=== PATIENT | male | born 1950 | race Caucasian/White ===

== ENCOUNTER 2016-09-07 11:13 | Observation (INO) | payer OTHER ==
[2016-09-07 11:31] VITALS: BMI 35.7
--- NOTE | 2016-09-07 11:31 | DR.GENAD ---
HPI - PCP Primary Care Physician: DEEPAK - Complaint/Symptoms Chief Complaint:: PT C/O LT SIDED CHEST PAIN RADIATING DOWN LT ARM. PT STATES HIS PAIN STARTED LAST NIGHT AND IT IS A STABBING PAIN. - Nurses notes reviewed Nurses Notes Review: Yes - Source History Provided: Patient - Mode of Arrival Mode of Arrival: Ambulatory - Timing Onset of Chief Complaint: 09/06/16 Came on: Gradually - Duration Duration: Intermittent How lon Duration: Hours - Location Location: CHEST - Severity Severity: Mild - Modifying Factors Worsens:: UNKNOWN - Associated Signs and Symptoms Associated Signs and Symptoms: NONE PMH - PMH Past Medical History: Yes Past Medical History: Angina, Coronary Artery Disease, Diabetes, Dyslipidemia, Hypertension Past Surgical History: Yes Surgical History: Angioplasty/Stents, CABG/Valve Surgery, Cholecystectomy, Ortho Surgery - Family History History of Family Medical Conditions: No - Social History Does any household member use tobacco: No Alcohol Use: None Do you use any recreational Drugs:: No Lives With: Family Lives Where: Home - infectious screening In the last 2 months have you had wt loss of >10#?: NO Have you had fever, night sweats or hemotysis?: No Have you traveled outside the country in the last 6 months?: No Isolation: Standard ROS - Review of Systems Constitutional: No Symptoms Reported Eyes: No Symptoms Reported ENTM: No Symptoms Reported Respiratoy: No Symptoms Reported Cardiovascular: Chest Pain (STABBING) Gastrointestinal/Abdominal: No Symptoms Reported Genitourinary: No Symptoms Reported Neurological: No Symptoms Reported Musculoskeletal: No Symptoms Reported Integumentary: No Symptoms Reported Hematologic/Lymphatic: No Symptoms Reported Endocrine: No Symptoms Reported Psychiatric: Depression All Other Systems: Reviewed and Negative PE - Vital Signs Vitals: Temperature 97.6 F Pulse Rate [Left Brachial] 52 Pulse Rate 60 Respiratory Rate 20 Blood Pressure [Left Arm] 104/66 Blood Pressure 168/91 O2 Sat by Pulse Oximetry 96 - General Limitations: No Limitations General Appearance: Alert, In No Apparent Distress - Head Head Exam: Normal Inspection - Eyes Eye exam: Normal Appearance, EOMI. negative: Scleral Icterus, Conjunctival Injection - ENT ENT Exam: Normal Exam, Normal Oropharynx External Ear Exam: Normal External Inspection Nose Exam: Normal Nose Exam Mouth Exam: Normal Inspection Throat Exam: Normal Inspection - Neck Neck Exam: Normal Inspection, Full ROM, Trachea Midline - Chest Chest Inspection: Normal Inspection - Respiratory Respiratory Exam: Normal Lung Sounds Bilat. negative: Accessory Muscle Use, Prolonged Expiratory Phase Respiratory Exam: Bilateral Clear to Auscultation - Cardiovascular Cardiovascular Exam: Regular Rate, Normal Rhythm - Abdominal Exam Abdominal Exam: Normal Inspection, Normal Bowel Sounds, Soft. negative: Distention - Extremities Extremities Exam: Normal Inspection, Full ROM, Tenderness - Back Back Exam: Normal Inspection, Full ROM - Neurologic Neurological Exam: Alert, Oriented X3, CN II-XII Intact - Psychiatric Psychiatric Exam: Normal Affect - Skin Skin Exam: Intact, Normal Color Course - Consultation Called: 12:40 Call Returned: 12:43 Consultation Comments: case discussed with Dr.Sinclair merlos rule out NC ROR - Labs Reviewed Result Diagrams: 09/07/16 11:40 09/07/16 11:40 Laboratory: WBC 4.3 X10^3/uL (3.6-10.0) 09/07/16 11:40 RBC 4.69 X10^6/uL (4.7-6.0) L 09/07/16 11:40 Hgb 14.2 g/dL (13.5-18.0) 09/07/16 11:40 Hct 42.2 % (42.0-54.0) 09/07/16 11:40 MCV 90.0 fL (80.0-100.0) 09/07/16 11:40 MCH 30.4 pg (27.0-34.0) 09/07/16 11:40 MCHC 33.7 g/dL (33.0-35.0) 09/07/16 11:40 RDW 13.3 % (11.6-16.5) 09/07/16 11:40 Plt Count 149 X10^3/uL (150.0-450.0) L 09/07/16 11:40 MPV 9.9 fL (7.4-11.0) 09/07/16 11:40 Neut % 59.4 % (42.0-75.0) 09/07/16 11:40 Lymph % 29.0 % (21.0-51.0) 09/07/16 11:40 [place] % 7.4 % (0.0-13.0) 09/07/16 11:40 Eos % 3.1 % (0.9-2.9) H 09/07/16 11:40 Baso % 1.1 % (0.2-1.0) H 09/07/16 11:40 Neut # 2.5 x10^3/uL (2.2-4.8) 09/07/16 11:40 Lymph # 1.2 X10^3/uL (1.3-2.9) L 09/07/16 11:40 [place] # 0.3 x10^3/uL (0.3-0.8) 09/07/16 11:40 Eos # 0.1 x10^3/uL (0.0-0.2) 09/07/16 11:40 Baso # 0.0 X10^3/uL (0.0-0.1) 09/07/16 11:40 Absolute Nucleated RBC 0.1 /100WBC 09/07/16 11:40 INR Target Range - 09/07/16 11:40 INR 2.07 (0.8-1.3) H 09/07/16 11:40 PTT 36.6 SECONDS (22.9-36.5) H 09/07/16 11:40 PTT Comment - 09/07/16 11:40 Sodium 144 mmol/L (136-145) 09/07/16 11:40 Corrected Sodium 146 mmol/L (136-145) H 09/07/16 11:40 Potassium 4.1 mmol/L (3.5-5.1) 09/07/16 11:40 Chloride 105 mmol/L (98-107) 09/07/16 11:40 Carbon Dioxide 27.4 mmol/L (21-32) 09/07/16 11:40 BUN 13 mg/dL (7-18) 09/07/16 11:40 Creatinine 1.06 mg/dL (0.70-1.30) 09/07/16 11:40 Est GFR (MDRD) Af Amer > 60 (>60) 09/07/16 11:40 Est GFR (MDRD) Non-Af > 60 (>60) 09/07/16 11:40 Glucose 180 mg/dL (65-99) H 09/07/16 11:40 Calcium 8.8 mg/dL (8.5-10.1) 09/07/16 11:40 Corrected Calcium TNP 09/07/16 11:40 Magnesium 1.9 mg/dL (1.7-2.9) 09/07/16 11:40 Total Bilirubin 0.30 mg/dL (0.2-1.0) 09/07/16 11:40 AST 32 Units/L (15-37) 09/07/16 11:40 ALT 48 Units/L (12-78) 09/07/16 11:40 Alkaline Phosphatase 61 Units/L (46-116) 09/07/16 11:40 Creatine Kinase 150 Units/L (39-308) 09/07/16 11:40 Troponin I < 0.02 ng/mL (0-1.5) 09/07/16 11:40 Total Protein 7.7 g/dL (6.4-8.2) 09/07/16 11:40 Albumin 4.0 g/dL (3.4-5.0) 09/07/16 11:40 Globulin 3.7 g/dL (2.5-4.5) 09/07/16 11:40 Albumin/Globulin Ratio 1.1 Ratio (1.1-2.1) 09/07/16 11:40 - XRAY XRAY Interpreted by: Radiologist XRAY Findings: chest: no acute disease - EKG Rate: 70 [place]: LAD Rhythm: NSR Block: None Hypertrophy: None ST: Old, Inf, Infarct - Diagnosis Discharge Problem: Chest pain Qualifiers: Chest pain type: precordial pain Qualified Code(s): R07.2 - Precordial pain - Discharge Plan Disposition: ADMITTED INPATIENT Condition: Stable - Follow ups/Referrals - Instructions
[2016-09-07] MEDS ORDERED: NITROSTAT SL ONE (11:33)
[2016-09-07] MEDS ORDERED: NITROSTAT SL PRN (11:38)
[2016-09-07 11:47] LABS: BASOPHILS % (AUTO) 1.1 % (0.2-1.0); EOSINOPHILS # (AUTO) 0.1 x10^3/uL (0.0-0.2); EOSINOPHILS % (AUTO) 3.1 % (0.9-2.9); HEMATOCRIT 42.2 % (42.0-54.0); HEMOGLOBIN 14.2 g/dL (13.5-18.0); LYMPHOCYTES # (AUTO) 1.2 X10^3/uL (1.3-2.9); MEAN CORPUSCULAR HEMOGLOBIN 30.4 pg (27.0-34.0); MEAN CORPUSCULAR HGB CONC 33.7 g/dL (33.0-35.0); MEAN PLATELET VOLUME 9.9 fL (7.4-11.0); MONOCYTES # (AUTO) 0.3 x10^3/uL (0.3-0.8); MONOCYTES % (AUTO) 7.4 % (0.0-13.0); NEUTROPHILS # (AUTO) 2.5 x10^3/uL (2.2-4.8); NEUTROPHILS % (AUTO) 59.4 % (42.0-75.0); PLATELET COUNT 149 X10^3/uL (150.0-450.0); RED BLOOD COUNT 4.69 X10^6/uL (4.7-6.0); RED CELL DISTRIBUTION WIDTH 13.3 % (11.6-16.5); WHITE BLOOD COUNT 4.3 X10^3/uL (3.6-10.0)
[2016-09-07 12:20] LABS: BLOOD UREA NITROGEN 13 mg/dL (7-18); CALCIUM 8.8 mg/dL (8.5-10.1); CARBON DIOXIDE 27.4 mmol/L (21-32); CHLORIDE 105 mmol/L (98-107); COR NA(FOR HYPERGLY) 146 mmol/L (136-145); CREATININE 1.06 mg/dL (0.70-1.30); GLUCOSE 180 mg/dL (65-99); SODIUM 144 mmol/L (136-145); TROPONIN I < 0.02 ng/mL (0-1.5); eGFR BLACK RACES > 60 (>60); eGFR NON BLACK RACES > 60 (>60)
--- NOTE | 2016-09-07 12:22 | RAD ---
HISTORY: Chest pain Study: Single view of the chest. Comparison: 12/27/2015 Findings: The cardiomediastinal silhouette is normal. No focal consolidations, pleural effusions or pneumothor ax. Osseous structures demonstrate no acute abnormality. IMPRESSION: 1. No acute cardiopulmonary process. Reported By:
[2016-09-07 12:24] LABS: ALANINE AMINOTRANSFERASE 48 Units/L (12-78); ALKALINE PHOSPHATASE 61 Units/L (46-116); ASPARTATE AMINO TRANSFERASE 32 Units/L (15-37); CREATINE KINASE 150 Units/L (39-308); MAGNESIUM 1.9 mg/dL (1.7-2.9); TOTAL PROTEIN 7.7 g/dL (6.4-8.2)
[2016-09-07 13:12] LABS: CKMB % 1.4 % (<4); CREATINE KINASE MB 2.1 ng/mL (0-4.0)
[2016-09-07] MEDS ORDERED: ULTRAM PO PRN (14:21)
[2016-09-07] MEDS ORDERED: NORCO 10/325 TAB PO ONE (16:43)
[2016-09-07 17:17] LABS: CREATINE KINASE 133 Units/L (39-308); TROPONIN I < 0.02 ng/mL (0-1.5)
[2016-09-07] MEDS ORDERED: XANAX PO PRN (18:14)
[2016-09-07] MEDS ORDERED: FLEXERIL TAB 10 MG PO PRN (18:14)
[2016-09-07 18:30] LABS: CKMB % 1.6 % (<4); CREATINE KINASE MB 2.1 ng/mL (0-4.0)
[2016-09-07] MEDS ORDERED: COUMADIN TAB 5 MG PO SCH (21:00)
[2016-09-07] MEDS: PROTONIX TAB 40 MG PO SCH (21:25)
[2016-09-07] MEDS: NEURONTIN TAB 600 MG PO SCH (21:25)
[2016-09-07] MEDS: REGLAN TAB 10 MG PO SCH (21:26)
[2016-09-07] MEDS: LOPID PO SCH (21:26)
[2016-09-07] MEDS ORDERED: TOPROL XL PO SCH (23:00)
[2016-09-07 23:41] LABS: CKMB % 1.5 % (<4); CREATINE KINASE 123 Units/L (39-308); CREATINE KINASE MB 1.9 ng/mL (0-4.0); TROPONIN I < 0.02 ng/mL (0-1.5)
[2016-09-07] MEDS: NORCO 10/325 TAB PO PRN (23:44)
[2016-09-08] MEDS: REGLAN TAB 10 MG PO SCH (05:41)
[2016-09-08] MEDS: NEURONTIN TAB 600 MG PO SCH (05:42)
[2016-09-08 05:58] LABS: CHOL/HDL RATIO 5.5 (0.0-5.0)
[2016-09-08] MEDS ORDERED: ZESTRIL TAB 20 MG ONE (07:33)
[2016-09-08 08:45] VITALS: BP 125/69
[2016-09-08] MEDS: LOPID PO SCH (08:47)
[2016-09-08] MEDS: PROTONIX TAB 40 MG PO SCH (08:47)
[2016-09-08] MEDS: NORCO 10/325 TAB PO PRN (08:59)
[2016-09-08] MEDS ORDERED: VITAMIN D (1.25MG) PO SCH ×2 (09:00)
[2016-09-08] MEDS ORDERED: MYSOLINE PO SCH (09:00)
[2016-09-08] MEDS ORDERED: ZESTRIL TAB 20 MG PO SCH (09:00)
[2016-09-08] MEDS ORDERED: FLOMAX PO SCH (09:00)
[2016-09-08] MEDS ORDERED: TOPROL XL PO SCH (09:00)
[2016-09-08] MEDS ORDERED: PLAVIX PO SCH (09:00)
--- NOTE | 2016-09-08 16:22 | DR.CARTERS ---
Short Stay Summary - Short Stay Summary for: Short Stay Summary for Date of:: 09/08/16 - Admission Date Date of Admission: 09/07/16 - Discharge Date Discharge Date: 09/08/16 - Admission Diagnoses (1) Chest pain Status: Acute - Hospital Course Hospital Course: PATIENT IS A 66-YEAR-OLD WHITE MALE WHO WAS ADMITTED FROM THE EMERGENCY ROOM AFTER PRESENTING WITH COMPLAINTS OF LEFT-SIDED CHEST PAIN. pATIENT DOES HAVE A HISTORY OF CORONARY ARTERY DISEASE WITH A HISTORY OF BYPASS APPROXIMATELY 6 MONTHS AGO PER dR. Pema Adkins IN [place] WITH [facility]. pATIENT USUALLY SEES dR. Harris. 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 pATIENT HAS BEEN ON pLAVIX AND ASPIRIN BLOOD PRESSURE AND LIPID CONTROL. pATIENT WAS ADMITTED TO RULE OUT ACUTE mi PATIENT HAD A CHEST X-RAY WHICH WAS WITHIN NORMAL LIMITS, PATIENT HAD SERIAL CARDIAC ENZYMES AND ekg WITH NO ACUTE CHANGES. tHE PATIENT DENIES ANY CHEST PAIN THIS MORNING OR SHORTNESS OF BREATH WITH DIAPHORESIS OR WEAKNESS. pATIENT STATED HE FEELS MUCH BETTER AND READY TO GO HOME. pATIENT WAS DISCHARGED HOME TO RESUME HOME MEDICATIONS WELL KEEP A BLOOD PRESSURE LOG. pATIENT INSTRUCTED TO USE A cpap MACHINE PRESCRIBED. pATIENT INSTRUCTED TO FOLLOW-UP WITH GLENDA SOTELO IN 1 WEEK FOR FURTHER EVALUATION AND dR. Garcia SCHEDULED FOR HOSPITAL FOLLOW-UP. pATIENT INSTRUCTED TO RETURN TO EMERGENCY ROOM IF CONDITION CHANGES OR WORSEN UNEXPECTEDLY PATIENT VERBALIZED UNDERSTANDING. - Discharge Medications Discharge Medications: Alprazolam 0.5 mg PO BID 09/07/16 [History] Clopidogrel Bisulfate [Clopidogrel] 75 mg PO DAILY 09/07/16 [History] Cyclobenzaprine HCl [Flexeril] 5 mg PO TID PRN 09/07/16 [History] Ergocalciferol [Vitamin D] 50,000 unit PO WEEKLY 09/07/16 [History] Gabapentin [Gabapentin] 600 mg PO TID 09/07/16 [History] Gemfibrozil 600 mg PO BID 09/07/16 [History] Hydrocodone-Acetaminophen [Lorcet Hd 10-325 mg] 1 tab PO Q4-6H PRN 09/07/16 [ History] Lisinopril [Lisinopril] 20 mg PO DAILY 09/07/16 [History] Metoclopramide HCl [Metoclopramide Odt] 10 mg PO ACHS 09/07/16 [History] Metoprolol Succinate Ext Rel [TOPROL XL 50 MG *] 50 mg PO DAILYHS 09/07/16 [ History] Primidone [Primidone] 50 mg PO DAILY 09/07/16 [History] Rabeprazole Sodium [Aciphex] 20 mg PO BID 09/07/16 [History] Simvastatin [Simvastatin] 80 mg PO HS 09/07/16 [History] Tamsulosin HCl 0.4 mg PO DAILY 09/07/16 [History] Warfarin Sodium [COUMADIN 5 MG *] 5 mg PO DAILY 09/07/16 [History] - Discharge Plan Disposition: HOME, SELF-CARE Condition: Stable - Follow up/Referrals Follow up/Referrals: OSVALDO SOTELO [Primary Care Provider] - 09/11/16 2:30 pm - Instructions Instructions: Warfarin: What You Need to Know, Nonspecific Chest Pain, Hypertension, [id number] Additional Instructions: RESUME HOME MEDS REST, SEE DR GARCIA ON OP BASIS DISCUSSED NEED FOR USE OF HIS CPAP SEE GLENDA SOTELO ON SUNDAY FOR FOLLOWUP BP RECHECK Forms: Patient Portal
== END 2016-09-08 13:00 | disposition home or self-care (01) ==
LOC: ER 11:22 → MED/SURG 12:47
PROVIDERS: ADMIT Internal Medicine; ATTEND Internal Medicine
DX: R07.2 Precordial pain (principal); R94.31 Abnormal electrocardiogram [ECG] [EKG]; I25.10 Atherosclerotic heart disease of native coronary artery without angina pectoris; E11.65 Type 2 diabetes mellitus with hyperglycemia; E78.2 Mixed hyperlipidemia; I10 Essential (primary) hypertension; Z79.01 Long term (current) use of anticoagulants; R79.1 Abnormal coagulation profile; R06.02 Shortness of breath; E87.0 Hyperosmolality and hypernatremia
CPT/HCPCS: 36415; 71010; 80053; 80061; 82550; 82553; 83735; 84484; 85025; 85610; 85730; 93005; 93010; 94760; 96365; 99284; A4216; A4222; G0378

== ENCOUNTER → 2016-09-14 | Outpatient (CLI) | payer OTHER ==
[2016-09-08 08:45] VITALS: BP 125/69
[~2016-09-14] MED LIST: NS 100 ML IV 100 ML IV ONE
--- NOTE | 2016-09-18 08:43 | CT ---
CTA ABDOMEN AND PELVIS WITH AND WITHOUT CONTRAST CLINICAL INDICATION: Abdominal aortic aneurysm PROCEDURE: Noncontrast CTA images were initially obtained through the abdomen and pelvis. Followin g administration of non-ionic IV contrast, postcontrast CTA images were obtained through the abdomen and pelvis. 3D reconstructions were performed. Dose reduction techniques including Automated Expos ure Control (AEC) and adjustment of mA and kV were utlized. COMPARISON: Lumbar spine MRI 10/26/2014 FINDINGS: Vascular: Patient is status post aorto bi-iliac stent placement. Infrarenal abdominal aorta measures 2.9 cm maximally, previously 3.2 cm. Atherosclerotic calcification of the aorta and major branches. No dissection. CTA Abdomen without contrast: Gallbladder absent. Severe hepatic steatosis. No renal stones. Lung b ases demonstrate no significant abnormality. Severe Coronary and valvular calcification. CTA Pelvis without contrast: No distal ureteral stones or bladder stones. CTA Abdomen with intravenous contrast: Liver and spleen are normal in size, enhancement characterist ics and contour. No focal lesions. Duodenal diverticulum.. The portal vein is patent. No ductal dili tation. Gallbladder is present. No gallbladder wall thickening. The pancreas is unremarkable. Adrena l glands are normal. Kidneys enhance symmetrically without hydronephrosis. No bowel obstruction or inflammation. No abnormal appearing mesenteric or retroperitoneal lymph nod es. No free fluid or fluid collections. CTA Pelvis with contrast: The bladder is normal in appearance. Prostate not well evaluated secondary to streak artifact from hip prostheses. No free fluid or abnormal pelvic lymph nodes. No aggressiv e osseous lesions. IMPRESSION: 1. Stable to decreased size of infrarenal abdominal aortic aneurysm status post stent placement. David nt appears to be patent. 2. Severe diffuse vascular disease. 3. Hepatic steatosis. Reported By:
== END | disposition home or self-care (01) ==
LOC: RAD 09:15
PROVIDERS: ATTEND Nurse Practitioner Family
DX: I71.4 Abdominal aortic aneurysm, without rupture (principal); K76.0 Fatty (change of) liver, not elsewhere classified; I99.8 Other disorder of circulatory system; Z95.828 Presence of other vascular implants and grafts
CPT/HCPCS: A4222

== ENCOUNTER 2016-10-10 23:26 | Emergency (ER) | payer OTHER ==
[2016-10-10 23:30] VITALS: BMI 35.7
--- NOTE | 2016-10-10 23:37 | DR.HTN ---
HPI - Time Seen Time seen: 23:50 - Primary Care Physician Primary Care Physician: MARCO SOTELO - Complaints Chief Complaint:: "ELEVATED BLOOD PRESSURE ALL DAY. CALLED , NURSE WAS TO CALL US BACK WITH INSTRUCTIONS ON WHAT TO DO AND DID NOT. HE HAS TAKEN EXTRA BP MEDS AND NITROGLYCERINS TO GET IT DOWN. IT DROPS AND GOES RIGHT BACK UP." - Reviewed Nurses Notes Reviewed: Yes - Source History Provided: Patient - Mode of Arrival Mode of Arrival: Ambulatory - Timing Onset of Chief Complaint: 10/10/16 - Severity Severity: Mild - Context Circumstances: Spontaneous Onset History of: Hypertension Treatment of HTN Prior to Arrival: Taking meds as prescribed - Associated Signs and Symptoms HTN Associated Signs and Symptoms: None - Other History Other History: getting BP controlled by PCP. On meds for 2 weeks now. PMH - PMH Past Medical History: Yes Past Medical History: Angina, Coronary Artery Disease, Diabetes, Dyslipidemia, Hypertension Past Surgical History: Yes Surgical History: Angioplasty/Stents, CABG/Valve Surgery, Cholecystectomy, Ortho Surgery - Family History History of Family Medical Conditions: Yes Family Medical History: [place], Coronary Artery Disease, Hypertension - Social History Does patient currently use any type of tobacco product: No Have you used tobacco products in the last 12 months: No Type of Tobacco Use: None Alcohol Use: None Do you use any recreational Drugs:: No Lives With: Spouse Lives Where: Home - infectious screening Have you traveled outside the country in the last 6 months?: No Isolation: Standard ROS - Review of Systems Constitutional: No Symptoms Reported Eyes: No Symptoms Reported ENTM: No Symptoms Reported Respiratoy: No Symptoms Reported Cardiovascular: No Symptoms Reported Gastrointestinal/Abdominal: No Symptoms Reported Genitourinary: No Symptoms Reported Neurological: No Symptoms Reported Musculoskeletal: No Symptoms Reported Integumentary: No Symptoms Reported Hematologic/Lymphatic: No Symptoms Reported Endocrine: No Symptoms Reported Psychiatric: Anxiety All Other Systems: Reviewed and Negative PE - Vital Signs Vitals: Temperature 97.4 F Pulse Rate [Right Brachial] 54 Pulse Rate 58 Respiratory Rate 16 Blood Pressure [Right Arm] 158/80 Blood Pressure [Left Arm] 175/93 Blood Pressure 176/112 O2 Sat by Pulse Oximetry 96 - General Limitations: No Limitations General Appearance: Alert, In No Apparent Distress - Head Head Exam: Normal Inspection - Eyes Eye exam: Normal Appearance, EOMI. negative: Scleral Icterus, Conjunctival Injection Pupils: Regular, Round: Bilateral Sclera/Conjunctival: Normal Inspection: Bilateral - ENT ENT Exam: Normal Exam, Normal Oropharynx - Neck Neck Exam: Normal Inspection, Full ROM, Trachea Midline - Respiratory Respiratory Exam: Normal Lung Sounds Bilat. negative: Accessory Muscle Use, Respiratory Distress - Cardiovascular Cardiovascular Exam: Regular Rate - Extremities Extremities Exam: Normal Inspection, Full ROM - Back Back Exam: Normal Inspection - Neurologic Neurological Exam: Alert, Oriented X3, CN II-XII Intact Patient Oriented To: Person, Place, Time Speech: Fluid Speech Cranial Nerve Exam: EOM Function (II, III, IV, ): Normal, Facial Sensation (V) : Normal, Facial Palsy (VII): Normal, Gag reflex (XI): Normal, Spinal Accessory Function (XI): Normal, Tongue Deviation: Normal - Psychiatric Psychiatric Exam: Normal Mood - Skin Skin Exam: Intact, Normal Color Course - Treatment Treatment: BP came down with catapress, will discharge with a RX for catapress as abreak through medicne - Diagnosis Discharge Problem: Hypertension Qualifiers: Hypertension type: essential hypertension Qualified Code(s): I10 - Essential ( primary) hypertension - Discharge Plan Condition: Stable Prescriptions: Clonidine HCl [Catapres Tab 0.2 mg] 0.2 mg PO PRN PRN #30 tab PRN Reason: Hypertension - Follow ups/Referrals Follow ups/Referrals: OSVALDO SOTELO [Primary Care Provider] - 3 days - Instructions
[2016-10-10] MEDS ORDERED: CATAPRES TAB 0.2 MG PO ONE (23:54)
[2016-10-10] MEDS ORDERED: CATAPRES TAB 0.2 MG ONE (23:58)
[2016-10-11 00:33] VITALS: BP 156/81
== END 2016-10-11 00:38 | disposition home or self-care (01) ==
LOC: ER 23:39
DX: I10 Essential (primary) hypertension (principal)
CPT/HCPCS: 99282

== ENCOUNTER → 2016-10-31 | Outpatient (CLI) | payer OTHER ==
[2016-10-11 00:33] VITALS: BP 156/81
[2016-10-31 08:55] LABS: BASOPHILS # (AUTO) 0.1 X10^3/uL (0.0-0.1); EOSINOPHILS # (AUTO) 0.1 x10^3/uL (0.0-0.2); EOSINOPHILS % (AUTO) 1.6 % (0.9-2.9); HEMATOCRIT 44.2 % (42.0-54.0); HEMOGLOBIN 15.1 g/dL (13.5-18.0); LYMPHOCYTES # (AUTO) 1.9 X10^3/uL (1.3-2.9); LYMPHOCYTES % (AUTO) 27.5 % (21.0-51.0); MEAN CORPUSCULAR HGB CONC 34.1 g/dL (33.0-35.0); MEAN CORPUSCULAR VOLUME 90.8 fL (80.0-100.0); MEAN PLATELET VOLUME 9.3 fL (7.4-11.0); MONOCYTES # (AUTO) 0.5 x10^3/uL (0.3-0.8); MONOCYTES % (AUTO) 6.9 % (0.0-13.0); NEUTROPHILS # (AUTO) 4.3 x10^3/uL (2.2-4.8); PLATELET COUNT 194 X10^3/uL (150.0-450.0); RED BLOOD COUNT 4.87 X10^6/uL (4.7-6.0); RED CELL DISTRIBUTION WIDTH 13.9 % (11.6-16.5); WHITE BLOOD COUNT 6.9 X10^3/uL (3.6-10.0)
[2016-10-31 09:07] LABS: ALANINE AMINOTRANSFERASE 48 Units/L (12-78); ALBUMIN 3.8 g/dL (3.4-5.0); ALKALINE PHOSPHATASE 70 Units/L (46-116); ASPARTATE AMINO TRANSFERASE 23 Units/L (15-37); BILIRUBIN,DIRECT 0.07 mg/dL (0-0.2); BLOOD UREA NITROGEN 16 mg/dL (7-18); CHLORIDE 101 mmol/L (98-107); CHOL/HDL RATIO 4.7 (0.0-5.0); CHOLESTEROL 197 mg/dL (0-200); COR NA(FOR HYPERGLY) 144 mmol/L (136-145); CREATININE 1.09 mg/dL (0.70-1.30); GLUCOSE 370 mg/dL (65-99); HDL CHOLESTEROL 42 mg/dL (40-60); SODIUM 138 mmol/L (136-145); TOTAL PROTEIN 7.8 g/dL (6.4-8.2); TRIGLYCERIDES 234 mg/dL (0-150); eGFR BLACK RACES > 60 (>60); eGFR NON BLACK RACES > 60 (>60)
== END ==
LOC: LAB 08:41
PROVIDERS: ATTEND Physician Assistant
DX: I73.89 Other specified peripheral vascular diseases (principal); E78.2 Mixed hyperlipidemia
CPT/HCPCS: 36415; 80048; 80061; 80076; 85025

== ENCOUNTER → 2016-12-18 | Outpatient (CLI) | payer OTHER ==
--- NOTE | 2016-12-18 12:04 | VAS ---
HISTORY: Carotid artery disease Study: Carotid ultrasound Comparison: None Technique: Multiple gamino scale and color flow Doppler images of the right and left carotid arterial system were obtained. The vertebral arterial system was evaluated as well. Findings: The peak systolic velocity of the right ICA is 64 cm/sec. The peak systolic velocity of the left IC A is 59 cm/sec. The ICA/CCA ratio on the right is 1.4. The ICA/CCA ratio on the left is 1.5. Bilater al antegrade vertebral flow was noted. IMPRESSION: 1. No hemodynamically significant stenosis. Reported By:
== END ==
LOC: RAD 08:53
PROVIDERS: ATTEND Internal Medicine Cardiovascular Disease
DX: I65.23 Occlusion and stenosis of bilateral carotid arteries (principal); I25.10 Atherosclerotic heart disease of native coronary artery without angina pectoris
CPT/HCPCS: 78452; 93017; 93880; A9502

== ENCOUNTER 2020-06-02 10:37 | Inpatient (IN) ==
[2020-06-01] MEDS: LEVAQUIN PREMIX IV 500 MG 500 MG/100 ML BAG IV SCH (14:15)
[2020-06-01] MEDS: ASCORBIC ACID INJ MULTI-DOSE VIAL 1,500 MG in NS 50 ML IV 50 ML IV SCH ×3 (14:15→20:16)
[2020-06-01] MEDS: FORTAZ or TAZICEF VIAL INJ IV SCH ×3 (14:16→21:34)
[2020-06-01] MEDS: NS 1/2 1000 ML IV 1,000 ML IV SCH (14:17)
[2020-06-01] MEDS: PEPCID TAB 20 MG PO SCH ×2 (14:19→20:18)
[2020-06-01] MEDS: ROBITUSSIN (PLAIN) PO SCH ×3 (14:20→20:18)
[2020-06-01] MEDS: SOLU-Medrol 125 MG VIAL IVP SCH ×3 (14:20→20:17)
[2020-06-01] MEDS: PROTONIX TAB 40 MG PO SCH (14:20)
[2020-06-01] MEDS: THEO-DUR TAB 300 MG 12-HR PO SCH ×3 (14:21→20:17)
[2020-06-01] MEDS: THIAMINE HCL INJ IVP SCH ×2 (14:21→20:17)
[2020-06-01] MEDS: DIFLUCAN PO SCH ×2 (14:21→15:27)
[2020-06-01] MEDS: ZyrTEC TAB 10 MG PO SCH (14:22)
[2020-06-01] MEDS: ZINC SULFATE PO SCH (14:22)
[2020-06-01] MEDS: MUCOMYST 20% 200 MG/ML NEB SCH ×2 (14:23→17:25)
[2020-06-01] MEDS: TESSALON PERLES PO SCH ×2 (14:23→21:35)
[2020-06-01] MEDS: XOPENEX 1.25 MG/3 ML NEBULE NEB SCH ×2 (14:24→17:25)
[2020-06-01] MEDS: ACCUNEB 1.25 MG NEBULE NEB SCH ×2 (14:24→17:47)
[2020-06-01 14:25] LABS: ABG ALLEN TEST POS; ABG BASE EXCESS 2.1 mmol/L (-2.0-2.0); ABG HCO3 25.3 mmol/L (22-26)
[2020-06-01] MEDS: VITAMIN D3 125 mcg (5,000 UNITS) PO SCH (14:26)
[2020-06-01 14:30] LABS: CKMB % 0.9 % (<4); CREATINE KINASE MB 3.2 ng/mL (0-4.0); TROPONIN I 0.05 ng/mL (0-1.5)
[2020-06-01 15:06] LABS: ALANINE AMINOTRANSFERASE 50 Units/L (12-78); ALBUMIN 3.9 g/dL (3.4-5.0); ALKALINE PHOSPHATASE 82 Units/L (46-116); ASPARTATE AMINO TRANSFERASE 56 Units/L (15-37); BLOOD UREA NITROGEN 25 mg/dL (7-18); CALCIUM 9.5 mg/dL (8.5-10.1); CARBON DIOXIDE 25.8 mmol/L (21-32); CHLORIDE 98 mmol/L (98-107); COR NA(FOR HYPERGLY) 141 mmol/L (136-145); SODIUM 137 mmol/L (136-145); TOTAL PROTEIN 8.5 g/dL (6.4-8.2); eGFR NON BLACK RACES 58 (>60)
[2020-06-01 15:40] LABS: BASOPHILS % (AUTO) 0.2 % (0.2-1.0); HEMATOCRIT 43.4 % (42.0-54.0); HEMOGLOBIN 14.9 g/dL (13.5-18.0); LYMPHOCYTES # (AUTO) 0.5 X10^3/uL (1.3-2.9); LYMPHOCYTES % (AUTO) 6.4 % (21.0-51.0); MEAN CORPUSCULAR HGB CONC 34.4 g/dL (33.0-35.0); MEAN CORPUSCULAR VOLUME 90.2 fL (80.0-100.0); MEAN PLATELET VOLUME 9.8 fL (7.4-11.0); MONOCYTES # (AUTO) 0.4 x10^3/uL (0.3-0.8); MONOCYTES % (AUTO) 4.8 % (0.0-13.0); NEUTROPHILS # (AUTO) 7.2 x10^3/uL (2.2-4.8); NEUTROPHILS % (AUTO) 88.6 % (42.0-75.0); PLATELET COUNT 132 X10^3/uL (150.0-450.0); RED BLOOD COUNT 4.81 X10^6/uL (4.7-6.0); RED CELL DISTRIBUTION WIDTH 13.8 % (11.6-16.5); WHITE BLOOD COUNT 8.2 X10^3/uL (3.6-10.0)
--- NOTE | 2020-06-01 16:05 | CT ---
HISTORYCOVID +STUDYCTA CHESTCOMPARISONTECHNIQUEAxial CT images of the chest were obtained after the administration of IV contrast utilizing a CTA protocol. 3D MIPS were performed and reviewed for further evaluation.Radiation dose: 574.10 mGy-cm total DLPFINDINGSNo significant pericardial effusion.Coronary artery calcifications.Status post CABG.No mediastinal or hilar lymphadenopathy.Aorta is normal in caliber without dissection.Pulmonary arteries are normal in caliber without filling defects to suggest a pulmonary embolus.Airways are widely patent.Thyroid appears normal.No pleural effusion.Patchy bilateral diffuse ground-glass airspace opacities.No pneumothorax.No concerning lung parenchymal lesion identified.Status post cholecystectomy.Otherwise, the imaged portion of the upper abdomen is unremarkable.No acute osseous abnormality.Multilevel mild degenerative disc disease.Status post median sternotomy.Sclerotic foci in the anterior left 6th rib.IMPRESSION1. Patchy diffuse bilateral ground-glass airspace opacities is consistent with the given history of a COVID-19 respiratory infection.2. No pulmonary embolus identified.3. Sclerotic foci in the left anterior 6th rib. Nuclear medicine bone scan was negative for metastatic disease on February 06, 2020; patient with a history of prostate cancer. Recommend correlation with patient's PSA.Electronically signed by: Chandan Arias (Jun 01, 2020 16:03:38)
[2020-06-01] MEDS: LOVENOX INJ 40 MG SYR SC SCH ×2 (16:10→16:35)
[2020-06-01 16:20] VITALS: BMI 34.9
[2020-06-01] MEDS: LIPITOR TAB 80 MG PO SCH (20:16)
[2020-06-01] MEDS: SINGULAIR TAB 10 MG PO SCH (20:16)
[2020-06-01] MEDS: MELATONIN PO SCH (20:18)
[2020-06-01] MEDS: SNACK - Diabetic Appropriate PO SCH (20:19)
[2020-06-01] MEDS: MILK OF MAGNESIA PO SCH (20:19)
[2020-06-01] MEDS: PULMICORT NEB TX 0.5 MG NEB SCH (21:20)
[2020-06-01] MEDS: BROVANA IN SCH (21:20)
[2020-06-01] MEDS: HumuLIN R SUBCUT PRN (23:13)
[2020-06-02] MEDS: ACCUNEB 1.25 MG NEBULE NEB SCH ×4 (01:00→18:00)
[2020-06-02] MEDS: MUCOMYST (RESPIRATORY USE ONLY) NEB SCH ×4 (01:00→18:00)
[2020-06-02] MEDS: NS 1/2 1000 ML IV 1,000 ML IV SCH ×3 (02:57→15:02)
[2020-06-02] MEDS: ASCORBIC ACID INJ MULTI-DOSE VIAL 1,500 MG in NS 50 ML IV 50 ML IV SCH ×4 (02:57→20:27)
[2020-06-02] MEDS: SOLU-Medrol 125 MG VIAL IVP SCH ×4 (03:46→20:31)
[2020-06-02] MEDS: TESSALON PERLES PO SCH ×3 (05:19→22:03)
[2020-06-02] MEDS: FORTAZ or TAZICEF VIAL INJ IV SCH ×3 (05:20→22:08)
[2020-06-02] MEDS: HumuLIN R SUBCUT PRN ×5 (05:28→22:21)
--- NOTE | 2020-06-02 06:08 | RAD ---
HISTORYSOBSTUDYCHEST, 1 VIEWCOMPARISONCTA chest from 05/1920TECHNIQUEAP view of the chestFINDINGSStatus post median sternotomy and CABG. Cardiac silhouette is enlarged. Moderate bilateral hazy and interstitial lung opacities. No definite pleural effusion or pneumothorax.IMPRESSIONBilateral hazy and interstitial lung opacities consistent with COVID 19.Electronically signed by: Mitchel Carrera (Jun 02, 2020 06:07:28)
[2020-06-02 06:46] LABS: BASOPHILS % (AUTO) 0.1 % (0.2-1.0); HEMATOCRIT 43.4 % (42.0-54.0); HEMOGLOBIN 14.7 g/dL (13.5-18.0); LYMPHOCYTES # (AUTO) 0.6 X10^3/uL (1.3-2.9); LYMPHOCYTES % (AUTO) 9.1 % (21.0-51.0); MEAN CORPUSCULAR HEMOGLOBIN 30.6 pg (27.0-34.0); MEAN CORPUSCULAR VOLUME 90.1 fL (80.0-100.0); MEAN PLATELET VOLUME 9.6 fL (7.4-11.0); MONOCYTES # (AUTO) 0.3 x10^3/uL (0.3-0.8); MONOCYTES % (AUTO) 4.4 % (0.0-13.0); NEUTROPHILS # (AUTO) 5.4 x10^3/uL (2.2-4.8); NEUTROPHILS % (AUTO) 86.4 % (42.0-75.0); PLATELET COUNT 135 X10^3/uL (150.0-450.0); RED BLOOD COUNT 4.82 X10^6/uL (4.7-6.0); RED CELL DISTRIBUTION WIDTH 13.6 % (11.6-16.5); WHITE BLOOD COUNT 6.3 X10^3/uL (3.6-10.0)
[2020-06-02 06:59] LABS: ALANINE AMINOTRANSFERASE 44 Units/L (12-78); ALBUMIN 3.3 g/dL (3.4-5.0); ALKALINE PHOSPHATASE 69 Units/L (46-116); ASPARTATE AMINO TRANSFERASE 52 Units/L (15-37); BLOOD UREA NITROGEN 19 mg/dL (7-18); CALCIUM 8.6 mg/dL (8.5-10.1); CARBON DIOXIDE 27.2 mmol/L (21-32); CHLORIDE 100 mmol/L (98-107); COR CA(FOR HYPOALB) 9.2 mg/dL (8.5-10.1); COR NA(FOR HYPERGLY) 146 mmol/L (136-145); CREATININE 1.23 mg/dL (0.70-1.30); SODIUM 141 mmol/L (136-145); TOTAL PROTEIN 7.7 g/dL (6.4-8.2); eGFR NON BLACK RACES > 60 (>60)
[2020-06-02] MEDS: BROVANA IN SCH (08:50)
[2020-06-02] MEDS: PULMICORT NEB TX 0.5 MG NEB SCH ×2 (08:55→21:20)
[2020-06-02] MEDS: LOVENOX INJ 40 MG SYR SC SCH ×2 (09:33→20:28)
[2020-06-02] MEDS: DIFLUCAN PO SCH (09:33)
[2020-06-02] MEDS: PEPCID TAB 20 MG PO SCH ×2 (09:34→20:29)
[2020-06-02] MEDS: ZyrTEC TAB 10 MG PO SCH (09:35)
[2020-06-02] MEDS: ZINC SULFATE PO SCH (09:35)
[2020-06-02] MEDS: VITAMIN D3 125 mcg (5,000 UNITS) PO SCH (09:36)
[2020-06-02] MEDS: PROTONIX TAB 40 MG PO SCH (09:36)
[2020-06-02] MEDS: THIAMINE HCL INJ IVP SCH ×2 (09:37→20:31)
[2020-06-02] MEDS: ROBITUSSIN (PLAIN) PO SCH ×4 (09:38→20:30)
[2020-06-02] MEDS: REMDESIVIR 100 MG in NS 250 ML IV 250 ML IV SCH (09:38)
[2020-06-02] MEDS: THEO-DUR TAB 300 MG 12-HR PO SCH ×2 (09:38→20:31)
[2020-06-02] MEDS: MILK OF MAGNESIA PO SCH ×3 (09:39→22:03)
[2020-06-02] MEDS: LEVAQUIN PREMIX IV 500 MG 500 MG/100 ML BAG IV SCH (09:39)
[2020-06-02] MEDS: XANAX PO PRN (10:00)
[~2020-06-02 10:37] MED LIST changes: +ASCORBIC ACID INJ MULTI-DOSE VIAL IV ONE; +FORTAZ or TAZICEF VIAL INJ ONE; +HumuLIN R ONE; +IVERMECTIN PO ONE; +LEVAQUIN PREMIX IV 500 MG 500 MG/100 ML BAG IV ONE; +LIPITOR TAB 80 MG ONE; +LOVENOX INJ 40 MG SYR SC ONE; +MILK OF MAGNESIA ONE; +NS 1/2 1000 ML IV 1,000 ML IV ONE; +NS 100 ML IV + SPIKE MINIBAG* 100 ML IV ONE; +NS 250 ML IV 250 ML IV ONE; +NS 50 ML IV 50 ML IV ONE; +PEPCID TAB 20 MG ONE; +PROTONIX TAB 40 MG PO ONE; +REMDESIVIR 200 MG in NS 250 ML IV 250 ML IV ONE; +REMDESIVIR IV ONE; +ROBITUSSIN (PLAIN) ONE; +SOLU-Medrol 125 MG VIAL ONE; +TESSALON PERLES PO ONE; +THIAMINE HCL INJ ONE; +TUSSIONEX PENNKINETIC SUSP PO PRN; +VITAMIN D3 125 mcg (5,000 UNITS) ONE; +XANAX ONE; +XOPENEX 1.25 MG/3 ML NEBULE NEB ONE; +ZINC SULFATE ONE; +ZyrTEC TAB 10 MG ONE
[2020-06-02] MEDS ORDERED: HumuLIN R ONE ×3 (11:35→22:10)
[2020-06-02 13:22] LABS: ABG BASE EXCESS 1.8 mmol/L (-2.0-2.0); ABG HCO3 25.7 mmol/L (22-26)
[2020-06-02 13:23] LABS: ABG ALLEN TEST POS
[2020-06-02] MEDS ORDERED: ROBITUSSIN (PLAIN) ONE ×3 (13:23→20:00)
[2020-06-02] MEDS ORDERED: FORTAZ or TAZICEF VIAL INJ ONE ×2 (13:34→20:00)
[2020-06-02] MEDS ORDERED: TESSALON PERLES PO ONE ×2 (13:34→20:00)
[2020-06-02] MEDS ORDERED: NS 100 ML IV + SPIKE MINIBAG* 100 ML IV ONE ×2 (13:35)
[2020-06-02] MEDS ORDERED: POTASSIUM CHL 60 MEQ/NS 0.45% 500 ML IV PRN (14:02)
[2020-06-02] MEDS ORDERED: POTASSIUM CHL 40 MEQ/NS 0.45% 500 ML IV PRN (14:02)
[2020-06-02] MEDS ORDERED: KLOR-CON PO PRN (14:02)
[2020-06-02] MEDS ORDERED: K-DUR TAB 20 MEQ PO PRN (14:02)
[2020-06-02] MEDS ORDERED: POTASSIUM CHLORIDE LIQ 20 MEQ UDC PO PRN (14:02)
[2020-06-02] MEDS ORDERED: MICRO K EXTEN CAP 10 MEQ PO PRN (14:02)
[2020-06-02] MEDS ORDERED: SOLU-Medrol 125 MG VIAL ONE ×2 (14:43→20:00)
[2020-06-02] MEDS ORDERED: NS 100 ML IV 100 ML IV ONE ×2 (14:44→16:58)
[2020-06-02] MEDS ORDERED: FLEXERIL TAB 10 MG ONE ×2 (15:03→19:59)
[2020-06-02] MEDS: FLEXERIL TAB 10 MG PO SCH ×2 (15:07→20:28)
[2020-06-02] MEDS ORDERED: PROVENTIL NEB TX 0.083% 2.5MG/ 3ML ONE (16:21)
[2020-06-02] MEDS ORDERED: K-DUR TAB 20 MEQ PO ONE (16:48)
[2020-06-02] MEDS ORDERED: CARDIZEM INJ 125 MG VIAL 125 MG in NS 100 ML IV 100 ML IV PRN (16:57)
[2020-06-02] MEDS ORDERED: LANOXIN INJ IVP ONE (16:59)
[2020-06-02] MEDS ORDERED: CARDIZEM INJ 125 MG VIAL ONE (16:59)
[2020-06-02] MEDS ORDERED: LANOXIN INJ ONE ×3 (17:02→21:17)
[2020-06-02] MEDS ORDERED: CARDIZEM INJ 50 MG VIAL IVP ONE (17:30)
[2020-06-02] MEDS ORDERED: CARDIZEM INJ 50 MG VIAL ONE (17:32)
[2020-06-02 18:04] LABS: CKMB % 1.7 % (<4); TROPONIN I 0.08 ng/mL (0-1.5)
[2020-06-02 18:08] LABS: CREATINE KINASE MB 8.4 ng/mL (0-4.0)
[2020-06-02 18:11] LABS: BILIRUBIN,URINE NEGATIVE (NEGATIVE); BLOOD/HEMOGLOBIN,URINE 3+ (NEGATIVE); GLUCOSE, URINE 4+ (NEGATIVE); KETONES,URINE 3+ (NEGATIVE); LEUKOCYTE ESTERASE ,URINE NEGATIVE (NEGATIVE); NITRITES,URINE NEGATIVE (NEGATIVE); PROTEIN,URINE 3+ (NEGATIVE); UROBILINOGEN,URINE NORMAL (NORMAL)
[2020-06-02 18:16] LABS: APPEARANCE,URINE CLEAR (CLEAR); COLOR,URINE YELLOW (YELLOW)
[2020-06-02 18:17] LABS: BACTERIA,URINE NEGATIVE /HPF (NEGATIVE); SQUAMOUS EPITHELIAL CELL,UR NEGATIVE /HPF (NEGATIVE)
[2020-06-02] MEDS ORDERED: ADENOCARD INJ 6 MG ONE ×3 (18:20→18:34)
[2020-06-02] MEDS ORDERED: ADENOCARD INJ 6 MG IVP ONE ×3 (18:20→18:34)
[2020-06-02] MEDS ORDERED: ATIVAN INJ 2 MG VIAL IVP ONE (18:38)
[2020-06-02] MEDS ORDERED: ATIVAN INJ 2 MG VIAL ONE (18:38)
[2020-06-02] MEDS ORDERED: NEXTERONE IV 150 MG PREMIX* 150 MG/100 ML BAG IV ONE ×2 (18:55→18:57)
[2020-06-02] MEDS ORDERED: NEXTERONE IV 360 MG PREMIX* 360 MG/200 ML BAG IV PRN (18:59)
[2020-06-02] MEDS ORDERED: NEXTERONE IV 360 MG PREMIX* 360 MG/200 ML BAG IV ONE (19:08)
[2020-06-02] MEDS ORDERED: PEPCID TAB 20 MG ONE (19:59)
[2020-06-02] MEDS ORDERED: THIAMINE HCL INJ ONE (19:59)
[2020-06-02] MEDS ORDERED: LOVENOX INJ 40 MG SYR SC ONE (20:00)
[2020-06-02] MEDS ORDERED: LIPITOR TAB 80 MG ONE (20:00)
[2020-06-02] MEDS ORDERED: NS 50 ML IV + SPIKE MINIBAG* 50 ML IV ONE (20:00)
[2020-06-02] MEDS: LIPITOR TAB 80 MG PO SCH (20:28)
[2020-06-02] MEDS: MELATONIN PO SCH (20:29)
[2020-06-02] MEDS: SINGULAIR TAB 10 MG PO SCH (20:31)
--- NOTE | 2020-06-02 20:32 | DR.H&P ---
H&P - History & Physical for Day of: H&P Date: 06/01/20 - Chief Complaint Chief Complaint: FEVER, COUGH, SOB, WEAKNESS, COVID POSITIVE - History of Present Illness History of Present Illness: IS A 70 YEAR OLD PATIENT OF [facility]. SHE CONSULTED US FOR DIRECT ADMISSION DUE TO COMPLAINTS OF PERSISTENT FEVER, COUGH, SHORTNESS OF BREATH, AND WEAKNESS. HE TESTED POSITIVE FOR COVID-19 ON 05/27/20. SYMPTOMS STARTED ABOUT 5 DAYS PRIOR. HE HAS TAKEN DOXYCYCLINE 100MG PO BID, ALBUTEROL NEB TX, A MEDROL DOSE PACK, A Z-PACK, LEVAQUIN 500MG IV DAILY, IVERMECTIN X 2 DOSES, AND PULMICORT NEB TX. HE DENIES IMPROVEMENT IN SYMPTOMS DESPITE COMPLIANCE WITH ALL MEDS. HIS PMH INCLUDES HTN, TIA, CAD, ANGINA, GERD, BPH, AAA, DIABETES MELLITIS II, PERNICIOUS ANEMIA, CARDIAC STENTS, CABG, AND BILATERAL HIP REPLACEMENT. HIS OXYGEN SATURATIONS AT HOME HAVE BEEN IN THE 80s. HE DOES HAVE HOME 02. HE REPORTS THAT HE HAS BEEN ON 3-4 LITERS/MIN. EXAMINATION REVEALED RALES THROUGHOUT. ON ARRIVAL TO THE HOSPITAL, VITALS WERE 100.4-91-22-100%NC-190/89. LABS WERE OBTAINED. ABNORMAL LAB VALUES INCLUDE THE FOLLOWING: PLT COUNT 132, BUN 25, GLUCOSE 282, FERRITIN 711, AST 56, CREATINE KINASE 370, CRP 89.50, BNP 146, TOTAL PROTEIN 8.5, GLOBULIN 4.6. AN ABG WAS OBTAINED AND REVEALED: PH 7.480, PC02 34, P02 70, HC03 25.3, 02 SAT 95, A-A GRADIENT 116, FI02 32. BLOOD CULTURES WERE SET UP. A CHEST CTA WAS OBTAINED AND REVEALED: Patchy diffuse bilateral ground-glass airspace opacities is consistent with the given history of a COVID-19 respiratory infection. 2. No pulmonary embolus identified. 3. Sclerotic foci in the left anterior 6th rib. Nuclear m edicine bone scan was negative for metastatic disease on February 06, 2020; patient with a history of prostate cancer. Recommend correlation with patient's PSA. AN EKG WAS OBTAINED AND REVEALED: SINUS RHYTHM WITH HR 88. AN ECHO WAS OBTAINED AND REVEALED AN EJECTION FRACTION OF 70%. HE WILL BE TREATED FOR PNEUMONIA DUE TO COVID-19 AND HYPOXIA. HE WAS STARTED ON NORMAL SALINE AT 75 ML/HR, REMDESIVIR 100MG IV DAILY, FORTAZ 1G IV Q12H, LEVAQUIN 750MG IV Q48H, ALBUTEROL NEBS Q6H, BROVANA NEB TX BID, MUCOMYST IN NEBS QID, PULMICORT NEBS BID, ASCORBIC ACID 1500MG IV Q6H, LIPITOR 80MG PO HS, TESSALON PERLES 200MG PO TID, ZYRTEC 10MG PO DAILY, TUSSIONEX 5ML PO Q12H PRN, COLACE 100MG PO HS, LOVENOX 40MG BID, PEPCID 20MG PO BID, DIFLUCAN 100MG PO DAILY, ROBITUSSIN DM 10ML PO QID, IVERMECTIN- PHARMACY TO DOSE, MAGIC MOUTHWASH QID, MILK OF MAG BID PRN, MELATONIN 10MG PO HS, SOLU-MEDROL 125MG IV Q6H, SINGULAIR 10MG PO HS, PROTONIX 40MG PO DAILY, THIAMINE 200MG IV BID, DONYA-DUR 300MG PO BID, ZINC SULFATE 220MG PO DAILY, AND THE POTASSIUM AND MAGNESIUM PROTOCOLS. WE WILL REVIEW HIS HOME MEDICATIONS. OTHERWISE, WE WILL FOLLOW UP WITH AM LABS, CHEST XRAY, ABG, AND CONTINUE TO MONITOR. TIME SPENT ON CLINICAL ASSESSMENT, REVIEWING LABS AND IMAGING, DECISION MAKING, AND DOCUMENTATION GREATER THAN 75 MINUTES. - Past Medical History Past Medical History: Anemia, Angina, Coronary Artery Disease, Diabetes, Dyslipidemia, Hypertension Additional Medical History: AAA, TIA, BPH, PERNICIOUS ANEMIA - Past Surgical History Surgical History: Angioplasty/Stents, CABG/Valve Surgery Additional Surgical History: BILATERAL HIP REPLACEMENT - Family History Family Medical History: [place], Coronary Artery Disease, Hypertension - Social History Does patient currently use any type of tobacco product: No Have you used tobacco products in the last 12 months: No Type of Tobacco Use: None Does any household member use tobacco: No Alcohol Use: None Drug Use: None - Medications Home Medications: No Known Drug Allergies Allergy (Verified 06/01/20 13:35) CONTINUE taking the following medications acetaminophen-codeine 1 tab PO TID PRN 06/01/20 [History] albuterol sulfate 2.5 mg CONTINUOUS NEBULIZATION QID 06/01/20 [History] atorvastatin 40 mg PO QHS 06/01/20 [History] azithromycin 250 mg PO DAILY 06/01/20 [History] budesonide 0.25 mg INHALATION DAILY 06/01/20 [History] doxycycline hyclate 100 mg PO BID 06/01/20 [History] ergocalciferol (vitamin D2) [Vitamin D2] 50,000 unit PO BID 06/01/20 [History] glyburide 5 mg PO BID 06/01/20 [History] hydrocodone-acetaminophen 1 tab PO BID 06/01/20 [History] hyoscyamine sulfate 0.125 mg PO QID PRN 06/01/20 [History] ivermectin 3 mg PO WEEKLY 06/01/20 [History] levofloxacin 500 mg PO DAILY 06/01/20 [History] lisinopril 20 mg PO BID 06/01/20 [History] loratadine 10 mg PO ONCE 06/01/20 [History] magnesium oxide 400 mg PO DAILY 06/01/20 [History] meloxicam 15 mg PO DAILY 06/01/20 [History] metformin 500 mg PO DAILY PRN 06/01/20 [History] methylprednisolone 4 mg PO TID 06/01/20 [History] olmesartan 20 mg PO DAILY 06/01/20 [History] potassium chloride 10 meq PO DAILY 06/01/20 [History] pramipexole 0.125 mg PO BID 06/01/20 [History] sucralfate 1 g PO BID 06/01/20 [History] - Review of Systems Constitutional: Fever, Chills, Weakness Eyes: No Symptoms Reported ENT: No Symptoms Reported Respiratory: See HPI, Cough, Shortness of Breath, SOB with Excertion Cardiovascular: No Symptoms Reported Gastrointestinal: No Symptoms Reported Genitourinary: No Symptoms Reported Musculoskeletal: No Symptoms Reported Skin: No Symptoms Reported Neurological: Weakness - Physical Exam Vital Signs: Temperature 99.1 F Pulse Rate [Left Brachial] 110 Pulse Rate 155 Respiratory Rate 34 Blood Pressure [Right Arm] 162/84 Blood Pressure [Left Arm] 143/79 Blood Pressure 135/101 O2 Sat by Pulse Oximetry 92 Oriented: Normal Eyes: Normal Ear: Normal Nose: Normal Throat: Normal Respiratory: Rales Throughout Cardiovascular: Normal : Normal Auscultation: Bowel Sounds: Normal Palpation: Normal Tenderness: Normal Skin: Normal Musculoskeletal: Normal Psychiatric: Normal Mood Description: Calm Affect: Normal Speech Pattern: Clear - Assessment/Plan (1) Pneumonia due to COVID-19 virus Status: Acute Plan: ADMIT, SUPPLEMENTAL OXYGEN, NORMAL SALINE AT 75 ML/HR, REMDESIVIR 100MG IV DAILY, FORTAZ 1G IV Q12H, LEVAQUIN 750MG IV Q48H, ALBUTEROL NEBS Q6H, BROVANA NEB TX BID, MUCOMYST IN NEBS QID, PULMICORT NEBS BID, ASCORBIC ACID 1500MG IV Q6H, LIPITOR 80MG PO HS, TESSALON PERLES 200MG PO TID, ZYRTEC 10MG PO DAILY, TUSSIONEX 5ML PO Q12H PRN, COLACE 100MG PO HS, LOVENOX 40MG BID, PEPCID 20MG PO BID, DIFLUCAN 100MG PO DAILY, ROBITUSSIN DM 10ML PO QID, IVERMECTIN- PHARMACY TO DOSE, MAGIC MOUTHWASH QID, MILK OF MAG BID PRN, MELATONIN 10MG PO HS, SOLU- MEDROL 125MG IV Q6H, SINGULAIR 10MG PO HS, PROTONIX 40MG PO DAILY, THIAMINE 200MG IV BID, DONYA-DUR 300MG PO BID, ZINC SULFATE 220MG PO DAILY, AND THE POTASSIUM AND MAGNESIUM PROTOCOLS. (2) Hypoxia Status: Acute - Allergies Allergies/Adverse Reactions: Allergies Allergy/AdvReac Type Severity Reaction Status Date / Time No Known Drug Allergies Allergy Verified 06/01/20 13:35
[2020-06-02] MEDS ORDERED: LOPRESSOR INJ 5 MG AMP IVP ONE ×2 (21:13→23:50)
[2020-06-02] MEDS ORDERED: XOPENEX 1.25 MG/3 ML NEBULE NEB ONE (21:14)
[2020-06-02] MEDS ORDERED: LOPRESSOR INJ 5 MG AMP ONE ×2 (21:17→23:52)
[2020-06-02] MEDS: LANOXIN INJ IVP SCH (21:29)
[2020-06-02] MEDS ORDERED: LOPRESSOR TAB 50 MG ONE (22:10)
[2020-06-02] MEDS: SNACK - Diabetic Appropriate PO SCH (22:34)
[2020-06-02] MEDS: LOPRESSOR TAB 50 MG PO SCH (22:35)
[2020-06-02 23:10] LABS: ABG ALLEN TEST POS; ABG BASE EXCESS 2.5 mmol/L (-2.0-2.0); ABG HCO3 26.3 mmol/L (22-26)
[2020-06-02 23:47] LABS: TROPONIN I 0.16 ng/mL (0-1.5)
[2020-06-02 23:48] LABS: CKMB % 2.3 % (<4); CREATINE KINASE MB 10.5 ng/mL (0-4.0)
[2020-06-02] MEDS ORDERED: HEPARIN SODIUM IN D5W 25,000 UNITS/500 ML BAG IV ONE (23:52)
[2020-06-02] MEDS ORDERED: HEPARIN SODIUM INJ 5000 UNITS ONE (23:58)
[2020-06-03] MEDS: HEPARIN SODIUM IN D5W 25,000 UNITS/500 ML BAG IV PRN (00:13)
[2020-06-03] MEDS ORDERED: HEPARIN SODIUM INJ 5000 UNITS IVP ONE ×2 (00:14→16:04)
[2020-06-03] MEDS: BROVANA IN SCH ×3 (00:36→20:25)
[2020-06-03] MEDS: MUCOMYST (RESPIRATORY USE ONLY) NEB SCH (00:42)
[2020-06-03] MEDS: ACCUNEB 1.25 MG NEBULE NEB SCH (00:51)
[2020-06-03] MEDS: NEXTERONE IV 360 MG PREMIX* 360 MG/200 ML BAG IV PRN ×2 (01:10→13:48)
[2020-06-03] MEDS ORDERED: XANAX ONE (01:19)
[2020-06-03] MEDS: XANAX PO PRN (01:20)
[2020-06-03] MEDS ORDERED: SOLU-Medrol 125 MG VIAL ONE ×2 (03:33→09:30)
[2020-06-03] MEDS ORDERED: ASCORBIC ACID INJ MULTI-DOSE VIAL IV ONE ×2 (03:33→09:31)
[2020-06-03] MEDS ORDERED: NS 50 ML IV 50 ML IV ONE ×2 (03:33→09:30)
--- NOTE | 2020-06-03 03:44 | CT ---
History: SUDDEN AMS, VISUAL HALLUCINATIONS, COVID+ HTN, DM SURG HX GB, OPEN HEART, ; PT COULD NOT REMOVE NONREBREATHER MASK DUE TO 02 SATS BEING IN 60S-70SExam :BRAIN W/O CONTechnique: Thin section axial ct images of the brain were obtained from the foramen magnum to the vertex without contrast. Sagittal and coronal reconstructions were also performed.Comparison: NoneFindings:The ventricles are within normal limits in size. No midline shift, mass effect or extra-axial fluid collections. No evidence of acute hemorrhage or acute macroinfarction. Mild cortical atrophy compatible with patient's age. Decreased attenuation in the periventricular and subcortical white matter consistent with microvascular ischemic white matter changes. Small area of encephalomalacia posterior left parietal lobe the may represent old infarct or vascular malformation.Mild mucosal thickening within the maxillary sinuses. The mastoid air cells are unremarkable.. The calvarium is intact.Impression:Mild cortical atrophy with microvascular ischemic white matter changes.Small area of decreased attenuation posterior left parietal lobe may represent encephalomalacia due to old infarct or vascular malformation.No acute intracranial pathology.Mild chronic bilateral maxillary sinusitisElectronically signed by: Nwe Kirkland (Jun 03, 2020 03:42:47)
[2020-06-03] MEDS: ASCORBIC ACID INJ MULTI-DOSE VIAL 1,500 MG in NS 50 ML IV 50 ML IV SCH ×4 (03:57→22:00)
[2020-06-03] MEDS: SOLU-Medrol 125 MG VIAL IVP SCH ×4 (03:57→22:15)
[2020-06-03 05:03] LABS: BASOPHILS % (AUTO) 0.3 % (0.2-1.0); HEMATOCRIT 48.1 % (42.0-54.0); HEMOGLOBIN 16.1 g/dL (13.5-18.0); LYMPHOCYTES # (AUTO) 0.4 X10^3/uL (1.3-2.9); MEAN CORPUSCULAR HEMOGLOBIN 30.3 pg (27.0-34.0); MEAN CORPUSCULAR HGB CONC 33.4 g/dL (33.0-35.0); MEAN CORPUSCULAR VOLUME 90.7 fL (80.0-100.0); MEAN PLATELET VOLUME 10.1 fL (7.4-11.0); MONOCYTES # (AUTO) 0.5 x10^3/uL (0.3-0.8); MONOCYTES % (AUTO) 3.9 % (0.0-13.0); NEUTROPHILS # (AUTO) 11.1 x10^3/uL (2.2-4.8); NEUTROPHILS % (AUTO) 92.8 % (42.0-75.0); PLATELET COUNT 175 X10^3/uL (150.0-450.0); RED CELL DISTRIBUTION WIDTH 13.7 % (11.6-16.5); WHITE BLOOD COUNT 11.9 X10^3/uL (3.6-10.0)
[2020-06-03 05:10] LABS: ALANINE AMINOTRANSFERASE 41 Units/L (12-78); ALBUMIN 2.9 g/dL (3.4-5.0); ALKALINE PHOSPHATASE 75 Units/L (46-116); ASPARTATE AMINO TRANSFERASE 66 Units/L (15-37); BLOOD UREA NITROGEN 18 mg/dL (7-18); CALCIUM 8.5 mg/dL (8.5-10.1); CARBON DIOXIDE 28.4 mmol/L (21-32); CHLORIDE 106 mmol/L (98-107); COR CA(FOR HYPOALB) 9.4 mg/dL (8.5-10.1); COR NA(FOR HYPERGLY) 150 mmol/L (136-145); CREATININE 1.11 mg/dL (0.70-1.30); SODIUM 146 mmol/L (136-145); TOTAL PROTEIN 7.2 g/dL (6.4-8.2); eGFR NON BLACK RACES > 60 (>60)
[2020-06-03] MEDS ORDERED: FORTAZ or TAZICEF VIAL INJ ONE (05:12)
[2020-06-03] MEDS ORDERED: NS 50 ML IV + SPIKE MINIBAG* 50 ML IV ONE (05:12)
[2020-06-03 05:41] LABS: CKMB % 2.3 % (<4); TROPONIN I 0.22 ng/mL (0-1.5)
[2020-06-03] MEDS: NS 1/2 1000 ML IV 1,000 ML IV SCH ×3 (05:41→17:42)
[2020-06-03] MEDS: FORTAZ or TAZICEF VIAL INJ IV SCH ×3 (05:42→23:56)
[2020-06-03 05:45] LABS: CREATINE KINASE MB 10.3 ng/mL (0-4.0)
[2020-06-03 05:59] LABS: BAND NEUTROPHILS % 2 % (0-10); PLATELET MORPHOLOGY COMMENT NORMAL (NORMAL)
[2020-06-03] MEDS: TESSALON PERLES PO SCH ×3 (06:05→23:42)
[2020-06-03] MEDS ORDERED: HumuLIN R ONE (06:08)
[2020-06-03] MEDS: HumuLIN R SUBCUT PRN ×3 (06:10→23:56)
[2020-06-03] MEDS ORDERED: CARDIZEM TAB 30 MG PLAIN ONE (06:13)
--- NOTE | 2020-06-03 06:19 | RAD ---
HISTORYSOBSTUDYCHEST, 1 VIEWCOMPARISONOne day prior.TECHNIQUEAP view of the chestFINDINGSPost median sternotomy and CABG.The cardiac and mediastinal contours appear stable. No significant change in bilateral hazy lung opacities. No definite pleural effusion or pneumothorax.IMPRESSIONNo significant change.Electronically signed by: Mitchel Carrera (Jun 03, 2020 06:17:56)
[2020-06-03] MEDS ORDERED: CARDIZEM TAB 30 MG PLAIN PO SCH (07:00)
[2020-06-03 07:20] LABS: ABG HCO3 27.9 mmol/L (22-26)
[2020-06-03 07:21] LABS: ABG ALLEN TEST POSS
[2020-06-03] MEDS ORDERED: HALDOL INJ IVP SCH (09:00)
[2020-06-03] MEDS ORDERED: NS 500 ML IV 500 ML IV ONE (09:18)
[2020-06-03] MEDS ORDERED: NS 1/2 1000 ML IV 1,000 ML IV ONE (09:19)
[2020-06-03] MEDS ORDERED: LEVAQUIN PREMIX IV 500 MG 500 MG/100 ML BAG IV ONE (09:30)
[2020-06-03] MEDS: LEVAQUIN PREMIX IV 500 MG 500 MG/100 ML BAG IV SCH (09:33)
[2020-06-03] MEDS: THIAMINE HCL INJ IVP SCH ×3 (09:49→22:15)
[2020-06-03] MEDS: THEO-DUR TAB 300 MG 12-HR PO SCH ×2 (09:50→23:41)
[2020-06-03] MEDS: PULMICORT NEB TX 0.5 MG NEB SCH ×2 (11:21→20:35)
[2020-06-03] MEDS ORDERED: GEODON INJ IM ONE (11:30)
[2020-06-03] MEDS: GEODON INJ IM PRN ×2 (11:45→21:45)
[2020-06-03] MEDS: DIFLUCAN PO SCH (13:03)
[2020-06-03] MEDS: FLEXERIL TAB 10 MG PO SCH ×2 (13:04→23:40)
[2020-06-03] MEDS: MILK OF MAGNESIA PO SCH ×2 (13:05→23:43)
[2020-06-03] MEDS: LOPRESSOR TAB 50 MG PO SCH (13:05)
[2020-06-03] MEDS: PROTONIX TAB 40 MG PO SCH (13:05)
[2020-06-03] MEDS: PEPCID TAB 20 MG PO SCH (13:05)
[2020-06-03] MEDS: VITAMIN D3 125 mcg (5,000 UNITS) PO SCH (13:06)
[2020-06-03] MEDS: CARDIZEM CD 120 MG 24-HR PO SCH (13:06)
[2020-06-03] MEDS: ROBITUSSIN (PLAIN) PO SCH ×3 (13:06→16:01)
[2020-06-03] MEDS: ZyrTEC TAB 10 MG PO SCH (13:07)
[2020-06-03] MEDS: ZINC SULFATE PO SCH (13:07)
[2020-06-03] MEDS: LANOXIN INJ IVP SCH (13:12)
[2020-06-03] MEDS: REMDESIVIR 100 MG in NS 250 ML IV 250 ML IV SCH (13:13)
[2020-06-03] MEDS: PHENOBARBITAL SODIUM INJ 65 MG VIAL IVP SCH ×2 (14:21→22:28)
[2020-06-03] MEDS: XOPENEX 1.25 MG/3 ML NEBULE NEB SCH ×3 (14:28→20:35)
[2020-06-03] MEDS: MUCOMYST 20% 200 MG/ML NEB SCH ×3 (14:28→20:35)
[2020-06-03] MEDS ORDERED: HEPARIN SODIUM INJ 5000 UNITS ONE (16:27)
[2020-06-03] MEDS ORDERED: BENADRYL INJ 50 MG VIAL IVP NR (17:00)
[2020-06-03] MEDS: MORPHINE SULFATE INJ 4 MG IVP PRN ×2 (19:46→23:30)
[2020-06-03] MEDS ORDERED: MORPHINE SULFATE INJ 4 MG ONE (19:46)
[2020-06-03] MEDS: SNACK - Diabetic Appropriate PO SCH (23:39)
[2020-06-03] MEDS: SINGULAIR TAB 10 MG PO SCH (23:42)
[2020-06-03] MEDS: LIPITOR TAB 80 MG PO SCH (23:43)
[2020-06-03] MEDS: MELATONIN PO SCH (23:44)
[2020-06-04] MEDS: PEPCID TAB 20 MG PO SCH ×3 (00:25→22:04)
[2020-06-04] MEDS: ROBITUSSIN (PLAIN) PO SCH ×5 (00:44→22:05)
[2020-06-04] MEDS: MORPHINE SULFATE INJ 4 MG IVP PRN ×6 (01:03→20:35)
[2020-06-04] MEDS ORDERED: NEXTERONE IV 360 MG PREMIX* 360 MG/200 ML BAG IV ONE (02:58)
[2020-06-04] MEDS: ASCORBIC ACID INJ MULTI-DOSE VIAL 1,500 MG in NS 50 ML IV 50 ML IV SCH ×4 (03:13→20:15)
[2020-06-04] MEDS: NEXTERONE IV 360 MG PREMIX* 360 MG/200 ML BAG IV PRN (03:14)
[2020-06-04] MEDS: SOLU-Medrol 125 MG VIAL IVP SCH ×3 (03:14→21:15)
[2020-06-04 04:55] LABS: ABG BASE EXCESS 3.5 mmol/L (-2.0-2.0); ABG HCO3 27.8 mmol/L (22-26)
[2020-06-04] MEDS: PHENOBARBITAL SODIUM INJ 65 MG VIAL IVP SCH ×3 (05:00→21:00)
[2020-06-04] MEDS: FORTAZ or TAZICEF VIAL INJ IV SCH ×3 (05:00→21:08)
[2020-06-04] MEDS: XOPENEX 1.25 MG/3 ML NEBULE NEB SCH ×3 (05:30→20:35)
[2020-06-04] MEDS: MUCOMYST 20% 200 MG/ML NEB SCH ×3 (05:30→20:35)
[2020-06-04] MEDS: TESSALON PERLES PO SCH ×3 (05:42→22:08)
--- NOTE | 2020-06-04 06:09 | RAD ---
HISTORYSOBSTUDYCHEST, 1 VIEWCOMPARISONOne day prior.TECHNIQUEAP view of the chestFINDINGSPost median sternotomy. The cardiac silhouette is stably enlarged. Mediastinal contours appear stable. No significant change in diffuse bilateral hazy lung opacities. No definite pleural effusion or pneumothorax.IMPRESSIONNo significant change.Electronically signed by: Mitchel Carrera (Jun 04, 2020 06:07:46)
[2020-06-04] MEDS ORDERED: NS 1/2 1000 ML IV 1,000 ML IV ONE ×2 (06:30→19:34)
[2020-06-04] MEDS: NS 1/2 1000 ML IV 1,000 ML IV SCH ×2 (06:45→21:39)
[2020-06-04] MEDS: HEPARIN SODIUM IN D5W 25,000 UNITS/500 ML BAG IV PRN (06:47)
[2020-06-04 08:43] LABS: BASOPHILS % (AUTO) 0.1 % (0.2-1.0); HEMATOCRIT 42.7 % (42.0-54.0); HEMOGLOBIN 14.3 g/dL (13.5-18.0); LYMPHOCYTES # (AUTO) 0.4 X10^3/uL (1.3-2.9); MEAN CORPUSCULAR HEMOGLOBIN 30.5 pg (27.0-34.0); MEAN CORPUSCULAR HGB CONC 33.5 g/dL (33.0-35.0); MEAN CORPUSCULAR VOLUME 90.9 fL (80.0-100.0); MEAN PLATELET VOLUME 9.9 fL (7.4-11.0); MONOCYTES # (AUTO) 0.7 x10^3/uL (0.3-0.8); NEUTROPHILS # (AUTO) 10.7 x10^3/uL (2.2-4.8); NEUTROPHILS % (AUTO) 90.9 % (42.0-75.0); PLATELET COUNT 155 X10^3/uL (150.0-450.0); RED BLOOD COUNT 4.69 X10^6/uL (4.7-6.0); RED CELL DISTRIBUTION WIDTH 13.9 % (11.6-16.5); WHITE BLOOD COUNT 11.8 X10^3/uL (3.6-10.0)
[2020-06-04 08:55] LABS: ALANINE AMINOTRANSFERASE 56 Units/L (12-78); ALBUMIN 3.2 g/dL (3.4-5.0); ALKALINE PHOSPHATASE 93 Units/L (46-116); ASPARTATE AMINO TRANSFERASE 135 Units/L (15-37); BLOOD UREA NITROGEN 26 mg/dL (7-18); CALCIUM 8.4 mg/dL (8.5-10.1); CARBON DIOXIDE 29.7 mmol/L (21-32); CHLORIDE 111 mmol/L (98-107); COR NA(FOR HYPERGLY) 156 mmol/L (136-145); CREATININE 1.33 mg/dL (0.70-1.30); TOTAL PROTEIN 7.3 g/dL (6.4-8.2); eGFR NON BLACK RACES 56 (>60)
[2020-06-04 08:59] LABS: SODIUM 152 mmol/L (136-145)
[2020-06-04 09:00] LABS: BAND NEUTROPHILS % 4 % (0-10); PLATELET MORPHOLOGY COMMENT NORMAL (NORMAL)
[2020-06-04] MEDS ORDERED: IVERMECTIN PO ONE (09:00)
[2020-06-04] MEDS ORDERED: GEODON INJ IM SCH (09:00)
[2020-06-04] MEDS: PULMICORT NEB TX 0.5 MG NEB SCH ×2 (09:10→20:35)
[2020-06-04] MEDS: BROVANA IN SCH ×2 (09:10→20:35)
[2020-06-04] MEDS: CARDIZEM CD 120 MG 24-HR PO SCH (09:49)
[2020-06-04] MEDS: FLEXERIL TAB 10 MG PO SCH ×2 (09:50→21:58)
[2020-06-04] MEDS: DIFLUCAN PO SCH (09:50)
[2020-06-04] MEDS: LANOXIN INJ IVP SCH (09:52)
[2020-06-04] MEDS: LOPRESSOR TAB 50 MG PO SCH (09:54)
[2020-06-04] MEDS: LEVAQUIN PREMIX IV 500 MG 500 MG/100 ML BAG IV SCH (09:54)
[2020-06-04] MEDS: PROTONIX TAB 40 MG PO SCH (09:55)
[2020-06-04] MEDS: MILK OF MAGNESIA PO SCH ×2 (09:55→22:04)
[2020-06-04] MEDS: THEO-DUR TAB 300 MG 12-HR PO SCH ×2 (09:56→22:05)
[2020-06-04] MEDS: REMDESIVIR 100 MG in NS 250 ML IV 250 ML IV SCH (09:56)
[2020-06-04] MEDS: VITAMIN D3 125 mcg (5,000 UNITS) PO SCH (09:57)
[2020-06-04] MEDS: THIAMINE HCL INJ IVP SCH ×2 (09:57→20:15)
[2020-06-04] MEDS: ZyrTEC TAB 10 MG PO SCH (09:57)
[2020-06-04] MEDS: ZINC SULFATE PO SCH (09:58)
[2020-06-04] MEDS: ATIVAN INJ 2 MG VIAL IVP SCH ×3 (10:40→22:24)
[2020-06-04] MEDS ORDERED: PHENOBARBITAL SODIUM INJ 65 MG VIAL IVP NR (11:00)
[2020-06-04] MEDS: CATAPRES-TTS-3 TD SCH (11:59)
[2020-06-04] MEDS: HumuLIN R SUBCUT PRN ×3 (12:00→20:15)
[2020-06-04] MEDS: GEODON INJ IM SCH ×3 (13:45→20:15)
[2020-06-04] MEDS ORDERED: SOLU-Medrol 40 MG VIAL IVP SCH (14:00)
--- NOTE | 2020-06-04 14:26 | PCM.PROG ---
Progress Note - Progress Note for Day of Date of Exam: 06/03/20 - Subjective Subjective: WAS ADMITTED FOR TREATMENT OF PNEUMONIA DUE TO COVID-19 AND HYPOXIA. DURING THE NIGHT, PATIENT WENT INTO A-FIB WITH RVR. HE WAS GIVEN A DOSE OF DIGOXIN AND PLACED ON A CARDIZEM DRIP. HE CONTINUED WITH A-FIB, THEREFORE, HE WAS GIVEN ADENOSINE AND STARTED ON AN AMIODARONE DRIP. HE WAS EVENTUALLY GIVEN AN ADDITIONAL THREE DOSES OF LOPRESSOR, A DOSE OF DIGOXIN, AND STARTED ON A HEPARIN DRIP. HIS HR DECREASED TO 70 BPM. PATIENT ALSO BEGAN HAVING HALLUCINATIONS AND BEGAN TO BE COMBATIVE. HE WOULD NOT LEAVE THE BIPAP MASK IN PLACE. WHEN MASK WAS REMOVED, HIS SATURATIONS DROPPED TO THE 60s. HE RECOVERED TO THE 90s WHEN BIPAP MASK WAS REPLACED. PATIENT WAS PLACED IN RESTRAINTS DUE TO COMBATIVE BEHAVIOR. ON MORNING ROUNDS, PATIENT IS SITTING IN BED WITH EYES OPEN. HE CONFUSED AND DOES NOT ANSWER QUESTIONS APPROPRIATELY. HE ATTEMPTS TO PULL MASK OFF AGAIN. ON EXAMINATION, HE IS NOTED TO BE IN A-FIB, HOWEVER, RATE IS CONTROLLED IN THE 70s AT THIS TIME. BILATERAL LUNGS ARE NOTED WITH RALES THROUGHOUT. ABDOMEN IS ROUND, SOFT, AND NON-TENDER WITH NORMAL BOWEL SOUNDS NOTED IN ALL QUADRANTS. HIS VITALS THIS MORNING ARE: 98.5-76-38-91%-140/71. LABS WERE OBTAINED. ABNORMAL LAB VALUES INCLUDE THE FOLLOWING: WBC 11.9, SODIUM 146, GLUCOSE 278, FERRITIN 1832, AST 66, ALK PHOS 462, CK-MB 10.5, CRP 58.20, BNP 212, ALBUMIN 2.9. BLOOD CULTURES ARE PENDING. A CHEST XRAY WAS OBTAINED AND REVEALED: Post median sternotomy and CABG.The cardiac and mediastinal contours appear stable. No significant change in bilateral hazy lung opacities. No definite pleural effusion or pneumothorax. A BRAIN CT WAS OBTAINED AND REVEALED: Mild cortical atrophy with microvascular ischemic white matter changes. Small area of decreased attenuation posterior left parietal lobe may represent encephalomalacia due to old infarct or vascular malformation. No acute intracranial pathology. Mild chronic bilateral maxillary sinusitis. HE IS CURRENTLY RECEIVING NORMAL SALINE AT 75 ML/HR, REMDESIVIR 100MG IV DAILY, AMIODARONE DRIP, FORTAZ 1G IV Q12H, LEVAQUIN 750MG IV Q48H, ALBUTEROL NEBS Q6H, BROVANA NEB TX BID, MUCOMYST IN NEBS QID, PULMICORT NEBS BID, ASCORBIC ACID 1500MG IV Q6H, LIPITOR 80MG PO HS, TESSALON PERLES 200MG PO TID, ZYRTEC 10MG PO DAILY, TUSSIONEX 5ML PO Q12H PRN, COLACE 100MG PO HS, LOVENOX 40MG BID, PEPCID 20MG PO BID, DIFLUCAN 100MG PO DAILY, ROBITUSSIN DM 10ML PO QID, IVERMECTIN- PHARMACY TO DOSE, MAGIC MOUTHWASH QID, MILK OF MAG BID PRN, MELATONIN 10MG PO HS, SOLU-MEDROL 125MG IV Q6H, SINGULAIR 10MG PO HS, PROTONIX 40MG PO DAILY, THIAMINE 200MG IV BID, DONYA-DUR 300MG PO BID, ZINC SULFATE 220MG PO DAILY, AND THE POTASSIUM AND MAGNESIUM PROTOCOLS. TODAY, WE WILL ADD CARDIZEM CD 120MG PO DAILY AND HALDOL 2-4MG IV Q4H PRN AGITATION. WE WILL OBTAIN AN EKG. OTHERWISE, WE PLAN TO FOLLOW UP WITH AM LABS, CHEST XRAY, ABG, AND CONTINUE TO MONITOR. TIME SPENT ON CLINICAL ASSESSMENT, REVIEWING LABS AND IMAGING, DECISION MAKING, AND DOCUMENTATION GREATER THAN 75 MINUTES. - Past Medical Family Social History Past Med/Fam/Surg Hx: No changes since H&P Allergies: Allergies No Known Drug Allergies Allergy (Verified 06/01/20 13:35) - Review of Systems ROS: No change since H&P - Vital Signs and I&O's Vital Signs: Temperature 98.4 F Pulse Rate [Left Brachial] 95 Pulse Rate 140 Respiratory Rate 22 Blood Pressure [Right Arm] 192/86 Blood Pressure [Left Arm] 143/79 Blood Pressure 131/75 O2 Sat by Pulse Oximetry 99 Intake and Output: Intake & Output 06/02/20 06/03/20 06/04/20 06/05/20 11:59 11:59 11:59 11:59 Intake Total 1368 / 1368 3478.00 / 3478.00 1932 / 1932 Output Total 1160 / 1160 3500 / 3500 2525 / 2525 Balance 208 / 208 -22.00 / -22.00 -592 / -592 - Physical Exam Oriented: Not Oriented Eyes: Normal Ear: Normal Nose: Normal Throat: Normal Respiratory: Generalized, Rales Cardiovascular: Tachycardia, Irregular : Normal Auscultation: Bowel Sounds: Normal Palpation: Normal Tenderness: Normal Skin: Normal Musculoskeletal: Normal Psychiatric: Agitation Mood Description: Anxious Affect: Anxious, Violent Speech Pattern: Unclear, Inappropriate - Laboratory and Diagnostics Result Diagrams: 06/04/20 08:27 06/04/20 08:27 Labs: 06/01/20 13:35 Blood Blood Culture - Preliminary 06/01/20 13:21 Blood Blood Culture - Preliminary Laboratory WBC 11.8 X10^3/uL (3.6-10.0) H 06/04/20 08:27 RBC 4.69 X10^6/uL (4.7-6.0) L 06/04/20 08:27 Hgb 14.3 g/dL (13.5-18.0) 06/04/20 08:27 Hct 42.7 % (42.0-54.0) 06/04/20 08:27 MCV 90.9 fL (80.0-100.0) 06/04/20 08:27 MCH 30.5 pg (27.0-34.0) 06/04/20 08:27 MCHC 33.5 g/dL (33.0-35.0) 06/04/20 08:27 RDW 13.9 % (11.6-16.5) 06/04/20 08:27 Plt Count 155 X10^3/uL (150.0-450.0) 06/04/20 08:27 Plt Count Comment Adequate (ADEQUATE) 06/04/20 08:27 MPV 9.9 fL (7.4-11.0) 06/04/20 08:27 Neut % (Auto) 90.9 % (42.0-75.0) H 06/04/20 08:27 Lymph % (Auto) 3.0 % (21.0-51.0) L 06/04/20 08:27 [place] % (Auto) 6.0 % (0.0-13.0) 06/04/20 08:27 Eos % (Auto) 0.0 % (0.9-2.9) L 06/04/20 08:27 Baso % (Auto) 0.1 % (0.2-1.0) L 06/04/20 08:27 Neut # (Auto) 10.7 x10^3/uL (2.2-4.8) H 06/04/20 08:27 Lymph # (Auto) 0.4 X10^3/uL (1.3-2.9) L 06/04/20 08:27 [place] # (Auto) 0.7 x10^3/uL (0.3-0.8) 06/04/20 08:27 Eos # (Auto) 0.0 x10^3/uL (0.0-0.2) 06/04/20 08:27 Baso # (Auto) 0.0 X10^3/uL (0.0-0.1) 06/04/20 08: Absolute Nucleated RBC 0.0 /100WBC 06/04/20 08: Total Counted 100 06/04/20 08: Neutrophils % (Manual) 89 % (39-76) H 06/04/20 08: Band Neutrophils % 4 % (0-10) 06/04/20 08: Lymphocytes % (Manual) 4 % (13-43) L 06/04/20 08:27 Monocytes % (Manual) 3 % (4-9) L 06/04/20 08:27 Plt Morphology Comment Normal (NORMAL) 06/04/20 08: RBC Morphology Normal (NORMAL) 06/04/20 08: PT 17.2 SECONDS (11.8-14.3) 06/02/20 22:35 INR Target Range - 06/02/20 22:35 INR 1.45 (0.8-1.3) H 06/02/20 22:35 APTT 100.4 SECONDS (22.9-36.5) H 06/04/20 08:27 PTT Comment - 06/04/20 08:27 D-Dimer 0.51 ug/ml (0.0-0.57) 06/04/20 08:27 Sample Site Lb 06/04/20 04:50 ABG pH 7.450 (7.35-7.45) 06/04/20 04:50 ABG pCO2 40.0 mmHg (35.0-45.0) 06/04/20 04:50 ABG pO2 71.0 mmHg (80.0-100.0) L 06/04/20 04:50 ABG HCO3 27.8 mmol/L (22-26) H 06/04/20 04:50 ABG O2 Saturation 95.0 % (90-100) 06/04/20 04:50 ABG Base Excess 3.5 mmol/L (-2.0-2.0) H 06/04/20 04:50 Partha Test N/a 06/04/20 04:50 A-a Gradient 449.0 mmHg 06/04/20 04:50 FiO2 80.0 06/04/20 04:50 Blood Gas Comments Ivana well ae 06/04/20 04:50 Sodium 152 mmol/L (136-145) H* 06/04/20 08:27 Corrected Sodium 156 mmol/L (136-145) H 06/04/20 08:27 Potassium 4.1 mmol/L (3.5-5.1) 06/04/20 08:27 Chloride 111 mmol/L (98-107) H 06/04/20 08:27 Carbon Dioxide 29.7 mmol/L (21-32) 06/04/20 08:27 BUN 26 mg/dL (7-18) H 06/04/20 08:27 Creatinine 1.33 mg/dL (0.70-1.30) H 06/04/20 08:27 Est GFR (MDRD) Af Amer > 60 (>60) 06/04/20 08:27 Est GFR (MDRD) Non-Af 56 (>60) L 06/04/20 08:27 Glucose 248 mg/dL (65-99) H 06/04/20 08:27 POC Glucose (mg/dL) 263 mg/dL (65-99) H 06/04/20 11:41 Calcium 8.4 mg/dL (8.5-10.1) L 06/04/20 08:27 Corrected Calcium 9.0 mg/dL (8.5-10.1) 06/04/20 08:27 Magnesium 2.0 mg/dL (1.7-2.9) 06/02/20 06:04 Ferritin 2652 ng/mL (26-388) H 06/04/20 08:27 Total Bilirubin 0.70 mg/dL (0.2-1.0) 06/04/20 08:27 AST 135 Units/L (15-37) H 06/04/20 08:27 ALT 56 Units/L (12-78) 06/04/20 08:27 Alkaline Phosphatase 93 Units/L (46-116) 06/04/20 08:27 Creatine Kinase 448 Units/L (39-308) H 06/03/20 04:30 CK-MB (CK-2) 10.3 ng/mL (0-4.0) H* 06/03/20 04:30 CK/CKMB % Calc 2.3 % (<4) 06/03/20 04:30 Troponin I 0.22 ng/mL (0-1.5) 06/03/20 04:30 C-Reactive Protein 52.10 mg/L (0-3.0) H 06/04/20 08:27 B-Natriuretic Peptide 247 pg/mL (0-79) H 06/04/20 08:27 Total Protein 7.3 g/dL (6.4-8.2) 06/04/20 08:27 Albumin 3.2 g/dL (3.4-5.0) L 06/04/20 08:27 Globulin 4.1 g/dL (2.5-4.5) 06/04/20 08:27 Albumin/Globulin Ratio 0.8 Ratio (1.1-2.1) L 06/04/20 08:27 Specimen Type Clean catch urine 06/02/20 18:03 Urine Color Yellow (YELLOW) 06/02/20 18:03 Urine Appearance Clear (CLEAR) 06/02/20 18:03 Urine pH 5.0 (5.0 - 8.0) 06/02/20 18:03 Ur Specific [place] 1.010 (1.000-1.030) 06/02/20 18:03 Urine Protein 3+ (NEGATIVE) 06/02/20 18:03 Urine Glucose (UA) 4+ (NEGATIVE) 06/02/20 18:03 Urine Ketones 3+ (NEGATIVE) 06/02/20 18:03 Urine Occult Blood 3+ (NEGATIVE) 06/02/20 18:03 Urine Nitrite Negative (NEGATIVE) 06/02/20 18:03 Urine Bilirubin Negative (NEGATIVE) 06/02/20 18:03 Urine Urobilinogen Normal (NORMAL) 06/02/20 18:03 Ur Leukocyte Esterase Negative (NEGATIVE) 06/02/20 18:03 Urine RBC 3-5 /HPF (0-3) A 06/02/20 18:03 Urine WBC None seen /HPF (0-5) 06/02/20 18:03 Ur Squamous Epith Cells Negative /HPF (NEGATIVE) 06/02/20 18:03 Urine Bacteria Negative /HPF (NEGATIVE) 06/02/20 18:03 Ur Culture Indicated? No/not indicated 06/02/20 18:03 SARS CoV-2 RNA Rapid LADAN Positive (NEGATIVE) A 06/01/20 13:23 Blood Type A POSITIVE 06/01/20 13:35 - Plan (1) Pneumonia due to COVID-19 virus Status: Acute Plan: SUPPLEMENTAL OXYGEN, NORMAL SALINE AT 75 ML/HR, REMDESIVIR 100MG IV DAILY, FORTAZ 1G IV Q12H, LEVAQUIN 750MG IV Q48H, ALBUTEROL NEBS Q6H, BROVANA NEB TX BID, MUCOMYST IN NEBS QID, PULMICORT NEBS BID, ASCORBIC ACID 1500MG IV Q6H, LIPITOR 80MG PO HS, TESSALON PERLES 200MG PO TID, ZYRTEC 10MG PO DAILY, TUSSIONEX 5ML PO Q12H PRN, COLACE 100MG PO HS, LOVENOX 40MG BID, PEPCID 20MG PO BID, DIFLUCAN 100MG PO DAILY, ROBITUSSIN DM 10ML PO QID, IVERMECTIN- PHARMACY TO DOSE, MAGIC MOUTHWASH QID, MILK OF MAG BID PRN, MELATONIN 10MG PO HS, SOLU- MEDROL 125MG IV Q6H, SINGULAIR 10MG PO HS, PROTONIX 40MG PO DAILY, THIAMINE 200MG IV BID, DONYA-DUR 300MG PO BID, ZINC SULFATE 220MG PO DAILY, AND THE POTASSIUM AND MAGNESIUM PROTOCOLS. (2) Hypoxia Status: Chronic (3) Atrial fibrillation with RVR Status: Acute Plan: AMIODARONE DRIP, CARDIZEM CD 120MG PO DAILY, 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
[2020-06-04] MEDS: SNACK - Diabetic Appropriate PO SCH (21:49)
[2020-06-04] MEDS: LIPITOR TAB 80 MG PO SCH (22:01)
[2020-06-04] MEDS: SINGULAIR TAB 10 MG PO SCH (22:03)
[2020-06-04] MEDS: MELATONIN PO SCH (22:03)
[2020-06-05] MEDS: NS 1/2 1000 ML IV 1,000 ML IV SCH ×2 (00:52→10:25)
[2020-06-05] MEDS: MORPHINE SULFATE INJ 4 MG IVP PRN ×3 (02:15→14:26)
[2020-06-05] MEDS: ASCORBIC ACID INJ MULTI-DOSE VIAL 1,500 MG in NS 50 ML IV 50 ML IV SCH ×4 (02:18→21:00)
[2020-06-05] MEDS ORDERED: NS 100 ML IV 0 ML IV ONE (03:24)
[2020-06-05] MEDS: GEODON INJ IM SCH ×3 (03:30→20:30)
[2020-06-05] MEDS: ATIVAN INJ 2 MG VIAL IVP SCH ×4 (04:01→22:20)
[2020-06-05] MEDS: SOLU-Medrol 125 MG VIAL IVP SCH ×3 (05:15→21:34)
[2020-06-05] MEDS: FORTAZ or TAZICEF VIAL INJ IV SCH ×3 (05:20→21:34)
[2020-06-05] MEDS: PHENOBARBITAL SODIUM INJ 65 MG VIAL IVP SCH ×3 (05:33→21:35)
[2020-06-05] MEDS: TESSALON PERLES PO SCH (05:33)
[2020-06-05] MEDS: HumuLIN R SUBCUT PRN (05:37)
[2020-06-05 05:43] LABS: ABG BASE EXCESS 9.2 mmol/L (-2.0-2.0)
[2020-06-05 05:44] LABS: ABG HCO3 35.9 mmol/L (22-26)
[2020-06-05 05:46] LABS: BASOPHILS % (AUTO) 0.1 % (0.2-1.0); HEMATOCRIT 38.4 % (42.0-54.0); HEMOGLOBIN 12.8 g/dL (13.5-18.0); LYMPHOCYTES # (AUTO) 0.3 X10^3/uL (1.3-2.9); LYMPHOCYTES % (AUTO) 4.1 % (21.0-51.0); MEAN CORPUSCULAR HEMOGLOBIN 30.4 pg (27.0-34.0); MEAN CORPUSCULAR HGB CONC 33.4 g/dL (33.0-35.0); MEAN CORPUSCULAR VOLUME 91.2 fL (80.0-100.0); MEAN PLATELET VOLUME 10.1 fL (7.4-11.0); MONOCYTES # (AUTO) 0.4 x10^3/uL (0.3-0.8); MONOCYTES % (AUTO) 5.2 % (0.0-13.0); NEUTROPHILS # (AUTO) 6.1 x10^3/uL (2.2-4.8); NEUTROPHILS % (AUTO) 90.6 % (42.0-75.0); PLATELET COUNT 124 X10^3/uL (150.0-450.0); RED BLOOD COUNT 4.21 X10^6/uL (4.7-6.0); RED CELL DISTRIBUTION WIDTH 14.1 % (11.6-16.5); WHITE BLOOD COUNT 6.7 X10^3/uL (3.6-10.0)
[2020-06-05 06:05] LABS: ALANINE AMINOTRANSFERASE 56 Units/L (12-78); ALBUMIN 2.6 g/dL (3.4-5.0); ALKALINE PHOSPHATASE 75 Units/L (46-116); ASPARTATE AMINO TRANSFERASE 81 Units/L (15-37); BLOOD UREA NITROGEN 24 mg/dL (7-18); CALCIUM 7.8 mg/dL (8.5-10.1); CARBON DIOXIDE 32.8 mmol/L (21-32); CHLORIDE 114 mmol/L (98-107); COR CA(FOR HYPOALB) 8.9 mg/dL (8.5-10.1); COR NA(FOR HYPERGLY) 158 mmol/L (136-145); CREATININE 0.88 mg/dL (0.70-1.30); TOTAL PROTEIN 6.1 g/dL (6.4-8.2); eGFR NON BLACK RACES > 60 (>60)
--- NOTE | 2020-06-05 06:11 | RAD ---
HISTORYcovidSTUDYPortable AP [id number] size remains slightly enlarged. There is no change in appearance of the right-sided infiltrates. Slight apparent improvement in aeration of the left lung, however. No new areas of involvement are seen. No pleural fluid or pneumothorax.IMPRESSIONPersistent bilateral pneumonia with slight interval improvement on the left, no new abnormality.Electronically signed by: ELIZABETH GOMEZ (Jun 05, 2020 06:08:56)
[2020-06-05] MEDS: XOPENEX 1.25 MG/3 ML NEBULE NEB SCH ×3 (06:42→21:05)
[2020-06-05] MEDS: MUCOMYST 20% 200 MG/ML NEB SCH ×3 (06:42→21:05)
[2020-06-05 06:59] LABS: SODIUM 154 mmol/L (136-145)
[2020-06-05 07:52] LABS: BAND NEUTROPHILS % 2 % (0-10); PLATELET MORPHOLOGY COMMENT NORMAL (NORMAL)
[2020-06-05] MEDS ORDERED: NS 100 ML IV 100 ML IV ONE (08:12)
[2020-06-05] MEDS: THIAMINE HCL INJ IVP SCH ×2 (08:24→20:30)
[2020-06-05] MEDS: REMDESIVIR 100 MG in NS 250 ML IV 250 ML IV SCH (08:25)
[2020-06-05] MEDS ORDERED: NS 1/2 1000 ML IV 1,000 ML IV ONE (08:51)
[2020-06-05] MEDS: BROVANA IN SCH ×2 (08:58→21:00)
[2020-06-05] MEDS: LEVAQUIN PREMIX IV 500 MG 500 MG/100 ML BAG IV SCH (09:00)
[2020-06-05] MEDS: PULMICORT NEB TX 0.5 MG NEB SCH ×2 (09:04→21:05)
[2020-06-05] MEDS: LANOXIN INJ IVP SCH (09:20)
[2020-06-05] MEDS: THEO-DUR TAB 300 MG 12-HR PO SCH (10:20)
[2020-06-05] MEDS: LOPRESSOR TAB 50 MG PO SCH (10:22)
[2020-06-05] MEDS: MILK OF MAGNESIA PO SCH ×2 (10:23→21:34)
[2020-06-05] MEDS: CARDIZEM CD 120 MG 24-HR PO SCH (10:26)
[2020-06-05] MEDS ORDERED: NS 100 ML IV + SPIKE MINIBAG* 100 ML IV ONE (11:28)
--- NOTE | 2020-06-05 11:41 | PCM.PROG ---
Progress Note - Progress Note for Day of Date of Exam: 06/04/20 - Subjective Subjective: WAS ADMITTED FOR TREATMENT OF PNEUMONIA DUE TO COVID-19 AND HYPOXIA. HE REMAINS IN THE INTENSIVE CARE UNIT ON THE BIPAP, AMIODARONE DRIP AND HEPARIN DRIP. STAFF REPORTS THAT HE CONTINUES WITH DISORIENTATION AND AGITATION. GEODON AND PHENOBARBITAL WERE ADDED YESTERDAY. HIS SATURATIONS ON THE BIPAP HAVE BEEN 93-98% THIS MORNING AND THROUGHOUT THE NIGHT. ON EXAMINATION, HE CONFUSED AND DOES NOT ANSWER QUESTIONS APPROPRIATELY. HE ATTEMPTS TO PULL MASK OFF. HE IS NOTED TO BE IN A-FIB WITH RATE IN THE 130s. HE IS TACHYPNEIC WITH HR IN THE 30s. BILATERAL LUNGS ARE NOTED WITH RALES THROUGHOUT. ABDOMEN IS ROUND, SOFT, AND NON-TENDER WITH NORMAL BOWEL SOUNDS NOTED IN ALL QUADRANTS. HIS VITALS THIS MORNING ARE: 100.4-120-34-98% BIPAP-184/97. LABS WERE OBTAINED. ABNORMAL LAB VALUES INCLUDE THE FOLLOWING: WBC 11.8, RBC 4.69, SODIUM 152, CHLORIDE 111, BUN 26, CREATININE 1.33, GLUCOSE 248, CALCIUM 8.4, FERRITIN 2652, CRP 52.10, BNP 247, ALBUMIN 3.2. BLOOD CULTURES ARE PENDING. ABG WAS OBTAINED AND REVEALED: PH 7.450, PC02 40, P012 71, HC03 27.8, 02 SAT 95, A-A GRADINT 449, FI02 80. A CHEST XRAY WAS OBTAINED AND REVEALED: Post median sternotomy. The cardiac silhouette is stably enlarged. Mediastinal contours appear stable. No significant change in diffuse bilateral hazy lung opacities. No definite pleural effusion or pneumothorax. HE IS CURRENTLY RECEIVING NORMAL SALINE AT 75 ML/HR, REMDESIVIR 100MG IV DAILY, AMIODARONE DRIP, FORTAZ 1G IV Q12H, LEVAQUIN 750MG IV Q48H, C ARDIZEM CD 120MG PO DAILY, ALBUTEROL NEBS Q6H, BROVANA NEB TX BID, MUCOMYST IN NEBS QID, PULMICORT NEBS BID, ASCORBIC ACID 1500MG IV Q6H, LIPITOR 80MG PO HS, TESSALON PERLES 200MG PO TID, ZYRTEC 10MG PO DAILY, TUSSIONEX 5ML PO Q12H PRN, COLACE 100MG PO HS, LOVENOX 40MG BID, PEPCID 20MG PO BID, DIFLUCAN 100MG PO DAILY, ROBITUSSIN DM 10ML PO QID, IVERMECTIN- PHARMACY TO DOSE, MAGIC MOUTHWASH QID, MILK OF MAG BID PRN, MELATONIN 10MG PO HS, SOLU-MEDROL 125MG IV Q6H, SINGULAIR 10MG PO HS, PROTONIX 40MG PO DAILY, THIAMINE 200MG IV BID, DONYA-DUR 300MG PO BID, ZINC SULFATE 220MG PO DAILY, AND THE POTASSIUM AND MAGNESIUM PROTOCOLS. TODAY, WE WILL ADD A CLONIDINE 0.3 TD/HR PATCH AND INCREASE GEODON TO 20MG Q6H. OTHERWISE, WE PLAN TO FOLLOW UP WITH AM LABS, CHEST XRAY, ABG, AND CONTINUE TO MONITOR. TIME SPENT ON CLINICAL ASSESSMENT, REVIEWING LABS AND IMAGING, DECISION MAKING, AND DOCUMENTATION GREATER THAN 75 MINUTES. - Past Medical Family Social History Past Med/Fam/Surg Hx: No changes since H&P Allergies: Allergies No Known Drug Allergies Allergy (Verified 06/01/20 13:35) - Review of Systems ROS: No change since H&P - Vital Signs and I&O's Vital Signs: Temperature 97.4 F Pulse Rate [Left Brachial] 101 Pulse Rate 91 Respiratory Rate 21 Blood Pressure [Left Calf] 244/111 Blood Pressure [Right Arm] 176/93 Blood Pressure [Left Arm] 172/95 Blood Pressure 131/75 O2 Sat by Pulse Oximetry 90 Intake and Output: Intake & Output 06/02/20 06/03/20 06/04/20 06/05/20 11:59 11:59 11:59 11:59 Intake Total 1368 / 1368 3478.00 / 3478.00 3145 / 3145 2543 / 2543 Output Total 1160 / 1160 3500 / 3500 2525 / 2525 2525 / 2525 Balance 208 / 208 -22.00 / -22.00 620 / 620 - Physical Exam Oriented: Not Oriented Eyes: Normal Ear: Normal Nose: Normal Throat: Normal Respiratory: Generalized, Rales Cardiovascular: Tachycardia, Irregular : Normal Auscultation: Bowel Sounds: Normal Palpation: Normal Tenderness: Normal Skin: Normal Musculoskeletal: Normal Psychiatric: Agitation Mood Description: Anxious Affect: Anxious, Violent Speech Pattern: Inappropriate - Laboratory and Diagnostics Result Diagrams: 06/05/20 05:10 06/05/20 05:10 Labs: 06/01/20 13:35 Blood Blood Culture - Preliminary 06/01/20 13:21 Blood Blood Culture - Preliminary Laboratory WBC 6.7 X10^3/uL (3.6-10.0) 06/05/20 05:10 RBC 4.21 X10^6/uL (4.7-6.0) L 06/05/20 05:10 Hgb 12.8 g/dL (13.5-18.0) L 06/05/20 05:10 Hct 38.4 % (42.0-54.0) L 06/05/20 05:10 MCV 91.2 fL (80.0-100.0) 06/05/20 05:10 MCH 30.4 pg (27.0-34.0) 06/05/20 05:10 MCHC 33.4 g/dL (33.0-35.0) 06/05/20 05:10 RDW 14.1 % (11.6-16.5) 06/05/20 05:10 Plt Count 124 X10^3/uL (150.0-450.0) L 06/05/20 05:10 Plt Count Comment Decreased (ADEQUATE) 06/05/20 05:10 MPV 10.1 fL (7.4-11.0) 06/05/20 05:10 Neut % (Auto) 90.6 % (42.0-75.0) H 06/05/20 05:10 Lymph % (Auto) 4.1 % (21.0-51.0) L 06/05/20 05:10 [place] % (Auto) 5.2 % (0.0-13.0) 06/05/20 05:10 Eos % (Auto) 0.0 % (0.9-2.9) L 06/05/20 05:10 Baso % (Auto) 0.1 % (0.2-1.0) L 06/05/20 05:10 Neut # (Auto) 6.1 x10^3/uL (2.2-4.8) H 06/05/20 05:10 Lymph # (Auto) 0.3 X10^3/uL (1.3-2.9) L 06/05/20 05:10 [place] # (Auto) 0.4 x10^3/uL (0.3-0.8) 06/05/20 05:10 Eos # (Auto) 0.0 x10^3/uL (0.0-0.2) 06/05/20 05:10 Baso # (Auto) 0.0 X10^3/uL (0.0-0.1) 06/05/20 05:10 Absolute Nucleated RBC 0.2 /100WBC 06/05/20 05:10 Total Counted 100 06/05/20 05:10 Neutrophils % (Manual) 89 % (39-76) H 06/05/20 05:10 Band Neutrophils % 2 % (0-10) 06/05/20 05:10 Lymphocytes % (Manual) 7 % (13-43) L 06/05/20 05:10 Monocytes % (Manual) 2 % (4-9) L 06/05/20 05:10 Plt Morphology Comment Normal (NORMAL) 06/05/20 05:10 RBC Morphology Normal (NORMAL) 06/05/20 05:10 PT 17.2 SECONDS (11.8-14.3) 06/02/20 22:35 INR Target Range - 06/02/20 22:35 INR 1.45 (0.8-1.3) H 06/02/20 22:35 APTT 76.1 SECONDS (22.9-36.5) H 06/05/20 05:10 PTT Comment - 06/05/20 05:10 D-Dimer 0.39 ug/ml (0.0-0.57) 06/05/20 05:10 Sample Site Lb 06/05/20 05:00 ABG pH 7.400 (7.35-7.45) 06/05/20 05:00 ABG pCO2 58.0 mmHg (35.0-45.0) H* 06/05/20 05:00 ABG pO2 96.0 mmHg (80.0-100.0) 06/05/20 05:00 ABG HCO3 35.9 mmol/L (22-26) H* 06/05/20 05:00 ABG O2 Saturation 97.0 % (90-100) 06/05/20 05:00 ABG Base Excess 9.2 mmol/L (-2.0-2.0) H 06/05/20 05:00 Partha Test Na 06/05/20 05:00 A-a Gradient 402.0 mmHg 06/05/20 05:00 FiO2 80.0 06/05/20 05:00 Blood Gas Comments Ivana well sw 06/05/20 05:00 Sodium 154 mmol/L (136-145) H* 06/05/20 05:10 Corrected Sodium 158 mmol/L (136-145) H 06/05/20 05:10 Potassium 3.9 mmol/L (3.5-5.1) 06/05/20 05:10 Chloride 114 mmol/L (98-107) H 06/05/20 05:10 Carbon Dioxide 32.8 mmol/L (21-32) H 06/05/20 05:10 BUN 24 mg/dL (7-18) H 06/05/20 05:10 Creatinine 0.88 mg/dL (0.70-1.30) 06/05/20 05:10 Est GFR (MDRD) Af Amer > 60 (>60) 06/05/20 05:10 Est GFR (MDRD) Non-Af > 60 (>60) 06/05/20 05:10 Glucose 271 mg/dL (65-99) H 06/05/20 05:10 POC Glucose (mg/dL) 261 mg/dL (65-99) H 06/05/20 11:20 Calcium 7.8 mg/dL (8.5-10.1) L 06/05/20 05:10 Corrected Calcium 8.9 mg/dL (8.5-10.1) 06/05/20 05:10 Magnesium 2.0 mg/dL (1.7-2.9) 06/02/20 06:04 Ferritin 1596 ng/mL (26-388) H 06/05/20 05:10 Total Bilirubin 0.50 mg/dL (0.2-1.0) 06/05/20 05:10 AST 81 Units/L (15-37) H 06/05/20 05:10 ALT 56 Units/L (12-78) 06/05/20 05:10 Alkaline Phosphatase 75 Units/L (46-116) 06/05/20 05:10 Ammonia 44 umol/L (11-32) H 06/05/20 08:23 Creatine Kinase 448 Units/L (39-308) H 06/03/20 04:30 CK-MB (CK-2) 10.3 ng/mL (0-4.0) H* 06/03/20 04:30 CK/CKMB % Calc 2.3 % (<4) 06/03/20 04:30 Troponin I 0.22 ng/mL (0-1.5) 06/03/20 04:30 C-Reactive Protein 31.70 mg/L (0-3.0) H 06/05/20 05:10 B-Natriuretic Peptide 139 pg/mL (0-79) H 06/05/20 05:10 Total Protein 6.1 g/dL (6.4-8.2) L 06/05/20 05:10 Albumin 2.6 g/dL (3.4-5.0) L 06/05/20 05:10 Globulin 3.5 g/dL (2.5-4.5) 06/05/20 05:10 Albumin/Globulin Ratio 0.7 Ratio (1.1-2.1) L 06/05/20 05:10 Specimen Type Clean catch urine 06/02/20 18:03 Urine Color Yellow (YELLOW) 06/02/20 18:03 Urine Appearance Clear (CLEAR) 06/02/20 18:03 Urine pH 5.0 (5.0 - 8.0) 06/02/20 18:03 Ur Specific [place] 1.010 (1.000-1.030) 06/02/20 18:03 Urine Protein 3+ (NEGATIVE) 06/02/20 18:03 Urine Glucose (UA) 4+ (NEGATIVE) 06/02/20 18:03 Urine Ketones 3+ (NEGATIVE) 06/02/20 18:03 Urine Occult Blood 3+ (NEGATIVE) 06/02/20 18:03 Urine Nitrite Negative (NEGATIVE) 06/02/20 18:03 Urine Bilirubin Negative (NEGATIVE) 06/02/20 18:03 Urine Urobilinogen Normal (NORMAL) 06/02/20 18:03 Ur Leukocyte Esterase Negative (NEGATIVE) 06/02/20 18:03 Urine RBC 3-5 /HPF (0-3) A 06/02/20 18:03 Urine WBC None seen /HPF (0-5) 06/02/20 18:03 Ur Squamous Epith Cells Negative /HPF (NEGATIVE) 06/02/20 18:03 Urine Bacteria Negative /HPF (NEGATIVE) 06/02/20 18:03 Ur Culture Indicated? No/not indicated 06/02/20 18:03 Phenobarbital 10.1 ug/mL (15-40) L 06/05/20 08:23 SARS CoV-2 RNA Rapid LADAN Positive (NEGATIVE) A 06/01/20 13:23 Blood Type A POSITIVE 06/01/20 13:35 - Plan (1) Pneumonia due to COVID-19 virus Status: Acute Plan: SUPPLEMENTAL OXYGEN, NORMAL SALINE AT 75 ML/HR, REMDESIVIR 100MG IV DAILY, FORTAZ 1G IV Q12H, LEVAQUIN 750MG IV Q48H, ALBUTEROL NEBS Q6H, BROVANA NEB TX BID, MUCOMYST IN NEBS QID, PULMICORT NEBS BID, ASCORBIC ACID 1500MG IV Q6H, LIPITOR 80MG PO HS, TESSALON PERLES 200MG PO TID, ZYRTEC 10MG PO DAILY, TUSSIONEX 5ML PO Q12H PRN, COLACE 100MG PO HS, LOVENOX 40MG BID, PEPCID 20MG PO BID, DIFLUCAN 100MG PO DAILY, ROBITUSSIN DM 10ML PO QID, IVERMECTIN- PHARMACY TO DOSE, MAGIC MOUTHWASH QID, MILK OF MAG BID PRN, MELATONIN 10MG PO HS, SOLU- MEDROL 125MG IV Q6H, SINGULAIR 10MG PO HS, PROTONIX 40MG PO DAILY, THIAMINE 200MG IV BID, DONYA-DUR 300MG PO BID, ZINC SULFATE 220MG PO DAILY, AND THE POTASSIUM AND MAGNESIUM PROTOCOLS. (2) Hypoxia Status: Chronic (3) Atrial fibrillation with RVR Status: Acute Plan: AMIODARONE DRIP, CARDIZEM CD 120MG PO DAILY, 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
--- NOTE | 2020-06-05 12:12 | PCM.PROG ---
Progress Note - Progress Note for Day of Date of Exam: 06/05/20 - Subjective Subjective: WAS ADMITTED FOR TREATMENT OF PNEUMONIA DUE TO COVID-19 AND HYPOXIA. HE REMAINS IN THE INTENSIVE CARE UNIT ON THE BIPAP TODAY. STAFF REPORTS THAT HE CONTINUES WITH AGITATION AT TIMES, BUT OVERALL, HAS RESTED BETTER. HIS SATURATIONS ON THE BIPAP HAVE BEEN 90-97% THIS MORNING AND T HROUGHOUT THE NIGHT. STAFF REPORTS THAT HE WILL NOT TAKE PILLS BY MOUTH. SEVERAL MEDICATIONS WERE CHANGED TO IV OR IM ROUTE YESTERDAY. ON EXAMINATION, HE IS LYING IN BED WITH EYES CLOSED ON MORNING ROUNDS. HE DOES NOT OPEN EYES TO VERBAL STIMULI. BILATERAL LUNGS ARE NOTED WITH RALES THROUGHOUT. ABDOMEN IS ROUND, SOFT, AND NON-TENDER WITH NORMAL BOWEL SOUNDS NOTED IN ALL QUADRANTS. HIS VITALS THIS MORNING ARE: 97.4-89-20-97%-161/93. LABS WERE OBTAINED. ABNORMAL LAB VALUES INCLUDE THE FOLLOWING: WBC 4.21, HGB 12.8, HCT 38.4, PLT COUNT 124, SODIUM 154, CHLORIDE 114, CARBON DIOXIDE 32.8, BUN 24, GLUCOSE 271, CALCIUM 7.8, FERRITIN 1596, AST 81, CRP 31.70, BNP 139, TOTAL PROTEIN 6.1, ALBUMIN 2.6. BLOOD CULTURES ARE PENDING. ABG WAS OBTAINED AND REVEALED: PH 7.400, PC02 58, P02 96, HC03 35.9, 02 SAT 97, BASE EXCESS 9.2, FI02 80. A CHEST XRAY WAS OBTAINED AND REVEALED: Persistent bilateral pneumonia with slight interval improvement on the left, no new abnormality. TODAY, WE WILL CHANGE HIS IV FLUIDS TO D5W AT 75 ML/HR, ADD LEVEMIR 10MG SC BID, AND DECREASE GEODON. OTHERWISE, WE WILL CONTINUE WITH CURRENT PLAN OF CARE TODAY. WE PLAN TO FOLLOW UP WITH AM LABS, CHEST XRAY, ABG, AND CONTINUE TO MONITOR. TIME SPENT ON CLINICAL ASSESSMENT, REVIEWING LABS AND IMAGING, DECISION MAKING, AND DOCUMENTATION GREATER THAN 75 MINUTES. - Past Medical Family Social History Past Med/Fam/Surg Hx: No changes since H&P Allergies: Allergies No Known Drug Allergies Allergy (Verified 06/01/20 13:35) - Review of Systems ROS: No change since H&P - Vital Signs and I&O's Vital Signs: Temperature 97.4 F Pulse Rate [Left Brachial] 101 Pulse Rate 91 Respiratory Rate 21 Blood Pressure [Left Calf] 244/111 Blood Pressure [Right Arm] 176/93 Blood Pressure [Left Arm] 172/95 Blood Pressure 131/75 O2 Sat by Pulse Oximetry 90 Intake and Output: Intake & Output 06/03/20 06/04/20 06/05/20 06/06/20 11:59 11:59 11:59 11:59 Intake Total 3478.00 / 3478.00 3145 / 3145 2543 / 2543 Output Total 3500 / 3500 2525 / 2525 2525 / 2525 Balance -22.00 / -22.00 620 / 620 - Physical Exam Oriented: Not Oriented Eyes: Normal Ear: Normal Nose: Normal Throat: Normal Respiratory: Generalized, Rales Cardiovascular: Tachycardia, Irregular : Normal Auscultation: Bowel Sounds: Normal Palpation: Normal Tenderness: Normal Skin: Normal Musculoskeletal: Normal Psychiatric: Agitation Mood Description: Anxious Affect: Anxious, Violent Speech Pattern: Inappropriate - Laboratory and Diagnostics Result Diagrams: 06/17/20 05:10 06/17/20 05:10 Labs: 06/01/20 13:35 Blood Blood Culture - Preliminary 06/01/20 13:21 Blood Blood Culture - Preliminary Laboratory WBC 6.7 X10^3/uL (3.6-10.0) 06/05/20 05:10 RBC 4.21 X10^6/uL (4.7-6.0) L 06/05/20 05:10 Hgb 12.8 g/dL (13.5-18.0) L 06/05/20 05:10 Hct 38.4 % (42.0-54.0) L 06/05/20 05:10 MCV 91.2 fL (80.0-100.0) 06/05/20 05:10 MCH 30.4 pg (27.0-34.0) 06/05/20 05:10 MCHC 33.4 g/dL (33.0-35.0) 06/05/20 05:10 RDW 14.1 % (11.6-16.5) 06/05/20 05:10 Plt Count 124 X10^3/uL (150.0-450.0) L 06/05/20 05:10 Plt Count Comment Decreased (ADEQUATE) 06/05/20 05:10 MPV 10.1 fL (7.4-11.0) 06/05/20 05:10 Neut % (Auto) 90.6 % (42.0-75.0) H 06/05/20 05:10 Lymph % (Auto) 4.1 % (21.0-51.0) L 06/05/20 05:10 [place] % (Auto) 5.2 % (0.0-13.0) 06/05/20 05:10 Eos % (Auto) 0.0 % (0.9-2.9) L 06/05/20 05:10 Baso % (Auto) 0.1 % (0.2-1.0) L 06/05/20 05:10 Neut # (Auto) 6.1 x10^3/uL (2.2-4.8) H 06/05/20 05:10 Lymph # (Auto) 0.3 X10^3/uL (1.3-2.9) L 06/05/20 05:10 [place] # (Auto) 0.4 x10^3/uL (0.3-0.8) 06/05/20 05:10 Eos # (Auto) 0.0 x10^3/uL (0.0-0.2) 06/05/20 05:10 Baso # (Auto) 0.0 X10^3/uL (0.0-0.1) 06/05/20 05:10 Absolute Nucleated RBC 0.2 /100WBC 06/05/20 05:10 Total Counted 100 06/05/20 05:10 Neutrophils % (Manual) 89 % (39-76) H 06/05/20 05:10 Band Neutrophils % 2 % (0-10) 06/05/20 05:10 Lymphocytes % (Manual) 7 % (13-43) L 06/05/20 05:10 Monocytes % (Manual) 2 % (4-9) L 06/05/20 05:10 Plt Morphology Comment Normal (NORMAL) 06/05/20 05:10 RBC Morphology Normal (NORMAL) 06/05/20 05:10 PT 17.2 SECONDS (11.8-14.3) 06/02/20 22:35 INR Target Range - 06/02/20 22:35 INR 1.45 (0.8-1.3) H 06/02/20 22:35 APTT 57.1 SECONDS (22.9-36.5) H 06/05/20 11:10 PTT Comment - 06/05/20 11:10 D-Dimer 0.39 ug/ml (0.0-0.57) 06/05/20 05:10 Sample Site Lb 06/05/20 05:00 ABG pH 7.400 (7.35-7.45) 06/05/20 05:00 ABG pCO2 58.0 mmHg (35.0-45.0) H* 06/05/20 05:00 ABG pO2 96.0 mmHg (80.0-100.0) 06/05/20 05:00 ABG HCO3 35.9 mmol/L (22-26) H* 06/05/20 05:00 ABG O2 Saturation 97.0 % (90-100) 06/05/20 05:00 ABG Base Excess 9.2 mmol/L (-2.0-2.0) H 06/05/20 05:00 Partha Test Na 06/05/20 05:00 A-a Gradient 402.0 mmHg 06/05/20 05:00 FiO2 80.0 06/05/20 05:00 Blood Gas Comments Ivana well sw 06/05/20 05:00 Sodium 154 mmol/L (136-145) H* 06/05/20 05:10 Corrected Sodium 158 mmol/L (136-145) H 06/05/20 05:10 Potassium 3.9 mmol/L (3.5-5.1) 06/05/20 05:10 Chloride 114 mmol/L (98-107) H 06/05/20 05:10 Carbon Dioxide 32.8 mmol/L (21-32) H 06/05/20 05:10 BUN 24 mg/dL (7-18) H 06/05/20 05:10 Creatinine 0.88 mg/dL (0.70-1.30) 06/05/20 05:10 Est GFR (MDRD) Af Amer > 60 (>60) 06/05/20 05:10 Est GFR (MDRD) Non-Af > 60 (>60) 06/05/20 05:10 Glucose 271 mg/dL (65-99) H 06/05/20 05:10 POC Glucose (mg/dL) 261 mg/dL (65-99) H 06/05/20 11:20 Calcium 7.8 mg/dL (8.5-10.1) L 06/05/20 05:10 Corrected Calcium 8.9 mg/dL (8.5-10.1) 06/05/20 05:10 Magnesium 2.0 mg/dL (1.7-2.9) 06/02/20 06:04 Ferritin 1596 ng/mL (26-388) H 06/05/20 05:10 Total Bilirubin 0.50 mg/dL (0.2-1.0) 06/05/20 05:10 AST 81 Units/L (15-37) H 06/05/20 05:10 ALT 56 Units/L (12-78) 06/05/20 05:10 Alkaline Phosphatase 75 Units/L (46-116) 06/05/20 05:10 Ammonia 44 umol/L (11-32) H 06/05/20 08:23 Creatine Kinase 448 Units/L (39-308) H 06/03/20 04:30 CK-MB (CK-2) 10.3 ng/mL (0-4.0) H* 06/03/20 04:30 CK/CKMB % Calc 2.3 % (<4) 06/03/20 04:30 Troponin I 0.22 ng/mL (0-1.5) 06/03/20 04:30 C-Reactive Protein 31.70 mg/L (0-3.0) H 06/05/20 05:10 B-Natriuretic Peptide 139 pg/mL (0-79) H 06/05/20 05:10 Total Protein 6.1 g/dL (6.4-8.2) L 06/05/20 05:10 Albumin 2.6 g/dL (3.4-5.0) L 06/05/20 05:10 Globulin 3.5 g/dL (2.5-4.5) 06/05/20 05:10 Albumin/Globulin Ratio 0.7 Ratio (1.1-2.1) L 06/05/20 05:10 Specimen Type Clean catch urine 06/02/20 18:03 Urine Color Yellow (YELLOW) 06/02/20 18:03 Urine Appearance Clear (CLEAR) 06/02/20 18:03 Urine pH 5.0 (5.0 - 8.0) 06/02/20 18:03 Ur Specific [place] 1.010 (1.000-1.030) 06/02/20 18:03 Urine Protein 3+ (NEGATIVE) 06/02/20 18:03 Urine Glucose (UA) 4+ (NEGATIVE) 06/02/20 18:03 Urine Ketones 3+ (NEGATIVE) 06/02/20 18:03 Urine Occult Blood 3+ (NEGATIVE) 06/02/20 18:03 Urine Nitrite Negative (NEGATIVE) 06/02/20 18:03 Urine Bilirubin Negative (NEGATIVE) 06/02/20 18:03 Urine Urobilinogen Normal (NORMAL) 06/02/20 18:03 Ur Leukocyte Esterase Negative (NEGATIVE) 06/02/20 18:03 Urine RBC 3-5 /HPF (0-3) A 06/02/20 18:03 Urine WBC None seen /HPF (0-5) 06/02/20 18:03 Ur Squamous Epith Cells Negative /HPF (NEGATIVE) 06/02/20 18:03 Urine Bacteria Negative /HPF (NEGATIVE) 06/02/20 18:03 Ur Culture Indicated? No/not indicated 06/02/20 18:03 Digoxin 0.83 ng/mL (0.9-2) L 06/05/20 11:10 Phenobarbital 10.1 ug/mL (15-40) L 06/05/20 08:23 SARS CoV-2 RNA Rapid LADAN Positive (NEGATIVE) A 06/01/20 13:23 Blood Type A POSITIVE 06/01/20 13:35 - Plan (1) Pneumonia due to COVID-19 virus Status: Acute Plan: SUPPLEMENTAL OXYGEN, REMDESIVIR, CONTINUE IV FLUIDS, IV ANTIBIOTICS, NEB TX, VITAMIN SUPPLEMENTATION, DVT PROPHYLAXIS, DIFLUCAN, COUGH MEDICATIONS, AND POTASSIUM AND MAGNESIUM PROTOCOLS (2) Hypoxia Status: Chronic (3) Atrial fibrillation with RVR Status: Acute Plan: CONTINUE ANTIARRHYTHMIC AND RATE CONTROL DRUGS, CONTROL TOWER OPERATOR, 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
[2020-06-05] MEDS: PROTONIX INJ 40 MG VIAL IVP SCH (12:41)
[2020-06-05] MEDS: DIFLUCAN 200 MG IV PREMIX* 200 MG/100 ML BAG IV SCH (12:42)
[2020-06-05] MEDS: APRESOLINE INJ 20 MG VIAL IVP PRN (13:15)
[2020-06-05] MEDS: CARDIZEM INJ 125 MG VIAL 125 MG in NS 100 ML IV 100 ML IV PRN ×2 (13:45→23:27)
[2020-06-05] MEDS: PEPCID 20 MG IV PREMIX* 20 MG/50 ML BAG IV SCH ×2 (14:02→21:00)
[2020-06-05] MEDS: D5W 1000 ML IV 1,000 ML IV SCH (15:10)
[2020-06-05] MEDS ORDERED: LOPRESSOR INJ 5 MG AMP IVP ONE (16:19)
[2020-06-05] MEDS: LEVEMIR SC SCH ×2 (16:22→21:00)
[2020-06-05] MEDS ORDERED: LOPRESSOR INJ 5 MG AMP ONE (16:23)
[2020-06-05] MEDS: HEPARIN SODIUM IN D5W 25,000 UNITS/500 ML BAG IV PRN (18:16)
[2020-06-05] MEDS ORDERED: NS 250 ML IV 250 ML IV ONE (20:38)
[2020-06-05] MEDS: SNACK - Diabetic Appropriate PO SCH (21:35)
[2020-06-06] MEDS: D5W 1000 ML IV 1,000 ML IV SCH (00:09)
[2020-06-06] MEDS: MORPHINE SULFATE INJ 4 MG IVP PRN (00:59)
[2020-06-06] MEDS: ASCORBIC ACID INJ MULTI-DOSE VIAL 1,500 MG in NS 50 ML IV 50 ML IV SCH ×4 (02:30→21:25)
[2020-06-06 04:28] LABS: ABG BASE EXCESS 6.5 mmol/L (-2.0-2.0)
[2020-06-06 04:29] LABS: ABG ALLEN TEST POS; ABG HCO3 31.9 mmol/L (22-26)
[2020-06-06] MEDS: ATIVAN INJ 2 MG VIAL IVP SCH ×4 (04:45→23:00)
[2020-06-06] MEDS: XOPENEX 1.25 MG/3 ML NEBULE NEB SCH ×3 (05:04→20:50)
[2020-06-06] MEDS: MUCOMYST 20% 200 MG/ML NEB SCH ×3 (05:04→20:50)
--- NOTE | 2020-06-06 06:17 | RAD ---
HISTORYcovidSTUDYPortable AP [id number] mild cardiac enlargement. Persistent bilateral pulmonary infiltrates, similar in the left lung and slightly improved in the right lung. No new consolidation, complicating extrapulmonary air or developing pleural fluid.IMPRESSIONPersistent bilateral pneumonia with slight improvement suggested in the right lung. No new abnormality demonstrated.Electronically signed by: ELIZABETH GOMEZ (Jun 06, 2020 06:15:13)
[2020-06-06] MEDS: FORTAZ or TAZICEF VIAL INJ IV SCH ×3 (06:27→22:15)
[2020-06-06] MEDS: PHENOBARBITAL SODIUM INJ 65 MG VIAL IVP SCH ×3 (06:27→22:15)
[2020-06-06] MEDS: SOLU-Medrol 125 MG VIAL IVP SCH ×3 (06:27→22:15)
[2020-06-06] MEDS: HumuLIN R SUBCUT PRN ×4 (06:28→21:46)
[2020-06-06 06:31] LABS: BASOPHILS % (AUTO) 0.1 % (0.2-1.0); HEMATOCRIT 41.6 % (42.0-54.0); HEMOGLOBIN 13.5 g/dL (13.5-18.0); LYMPHOCYTES # (AUTO) 0.2 X10^3/uL (1.3-2.9); MEAN CORPUSCULAR HEMOGLOBIN 29.9 pg (27.0-34.0); MEAN CORPUSCULAR HGB CONC 32.4 g/dL (33.0-35.0); MEAN CORPUSCULAR VOLUME 92.4 fL (80.0-100.0); MEAN PLATELET VOLUME 10.1 fL (7.4-11.0); MONOCYTES # (AUTO) 0.4 x10^3/uL (0.3-0.8); MONOCYTES % (AUTO) 5.6 % (0.0-13.0); NEUTROPHILS % (AUTO) 91.3 % (42.0-75.0); PLATELET COUNT 154 X10^3/uL (150.0-450.0); RED BLOOD COUNT 4.51 X10^6/uL (4.7-6.0); RED CELL DISTRIBUTION WIDTH 14.4 % (11.6-16.5); WHITE BLOOD COUNT 7.7 X10^3/uL (3.6-10.0)
[2020-06-06 06:43] LABS: ALANINE AMINOTRANSFERASE 59 Units/L (12-78); ALBUMIN 2.8 g/dL (3.4-5.0); ALKALINE PHOSPHATASE 82 Units/L (46-116); ASPARTATE AMINO TRANSFERASE 51 Units/L (15-37); BLOOD UREA NITROGEN 25 mg/dL (7-18); CALCIUM 8.1 mg/dL (8.5-10.1); CARBON DIOXIDE 29.9 mmol/L (21-32); CHLORIDE 114 mmol/L (98-107); COR CA(FOR HYPOALB) 9.1 mg/dL (8.5-10.1); CREATININE 1.11 mg/dL (0.70-1.30); MAGNESIUM 2.6 mg/dL (1.7-2.9); TOTAL PROTEIN 6.4 g/dL (6.4-8.2); eGFR NON BLACK RACES > 60 (>60)
[2020-06-06 06:55] LABS: COR NA(FOR HYPERGLY) 161 mmol/L (136-145); SODIUM 155 mmol/L (136-145)
[2020-06-06 07:33] LABS: PLATELET MORPHOLOGY COMMENT NORMAL (NORMAL)
[2020-06-06] MEDS: PEPCID 20 MG IV PREMIX* 20 MG/50 ML BAG IV SCH ×2 (08:20→21:25)
[2020-06-06] MEDS: BROVANA IN SCH ×2 (08:35→20:37)
[2020-06-06] MEDS: PULMICORT NEB TX 0.5 MG NEB SCH ×2 (08:41→20:50)
[2020-06-06] MEDS: LANOXIN INJ IVP SCH (08:44)
[2020-06-06] MEDS: GEODON INJ IM SCH ×2 (08:44→21:25)
[2020-06-06] MEDS: THIAMINE HCL INJ IVP SCH ×2 (08:46→21:25)
[2020-06-06] MEDS: LEVEMIR SC SCH ×2 (08:46→21:25)
[2020-06-06] MEDS: PROTONIX INJ 40 MG VIAL IVP SCH (08:47)
[2020-06-06] MEDS: MILK OF MAGNESIA PO SCH (08:47)
[2020-06-06] MEDS: LEVAQUIN PREMIX IV 500 MG 500 MG/100 ML BAG IV SCH (09:30)
[2020-06-06] MEDS: DIFLUCAN 200 MG IV PREMIX* 200 MG/100 ML BAG IV SCH (09:30)
[2020-06-06] MEDS ORDERED: DULCOLAX SUPPOSITORY 10 MG RECTAL ONE ×2 (10:11)
[2020-06-06] MEDS ORDERED: LOPRESSOR INJ 5 MG AMP ONE (10:36)
[2020-06-06] MEDS: LOPRESSOR INJ 5 MG AMP IVP SCH ×3 (10:39→22:15)
[2020-06-06] MEDS ORDERED: PHARMACY CONSULT - TPN XX SCH (11:00)
[2020-06-06] MEDS: CARDIZEM INJ 125 MG VIAL 125 MG in NS 100 ML IV 100 ML IV PRN ×2 (11:18→18:21)
[2020-06-06] MEDS: CLINIMIX 4.25 %/10 % 1,000 ML with TPN ELECTROLYTES 20 ML, MVI INJ (ADULT) 10 ML IV SCH ×3 (13:26)
[2020-06-06] MEDS ORDERED: FORTAZ or TAZICEF VIAL INJ ONE ×2 (20:12→22:47)
[2020-06-06] MEDS ORDERED: D5W IV ONE (20:14)
[2020-06-06] MEDS: HEPARIN SODIUM IN D5W 25,000 UNITS/500 ML BAG IV PRN (20:20)
[2020-06-06] MEDS: SNACK - Diabetic Appropriate PO SCH (21:27)
[2020-06-07] MEDS: ASCORBIC ACID INJ MULTI-DOSE VIAL 1,500 MG in NS 50 ML IV 50 ML IV SCH ×4 (03:47→20:38)
[2020-06-07] MEDS: ATIVAN INJ 2 MG VIAL IVP SCH ×5 (05:00→22:19)
[2020-06-07 05:24] LABS: BASOPHILS % (AUTO) 0.1 % (0.2-1.0); HEMATOCRIT 41.9 % (42.0-54.0); HEMOGLOBIN 13.6 g/dL (13.5-18.0); LYMPHOCYTES # (AUTO) 0.1 X10^3/uL (1.3-2.9); LYMPHOCYTES % (AUTO) 1.9 % (21.0-51.0); MEAN CORPUSCULAR HEMOGLOBIN 30.2 pg (27.0-34.0); MEAN CORPUSCULAR HGB CONC 32.5 g/dL (33.0-35.0); MEAN CORPUSCULAR VOLUME 92.9 fL (80.0-100.0); MEAN PLATELET VOLUME 10.7 fL (7.4-11.0); MONOCYTES # (AUTO) 0.3 x10^3/uL (0.3-0.8); MONOCYTES % (AUTO) 4.3 % (0.0-13.0); NEUTROPHILS # (AUTO) 7.3 x10^3/uL (2.2-4.8); NEUTROPHILS % (AUTO) 93.7 % (42.0-75.0); PLATELET COUNT 150 X10^3/uL (150.0-450.0); RED BLOOD COUNT 4.51 X10^6/uL (4.7-6.0); WHITE BLOOD COUNT 7.8 X10^3/uL (3.6-10.0)
[2020-06-07 05:31] LABS: ALANINE AMINOTRANSFERASE 50 Units/L (12-78); ALBUMIN 2.6 g/dL (3.4-5.0); ALKALINE PHOSPHATASE 75 Units/L (46-116); ASPARTATE AMINO TRANSFERASE 34 Units/L (15-37); BLOOD UREA NITROGEN 24 mg/dL (7-18); CALCIUM 7.8 mg/dL (8.5-10.1); CARBON DIOXIDE 35.7 mmol/L (21-32); CHLORIDE 114 mmol/L (98-107); COR CA(FOR HYPOALB) 8.9 mg/dL (8.5-10.1); COR NA(FOR HYPERGLY) 162 mmol/L (136-145); CREATININE 0.95 mg/dL (0.70-1.30); TOTAL PROTEIN 6.1 g/dL (6.4-8.2); eGFR NON BLACK RACES > 60 (>60)
[2020-06-07 05:43] LABS: SODIUM 156 mmol/L (136-145)
[2020-06-07] MEDS: LOPRESSOR INJ 5 MG AMP IVP SCH ×4 (06:00→22:35)
[2020-06-07 06:05] LABS: PLATELET MORPHOLOGY COMMENT NORMAL (NORMAL)
[2020-06-07] MEDS: PHENOBARBITAL SODIUM INJ 65 MG VIAL IVP SCH ×3 (06:11→21:17)
[2020-06-07] MEDS: SOLU-Medrol 125 MG VIAL IVP SCH ×3 (06:11→21:14)
[2020-06-07] MEDS: FORTAZ or TAZICEF VIAL INJ IV SCH ×3 (06:11→21:00)
[2020-06-07] MEDS: HumuLIN R SUBCUT PRN ×4 (06:12→21:05)
[2020-06-07] MEDS: XOPENEX 1.25 MG/3 ML NEBULE NEB SCH ×3 (06:15→20:45)
[2020-06-07] MEDS: MUCOMYST 20% 200 MG/ML NEB SCH ×3 (06:15→20:45)
[2020-06-07 06:25] LABS: ABG BASE EXCESS 15.9 mmol/L (-2.0-2.0)
[2020-06-07 06:28] LABS: ABG HCO3 42.2 mmol/L (22-26)
--- NOTE | 2020-06-07 07:14 | RAD ---
HISTORYSOBSTUDYCHEST, 1 VIEWCOMPARISONOne day prior.TECHNIQUEAP view of the chestFINDINGSPatient is rotated. Status post median sternotomy.The cardiac and mediastinal contours appear stable. Mildly improved appearance of bilateral diffuse hazy lung opacities. No definite pleural effusion or pneumothorax.IMPRESSIONMild improvement in bilateral hazy lung opacities.Electronically signed by: Mitchel Carrera (Jun 07, 2020 07:12:48)
[2020-06-07] MEDS: BROVANA IN SCH ×2 (09:11→20:37)
[2020-06-07] MEDS: PULMICORT NEB TX 0.5 MG NEB SCH ×2 (09:18→20:45)
[2020-06-07] MEDS: LEVEMIR SC SCH ×2 (10:35→21:05)
[2020-06-07] MEDS: CLINIMIX 4.25 %/10 % 1,000 ML with TPN ELECTROLYTES 20 ML, MVI INJ (ADULT) 10 ML IV SCH ×3 (10:35)
[2020-06-07] MEDS: GEODON INJ IM SCH ×2 (10:35→20:37)
[2020-06-07] MEDS: LANOXIN INJ IVP SCH (10:35)
[2020-06-07] MEDS: THIAMINE HCL INJ IVP SCH ×2 (10:35→20:40)
[2020-06-07] MEDS: DIFLUCAN 200 MG IV PREMIX* 200 MG/100 ML BAG IV SCH (10:35)
[2020-06-07] MEDS: LEVAQUIN PREMIX IV 500 MG 500 MG/100 ML BAG IV SCH (10:35)
[2020-06-07] MEDS: PEPCID 20 MG IV PREMIX* 20 MG/50 ML BAG IV SCH ×2 (10:40→20:36)
[2020-06-07] MEDS: PROTONIX INJ 40 MG VIAL IVP SCH (11:23)
[2020-06-07] MEDS: D5W 1000 ML IV 1,000 ML IV SCH (11:24)
[2020-06-07] MEDS: APRESOLINE INJ 20 MG VIAL IVP PRN (18:23)
[2020-06-07] MEDS: SNACK - Diabetic Appropriate PO SCH ×2 (20:30→21:07)
--- NOTE | 2020-06-07 21:07 | PCM.PROG ---
Progress Note - Progress Note for Day of Date of Exam: 06/06/20 - Subjective Subjective: WAS ADMITTED FOR TREATMENT OF PNEUMONIA DUE TO COVID-19 AND HYPOXIA. HE REMAINS IN THE INTENSIVE CARE UNIT ON THE BIPAP TODAY. STAFF REPORTS THAT HE HAS RESTED BETTER AND HAS NOT BEEN QUITE AGITATED TODAY. THEY REPORT THAT HIS SATURATIONS DO DROP TO THE 80s WHEN THE BIPAP IS REMOVED. HIS SATURATIONS ON THE BIPAP HAVE BEEN 90-95% THIS MORNING AND THROUGHOUT THE NIGHT. HE DOES CONTINUE WITH PERIODS OF TACHYCARDIA. YESTERDAY AFTERNOON, HEART RATE DID REACH 146 BEATS/MINUTE. ON EXAMINATION, HE IS LYING IN BED WITH EYES CLOSED ON MORNING ROUNDS. PATIENT OPENS EYES TO LIGHT STIMULATION. ON EXAMINATION, BILATERAL LUNGS ARE NOTED WITH RALES THROUGHOUT. ABDOMEN IS ROUND, SOFT, AND NON-TENDER WITH NORMAL BOWEL SOUNDS NOTED IN ALL QUADRANTS. HIS VITALS THIS MORNING ARE: 99.8-93-16-92%BIPAP-193/76. LABS WERE OBTAINED. ABNORMAL LAB VALUES INCLUDE THE FOLLOWING: RBC 4.51, HCT 41.6, SODIUM 155, CHLORIDE 114, BUN 25, GLUCOSE 357, CALCIUM 8.1, FERRITIN 834, AST 51, CRP 25.50, BNP 105, ALBUMIN 2.8, PREALBUMIN 16.1. BLOOD CULTURES ARE PENDING. ABG WAS OBTAINED AND REVEALED: PH 7.400, PC02 58, P02 96, HC03 35.9, 02 SAT 97, BASE EXCESS 9.2, FI02 80. A CHEST XRAY WAS OBTAINED AND REVEALED: Persistent bilateral pneumonia with slight improvement suggested in the right lung. No new abnormality demonstrated. TODAY, WE WILL ADD TPN, ADMINISTER A DULCOLOX SUPPOSITORY, AND ADD LOPRESSOR 5MG IV Q6H. OTHERWISE, WE WILL CONTINUE WITH CURRENT PLAN OF CARE TODAY. WE PLAN TO FOLLOW UP WITH AM LABS, CHEST XRAY, ABG, AND CONTINUE TO MONITOR. TIME SPENT ON CLINICAL ASSESSMENT, REVIEWING LABS AND IMAGING, DECISION MAKING, AND DOCUMENTATION GREATER THAN 75 MINUTES. - Past Medical Family Social History Past Med/Fam/Surg Hx: No changes since H&P Allergies: Allergies No Known Drug Allergies Allergy (Verified 06/01/20 13:35) - Review of Systems ROS: No change since H&P - Vital Signs and I&O's Vital Signs: Temperature 99.0 F Pulse Rate [Left Brachial] 72 Pulse Rate 90 Respiratory Rate 28 Blood Pressure [Left Calf] 244/111 Blood Pressure [Right Arm] 176/93 Blood Pressure [Left Arm] 187/90 Blood Pressure 190/93 O2 Sat by Pulse Oximetry 93 Intake and Output: Intake & Output 06/05/20 06/06/20 06/07/20 06/08/20 11:59 11:59 11:59 11:59 Intake Total 2543 / 2543 3508 / 3508 2186 / 2186 1045 / 1045 Output Total 2525 / 2525 2850 / 2850 2850 / 2850 1250 / 1250 Balance 658 / 658 -664 / -664 -205 / -205 - Physical Exam Oriented: Not Oriented Eyes: Normal Ear: Normal Nose: Normal Throat: Normal Respiratory: Generalized, Rales Cardiovascular: Tachycardia, Irregular : Normal Auscultation: Bowel Sounds: Normal Palpation: Normal Tenderness: Normal Skin: Normal Musculoskeletal: Normal Psychiatric: Agitation Mood Description: Anxious Affect: Anxious, Violent Speech Pattern: Inappropriate - Laboratory and Diagnostics Result Diagrams: 06/17/20 05:10 06/17/20 05:10 Labs: 06/01/20 13:35 Blood Blood Culture - Final 06/01/20 13:21 Blood Blood Culture - Final Laboratory WBC 7.8 X10^3/uL (3.6-10.0) 06/07/20 04:10 RBC 4.51 X10^6/uL (4.7-6.0) L 06/07/20 04:10 Hgb 13.6 g/dL (13.5-18.0) 06/07/20 04:10 Hct 41.9 % (42.0-54.0) L 06/07/20 04:10 MCV 92.9 fL (80.0-100.0) 06/07/20 04:10 MCH 30.2 pg (27.0-34.0) 06/07/20 04:10 MCHC 32.5 g/dL (33.0-35.0) L 06/07/20 04:10 RDW 14.0 % (11.6-16.5) 06/07/20 04:10 Plt Count 150 X10^3/uL (150.0-450.0) 06/07/20 04:10 Plt Count Comment Adequate (ADEQUATE) 06/07/20 04:10 MPV 10.7 fL (7.4-11.0) 06/07/20 04:10 Neut % (Auto) 93.7 % (42.0-75.0) H 06/07/20 04:10 Lymph % (Auto) 1.9 % (21.0-51.0) L 06/07/20 04:10 [place] % (Auto) 4.3 % (0.0-13.0) 06/07/20 04:10 Eos % (Auto) 0.0 % (0.9-2.9) L 06/07/20 04:10 Baso % (Auto) 0.1 % (0.2-1.0) L 06/07/20 04:10 Neut # (Auto) 7.3 x10^3/uL (2.2-4.8) H 06/07/20 04:10 Lymph # (Auto) 0.1 X10^3/uL (1.3-2.9) L 06/07/20 04:10 [place] # (Auto) 0.3 x10^3/uL (0.3-0.8) 06/07/20 04:10 Eos # (Auto) 0.0 x10^3/uL (0.0-0.2) 06/07/20 04:10 Baso # (Auto) 0.0 X10^3/uL (0.0-0.1) 06/07/20 04:10 Absolute Nucleated RBC 0.1 /100WBC 06/07/20 04:10 Total Counted 100 06/07/20 04:10 Neutrophils % (Manual) 95 % (39-76) H 06/07/20 04:10 Band Neutrophils % 2 % (0-10) 06/05/20 05:10 Lymphocytes % (Manual) 5 % (13-43) L 06/07/20 04:10 Monocytes % (Manual) 4 % (4-9) 06/06/20 06:07 Plt Morphology Comment Normal (NORMAL) 06/07/20 04:10 RBC Morphology Normal (NORMAL) 06/07/20 04:10 PT 17.2 SECONDS (11.8-14.3) 06/02/20 22:35 INR Target Range - 06/02/20 22:35 INR 1.45 (0.8-1.3) H 06/02/20 22:35 APTT 85.0 SECONDS (22.9-36.5) H 06/07/20 12:09 PTT Comment - 06/07/20 12:09 D-Dimer 0.71 ug/ml (0.0-0.57) H* 06/07/20 04:10 Sample Site Rrad 06/07/20 06:23 ABG pH 7.470 (7.35-7.45) H 06/07/20 06:23 ABG pCO2 58.0 mmHg (35.0-45.0) H* 06/07/20 06:23 ABG pO2 112.0 mmHg (80.0-100.0) H 06/07/20 06:23 ABG HCO3 42.2 mmol/L (22-26) H* 06/07/20 06:23 ABG O2 Saturation 99.0 % (90-100) 06/07/20 06:23 ABG Base Excess 15.9 mmol/L (-2.0-2.0) H 06/07/20 06:23 Partha Test Pos'danis abg well-mtf 06/07/20 06:23 A-a Gradient 315.0 mmHg 06/07/20 06:23 FiO2 70.0 06/07/20 06:23 Blood Gas Comments Danis well ae 06/06/20 04:23 Sodium 156 mmol/L (136-145) H* 06/07/20 04:10 Corrected Sodium 162 mmol/L (136-145) H 06/07/20 04:10 Potassium 3.7 mmol/L (3.5-5.1) 06/07/20 04:10 Chloride 114 mmol/L (98-107) H 06/07/20 04:10 Carbon Dioxide 35.7 mmol/L (21-32) H 06/07/20 04:10 BUN 24 mg/dL (7-18) H 06/07/20 04:10 Creatinine 0.95 mg/dL (0.70-1.30) 06/07/20 04:10 Est GFR (MDRD) Af Amer > 60 (>60) 06/07/20 04:10 Est GFR (MDRD) Non-Af > 60 (>60) 06/07/20 04:10 Glucose 366 mg/dL (65-99) H 06/07/20 04:10 POC Glucose (mg/dL) 289 mg/dL (65-99) H 06/07/20 20:32 Calcium 7.8 mg/dL (8.5-10.1) L 06/07/20 04:10 Corrected Calcium 8.9 mg/dL (8.5-10.1) 06/07/20 04:10 Magnesium 2.6 mg/dL (1.7-2.9) 06/07/20 04:10 Ferritin 634 ng/mL (26-388) H 06/07/20 04:10 Total Bilirubin 0.40 mg/dL (0.2-1.0) 06/07/20 04:10 AST 34 Units/L (15-37) 06/07/20 04:10 ALT 50 Units/L (12-78) 06/07/20 04:10 Alkaline Phosphatase 75 Units/L (46-116) 06/07/20 04:10 Ammonia 44 umol/L (11-32) H 06/05/20 08:23 Creatine Kinase 448 Units/L (39-308) H 06/03/20 04:30 CK-MB (CK-2) 10.3 ng/mL (0-4.0) H* 06/03/20 04:30 CK/CKMB % Calc 2.3 % (<4) 06/03/20 04:30 Troponin I 0.22 ng/mL (0-1.5) 06/03/20 04:30 C-Reactive Protein 17.50 mg/L (0-3.0) H 06/07/20 04:10 B-Natriuretic Peptide 95.8 pg/mL (0-79) H 06/07/20 04:10 Total Protein 6.1 g/dL (6.4-8.2) L 06/07/20 04:10 Albumin 2.6 g/dL (3.4-5.0) L 06/07/20 04:10 Globulin 3.5 g/dL (2.5-4.5) 06/07/20 04:10 Albumin/Globulin Ratio 0.7 Ratio (1.1-2.1) L 06/07/20 04:10 Prealbumin 16.1 mg/dL (18-35.7) L 06/06/20 06:07 Specimen Type Clean catch urine 06/02/20 18:03 Urine Color Yellow (YELLOW) 06/02/20 18:03 Urine Appearance Clear (CLEAR) 06/02/20 18:03 Urine pH 5.0 (5.0 - 8.0) 06/02/20 18:03 Ur Specific [place] 1.010 (1.000-1.030) 06/02/20 18:03 Urine Protein 3+ (NEGATIVE) 06/02/20 18:03 Urine Glucose (UA) 4+ (NEGATIVE) 06/02/20 18:03 Urine Ketones 3+ (NEGATIVE) 06/02/20 18:03 Urine Occult Blood 3+ (NEGATIVE) 06/02/20 18:03 Urine Nitrite Negative (NEGATIVE) 06/02/20 18:03 Urine Bilirubin Negative (NEGATIVE) 06/02/20 18:03 Urine Urobilinogen Normal (NORMAL) 06/02/20 18:03 Ur Leukocyte Esterase Negative (NEGATIVE) 06/02/20 18:03 Urine RBC 3-5 /HPF (0-3) A 06/02/20 18:03 Urine WBC None seen /HPF (0-5) 06/02/20 18:03 Ur Squamous Epith Cells Negative /HPF (NEGATIVE) 06/02/20 18:03 Urine Bacteria Negative /HPF (NEGATIVE) 06/02/20 18:03 Ur Culture Indicated? No/not indicated 06/02/20 18:03 Digoxin 0.83 ng/mL (0.9-2) L 06/05/20 11:10 Phenobarbital 10.1 ug/mL (15-40) L 06/05/20 08:23 SARS CoV-2 RNA Rapid LADAN Positive (NEGATIVE) A 06/01/20 13:23 Blood Type A POSITIVE 06/01/20 13:35 - Plan (1) Pneumonia due to COVID-19 virus Status: Acute Plan: SUPPLEMENTAL OXYGEN, CONTINUE IV FLUIDS, REMDESIVIR, IV ANTIBIOTICS, NEB TX, VITAMIN SUPPLEMENTATION, ANXIETY MEDICATIONS, DVT PROPHYLAXIS, DIFLUCAN, COUGH MEDICATIONS, AND POTASSIUM AND MAGNESIUM PROTOCOLS (2) Hypoxia Status: Chronic (3) Atrial fibrillation with RVR Status: Acute Plan: CONTINUE ANTIARRHYTHMIC AND RATE CONTROL DRUGS, DIVE SUPERVISOR, 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
--- NOTE | 2020-06-07 21:18 | PCM.PROG ---
Progress Note - Progress Note for Day of Date of Exam: 06/07/20 - Subjective Subjective: WAS ADMITTED FOR TREATMENT OF PNEUMONIA DUE TO COVID-19 AND HYPOXIA. HE REMAINS IN THE INTENSIVE CARE UNIT ON THE BIPAP AT 70% FI02 TODAY. STAFF REPORTS THAT HE HAS RESTED WELL THROUGHOUT THE NIGHT. HE HAS HAD NO OVERNIGHT EVENTS. HIS SATURATIONS ON THE BIPAP HAVE BEEN 94-98% THIS MORNING AND THROUGHOUT THE NIGHT. HE DOES CONTINUE WITH PERIODS OF TACHYCARDIA. YESTERDAY AFTERNOON, HEART RATE DID REACH 146 BEATS/MINUTE. ON EXAMINATION, HE IS LYING IN BED WITH EYES CLOSED ON MORNING ROUNDS. PATIENT OPENS EYES TO LIGHT STIMULATION. ON EXAMINATION, BILATERAL LUNGS ARE NOTED WITH RALES THROUGHOUT. ABDOMEN IS ROUND, SOFT, AND NON-TENDER WITH NORMAL BOWEL SOUNDS NOTED IN ALL QUADRANTS. HIS VITALS THIS MORNING ARE: 99.8-93-16-92%BIPAP-193/76. LABS WERE OBTAINED. ABNORMAL LAB VALUES INCLUDE THE FOLLOWING: RBC 4.51, HCT 41.6, SODIUM 155, CHLORIDE 114, BUN 25, GLUCOSE 357, CALCIUM 8.1, FERRITIN 834, AST 51, CRP 25.50, BNP 105, ALBUMIN 2.8, PREALBUMIN 16.1. BLOOD CULTURES ARE PENDING. ABG WAS OBTAINED AND REVEALED: PH 7.470, PC02 58, P02 112, HC03 42.2, 02 SAT 99, BASE EXCESS 15.9, A-A GRADIENT 315, FI02 70. A CHEST XRAY WAS OBTAINED AND REVEALED: Mild improvement in bilateral hazy lung opacities. TODAY, WE WILL DISCONTINUE THE CARDIZEM DRIP AND CONTINUE WITH CURRENT PLAN OF CARE. OTHERWISE, WE PLAN TO FOLLOW UP WITH AM LABS, CHEST XRAY, ABG, AND CONTINUE TO MONITOR. TIME SPENT ON CLINICAL ASSESSMENT, REVIEWING LABS AND IMAGING, DECISION MAKING, AND DOCUMENTATION GREATER THAN 75 MINUTES. - Past Medical Family Social History Past Med/Fam/Surg Hx: No changes since H&P Allergies: Allergies No Known Drug Allergies Allergy (Verified 06/01/20 13:35) - Review of Systems ROS: No change since H&P - Vital Signs and I&O's Vital Signs: Temperature 99.0 F Pulse Rate [Left Brachial] 72 Pulse Rate 90 Respiratory Rate 28 Blood Pressure [Left Calf] 244/111 Blood Pressure [Right Arm] 176/93 Blood Pressure [Left Arm] 187/90 Blood Pressure 190/93 O2 Sat by Pulse Oximetry 93 Intake and Output: Intake & Output 06/05/20 06/06/20 06/07/20 06/08/20 11:59 11:59 11:59 11:59 Intake Total 2543 / 2543 3508 / 3508 2186 / 2186 1045 / 1045 Output Total 2525 / 2525 2850 / 2850 2850 / 2850 1250 / 1250 Balance 658 / 658 -664 / -664 -205 / -205 - Physical Exam Oriented: Not Oriented Eyes: Normal Ear: Normal Nose: Normal Throat: Normal Respiratory: Generalized, Rales Cardiovascular: Normal, Irregular : Normal Auscultation: Bowel Sounds: Normal Palpation: Normal Tenderness: Normal Skin: Normal Musculoskeletal: Normal Psychiatric: Agitation Mood Description: Anxious Affect: Anxious, Violent Speech Pattern: Inappropriate - Laboratory and Diagnostics Result Diagrams: 06/28/20 05:19 06/28/20 05:19 Labs: 06/01/20 13:35 Blood Blood Culture - Final 06/01/20 13:21 Blood Blood Culture - Final Laboratory WBC 7.8 X10^3/uL (3.6-10.0) 06/07/20 04:10 RBC 4.51 X10^6/uL (4.7-6.0) L 06/07/20 04:10 Hgb 13.6 g/dL (13.5-18.0) 06/07/20 04:10 Hct 41.9 % (42.0-54.0) L 06/07/20 04:10 MCV 92.9 fL (80.0-100.0) 06/07/20 04:10 MCH 30.2 pg (27.0-34.0) 06/07/20 04:10 MCHC 32.5 g/dL (33.0-35.0) L 06/07/20 04:10 RDW 14.0 % (11.6-16.5) 06/07/20 04:10 Plt Count 150 X10^3/uL (150.0-450.0) 06/07/20 04:10 Plt Count Comment Adequate (ADEQUATE) 06/07/20 04:10 MPV 10.7 fL (7.4-11.0) 06/07/20 04:10 Neut % (Auto) 93.7 % (42.0-75.0) H 06/07/20 04:10 Lymph % (Auto) 1.9 % (21.0-51.0) L 06/07/20 04:10 [place] % (Auto) 4.3 % (0.0-13.0) 06/07/20 04:10 Eos % (Auto) 0.0 % (0.9-2.9) L 06/07/20 04:10 Baso % (Auto) 0.1 % (0.2-1.0) L 06/07/20 04:10 Neut # (Auto) 7.3 x10^3/uL (2.2-4.8) H 06/07/20 04:10 Lymph # (Auto) 0.1 X10^3/uL (1.3-2.9) L 06/07/20 04:10 [place] # (Auto) 0.3 x10^3/uL (0.3-0.8) 06/07/20 04:10 Eos # (Auto) 0.0 x10^3/uL (0.0-0.2) 06/07/20 04:10 Baso # (Auto) 0.0 X10^3/uL (0.0-0.1) 06/07/20 04:10 Absolute Nucleated RBC 0.1 /100WBC 06/07/20 04:10 Total Counted 100 06/07/20 04:10 Neutrophils % (Manual) 95 % (39-76) H 06/07/20 04:10 Band Neutrophils % 2 % (0-10) 06/05/20 05:10 Lymphocytes % (Manual) 5 % (13-43) L 06/07/20 04:10 Monocytes % (Manual) 4 % (4-9) 06/06/20 06:07 Plt Morphology Comment Normal (NORMAL) 06/07/20 04:10 RBC Morphology Normal (NORMAL) 06/07/20 04:10 PT 17.2 SECONDS (11.8-14.3) 06/02/20 22:35 INR Target Range - 06/02/20 22:35 INR 1.45 (0.8-1.3) H 06/02/20 22:35 APTT 85.0 SECONDS (22.9-36.5) H 06/07/20 12:09 PTT Comment - 06/07/20 12:09 D-Dimer 0.71 ug/ml (0.0-0.57) H* 06/07/20 04:10 Sample Site Rrad 06/07/20 06:23 ABG pH 7.470 (7.35-7.45) H 06/07/20 06:23 ABG pCO2 58.0 mmHg (35.0-45.0) H* 06/07/20 06:23 ABG pO2 112.0 mmHg (80.0-100.0) H 06/07/20 06:23 ABG HCO3 42.2 mmol/L (22-26) H* 06/07/20 06:23 ABG O2 Saturation 99.0 % (90-100) 06/07/20 06:23 ABG Base Excess 15.9 mmol/L (-2.0-2.0) H 06/07/20 06:23 Partha Test Pos'danis abg well-mtf 06/07/20 06:23 A-a Gradient 315.0 mmHg 06/07/20 06:23 FiO2 70.0 06/07/20 06:23 Blood Gas Comments Danis well ae 06/06/20 04:23 Sodium 156 mmol/L (136-145) H* 06/07/20 04:10 Corrected Sodium 162 mmol/L (136-145) H 06/07/20 04:10 Potassium 3.7 mmol/L (3.5-5.1) 06/07/20 04:10 Chloride 114 mmol/L (98-107) H 06/07/20 04:10 Carbon Dioxide 35.7 mmol/L (21-32) H 06/07/20 04:10 BUN 24 mg/dL (7-18) H 06/07/20 04:10 Creatinine 0.95 mg/dL (0.70-1.30) 06/07/20 04:10 Est GFR (MDRD) Af Amer > 60 (>60) 06/07/20 04:10 Est GFR (MDRD) Non-Af > 60 (>60) 06/07/20 04:10 Glucose 366 mg/dL (65-99) H 06/07/20 04:10 POC Glucose (mg/dL) 289 mg/dL (65-99) H 06/07/20 20:32 Calcium 7.8 mg/dL (8.5-10.1) L 06/07/20 04:10 Corrected Calcium 8.9 mg/dL (8.5-10.1) 06/07/20 04:10 Magnesium 2.6 mg/dL (1.7-2.9) 06/07/20 04:10 Ferritin 634 ng/mL (26-388) H 06/07/20 04:10 Total Bilirubin 0.40 mg/dL (0.2-1.0) 06/07/20 04:10 AST 34 Units/L (15-37) 06/07/20 04:10 ALT 50 Units/L (12-78) 06/07/20 04:10 Alkaline Phosphatase 75 Units/L (46-116) 06/07/20 04:10 Ammonia 44 umol/L (11-32) H 06/05/20 08:23 Creatine Kinase 448 Units/L (39-308) H 06/03/20 04:30 CK-MB (CK-2) 10.3 ng/mL (0-4.0) H* 06/03/20 04:30 CK/CKMB % Calc 2.3 % (<4) 06/03/20 04:30 Troponin I 0.22 ng/mL (0-1.5) 06/03/20 04:30 C-Reactive Protein 17.50 mg/L (0-3.0) H 06/07/20 04:10 B-Natriuretic Peptide 95.8 pg/mL (0-79) H 06/07/20 04:10 Total Protein 6.1 g/dL (6.4-8.2) L 06/07/20 04:10 Albumin 2.6 g/dL (3.4-5.0) L 06/07/20 04:10 Globulin 3.5 g/dL (2.5-4.5) 06/07/20 04:10 Albumin/Globulin Ratio 0.7 Ratio (1.1-2.1) L 06/07/20 04:10 Prealbumin 16.1 mg/dL (18-35.7) L 06/06/20 06:07 Specimen Type Clean catch urine 06/02/20 18:03 Urine Color Yellow (YELLOW) 06/02/20 18:03 Urine Appearance Clear (CLEAR) 06/02/20 18:03 Urine pH 5.0 (5.0 - 8.0) 06/02/20 18:03 Ur Specific [place] 1.010 (1.000-1.030) 06/02/20 18:03 Urine Protein 3+ (NEGATIVE) 06/02/20 18:03 Urine Glucose (UA) 4+ (NEGATIVE) 06/02/20 18:03 Urine Ketones 3+ (NEGATIVE) 06/02/20 18:03 Urine Occult Blood 3+ (NEGATIVE) 06/02/20 18:03 Urine Nitrite Negative (NEGATIVE) 06/02/20 18:03 Urine Bilirubin Negative (NEGATIVE) 06/02/20 18:03 Urine Urobilinogen Normal (NORMAL) 06/02/20 18:03 Ur Leukocyte Esterase Negative (NEGATIVE) 06/02/20 18:03 Urine RBC 3-5 /HPF (0-3) A 06/02/20 18:03 Urine WBC None seen /HPF (0-5) 06/02/20 18:03 Ur Squamous Epith Cells Negative /HPF (NEGATIVE) 06/02/20 18:03 Urine Bacteria Negative /HPF (NEGATIVE) 06/02/20 18:03 Ur Culture Indicated? No/not indicated 06/02/20 18:03 Digoxin 0.83 ng/mL (0.9-2) L 06/05/20 11:10 Phenobarbital 10.1 ug/mL (15-40) L 06/05/20 08:23 SARS CoV-2 RNA Rapid LADAN Positive (NEGATIVE) A 06/01/20 13:23 Blood Type A POSITIVE 06/01/20 13:35 - Plan (1) Pneumonia due to COVID-19 virus Status: Suspected Plan: SUPPLEMENTAL OXYGEN, CONTINUE IV FLUIDS, IV ANTIBIOTICS, NEB TX, VITAMIN SUPPLEMENTATION, ANXIETY MEDICATIONS, DVT PROPHYLAXIS, DIFLUCAN, COUGH MEDICATIONS, AND POTASSIUM AND MAGNESIUM PROTOCOLS (2) Hypoxia Status: Chronic (3) Atrial fibrillation with RVR Status: Acute Plan: CONTINUE ANTIARRHYTHMIC AND RATE CONTROL DRUGS, TAKER OFF DRYING KILN, 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
[2020-06-07] MEDS: HEPARIN SODIUM IN D5W 25,000 UNITS/500 ML BAG IV PRN (23:44)
[2020-06-08] MEDS: ASCORBIC ACID INJ MULTI-DOSE VIAL 1,500 MG in NS 50 ML IV 50 ML IV SCH ×4 (02:10→20:00)
[2020-06-08] MEDS: LOPRESSOR INJ 5 MG AMP IVP SCH ×4 (04:07→23:39)
[2020-06-08] MEDS: ATIVAN INJ 2 MG VIAL IVP SCH ×4 (04:32→23:15)
[2020-06-08 05:02] LABS: ABG BASE EXCESS 17.9 mmol/L (-2.0-2.0)
[2020-06-08 05:03] LABS: ABG ALLEN TEST POS; ABG HCO3 44.2 mmol/L (22-26)
[2020-06-08] MEDS: MORPHINE SULFATE INJ 4 MG IVP PRN (05:10)
[2020-06-08] MEDS: FORTAZ or TAZICEF VIAL INJ IV SCH ×3 (05:30→22:30)
[2020-06-08] MEDS: PHENOBARBITAL SODIUM INJ 65 MG VIAL IVP SCH ×3 (05:41→21:50)
[2020-06-08] MEDS: SOLU-Medrol 125 MG VIAL IVP SCH ×3 (05:42→22:14)
[2020-06-08] MEDS: HumuLIN R SUBCUT PRN ×4 (06:02→20:02)
[2020-06-08 06:16] LABS: BASOPHILS % (AUTO) 0.1 % (0.2-1.0); HEMATOCRIT 41.2 % (42.0-54.0); HEMOGLOBIN 13.4 g/dL (13.5-18.0); LYMPHOCYTES # (AUTO) 0.2 X10^3/uL (1.3-2.9); LYMPHOCYTES % (AUTO) 3.6 % (21.0-51.0); MEAN CORPUSCULAR HEMOGLOBIN 30.2 pg (27.0-34.0); MEAN CORPUSCULAR HGB CONC 32.5 g/dL (33.0-35.0); MONOCYTES # (AUTO) 0.3 x10^3/uL (0.3-0.8); MONOCYTES % (AUTO) 4.7 % (0.0-13.0); NEUTROPHILS # (AUTO) 6.2 x10^3/uL (2.2-4.8); NEUTROPHILS % (AUTO) 91.6 % (42.0-75.0); PLATELET COUNT 138 X10^3/uL (150.0-450.0); RED BLOOD COUNT 4.43 X10^6/uL (4.7-6.0); RED CELL DISTRIBUTION WIDTH 14.3 % (11.6-16.5); WHITE BLOOD COUNT 6.8 X10^3/uL (3.6-10.0)
[2020-06-08] MEDS: XOPENEX 1.25 MG/3 ML NEBULE NEB SCH ×3 (06:16→20:40)
[2020-06-08] MEDS: MUCOMYST 20% 200 MG/ML NEB SCH ×3 (06:16→20:40)
[2020-06-08 06:19] LABS: ALANINE AMINOTRANSFERASE 47 Units/L (12-78); ALBUMIN 2.4 g/dL (3.4-5.0); ALKALINE PHOSPHATASE 76 Units/L (46-116); ASPARTATE AMINO TRANSFERASE 29 Units/L (15-37); BLOOD UREA NITROGEN 25 mg/dL (7-18); CALCIUM 8.1 mg/dL (8.5-10.1); CARBON DIOXIDE 38.4 mmol/L (21-32); COR CA(FOR HYPOALB) 9.4 mg/dL (8.5-10.1); COR NA(FOR HYPERGLY) 163 mmol/L (136-145); CREATININE 0.89 mg/dL (0.70-1.30); TOTAL PROTEIN 5.9 g/dL (6.4-8.2); eGFR NON BLACK RACES > 60 (>60)
[2020-06-08 06:51] LABS: CHLORIDE 116 mmol/L (98-107); SODIUM 158 mmol/L (136-145)
[2020-06-08 07:12] LABS: PLATELET MORPHOLOGY COMMENT NORMAL (NORMAL)
--- NOTE | 2020-06-08 07:13 | RAD ---
HISTORYSOBSTUDYCHEST, 1 VIEWCOMPARISONOne day prior.TECHNIQUEAP view of the chestFINDINGSPost median sternotomy and CABG.The cardiac and mediastinal contours appear stable. No significant change in diffuse bilateral hazy lung opacities. No definite pleural effusion or pneumothorax.IMPRESSIONNo significant change.Electronically signed by: Mitchel Carrera (Jun 08, 2020 07:11:14)
[2020-06-08] MEDS: BROVANA IN SCH ×2 (08:05→20:40)
[2020-06-08] MEDS: PULMICORT NEB TX 0.5 MG NEB SCH ×2 (08:05→20:40)
[2020-06-08] MEDS ORDERED: DULCOLAX SUPPOSITORY 10 MG RECTAL ONE ×2 (08:19→10:42)
[2020-06-08] MEDS: DIFLUCAN 200 MG IV PREMIX* 200 MG/100 ML BAG IV SCH (08:34)
[2020-06-08] MEDS: LANOXIN INJ IVP SCH (09:18)
[2020-06-08] MEDS: LEVEMIR SC SCH ×2 (09:23→20:01)
[2020-06-08] MEDS: PROTONIX INJ 40 MG VIAL IVP SCH (09:24)
[2020-06-08] MEDS: THIAMINE HCL INJ IVP SCH (09:25)
[2020-06-08] MEDS: APRESOLINE INJ 20 MG VIAL IVP PRN ×2 (09:33→21:37)
[2020-06-08] MEDS: GEODON INJ IM SCH (09:44)
[2020-06-08] MEDS: LEVAQUIN PREMIX IV 500 MG 500 MG/100 ML BAG IV SCH (10:00)
[2020-06-08] MEDS ORDERED: GEODON INJ IM PRN ×2 (10:00→10:42)
[2020-06-08] MEDS: PEPCID 20 MG IV PREMIX* 20 MG/50 ML BAG IV SCH ×2 (11:00→21:46)
--- NOTE | 2020-06-08 12:20 | RAD ---
HISTORYAbdominal distension, constipationSTUDYKUBCOMPARISONNoneFINDINGSThe abdominal gas pattern is nonspecific and nonobstructive . No abnormal masses or abnormal calcifications are identified. Very little stool is identified throu ghout the colon. There is an aortoiliac stent graft present. The patient is status post bilateral ALDO . Regional skeleton is intact.IMPRESSIONUnremarkable KUBElectronically signed by: FELICIA LEW (Jun 08, 2020 12:18:38)
--- NOTE | 2020-06-08 12:44 | PCM.PROG ---
Progress Note - Progress Note for Day of Date of Exam: 06/08/20 - Subjective Subjective: WAS ADMITTED FOR TREATMENT OF PNEUMONIA DUE TO COVID-19 AND HYPOXIA. HE REMAINS IN THE INTENSIVE CARE UNIT ON THE BIPAP AT 00% FI02 TODAY. STAFF REPORTS THAT HE HAS RESTED WELL THROUGHOUT THE NIGHT. HE HAS HAD NO OVERNIGHT EVENTS. HIS SATURATIONS ON THE BIPAP HAVE BEEN 93-96% THIS MORNING AND THROUGHOUT THE NIGHT. STAFF REPORTS THAT HE CONTINUES TO BE TOO DROWSY TO TAKE ORAL MEDICATIONS. ON EXAMINATION, HE IS LYING IN BED WITH EYES CLOSED ON MORNING ROUNDS. PATIENT OPENS EYES TO LIGHT STIMULATION. HEART RATE IS NORMAL. RATE IS IRREGULAR. BILATERAL LUNGS ARE NOTED WITH RALES THROUGHOUT. ABDOMEN IS ROUND, SOFT, AND NON-TENDER WITH NORMAL BOWEL SOUNDS NOTED IN ALL QUADRANTS. THERE IS TRACE EDEMA NOTED TO UPPER AND LOWER EXTREMITIES. HIS VITALS THIS MORNING ARE: 98.5-77-16-95%-186/91. LABS WERE OBTAINED. ABNORMAL LAB VALUES INCLUDE THE FOLLOWING: RBC 4.43, HGB 13.4, HCT 41.2, PLT COUNT 138, SODIUM 158, CHLORIDE 116, BUN 38.4, BUN 25, GLUCOSE 323, CALCIUM 8.1, FERRITIN 626, CRP 11.50, BNP 96.3, TOTAL PROTEIN 5.9, ALBUMIN 2.4. BLOOD CULTURES ARE PENDING. ABG WAS OBTAINED AND REVEALED: PH 7.490, PC02 58, P02 76, HC03 44.2, 02 SAT 96, BASE EXCESS 17.9, A-A GRADIENT 279, FI02 60. A CHEST XRAY WAS OBTAINED AND REVEALED: Post median sternotomy and CABG.The cardiac and mediastinal contours appear stable. No significant change in diffuse bilateral hazy lung opacities. No definite pleural effusion or pneumothorax. KUB OBTAINED AND REVEALED: The abdominal gas pattern is nonspecific and nonobstructive. No abnormal masses or abnormal calcifications are identified. Very little stool is identified throughout the colon. There is an aortoiliac stent graft present. The patient is status post bilateral ALDO. Regional skeleton is intact. TODAY, WE WILL ADMINISTER A DULCOLOX SUPPOSITORY. WE WILL DECREASE THE DOSE OF [place] THAT HE IS RECEIVING IN ATTEMPTS TO ALLOW HIM TO BECOME MORE ALERT. OTHERWISE, WE PLAN TO FOLLOW UP WITH AM LABS, CHEST XRAY, ABG, AND CONTINUE TO MONITOR. TIME SPENT ON CLINICAL ASSESSMENT, REVIEWING LABS AND IMAGING, DECISION MAKING, AND DOCUMENTATION GREATER THAN 75 MINUTES. - Past Medical Family Social History Past Med/Fam/Surg Hx: No changes since H&P Allergies: Allergies No Known Drug Allergies Allergy (Verified 06/01/20 13:35) - Review of Systems ROS: No change since H&P - Vital Signs and I&O's Vital Signs: Temperature 98.5 F Pulse Rate [Left Brachial] 94 Pulse Rate 82 Respiratory Rate 24 Blood Pressure [Left Calf] 244/111 Blood Pressure [Right Arm] 176/93 Blood Pressure [Left Arm] 189/98 Blood Pressure 204/97 O2 Sat by Pulse Oximetry 94 Intake and Output: Intake & Output 06/06/20 06/07/20 06/08/20 06/09/20 11:59 11:59 11:59 11:59 Intake Total 3508 / 3508 2186 / 2186 3302 / 3302 Output Total 2850 / 2850 2850 / 2850 3500 / 3500 Balance 658 / 658 -664 / -664 -198 / -198 - Physical Exam Oriented: Not Oriented Eyes: Normal Ear: Normal Nose: Normal Throat: Normal Respiratory: Generalized, Rales Cardiovascular: Normal, Irregular : Normal Auscultation: Bowel Sounds: Normal Tenderness: Normal Skin: Normal Musculoskeletal: Normal Psychiatric: Agitation Mood Description: Anxious Affect: Anxious, Violent Speech Pattern: Inappropriate - Laboratory and Diagnostics Result Diagrams: 06/17/20 05:10 06/17/20 05:10 Labs: 06/01/20 13:35 Blood Blood Culture - Final 06/01/20 13:21 Blood Blood Culture - Final Laboratory WBC 6.8 X10^3/uL (3.6-10.0) 06/08/20 05:10 RBC 4.43 X10^6/uL (4.7-6.0) L 06/08/20 05:10 Hgb 13.4 g/dL (13.5-18.0) L 06/08/20 05:10 Hct 41.2 % (42.0-54.0) L 06/08/20 05:10 MCV 93.0 fL (80.0-100.0) 06/08/20 05:10 MCH 30.2 pg (27.0-34.0) 06/08/20 05:10 MCHC 32.5 g/dL (33.0-35.0) L 06/08/20 05:10 RDW 14.3 % (11.6-16.5) 06/08/20 05:10 Plt Count 138 X10^3/uL (150.0-450.0) L 06/08/20 05:10 Plt Count Comment Decreased (ADEQUATE) 06/08/20 05:10 MPV 10.0 fL (7.4-11.0) 06/08/20 05:10 Neut % (Auto) 91.6 % (42.0-75.0) H 06/08/20 05:10 Lymph % (Auto) 3.6 % (21.0-51.0) L 06/08/20 05:10 [place] % (Auto) 4.7 % (0.0-13.0) 06/08/20 05:10 Eos % (Auto) 0.0 % (0.9-2.9) L 06/08/20 05:10 Baso % (Auto) 0.1 % (0.2-1.0) L 06/08/20 05:10 Neut # (Auto) 6.2 x10^3/uL (2.2-4.8) H 06/08/20 05:10 Lymph # (Auto) 0.2 X10^3/uL (1.3-2.9) L 06/08/20 05:10 [place] # (Auto) 0.3 x10^3/uL (0.3-0.8) 06/08/20 05:10 Eos # (Auto) 0.0 x10^3/uL (0.0-0.2) 06/08/20 05:10 Baso # (Auto) 0.0 X10^3/uL (0.0-0.1) 06/08/20 05:10 Absolute Nucleated RBC 0.0 /100WBC 06/08/20 05:10 Total Counted 100 06/08/20 05:10 Neutrophils % (Manual) 94 % (39-76) H 06/08/20 05:10 Band Neutrophils % 2 % (0-10) 06/05/20 05:10 Lymphocytes % (Manual) 2 % (13-43) L 06/08/20 05:10 Monocytes % (Manual) 4 % (4-9) 06/08/20 05:10 Plt Morphology Comment Normal (NORMAL) 06/08/20 05:10 RBC Morphology Normal (NORMAL) 06/08/20 05:10 PT 17.2 SECONDS (11.8-14.3) 06/02/20 22:35 INR Target Range - 06/02/20 22:35 INR 1.45 (0.8-1.3) H 06/02/20 22:35 APTT 122.1 SECONDS (22.9-36.5) H 06/08/20 05:10 PTT Comment - 06/08/20 05:10 D-Dimer 0.48 ug/ml (0.0-0.57) 06/08/20 05:10 Sample Site Rrad 06/08/20 05:00 ABG pH 7.490 (7.35-7.45) H 06/08/20 05:00 ABG pCO2 58.0 mmHg (35.0-45.0) H* 06/08/20 05:00 ABG pO2 76.0 mmHg (80.0-100.0) L 06/08/20 05:00 ABG HCO3 44.2 mmol/L (22-26) H* 06/08/20 05:00 ABG O2 Saturation 96.0 % (90-100) 06/08/20 05:00 ABG Base Excess 17.9 mmol/L (-2.0-2.0) H 06/08/20 05:00 Partha Test Pos 06/08/20 05:00 A-a Gradient 279.0 mmHg 06/08/20 05:00 FiO2 60.0 06/08/20 05:00 Blood Gas Comments Ivana abg well-mtf 06/08/20 05:00 Sodium 158 mmol/L (136-145) H* 06/08/20 05:10 Corrected Sodium 163 mmol/L (136-145) H 06/08/20 05:10 Potassium 3.8 mmol/L (3.5-5.1) 06/08/20 05:10 Chloride 116 mmol/L (98-107) H* 06/08/20 05:10 Carbon Dioxide 38.4 mmol/L (21-32) H 06/08/20 05:10 BUN 25 mg/dL (7-18) H 06/08/20 05:10 Creatinine 0.89 mg/dL (0.70-1.30) 06/08/20 05:10 Est GFR (MDRD) Af Amer > 60 (>60) 06/08/20 05:10 Est GFR (MDRD) Non-Af > 60 (>60) 06/08/20 05:10 Glucose 323 mg/dL (65-99) H 06/08/20 05:10 POC Glucose (mg/dL) 315 mg/dL (65-99) H 06/08/20 05:08 Calcium 8.1 mg/dL (8.5-10.1) L 06/08/20 05:10 Corrected Calcium 9.4 mg/dL (8.5-10.1) 06/08/20 05:10 Magnesium 2.6 mg/dL (1.7-2.9) 06/07/20 04:10 Ferritin 626 ng/mL (26-388) H 06/08/20 05:10 Total Bilirubin 0.40 mg/dL (0.2-1.0) 06/08/20 05:10 AST 29 Units/L (15-37) 06/08/20 05:10 ALT 47 Units/L (12-78) 06/08/20 05:10 Alkaline Phosphatase 76 Units/L (46-116) 06/08/20 05:10 Ammonia 44 umol/L (11-32) H 06/05/20 08:23 Creatine Kinase 448 Units/L (39-308) H 06/03/20 04:30 CK-MB (CK-2) 10.3 ng/mL (0-4.0) H* 06/03/20 04:30 CK/CKMB % Calc 2.3 % (<4) 06/03/20 04:30 Troponin I 0.22 ng/mL (0-1.5) 06/03/20 04:30 C-Reactive Protein 11.50 mg/L (0-3.0) H 06/08/20 05:10 B-Natriuretic Peptide 96.3 pg/mL (0-79) H 06/08/20 05:10 Total Protein 5.9 g/dL (6.4-8.2) L 06/08/20 05:10 Albumin 2.4 g/dL (3.4-5.0) L 06/08/20 05:10 Globulin 3.5 g/dL (2.5-4.5) 06/08/20 05:10 Albumin/Globulin Ratio 0.7 Ratio (1.1-2.1) L 06/08/20 05:10 Prealbumin 16.1 mg/dL (18-35.7) L 06/06/20 06:07 Specimen Type Clean catch urine 06/02/20 18:03 Urine Color Yellow (YELLOW) 06/02/20 18:03 Urine Appearance Clear (CLEAR) 06/02/20 18:03 Urine pH 5.0 (5.0 - 8.0) 06/02/20 18:03 Ur Specific [place] 1.010 (1.000-1.030) 06/02/20 18:03 Urine Protein 3+ (NEGATIVE) 06/02/20 18:03 Urine Glucose (UA) 4+ (NEGATIVE) 06/02/20 18:03 Urine Ketones 3+ (NEGATIVE) 06/02/20 18:03 Urine Occult Blood 3+ (NEGATIVE) 06/02/20 18:03 Urine Nitrite Negative (NEGATIVE) 06/02/20 18:03 Urine Bilirubin Negative (NEGATIVE) 06/02/20 18:03 Urine Urobilinogen Normal (NORMAL) 06/02/20 18:03 Ur Leukocyte Esterase Negative (NEGATIVE) 06/02/20 18:03 Urine RBC 3-5 /HPF (0-3) A 06/02/20 18:03 Urine WBC None seen /HPF (0-5) 06/02/20 18:03 Ur Squamous Epith Cells Negative /HPF (NEGATIVE) 06/02/20 18:03 Urine Bacteria Negative /HPF (NEGATIVE) 06/02/20 18:03 Ur Culture Indicated? No/not indicated 06/02/20 18:03 Digoxin 0.83 ng/mL (0.9-2) L 06/05/20 11:10 Phenobarbital 10.1 ug/mL (15-40) L 06/05/20 08:23 SARS CoV-2 RNA Rapid LADAN Positive (NEGATIVE) A 06/01/20 13:23 Blood Type A POSITIVE 06/01/20 13:35 - Plan (1) Pneumonia due to COVID-19 virus Status: Acute Plan: SUPPLEMENTAL OXYGEN, CONTINUE IV FLUIDS, IV ANTIBIOTICS, NEB TX, VITAMIN SUPPLEMENTATION, ANXIETY MEDICATIONS, DVT PROPHYLAXIS, DIFLUCAN, COUGH MED ICATIONS, AND POTASSIUM AND MAGNESIUM PROTOCOLS (2) Hypoxia Status: Chronic (3) Atrial fibrillation with RVR Status: Acute Plan: CONTINUE ANTIARRHYTHMIC AND RATE CONTROL DRUGS, GOLD RECLAIMER, 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
[2020-06-08] MEDS: CLINIMIX 4.25 %/10 % 1,000 ML with TPN ELECTROLYTES 20 ML, MVI INJ (ADULT) 10 ML IV SCH ×6 (13:53→13:55)
[2020-06-08] MEDS ORDERED: HEPARIN SODIUM INJ 5000 UNITS IVP ONE (15:56)
[2020-06-08] MEDS: D5W 1000 ML IV 1,000 ML IV SCH (16:50)
[2020-06-08] MEDS ORDERED: DULCOLAX SUPPOSITORY 10 MG PR NR (17:00)
[2020-06-08] MEDS: CLINIMIX 4.25 %/10 % 1,000 ML with MVI INJ (ADULT) 10 ML, TRACE ELEMENTS INJ 10 ML, POT... IV SCH ×6 (17:54)
[2020-06-08] MEDS: SNACK - Diabetic Appropriate PO SCH (19:07)
[2020-06-08] MEDS: OFIRMEV IV 1000 MG VIAL 500 MG/50 ML VIAL IV PRN (21:05)
[2020-06-09] MEDS: MORPHINE SULFATE INJ 4 MG IVP PRN (00:05)
[2020-06-09] MEDS: ASCORBIC ACID INJ MULTI-DOSE VIAL 1,500 MG in NS 50 ML IV 50 ML IV SCH ×4 (02:18→21:15)
[2020-06-09] MEDS: OFIRMEV IV 1000 MG VIAL 500 MG/50 ML VIAL IV PRN (03:52)
[2020-06-09] MEDS: LOPRESSOR INJ 5 MG AMP IVP SCH ×4 (04:30→23:00)
[2020-06-09] MEDS: ATIVAN INJ 2 MG VIAL IVP SCH ×4 (04:42→23:02)
[2020-06-09] MEDS: HEPARIN SODIUM IN D5W 25,000 UNITS/500 ML BAG IV PRN ×2 (04:50→14:51)
[2020-06-09] MEDS: FORTAZ or TAZICEF VIAL INJ IV SCH ×3 (05:00→22:00)
[2020-06-09] MEDS: PHENOBARBITAL SODIUM INJ 65 MG VIAL IVP SCH ×3 (05:15→22:00)
[2020-06-09 05:24] LABS: ABG ALLEN TEST POS
[2020-06-09] MEDS: SOLU-Medrol 125 MG VIAL IVP SCH ×3 (05:31→22:00)
[2020-06-09] MEDS: HumuLIN R SUBCUT PRN ×4 (05:32→21:15)
[2020-06-09 05:33] LABS: BASOPHILS % (AUTO) 0.5 % (0.2-1.0); HEMATOCRIT 41.9 % (42.0-54.0); HEMOGLOBIN 13.5 g/dL (13.5-18.0); LYMPHOCYTES # (AUTO) 0.3 X10^3/uL (1.3-2.9); LYMPHOCYTES % (AUTO) 5.1 % (21.0-51.0); MEAN CORPUSCULAR HEMOGLOBIN 29.9 pg (27.0-34.0); MEAN CORPUSCULAR HGB CONC 32.1 g/dL (33.0-35.0); MEAN CORPUSCULAR VOLUME 93.2 fL (80.0-100.0); MEAN PLATELET VOLUME 10.9 fL (7.4-11.0); MONOCYTES # (AUTO) 0.2 x10^3/uL (0.3-0.8); MONOCYTES % (AUTO) 3.6 % (0.0-13.0); NEUTROPHILS # (AUTO) 5.3 x10^3/uL (2.2-4.8); NEUTROPHILS % (AUTO) 90.8 % (42.0-75.0); PLATELET COUNT 137 X10^3/uL (150.0-450.0); RED CELL DISTRIBUTION WIDTH 14.5 % (11.6-16.5); WHITE BLOOD COUNT 5.8 X10^3/uL (3.6-10.0)
[2020-06-09 05:53] LABS: ALANINE AMINOTRANSFERASE 39 Units/L (12-78); ALBUMIN 2.2 g/dL (3.4-5.0); ALKALINE PHOSPHATASE 78 Units/L (46-116); ASPARTATE AMINO TRANSFERASE 33 Units/L (15-37); BLOOD UREA NITROGEN 23 mg/dL (7-18); CALCIUM 7.7 mg/dL (8.5-10.1); CARBON DIOXIDE 36.8 mmol/L (21-32); CHLORIDE 113 mmol/L (98-107); COR CA(FOR HYPOALB) 9.1 mg/dL (8.5-10.1); COR NA(FOR HYPERGLY) 157 mmol/L (136-145); CREATININE 0.93 mg/dL (0.70-1.30); TOTAL PROTEIN 5.7 g/dL (6.4-8.2); eGFR NON BLACK RACES > 60 (>60)
[2020-06-09 06:00] LABS: SODIUM 152 mmol/L (136-145)
--- NOTE | 2020-06-09 06:19 | RAD ---
HISTORYSOBSTUDYCHEST, 1 VIEWCOMPARISONOne day prior.TECHNIQUEAP view of the chestFINDINGSPost median sternotomy and CABG. Cardiac and mediastinal contours are within normal limits. No significant change in bilateral airspace and interstitial opacities. No definite pleural effusion or pneumothorax.IMPRESSIONNo significant change.Electronically signed by: Mitchel Carrera (Jun 09, 2020 06:18:20)
[2020-06-09 06:35] LABS: PLATELET MORPHOLOGY COMMENT NORMAL (NORMAL)
[2020-06-09] MEDS: PULMICORT NEB TX 0.5 MG NEB SCH ×2 (08:25→20:45)
[2020-06-09] MEDS: BROVANA IN SCH ×2 (08:25→20:40)
[2020-06-09] MEDS: CLINIMIX 4.25 %/10 % 1,000 ML with MVI INJ (ADULT) 10 ML, TRACE ELEMENTS INJ 10 ML, POT... IV SCH ×13 (09:38→16:06)
[2020-06-09] MEDS: LANOXIN INJ IVP SCH (09:40)
[2020-06-09] MEDS: LEVEMIR SC SCH ×2 (09:44→21:15)
[2020-06-09] MEDS: PEPCID 20 MG IV PREMIX* 20 MG/50 ML BAG IV SCH ×2 (09:45→21:15)
[2020-06-09] MEDS: PROTONIX INJ 40 MG VIAL IVP SCH (10:00)
[2020-06-09] MEDS: DIFLUCAN 200 MG IV PREMIX* 200 MG/100 ML BAG IV SCH (10:00)
[2020-06-09] MEDS: LEVAQUIN PREMIX IV 500 MG 500 MG/100 ML BAG IV SCH (10:30)
[2020-06-09] MEDS: XOPENEX 1.25 MG/3 ML NEBULE NEB SCH ×3 (12:15→21:46)
[2020-06-09] MEDS: MUCOMYST 20% 200 MG/ML NEB SCH ×3 (12:15→21:46)
--- NOTE | 2020-06-09 12:38 | PCM.PROG ---
Progress Note - Progress Note for Day of Date of Exam: 06/09/20 - Subjective Subjective: WAS ADMITTED FOR TREATMENT OF PNEUMONIA DUE TO COVID-19 AND HYPOXIA. HE REMAINS IN THE INTENSIVE CARE UNIT ON THE BIPAP AT 60% FI02 TODAY. STAFF REPORTS THAT HE HAS RESTED WELL THROUGHOUT THE NIGHT. HE HAS HAD NO OVERNIGHT EVENTS. HIS SATURATIONS ON THE BIPAP HAVE BEEN 95-97% THIS MORNING AND THROUGHOUT THE NIGHT. STAFF REPORTS THAT THEY DID ATTEMPT TO DECREASE FI02 YESTERDAY, HOWEVER, PATIENT BECAME AGITATED AND SATURATIONS DID DECREASE SOME. ON EXAMINATION, HE IS LYING IN BED WITH EYES CLOSED ON MORNING ROUNDS. PATIENT OPENS EYES TO LIGHT STIMULATION. HEART RATE IS NORMAL. RATE IS IRREGULAR. BILATERAL LUNGS ARE NOTED WITH RALES THROUGHOUT. ABDOMEN IS ROUND, SOFT, AND NO N-TENDER WITH NORMAL BOWEL SOUNDS NOTED IN ALL QUADRANTS. THERE IS TRACE EDEMA NOTED TO UPPER AND LOWER EXTREMITIES. HIS VITALS THIS MORNING ARE: 98.5-77-18-97%-155/84. LABS WERE OBTAINED. ABNORMAL LAB VALUES INCLUDE THE FOLLOWING: RBC 4.50, HCT 41.9, PLT COUNT 137, D-DIMER 0.76, SODIUM 152, CHLORIDE 113, CARBON DIOXIDE 36.8, BUN 23, GLUCOSE 329, CALCIUM 7.7, FERRITIN 818, CRP 11.10, BNP 115, TOTAL PROTEIN 5.7, ALBUMIN 2.2. BLOOD CULTURES ARE PENDING. ABG WAS OBTAINED AND REVEALED: PH 7.470, PC02 55, P02 117, HC03 40, 02 SAT 99, BASE EXCESS 14.0, A-A GRADIENT 242, FI02 60. A CHEST XRAY WAS OBTAINED AND REVEALED: Post median sternotomy and CABG. Cardiac and mediastinal contours are within no rmal limits. No significant change in bilateral airspace and interstitial opacities. No definite pleural effusion or pneumothorax. A KUB WAS OBTAINED YESTERDAY AND REVEALED: The abdominal gas pattern is nonspecific and nonobstructive. No abnormal masses or abnormal calcifications are identified. Very little stool is identified throughout the colon. There is an aortoiliac stent graft present. The patient is status post bilateral ALDO. Regional skeleton is intact. WE WILL CONTINUE WITH CURRENT PLAN OF CARE TODAY AND ATTEMPT TO DECREASE FI02 AND SEDATION TOLERATED. OTHERWISE, WE PLAN TO FOLLOW UP WITH AM LABS, CHEST XRAY, ABG, AND CONTINUE TO MONITOR. TIME SPENT ON CLINICAL ASSESSMENT, REVIEWING LABS AND IMAGING, DECISION MAKING, AND DOCUMENTATION GREATER THAN 75 MINUTES. - Past Medical Family Social History Past Med/Fam/Surg Hx: No changes since H&P Allergies: Allergies No Known Drug Allergies Allergy (Verified 06/01/20 13:35) - Review of Systems ROS: No change since H&P - Vital Signs and I&O's Vital Signs: Temperature 98.6 F Pulse Rate [Left Brachial] 82 Pulse Rate 81 Respiratory Rate 21 Blood Pressure [Left Calf] 166/88 Blood Pressure [Right Arm] 176/93 Blood Pressure [Left Arm] 153/80 Blood Pressure 153/80 O2 Sat by Pulse Oximetry 97 Intake and Output: Intake & Output 06/07/20 06/08/20 06/09/20 06/10/20 11:59 11:59 11:59 11:59 Intake Total 2186 / 2186 3302 / 3302 3748 / 3748 Output Total 2850 / 2850 3500 / 3500 2825 / 2825 Balance -664 / -664 -198 / -198 923 / 923 - Physical Exam Oriented: Not Oriented Eyes: Normal Ear: Normal Nose: Normal Throat: Normal Respiratory: Generalized, Rales Cardiovascular: Normal, Irregular : Normal Auscultation: Bowel Sounds: Normal Palpation: Normal Tenderness: Normal Skin: Normal Musculoskeletal: Normal Psychiatric: Agitation Mood Description: Anxious Affect: Anxious, Violent Speech Pattern: Inappropriate - Laboratory and Diagnostics Result Diagrams: 06/17/20 05:10 06/17/20 05:10 Labs: 06/01/20 13:35 Blood Blood Culture - Final 06/01/20 13:21 Blood Blood Culture - Final Laboratory WBC 5.8 X10^3/uL (3.6-10.0) 06/09/20 04:35 RBC 4.50 X10^6/uL (4.7-6.0) L 06/09/20 04:35 Hgb 13.5 g/dL (13.5-18.0) 06/09/20 04:35 Hct 41.9 % (42.0-54.0) L 06/09/20 04:35 MCV 93.2 fL (80.0-100.0) 06/09/20 04:35 MCH 29.9 pg (27.0-34.0) 06/09/20 04:35 MCHC 32.1 g/dL (33.0-35.0) L 06/09/20 04:35 RDW 14.5 % (11.6-16.5) 06/09/20 04:35 Plt Count 137 X10^3/uL (150.0-450.0) L 06/09/20 04:35 Plt Count Comment Decreased (ADEQUATE) 06/09/20 04:35 MPV 10.9 fL (7.4-11.0) 06/09/20 04:35 Neut % (Auto) 90.8 % (42.0-75.0) H 06/09/20 04:35 Lymph % (Auto) 5.1 % (21.0-51.0) L 06/09/20 04:35 [place] % (Auto) 3.6 % (0.0-13.0) 06/09/20 04:35 Eos % (Auto) 0.0 % (0.9-2.9) L 06/09/20 04:35 Baso % (Auto) 0.5 % (0.2-1.0) 06/09/20 04:35 Neut # (Auto) 5.3 x10^3/uL (2.2-4.8) H 06/09/20 04:35 Lymph # (Auto) 0.3 X10^3/uL (1.3-2.9) L 06/09/20 04:35 [place] # (Auto) 0.2 x10^3/uL (0.3-0.8) L 06/09/20 04:35 Eos # (Auto) 0.0 x10^3/uL (0.0-0.2) 06/09/20 04:35 Baso # (Auto) 0.0 X10^3/uL (0.0-0.1) 06/09/20 04:35 Absolute Nucleated RBC 0.1 /100WBC 06/09/20 04:35 Total Counted 100 06/09/20 04:35 Neutrophils % (Manual) 92 % (39-76) H 06/09/20 04:35 Band Neutrophils % 2 % (0-10) 06/05/20 05:10 Lymphocytes % (Manual) 8 % (13-43) L 06/09/20 04:35 Monocytes % (Manual) 4 % (4-9) 06/08/20 05:10 Plt Morphology Comment Normal (NORMAL) 06/09/20 04:35 RBC Morphology Normal (NORMAL) 06/09/20 04:35 PT 17.2 SECONDS (11.8-14.3) 06/02/20 22:35 INR Target Range - 06/02/20 22:35 INR 1.45 (0.8-1.3) H 06/02/20 22:35 APTT 77.6 SECONDS (22.9-36.5) H 06/09/20 04:35 PTT Comment - 06/09/20 04:35 D-Dimer 0.76 ug/ml (0.0-0.57) H* 06/09/20 04:35 Sample Site Rr 06/09/20 05:00 ABG pH 7.470 (7.35-7.45) H 06/09/20 05:00 ABG pCO2 55.0 mmHg (35.0-45.0) H* 06/09/20 05:00 ABG pO2 117.0 mmHg (80.0-100.0) H 06/09/20 05:00 ABG HCO3 40.0 mmol/L (22-26) H* 06/09/20 05:00 ABG O2 Saturation 99.0 % (90-100) 06/09/20 05:00 ABG Base Excess 14.0 mmol/L (-2.0-2.0) H 06/09/20 05:00 Partha Test Pos 06/09/20 05:00 A-a Gradient 242.0 mmHg 06/09/20 05:00 FiO2 60 06/09/20 05:00 Blood Gas Comments Ivana well sw 06/09/20 05:00 Sodium 152 mmol/L (136-145) H* 06/09/20 04:35 Corrected Sodium 157 mmol/L (136-145) H 06/09/20 04:35 Potassium 3.9 mmol/L (3.5-5.1) 06/09/20 04:35 Chloride 113 mmol/L (98-107) H 06/09/20 04:35 Carbon Dioxide 36.8 mmol/L (21-32) H 06/09/20 04:35 BUN 23 mg/dL (7-18) H 06/09/20 04:35 Creatinine 0.93 mg/dL (0.70-1.30) 06/09/20 04:35 Est GFR (MDRD) Af Amer > 60 (>60) 06/09/20 04:35 Est GFR (MDRD) Non-Af > 60 (>60) 06/09/20 04:35 Glucose 329 mg/dL (65-99) H 06/09/20 04:35 POC Glucose (mg/dL) 297 mg/dL (65-99) H 06/09/20 11:39 Calcium 7.7 mg/dL (8.5-10.1) L 06/09/20 04:35 Corrected Calcium 9.1 mg/dL (8.5-10.1) 06/09/20 04:35 Magnesium 2.6 mg/dL (1.7-2.9) 06/07/20 04:10 Ferritin 818 ng/mL (26-388) H 06/09/20 04:35 Total Bilirubin 0.40 mg/dL (0.2-1.0) 06/09/20 04:35 AST 33 Units/L (15-37) 06/09/20 04:35 ALT 39 Units/L (12-78) 06/09/20 04:35 Alkaline Phosphatase 78 Units/L (46-116) 06/09/20 04:35 Ammonia 44 umol/L (11-32) H 06/05/20 08:23 Creatine Kinase 448 Units/L (39-308) H 06/03/20 04:30 CK-MB (CK-2) 10.3 ng/mL (0-4.0) H* 06/03/20 04:30 CK/CKMB % Calc 2.3 % (<4) 06/03/20 04:30 Troponin I 0.22 ng/mL (0-1.5) 06/03/20 04:30 C-Reactive Protein 11.10 mg/L (0-3.0) H 06/09/20 04:35 B-Natriuretic Peptide 115 pg/mL (0-79) H 06/09/20 04:35 Total Protein 5.7 g/dL (6.4-8.2) L 06/09/20 04:35 Albumin 2.2 g/dL (3.4-5.0) L 06/09/20 04:35 Globulin 3.5 g/dL (2.5-4.5) 06/09/20 04:35 Albumin/Globulin Ratio 0.6 Ratio (1.1-2.1) L 06/09/20 04:35 Prealbumin 16.1 mg/dL (18-35.7) L 06/06/20 06:07 Specimen Type Clean catch urine 06/02/20 18:03 Urine Color Yellow (YELLOW) 06/02/20 18:03 Urine Appearance Clear (CLEAR) 06/02/20 18:03 Urine pH 5.0 (5.0 - 8.0) 06/02/20 18:03 Ur Specific [place] 1.010 (1.000-1.030) 06/02/20 18:03 Urine Protein 3+ (NEGATIVE) 06/02/20 18:03 Urine Glucose (UA) 4+ (NEGATIVE) 06/02/20 18:03 Urine Ketones 3+ (NEGATIVE) 06/02/20 18:03 Urine Occult Blood 3+ (NEGATIVE) 06/02/20 18:03 Urine Nitrite Negative (NEGATIVE) 06/02/20 18:03 Urine Bilirubin Negative (NEGATIVE) 06/02/20 18:03 Urine Urobilinogen Normal (NORMAL) 06/02/20 18:03 Ur Leukocyte Esterase Negative (NEGATIVE) 06/02/20 18:03 Urine RBC 3-5 /HPF (0-3) A 06/02/20 18:03 Urine WBC None seen /HPF (0-5) 06/02/20 18:03 Ur Squamous Epith Cells Negative /HPF (NEGATIVE) 06/02/20 18:03 Urine Bacteria Negative /HPF (NEGATIVE) 06/02/20 18:03 Ur Culture Indicated? No/not indicated 06/02/20 18:03 Digoxin 0.83 ng/mL (0.9-2) L 06/05/20 11:10 Phenobarbital 10.1 ug/mL (15-40) L 06/05/20 08:23 SARS CoV-2 RNA Rapid LADAN Positive (NEGATIVE) A 06/01/20 13:23 Blood Type A POSITIVE 06/01/20 13:35 - Plan (1) Pneumonia due to COVID-19 virus Status: Acute Plan: SUPPLEMENTAL OXYGEN, CONTINUE IV FLUIDS, IV ANTIBIOTICS, NEB TX, VITAMIN SUPPLEMENTATION, ANXIETY MEDICATIONS, DVT PROPHYLAXIS, DIFLUCAN, COUGH MEDICATIONS, AND POTASSIUM AND MAGNESIUM PROTOCOLS (2) Hypoxia Status: Chronic (3) Atrial fibrillation with RVR Status: Acute Plan: CONTINUE ANTIARRHYTHMIC AND RATE CONTROL DRUGS, WATER CONTROL STATION ENGINEER, 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
[2020-06-09] MEDS: APRESOLINE INJ 20 MG VIAL IVP PRN (13:01)
[2020-06-09] MEDS: D5W 1000 ML IV 1,000 ML IV SCH (15:58)
[2020-06-09] MEDS: SNACK - Diabetic Appropriate PO SCH (20:00)
[2020-06-09] MEDS: LIPOSYN III 20% 100ML 100 ML IV SCH (22:00)
[2020-06-10] MEDS: ASCORBIC ACID INJ MULTI-DOSE VIAL 1,500 MG in NS 50 ML IV 50 ML IV SCH ×2 (04:00→10:14)
[2020-06-10 04:56] LABS: ABG BASE EXCESS 11.7 mmol/L (-2.0-2.0); ABG HCO3 35.9 mmol/L (22-26)
[2020-06-10 04:57] LABS: ABG ALLEN TEST POS
[2020-06-10] MEDS: MUCOMYST 20% 200 MG/ML NEB SCH ×3 (05:25→21:29)
[2020-06-10] MEDS: XOPENEX 1.25 MG/3 ML NEBULE NEB SCH ×3 (05:25→21:29)
[2020-06-10 05:37] LABS: BASOPHILS % (AUTO) 0.1 % (0.2-1.0); EOSINOPHILS % (AUTO) 0.1 % (0.9-2.9); HEMATOCRIT 44.9 % (42.0-54.0); HEMOGLOBIN 14.6 g/dL (13.5-18.0); LYMPHOCYTES # (AUTO) 0.7 X10^3/uL (1.3-2.9); LYMPHOCYTES % (AUTO) 7.5 % (21.0-51.0); MEAN CORPUSCULAR HEMOGLOBIN 30.2 pg (27.0-34.0); MEAN CORPUSCULAR HGB CONC 32.5 g/dL (33.0-35.0); MEAN CORPUSCULAR VOLUME 93.1 fL (80.0-100.0); MEAN PLATELET VOLUME 11.4 fL (7.4-11.0); MONOCYTES # (AUTO) 0.3 x10^3/uL (0.3-0.8); MONOCYTES % (AUTO) 2.8 % (0.0-13.0); NEUTROPHILS # (AUTO) 8.1 x10^3/uL (2.2-4.8); NEUTROPHILS % (AUTO) 89.5 % (42.0-75.0); PLATELET COUNT 125 X10^3/uL (150.0-450.0); RED BLOOD COUNT 4.82 X10^6/uL (4.7-6.0); RED CELL DISTRIBUTION WIDTH 14.2 % (11.6-16.5); WHITE BLOOD COUNT 9.1 X10^3/uL (3.6-10.0)
[2020-06-10] MEDS: ATIVAN INJ 2 MG VIAL IVP SCH ×2 (06:00→11:17)
[2020-06-10] MEDS: PHENOBARBITAL SODIUM INJ 65 MG VIAL IVP SCH ×3 (06:00→21:55)
[2020-06-10] MEDS: LOPRESSOR INJ 5 MG AMP IVP SCH ×4 (06:00→23:05)
[2020-06-10] MEDS: FORTAZ or TAZICEF VIAL INJ IV SCH ×3 (06:00→21:55)
[2020-06-10] MEDS: SOLU-Medrol 125 MG VIAL IVP SCH ×3 (06:00→21:55)
[2020-06-10 06:01] LABS: ALANINE AMINOTRANSFERASE 35 Units/L (12-78); ALBUMIN 2.2 g/dL (3.4-5.0); ALKALINE PHOSPHATASE 81 Units/L (46-116); ASPARTATE AMINO TRANSFERASE 30 Units/L (15-37); BLOOD UREA NITROGEN 22 mg/dL (7-18); CALCIUM 7.9 mg/dL (8.5-10.1); CARBON DIOXIDE 34.3 mmol/L (21-32); CHLORIDE 109 mmol/L (98-107); COR CA(FOR HYPOALB) 9.3 mg/dL (8.5-10.1); COR NA(FOR HYPERGLY) 152 mmol/L (136-145); CREATININE 0.91 mg/dL (0.70-1.30); SODIUM 147 mmol/L (136-145); TOTAL PROTEIN 6.2 g/dL (6.4-8.2); eGFR NON BLACK RACES > 60 (>60)
[2020-06-10] MEDS: HumuLIN R SUBCUT PRN ×4 (06:18→21:55)
[2020-06-10] MEDS: HEPARIN SODIUM IN D5W 25,000 UNITS/500 ML BAG IV PRN ×2 (06:21→23:15)
[2020-06-10] MEDS: D5W 1000 ML IV 1,000 ML IV SCH ×2 (06:25→11:44)
[2020-06-10 06:28] LABS: GIANT PLATELET FEW; PLATELET MORPHOLOGY COMMENT ABNORMAL (NORMAL)
--- NOTE | 2020-06-10 07:29 | RAD ---
HISTORYSOBSTUDYCHEST, 1 VIEWCOMPARISONPortable chest June 09, 2020.FINDINGSThe trachea is midline. The cardiac silhouette is unremarkable. There are sternotomy wires and surgical clips from CABG surgery. There is mild improvement in the interstitial infiltrates in the right midlung field but stable interstitial process in the left mid and lower lung field compared to June 09, 2020. The lungs are clear without focal infiltrate or effusion. The bony thorax is unremarkable.IMPRESSIONMild improvement in the interstitial infiltrates in the right midlung field but stable interstitial process left mid and lower lung field compared to film of June 09, 2020.Electronically signed by: NABIL DUARTE (Jun 10, 2020 07:28:02)
[2020-06-10] MEDS: BROVANA IN SCH ×2 (08:51→21:21)
[2020-06-10] MEDS: PULMICORT NEB TX 0.5 MG NEB SCH ×2 (09:00→21:29)
[2020-06-10] MEDS: PROTONIX INJ 40 MG VIAL IVP SCH (09:23)
[2020-06-10] MEDS: DIFLUCAN 200 MG IV PREMIX* 200 MG/100 ML BAG IV SCH (09:24)
[2020-06-10] MEDS: LANOXIN INJ IVP SCH (09:24)
[2020-06-10] MEDS: LEVEMIR SC SCH ×2 (09:28→21:55)
[2020-06-10] MEDS: LEVAQUIN PREMIX IV 500 MG 500 MG/100 ML BAG IV SCH (09:55)
[2020-06-10] MEDS: CLINIMIX 4.25 %/10 % 1,000 ML with MVI INJ (ADULT) 10 ML, TRACE ELEMENTS INJ 10 ML, POT... IV SCH ×16 (10:45→16:15)
--- NOTE | 2020-06-10 10:54 | RAD ---
HISTORYCentral line placementSTUDYChest AP [id number]/28/2021 4:54 a.m.FINDINGSThere is a new right IJ line with its tip at the cavoatrial junction. The patient is status post median sternotomy and CABG. The heart is within normal limits in size. The lungs are hypoinflated. Mild interstitial lung changes are present bilaterally not significantly changed from the earlier examination. No pleural effusions are identified. Bony thorax is unremarkable.IMPRESSIONRight IJ line tip cavoatrial junctionNo other changes when compared with the earlier examinationElectronically signed by: FELICIA LEW (Jun 10, 2020 10:52:07)
--- NOTE | 2020-06-10 11:38 | PCM.PROG ---
Progress Note - Progress Note for Day of Date of Exam: 06/10/20 - Subjective Subjective: WAS ADMITTED FOR TREATMENT OF PNEUMONIA DUE TO COVID-19 AND HYPOXIA. HE REMAINS IN THE INTENSIVE CARE UNIT ON THE BIPAP AT 45% FI02 TODAY. STAFF REPORTS THAT HE HAS RESTED WELL THROUGHOUT THE NIGHT. HE HAS HAD NO OVERNIGHT EVENTS. HIS SATURATIONS ON THE BIPAP HAVE BEEN 94-98% THIS MORNING AND THROUGHOUT THE NIGHT. ON EXAMINATION, HE IS LYING IN BED WITH EYES CLOSED ON MORNING ROUNDS. HE DOES OPEN EYES TO PAINFUL STIMULI. HEART RATE IS NORMAL. RATE IS IRREGULAR. BILATERAL LUNGS ARE NOTED WITH RALES THROUGHOUT. ABDOMEN IS ROUND, SOFT, AND NON-TENDER WITH NORMAL BOWEL SOUNDS NOTED IN ALL QUADRANTS. THERE IS TRACE EDEMA NOTED TO UPPER AND LOWER EXTREMITIES. HIS VITALS THIS MORNING ARE: 99.5-76-34-94%-168/88. LABS WERE OBTAINED. ABNORMAL LAB VALUES INCLUDE THE FOLLOWING: PLT COUNT 125, SODIUM 147, CHLORIDE 109, CARBON DIOXIDE 34.3, CREATININE 2.22, GLUCOSE 320, CALCIUM 7.9, FERRITIN 741, CRP 10.90, BNP 105, TOTAL PROTEIN 6.2, ALBUMIN 2.2. BLOOD CULTURES ARE PENDING. ABG WAS OBTAINED AND REVEALED: PH 7.470, PC02 55, P02 117, HC03 40, 02 SAT 99, BASE EXCESS 14.0, A-A GRADIENT 242, FI02 60. A CHEST XRAY WAS OBTAINED AND REVEALED: Right IJ line tip cavoatrial junction. No other changes when compared with the earlier examination. WE WILL CONTINUE WITH CURRENT PLAN OF CARE TODAY AND ATTEMPT TO DECREASE FI02 AND SEDATION TOLERATED. OTHERWISE, WE PLAN TO FOLLOW UP WITH AM LABS, CHEST XRAY, ABG, AND CONTINUE TO MONITOR. TIME SPENT ON CLINICAL ASSESSMENT, REVIEWING LABS AND IMAGING, DECISION MAKING, AND DOCUMENTATION GREATER THAN 75 MINUTES. - Past Medical Family Social History Past Med/Fam/Surg Hx: No changes since H&P Allergies: Allergies No Known Drug Allergies Allergy (Verified 06/01/20 13:35) - Review of Systems ROS: No change since H&P - Vital Signs and I&O's Vital Signs: Temperature 99.5 F Pulse Rate [Left Brachial] 79 Pulse Rate 76 Respiratory Rate 34 Blood Pressure [Left Calf] 166/88 Blood Pressure [Right Arm] 176/93 Blood Pressure [Left Arm] 147/83 Blood Pressure 168/88 O2 Sat by Pulse Oximetry 94 Intake and Output: Intake & Output 06/07/20 06/08/20 06/09/20 06/10/20 11:59 11:59 11:59 11:59 Intake Total 2186 / 2186 3302 / 3302 3748 / 3748 4638 / 4638 Output Total 2850 / 2850 3500 / 3500 2825 / 2825 3525 / 3525 Balance -664 / -664 -198 / -198 923 / 923 1113 / 1113 - Physical Exam Oriented: Not Oriented Eyes: Normal Ear: Normal Nose: Normal Throat: Normal Respiratory: Generalized, Rales Cardiovascular: Normal, Irregular : Normal Auscultation: Bowel Sounds: Normal Palpation: Normal Tenderness: Normal Skin: Normal Musculoskeletal: Normal Psychiatric: Agitation Mood Description: Anxious Affect: Anxious, Violent Speech Pattern: Inappropriate - Laboratory and Diagnostics Result Diagrams: 06/17/20 05:10 06/17/20 05:10 Labs: 06/01/20 13:35 Blood Blood Culture - Final 06/01/20 13:21 Blood Blood Culture - Final Laboratory WBC 9.1 X10^3/uL (3.6-10.0) 06/10/20 04:40 RBC 4.82 X10^6/uL (4.7-6.0) 06/10/20 04:40 Hgb 14.6 g/dL (13.5-18.0) 06/10/20 04:40 Hct 44.9 % (42.0-54.0) 06/10/20 04:40 MCV 93.1 fL (80.0-100.0) 06/10/20 04:40 MCH 30.2 pg (27.0-34.0) 06/10/20 04:40 MCHC 32.5 g/dL (33.0-35.0) L 06/10/20 04:40 RDW 14.2 % (11.6-16.5) 06/10/20 04:40 Plt Count 125 X10^3/uL (150.0-450.0) L 06/10/20 04:40 Plt Count Comment Decreased (ADEQUATE) 06/10/20 04:40 MPV 11.4 fL (7.4-11.0) H 06/10/20 04:40 Neut % (Auto) 89.5 % (42.0-75.0) H 06/10/20 04:40 Lymph % (Auto) 7.5 % (21.0-51.0) L 06/10/20 04:40 [place] % (Auto) 2.8 % (0.0-13.0) 06/10/20 04:40 Eos % (Auto) 0.1 % (0.9-2.9) L 06/10/20 04:40 Baso % (Auto) 0.1 % (0.2-1.0) L 06/10/20 04:40 Neut # (Auto) 8.1 x10^3/uL (2.2-4.8) H 06/10/20 04:40 Lymph # (Auto) 0.7 X10^3/uL (1.3-2.9) L 06/10/20 04:40 [place] # (Auto) 0.3 x10^3/uL (0.3-0.8) 06/10/20 04:40 Eos # (Auto) 0.0 x10^3/uL (0.0-0.2) 06/10/20 04:40 Baso # (Auto) 0.0 X10^3/uL (0.0-0.1) 06/10/20 04:40 Absolute Nucleated RBC 0.3 /100WBC 06/10/20 04:40 Total Counted 100 06/09/20 04:35 Neutrophils % (Manual) 92 % (39-76) H 06/09/20 04:35 Band Neutrophils % 2 % (0-10) 06/05/20 05:10 Lymphocytes % (Manual) 8 % (13-43) L 06/09/20 04:35 Monocytes % (Manual) 4 % (4-9) 06/08/20 05:10 Giant Platelets Few 06/10/20 04:40 Plt Morphology Comment Abnormal (NORMAL) 06/10/20 04:40 RBC Morphology Normal (NORMAL) 06/10/20 04:40 PT 17.2 SECONDS (11.8-14.3) 06/02/20 22:35 INR Target Range - 06/02/20 22:35 INR 1.45 (0.8-1.3) H 06/02/20 22:35 APTT 68.7 SECONDS (22.9-36.5) H 06/10/20 04:40 PTT Comment - 06/10/20 04:40 D-Dimer 0.39 ug/ml (0.0-0.57) 06/10/20 04:40 Sample Site Rr 06/10/20 04:41 ABG pH 7.520 (7.35-7.45) H 06/10/20 04:41 ABG pCO2 44.0 mmHg (35.0-45.0) 06/10/20 04:41 ABG pO2 74.0 mmHg (80.0-100.0) L 06/10/20 04:41 ABG HCO3 35.9 mmol/L (22-26) H* 06/10/20 04:41 ABG O2 Saturation 96.0 % (90-100) 06/10/20 04:41 ABG Base Excess 11.7 mmol/L (-2.0-2.0) H 06/10/20 04:41 Partha Test Pos 06/10/20 04:41 A-a Gradient 192.0 mmHg 06/10/20 04:41 FiO2 45 06/10/20 04:41 Blood Gas Comments Ivana well ae 06/10/20 04:41 Sodium 147 mmol/L (136-145) H 06/10/20 04:40 Corrected Sodium 152 mmol/L (136-145) H 06/10/20 04:40 Potassium 4.4 mmol/L (3.5-5.1) 06/10/20 04:40 Chloride 109 mmol/L (98-107) H 06/10/20 04:40 Carbon Dioxide 34.3 mmol/L (21-32) H 06/10/20 04:40 BUN 22 mg/dL (7-18) H 06/10/20 04:40 Creatinine 0.91 mg/dL (0.70-1.30) 06/10/20 04:40 Est GFR (MDRD) Af Amer > 60 (>60) 06/10/20 04:40 Est GFR (MDRD) Non-Af > 60 (>60) 06/10/20 04:40 Glucose 320 mg/dL (65-99) H 06/10/20 04:40 POC Glucose (mg/dL) 301 mg/dL (65-99) H 06/10/20 11:15 Calcium 7.9 mg/dL (8.5-10.1) L 06/10/20 04:40 Corrected Calcium 9.3 mg/dL (8.5-10.1) 06/10/20 04:40 Magnesium 2.6 mg/dL (1.7-2.9) 06/07/20 04:10 Ferritin 741 ng/mL (26-388) H 06/10/20 04:40 Total Bilirubin 0.40 mg/dL (0.2-1.0) 06/10/20 04:40 AST 30 Units/L (15-37) 06/10/20 04:40 ALT 35 Units/L (12-78) 06/10/20 04:40 Alkaline Phosphatase 81 Units/L (46-116) 06/10/20 04:40 Ammonia 44 umol/L (11-32) H 06/05/20 08:23 Creatine Kinase 448 Units/L (39-308) H 06/03/20 04:30 CK-MB (CK-2) 10.3 ng/mL (0-4.0) H* 06/03/20 04:30 CK/CKMB % Calc 2.3 % (<4) 06/03/20 04:30 Troponin I 0.22 ng/mL (0-1.5) 06/03/20 04:30 C-Reactive Protein 10.90 mg/L (0-3.0) H 06/10/20 04:40 B-Natriuretic Peptide 105 pg/mL (0-79) H 06/10/20 04:40 Total Protein 6.2 g/dL (6.4-8.2) L 06/10/20 04:40 Albumin 2.2 g/dL (3.4-5.0) L 06/10/20 04:40 Globulin 4.0 g/dL (2.5-4.5) 06/10/20 04:40 Albumin/Globulin Ratio 0.6 Ratio (1.1-2.1) L 06/10/20 04:40 Prealbumin 16.1 mg/dL (18-35.7) L 06/06/20 06:07 Specimen Type Clean catch urine 06/02/20 18:03 Urine Color Yellow (YELLOW) 06/02/20 18:03 Urine Appearance Clear (CLEAR) 06/02/20 18:03 Urine pH 5.0 (5.0 - 8.0) 06/02/20 18:03 Ur Specific [place] 1.010 (1.000-1.030) 06/02/20 18:03 Urine Protein 3+ (NEGATIVE) 06/02/20 18:03 Urine Glucose (UA) 4+ (NEGATIVE) 06/02/20 18:03 Urine Ketones 3+ (NEGATIVE) 06/02/20 18:03 Urine Occult Blood 3+ (NEGATIVE) 06/02/20 18:03 Urine Nitrite Negative (NEGATIVE) 06/02/20 18:03 Urine Bilirubin Negative (NEGATIVE) 06/02/20 18:03 Urine Urobilinogen Normal (NORMAL) 06/02/20 18:03 Ur Leukocyte Esterase Negative (NEGATIVE) 06/02/20 18:03 Urine RBC 3-5 /HPF (0-3) A 06/02/20 18:03 Urine WBC None seen /HPF (0-5) 06/02/20 18:03 Ur Squamous Epith Cells Negative /HPF (NEGATIVE) 06/02/20 18:03 Urine Bacteria Negative /HPF (NEGATIVE) 06/02/20 18:03 Ur Culture Indicated? No/not indicated 06/02/20 18:03 Digoxin 0.80 ng/mL (0.9-2) L 06/10/20 04:40 Phenobarbital 10.1 ug/mL (15-40) L 06/05/20 08:23 SARS CoV-2 RNA Rapid LADAN Positive (NEGATIVE) A 06/01/20 13:23 Blood Type A POSITIVE 06/01/20 13:35 - Plan (1) Pneumonia due to COVID-19 virus Status: Acute Plan: SUPPLEMENTAL OXYGEN, CONTINUE IV FLUIDS, IV ANTIBIOTICS, NEB TX, VITAMIN SUPPLEMENTATION, ANXIETY MEDICATIONS, DVT PROPHYLAXIS, DIFLUCAN, COUGH MEDICATIONS, AND POTASSIUM AND MAGNESIUM PROTOCOLS (2) Hypoxia Status: Chronic (3) Atrial fibrillation with RVR Status: Acute Plan: CONTINUE ANTIARRHYTHMIC AND RATE CONTROL DRUGS, 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
[2020-06-10] MEDS: PEPCID 20 MG IV PREMIX* 20 MG/50 ML BAG IV SCH ×2 (11:41→21:55)
--- NOTE | 2020-06-10 12:48 | DR.UPDATE ---
H&P Update History and Physical Update: History and Physical reviewed and patient examined. Changes noted: NO Yes with the following:will pl;zion central line H&P Reviewed: Yes Patient was examined?: Yes Procedures (ALL) - Central Line Placement PCM.CLCO: written consent Time out performed: Yes Patient placed pm monitor/pulse ox: Yes prep: mask, gown, gloves, other Centrial line prep: chlorhexidine scrub, sterile drapes applied Local anesthsia used: lidocane 1% Ultrasound used for placement: Yes (right ij id'd via u/s, cannulation visualized) Central line lumen ininserted: triple Post procedure: sutured in place, good blood return, all ports aspirated, flushed,capped, sterile dressing applied Post procedure xray: tip oc catheter in good position, no pneumothorax seen Patient tolerated procedure: Yes Complications: none
[2020-06-10] MEDS ORDERED: CLINIMIX 4.25 %/10 % 1,000 ML with MVI INJ (ADULT) 10 ML, TRACE ELEMENTS INJ 10 ML, POT... IV SCH ×7 (14:00)
[2020-06-10] MEDS: LIPOSYN III 20% 100ML 100 ML IV SCH (23:03)
[2020-06-10] MEDS: SNACK - Diabetic Appropriate PO SCH (23:03)
[2020-06-11] MEDS: LOPRESSOR INJ 5 MG AMP IVP SCH ×4 (04:35→22:44)
[2020-06-11 05:22] LABS: ABG BASE EXCESS 8.3 mmol/L (-2.0-2.0)
[2020-06-11 05:23] LABS: ABG ALLEN TEST POS; ABG HCO3 32.8 mmol/L (22-26)
[2020-06-11] MEDS: XOPENEX 1.25 MG/3 ML NEBULE NEB SCH ×3 (05:30→21:15)
[2020-06-11] MEDS: MUCOMYST 20% 200 MG/ML NEB SCH ×3 (05:30→21:15)
[2020-06-11 05:48] LABS: BASOPHILS % (AUTO) 0.2 % (0.2-1.0); HEMATOCRIT 40.6 % (42.0-54.0); HEMOGLOBIN 13.5 g/dL (13.5-18.0); LYMPHOCYTES # (AUTO) 0.4 X10^3/uL (1.3-2.9); LYMPHOCYTES % (AUTO) 5.8 % (21.0-51.0); MEAN CORPUSCULAR HEMOGLOBIN 30.6 pg (27.0-34.0); MEAN CORPUSCULAR HGB CONC 33.3 g/dL (33.0-35.0); MEAN CORPUSCULAR VOLUME 91.9 fL (80.0-100.0); MEAN PLATELET VOLUME 11.5 fL (7.4-11.0); MONOCYTES # (AUTO) 0.2 x10^3/uL (0.3-0.8); NEUTROPHILS # (AUTO) 6.6 x10^3/uL (2.2-4.8); PLATELET COUNT 111 X10^3/uL (150.0-450.0); RED BLOOD COUNT 4.42 X10^6/uL (4.7-6.0); WHITE BLOOD COUNT 7.2 X10^3/uL (3.6-10.0)
[2020-06-11 05:55] LABS: ALANINE AMINOTRANSFERASE 39 Units/L (12-78); ALBUMIN 2.1 g/dL (3.4-5.0); ALKALINE PHOSPHATASE 88 Units/L (46-116); ASPARTATE AMINO TRANSFERASE 32 Units/L (15-37); BLOOD UREA NITROGEN 20 mg/dL (7-18); CALCIUM 7.6 mg/dL (8.5-10.1); CARBON DIOXIDE 29.2 mmol/L (21-32); CHLORIDE 104 mmol/L (98-107); COR CA(FOR HYPOALB) 9.1 mg/dL (8.5-10.1); COR NA(FOR HYPERGLY) 146 mmol/L (136-145); CREATININE 0.83 mg/dL (0.70-1.30); SODIUM 140 mmol/L (136-145); eGFR NON BLACK RACES > 60 (>60)
[2020-06-11] MEDS: PHENOBARBITAL SODIUM INJ 65 MG VIAL IVP SCH (06:10)
[2020-06-11] MEDS: SOLU-Medrol 125 MG VIAL IVP SCH ×3 (06:10→21:05)
[2020-06-11] MEDS: FORTAZ or TAZICEF VIAL INJ IV SCH ×3 (06:10→21:05)
[2020-06-11] MEDS: CLINIMIX 4.25 %/10 % 1,000 ML with MVI INJ (ADULT) 10 ML, TRACE ELEMENTS INJ 10 ML, POT... IV SCH ×18 (06:11→09:47)
[2020-06-11] MEDS: HumuLIN R SUBCUT PRN ×4 (06:15→20:30)
--- NOTE | 2020-06-11 06:24 | RAD ---
HISTORYShortness of breathSTUDYChest AP [id number] May 2020FINDINGSThere is a right IJ line in good position. Patient is status post median sternotomy and CABG. The heart is within normal limits in size. The lungs remain hypoinflated. No definite acute infiltrates on today's examination. No pleural effusions are identified. Bony thorax is unremarkable.IMPRESSIONLungs hypoinflated but now clearElectronically signed by: FELICIA LEW (Jun 11, 2020 06:23:57)
[2020-06-11 07:34] LABS: BAND NEUTROPHILS % 8 % (0-10); PLATELET MORPHOLOGY COMMENT NORMAL (NORMAL)
[2020-06-11] MEDS: LANOXIN INJ IVP SCH (09:30)
[2020-06-11] MEDS: BROVANA IN SCH ×2 (09:35→21:08)
[2020-06-11] MEDS: LEVEMIR SC SCH ×2 (09:40→20:29)
[2020-06-11] MEDS: PULMICORT NEB TX 0.5 MG NEB SCH ×2 (09:41→21:15)
[2020-06-11] MEDS: PEPCID 20 MG IV PREMIX* 20 MG/50 ML BAG IV SCH ×2 (09:45→20:31)
[2020-06-11] MEDS: PROTONIX INJ 40 MG VIAL IVP SCH (09:47)
[2020-06-11] MEDS: LEVAQUIN PREMIX IV 500 MG 500 MG/100 ML BAG IV SCH (09:55)
[2020-06-11] MEDS: D5W 1000 ML IV 1,000 ML IV SCH ×2 (10:16→20:57)
[2020-06-11] MEDS: DIFLUCAN 200 MG IV PREMIX* 200 MG/100 ML BAG IV SCH (11:00)
[2020-06-11] MEDS: CATAPRES-TTS-3 TD SCH (11:08)
[2020-06-11] MEDS: LOVENOX INJ 80 MG SYR SC SCH ×2 (12:41→20:29)
[2020-06-11] MEDS: APRESOLINE INJ 20 MG VIAL IVP PRN (15:24)
[2020-06-11] MEDS: OFIRMEV IV 1000 MG VIAL 500 MG/50 ML VIAL IV PRN (16:13)
[2020-06-11] MEDS: SNACK - Diabetic Appropriate PO SCH (19:55)
--- NOTE | 2020-06-12 05:48 | RAD ---
HISTORYcovidSTUDYPortable AP [id number]/29/2021FINDINGSThere is no significant change in appearance of heart, lungs or mediastinum. No segmental or lobar consolidation identified. Mild nonspecific interstitial prominence again noted in the lung bases. There is no evidence for pleural fluid or pneumothorax. Right IJ line terminates at or near the cavoatrial junction.IMPRESSIONNo change since 06/11/2020.Electronically signed by: ELIZABETH GOMEZ (Jun 12, 2020 05:47:09)
[2020-06-12] MEDS: LOPRESSOR INJ 5 MG AMP IVP SCH ×4 (05:55→22:00)
[2020-06-12] MEDS: FORTAZ or TAZICEF VIAL INJ IV SCH ×3 (05:56→21:00)
[2020-06-12] MEDS: XOPENEX 1.25 MG/3 ML NEBULE NEB SCH ×3 (05:56→22:08)
[2020-06-12] MEDS: MUCOMYST 20% 200 MG/ML NEB SCH ×3 (05:56→22:08)
[2020-06-12] MEDS: SOLU-Medrol 125 MG VIAL IVP SCH ×3 (05:57→21:00)
[2020-06-12] MEDS: HumuLIN R SUBCUT PRN ×4 (05:59→20:01)
[2020-06-12 06:02] LABS: ABG BASE EXCESS 9.1 mmol/L (-2.0-2.0)
[2020-06-12 06:03] LABS: ABG ALLEN TEST POS; ABG HCO3 32.7 mmol/L (22-26)
[2020-06-12 06:16] LABS: BASOPHILS # (AUTO) 0.1 X10^3/uL (0.0-0.1); BASOPHILS % (AUTO) 0.8 % (0.2-1.0); EOSINOPHILS % (AUTO) 0.2 % (0.9-2.9); HEMATOCRIT 40.5 % (42.0-54.0); HEMOGLOBIN 13.3 g/dL (13.5-18.0); LYMPHOCYTES # (AUTO) 0.7 X10^3/uL (1.3-2.9); LYMPHOCYTES % (AUTO) 9.6 % (21.0-51.0); MEAN CORPUSCULAR HEMOGLOBIN 29.9 pg (27.0-34.0); MEAN CORPUSCULAR HGB CONC 32.9 g/dL (33.0-35.0); MEAN PLATELET VOLUME 11.8 fL (7.4-11.0); MONOCYTES # (AUTO) 0.2 x10^3/uL (0.3-0.8); MONOCYTES % (AUTO) 2.7 % (0.0-13.0); NEUTROPHILS # (AUTO) 6.3 x10^3/uL (2.2-4.8); NEUTROPHILS % (AUTO) 86.7 % (42.0-75.0); PLATELET COUNT 106 X10^3/uL (150.0-450.0); RED BLOOD COUNT 4.46 X10^6/uL (4.7-6.0); RED CELL DISTRIBUTION WIDTH 13.8 % (11.6-16.5); WHITE BLOOD COUNT 7.3 X10^3/uL (3.6-10.0)
[2020-06-12 06:22] LABS: ALANINE AMINOTRANSFERASE 38 Units/L (12-78); ALBUMIN 1.9 g/dL (3.4-5.0); ALKALINE PHOSPHATASE 75 Units/L (46-116); ASPARTATE AMINO TRANSFERASE 33 Units/L (15-37); BLOOD UREA NITROGEN 18 mg/dL (7-18); CALCIUM 7.5 mg/dL (8.5-10.1); CARBON DIOXIDE 30.2 mmol/L (21-32); CHLORIDE 100 mmol/L (98-107); COR CA(FOR HYPOALB) 9.2 mg/dL (8.5-10.1); COR NA(FOR HYPERGLY) 140 mmol/L (136-145); CREATININE 0.81 mg/dL (0.70-1.30); SODIUM 136 mmol/L (136-145); TOTAL PROTEIN 5.9 g/dL (6.4-8.2); eGFR NON BLACK RACES > 60 (>60)
[2020-06-12] MEDS: LANOXIN INJ IVP SCH (08:30)
[2020-06-12] MEDS: D5W 1000 ML IV 1,000 ML IV SCH ×2 (08:30→15:56)
[2020-06-12] MEDS: DIFLUCAN 200 MG IV PREMIX* 200 MG/100 ML BAG IV SCH (08:31)
[2020-06-12] MEDS: LEVEMIR SC SCH ×2 (08:32→20:01)
[2020-06-12] MEDS: PROTONIX INJ 40 MG VIAL IVP SCH (08:33)
[2020-06-12] MEDS: LOVENOX INJ 80 MG SYR SC SCH ×2 (08:33→20:00)
[2020-06-12] MEDS: LEVAQUIN PREMIX IV 500 MG 500 MG/100 ML BAG IV SCH (08:45)
[2020-06-12] MEDS: PEPCID 20 MG IV PREMIX* 20 MG/50 ML BAG IV SCH ×2 (08:46→20:00)
[2020-06-12] MEDS: PULMICORT NEB TX 0.5 MG NEB SCH ×2 (08:55→22:08)
[2020-06-12] MEDS: BROVANA IN SCH ×2 (08:55→21:59)
[2020-06-12] MEDS: CLINIMIX 4.25 %/10 % 1,000 ML with MVI INJ (ADULT) 10 ML, TRACE ELEMENTS INJ 10 ML, POT... IV SCH ×9 (09:10)
--- NOTE | 2020-06-12 12:46 | PCM.PROG ---
Progress Note Progress Note for Day of Date of Exam: 06/12/20 Subjective Subjective: PT IS A 70 YEAR OLD MALE ADMITTED FOR TREATMENT OF PNEUMONIA DUE TO COVID-19 AND HYPOXIA. THIS MORNING HE REMAINS IN THE INTENSIVE CARE UNIT ON THE BIPAP AT 35% FI02. NO ACUTE EVENTS OVERNIGHT. HIS OXYGEN SATURATION ON THE BIPAP HAVE BEEN AROUND 94-95%. ON EXAMINATION, HE IS LYING IN BED COMFORTABLY. HE DOES OPEN EYES TO PAINFUL STIMULI. HEART RATE IS NORMAL. RATE REGULAR, BILATERAL LUNGS ARE NOTED WITH RALES THROUGHOUT. ABDOMEN IS ROUND, SOFT, AND NON-TENDER WITH NORMAL BOWEL SOUNDS NOTED IN ALL QUADRANTS. THERE IS TRACE EDEMA NOTED TO UPPER AND LOWER EXTREMITIES. HIS VITALS THIS MORNING ARE: 98.1-78-18-94%-157/83. LABS/IMAGING WERE OBTAINED AND INCLUDE THE FOLLOWING: WBC 7.3, HGB 13.3, PLT 106, NA 136, K 3.8, CR 0.81, GLUCOSE 246, CRP 75, BNP 323, BLOOD CULTURES NO GROWTH TO DATE. ABG WAS OBTAINED AND REVEALED: PH 7.52, PC02 40, P02 64, HC03 32, 02 SAT 94, FI02 35%. A CHEST XRAY WAS OBTAINED AND REVEALED: There is no significant change in appearance of heart, lungs or mediastinum. No segmental or lobar consolidation identified. Mild nonspecific interstitial prominence again noted in the lung bases. WILL CONTINUE TO WEAN FI02 AND SEDATION TOLERATED. OTHERWISE, CONTINUE WITH CURRENT TREATMENT PLAN. FOLLOW UP WITH AM LABS, CHEST XRAY, ABG, AND CONTINUE TO MONITOR. CRITICAL CARE TIME SPENT ON CLINICAL ASSESSMENT, REVIEWING LABS AND IMAGING, DECISION MAKING, AND DOCUMENTATION 30-74 MINUTES. Past Medical Family Social History Past Med/Fam/Surg Hx: No changes since H&P Allergies: Allergies No Known Drug Allergies Allergy (Verified 06/01/20 13:35) Review of Systems ROS: No change since H&P Vital Signs and I&O's Vital Signs: Temperature 98.1 F Pulse Rate [Left Brachial] 79 Pulse Rate 78 Respiratory Rate 18 Blood Pressure [Left Calf] 166/88 Blood Pressure [Right Arm] 176/93 Blood Pressure [Left Arm] 147/83 Blood Pressure 157/83 O2 Sat by Pulse Oximetry 94 Intake and Output: Intake & Output 01/27/21 01/28/21 01/29/21 01/30/21 23:59 23:59 23:59 23:59 Intake Total 5427 / 5427 4360 / 4360 4081 / 4081 556 / 556 Output Total 2850 / 2850 3200 / 3200 3312 / 3312 725 / 725 Balance 2577 / 2577 1160 / 1160 769 / 769 -169 / -169 Physical Exam Oriented: Not Oriented Eyes: Normal Ear: Normal Nose: Normal Throat: Normal Respiratory: Generalized and Rales Cardiovascular: Normal and Irregular : Normal Auscultation: Bowel Sounds: Normal Tenderness: Normal Skin: Normal Musculoskeletal: Normal Psychiatric: Agitation Mood Description: Anxious Affect: Anxious and Violent Speech Pattern: Unclear Laboratory and Diagnostics Result Diagrams: 06/12/20 05:23 06/12/20 05:23 Labs: 06/01/20 13:35 Blood Blood Culture - Final 06/01/20 13:21 Blood Blood Culture - Final Laboratory WBC 7.3 X10^3/uL (3.6-10.0) 06/12/20 05:23 RBC 4.46 X10^6/uL (4.7-6.0) L 06/12/20 05:23 Hgb 13.3 g/dL (13.5-18.0) L 06/12/20 05:23 Hct 40.5 % (42.0-54.0) L 06/12/20 05:23 MCV 91.0 fL (80.0-100.0) 06/12/20 05:23 MCH 29.9 pg (27.0-34.0) 06/12/20 05:23 MCHC 32.9 g/dL (33.0-35.0) L 06/12/20 05:23 RDW 13.8 % (11.6-16.5) 06/12/20 05:23 Plt Count 106 X10^3/uL (150.0-450.0) L 06/12/20 05:23 Plt Count Comment Decreased (ADEQUATE) 06/11/20 04:10 MPV 11.8 fL (7.4-11.0) H 06/12/20 05:23 Neut % (Auto) 86.7 % (42.0-75.0) H 06/12/20 05:23 Lymph % (Auto) 9.6 % (21.0-51.0) L 06/12/20 05:23 [place] % (Auto) 2.7 % (0.0-13.0) 06/12/20 05:23 Eos % (Auto) 0.2 % (0.9-2.9) L 06/12/20 05:23 Baso % (Auto) 0.8 % (0.2-1.0) 06/12/20 05:23 Neut # (Auto) 6.3 x10^3/uL (2.2-4.8) H 06/12/20 05:23 Lymph # (Auto) 0.7 X10^3/uL (1.3-2.9) L 06/12/20 05:23 [place] # (Auto) 0.2 x10^3/uL (0.3-0.8) L 06/12/20 05:23 Eos # (Auto) 0.0 x10^3/uL (0.0-0.2) 06/12/20 05:23 Baso # (Auto) 0.1 X10^3/uL (0.0-0.1) 06/12/20 05:23 Absolute Nucleated RBC 0.2 /100WBC 06/12/20 05:23 Total Counted 100 06/11/20 04:10 Neutrophils % (Manual) 87 % (39-76) H 06/11/20 04:10 Band Neutrophils % 8 % (0-10) 06/11/20 04:10 Lymphocytes % (Manual) 5 % (13-43) L 06/11/20 04:10 Monocytes % (Manual) 4 % (4-9) 06/08/20 05:10 Giant Platelets Few 06/10/20 04:40 Plt Morphology Comment Normal (NORMAL) 06/11/20 04:10 RBC Morphology Normal (NORMAL) 06/11/20 04:10 PT 17.2 SECONDS (11.8-14.3) 06/02/20 22:35 INR Target Range - 06/02/20 22:35 INR 1.45 (0.8-1.3) H 06/02/20 22:35 APTT 93.2 SECONDS (22.9-36.5) H 06/11/20 08:22 PTT Comment - 06/11/20 08:22 D-Dimer 0.41 ug/ml (0.0-0.57) 06/12/20 05:23 Sample Site Rr 06/12/20 05:55 ABG pH 7.520 (7.35-7.45) H 06/12/20 05:55 ABG pCO2 40.0 mmHg (35.0-45.0) 06/12/20 05:55 ABG pO2 64.0 mmHg (80.0-100.0) L 06/12/20 05:55 ABG HCO3 32.7 mmol/L (22-26) H* 06/12/20 05:55 ABG O2 Saturation 94.0 % (90-100) 06/12/20 05:55 ABG Base Excess 9.1 mmol/L (-2.0-2.0) H 06/12/20 05:55 Partha Test Pos 06/12/20 05:55 A-a Gradient 136.0 mmHg 06/12/20 05:55 FiO2 35.0 06/12/20 05:55 Blood Gas Comments Ivana well, mf 06/12/20 05:55 Sodium 136 mmol/L (136-145) 06/12/20 05:23 Corrected Sodium 140 mmol/L (136-145) 06/12/20 05:23 Potassium 3.8 mmol/L (3.5-5.1) 06/12/20 05:23 Chloride 100 mmol/L (98-107) 06/12/20 05:23 Carbon Dioxide 30.2 mmol/L (21-32) 06/12/20 05:23 BUN 18 mg/dL (7-18) 06/12/20 05:23 Creatinine 0.81 mg/dL (0.70-1.30) 06/12/20 05:23 Est GFR (MDRD) Af Amer > 60 (>60) 06/12/20 05:23 Est GFR (MDRD) Non-Af > 60 (>60) 06/12/20 05:23 Glucose 246 mg/dL (65-99) H 06/12/20 05:23 POC Glucose (mg/dL) 252 mg/dL (65-99) H 06/12/20 11:59 Calcium 7.5 mg/dL (8.5-10.1) L 06/12/20 05:23 Corrected Calcium 9.2 mg/dL (8.5-10.1) 06/12/20 05:23 Magnesium 2.0 mg/dL (1.7-2.9) 06/11/20 04:10 Ferritin 1500 ng/mL (26-388) H 06/11/20 04:10 Total Bilirubin 0.50 mg/dL (0.2-1.0) 06/12/20 05:23 AST 33 Units/L (15-37) 06/12/20 05:23 ALT 38 Units/L (12-78) 06/12/20 05:23 Alkaline Phosphatase 75 Units/L (46-116) 06/12/20 05:23 Ammonia 44 umol/L (11-32) H 06/05/20 08:23 Creatine Kinase 448 Units/L (39-308) H 06/03/20 04:30 CK-MB (CK-2) 10.3 ng/mL (0-4.0) H* 06/03/20 04:30 CK/CKMB % Calc 2.3 % (<4) 06/03/20 04:30 Troponin I 0.22 ng/mL (0-1.5) 06/03/20 04:30 C-Reactive Protein 75.10 mg/L (0-3.0) H 06/12/20 05:23 B-Natriuretic Peptide 323 pg/mL (0-79) H 06/12/20 05:23 Total Protein 5.9 g/dL (6.4-8.2) L 06/12/20 05:23 Albumin 1.9 g/dL (3.4-5.0) L 06/12/20 05:23 Globulin 4.0 g/dL (2.5-4.5) 06/12/20 05:23 Albumin/Globulin Ratio 0.5 Ratio (1.1-2.1) L 06/12/20 05:23 Prealbumin 16.1 mg/dL (18-35.7) L 06/06/20 06:07 Specimen Type Clean catch urine 06/02/20 18:03 Urine Color Yellow (YELLOW) 06/02/20 18:03 Urine Appearance Clear (CLEAR) 06/02/20 18:03 Urine pH 5.0 (5.0 - 8.0) 06/02/20 18:03 Ur Specific [place] 1.010 (1.000-1.030) 06/02/20 18:03 Urine Protein 3+ (NEGATIVE) 06/02/20 18:03 Urine Glucose (UA) 4+ (NEGATIVE) 06/02/20 18:03 Urine Ketones 3+ (NEGATIVE) 06/02/20 18:03 Urine Occult Blood 3+ (NEGATIVE) 06/02/20 18:03 Urine Nitrite Negative (NEGATIVE) 06/02/20 18:03 Urine Bilirubin Negative (NEGATIVE) 06/02/20 18:03 Urine Urobilinogen Normal (NORMAL) 06/02/20 18:03 Ur Leukocyte Esterase Negative (NEGATIVE) 06/02/20 18:03 Urine RBC 3-5 /HPF (0-3) A 06/02/20 18:03 Urine WBC None seen /HPF (0-5) 06/02/20 18:03 Ur Squamous Epith Cells Negative /HPF (NEGATIVE) 06/02/20 18:03 Urine Bacteria Negative /HPF (NEGATIVE) 06/02/20 18:03 Ur Culture Indicated? No/not indicated 06/02/20 18:03 Digoxin 0.80 ng/mL (0.9-2) L 06/10/20 04:40 Phenobarbital 10.1 ug/mL (15-40) L 06/05/20 08:23 SARS CoV-2 RNA Rapid LADAN Positive (NEGATIVE) A 06/01/20 13:23 Blood Type A POSITIVE 06/01/20 13:35 Plan (1) Pneumonia due to COVID-19 virus: Status: Acute Plan: SUPPLEMENTAL OXYGEN, NORMAL SALINE AT 75 ML/HR, REMDESIVIR 100MG IV DAILY, FORTAZ 1G IV Q12H, LEVAQUIN 750MG IV Q48H, ALBUTEROL NEBS Q6H, BROVANA NEB TX BID, MUCOMYST IN NEBS QID, PULMICORT NEBS BID, ASCORBIC ACID 1500MG IV Q6H, LIPITOR 80MG PO HS, TESSALON PERLES 200MG PO TID, ZYRTEC 10MG PO DAILY, TUSSIONEX 5ML PO Q12H PRN, COLACE 100MG PO HS, LOVENOX 40MG BID, PEPCID 20MG PO BID, DIFLUCAN 100MG PO DAILY, ROBITUSSIN DM 10ML PO QID, IVERMECTIN- PHARMACY TO DOSE, MAGIC MOUTHWASH QID, MILK OF MAG BID PRN, MELATONIN 10MG PO HS, SOLU- MEDROL 125MG IV Q6H, SINGULAIR 10MG PO HS, PROTONIX 40MG PO DAILY, THIAMINE 200MG IV BID, DONYA-DUR 300MG PO BID, ZINC SULFATE 220MG PO DAILY, AND THE POTASSIUM AND MAGNESIUM PROTOCOLS. (2) Hypoxia: Status: Chronic (3) Atrial fibrillation with RVR: Status: Acute Plan: AMIODARONE DRIP, CARDIZEM CD 120MG PO DAILY, CONTINUE TO MONITOR (4) AMS (altered mental status): Status: Acute Qualifiers: Altered mental status type: transient alteration of awareness Qualified Code(s): R40.4 - Transient alteration of awareness
[2020-06-12] MEDS: SNACK - Diabetic Appropriate PO SCH (19:14)
[2020-06-13] MEDS: CLINIMIX 4.25 %/10 % 1,000 ML with MVI INJ (ADULT) 10 ML, TRACE ELEMENTS INJ 10 ML, POT... IV SCH ×27 (04:38→10:00)
[2020-06-13] MEDS: LOPRESSOR INJ 5 MG AMP IVP SCH ×4 (05:21→23:07)
[2020-06-13] MEDS: FORTAZ or TAZICEF VIAL INJ IV SCH (05:22)
[2020-06-13] MEDS: SOLU-Medrol 125 MG VIAL IVP SCH ×3 (05:23→21:11)
[2020-06-13] MEDS: D5W 1000 ML IV 1,000 ML IV SCH ×2 (05:25→08:19)
[2020-06-13] MEDS: HumuLIN R SUBCUT PRN ×4 (05:34→20:39)
[2020-06-13] MEDS: XOPENEX 1.25 MG/3 ML NEBULE NEB SCH ×3 (05:40→21:22)
[2020-06-13] MEDS: MUCOMYST 20% 200 MG/ML NEB SCH ×3 (05:40→21:22)
--- NOTE | 2020-06-13 05:59 | RAD ---
HISTORYSOB pneumoniaSTUDYPortable AP [id number]/2020FINDINGSHeart size and contour are stable. Diffuse interstitial infiltrate right lung unchanged. Increasing airspace involvement of the left lower lobe with air bronchogram and obscuration of left diaphragm. No pneumothorax or pleural fluid.IMPRESSIONPersistent pneumonia, increasing in the left lower lobe.Electronically signed by: ELIZABETH GOMEZ (Jun 13, 2020 05:57:59)
[2020-06-13 06:08] LABS: ALANINE AMINOTRANSFERASE 60 Units/L (12-78); ALBUMIN 1.9 g/dL (3.4-5.0); ALKALINE PHOSPHATASE 79 Units/L (46-116); ASPARTATE AMINO TRANSFERASE 37 Units/L (15-37); BLOOD UREA NITROGEN 18 mg/dL (7-18); CALCIUM 7.6 mg/dL (8.5-10.1); CARBON DIOXIDE 27.8 mmol/L (21-32); CHLORIDE 96 mmol/L (98-107); COR CA(FOR HYPOALB) 9.3 mg/dL (8.5-10.1); COR NA(FOR HYPERGLY) 137 mmol/L (136-145); CREATININE 0.76 mg/dL (0.70-1.30); SODIUM 132 mmol/L (136-145); TOTAL PROTEIN 6.1 g/dL (6.4-8.2); eGFR NON BLACK RACES > 60 (>60)
[2020-06-13 06:12] LABS: BASOPHILS % (AUTO) 0.4 % (0.2-1.0); EOSINOPHILS % (AUTO) 0.2 % (0.9-2.9); HEMATOCRIT 39.2 % (42.0-54.0); HEMOGLOBIN 13.3 g/dL (13.5-18.0); LYMPHOCYTES # (AUTO) 0.6 X10^3/uL (1.3-2.9); LYMPHOCYTES % (AUTO) 6.9 % (21.0-51.0); MEAN CORPUSCULAR HEMOGLOBIN 30.7 pg (27.0-34.0); MEAN CORPUSCULAR VOLUME 90.2 fL (80.0-100.0); MEAN PLATELET VOLUME 11.2 fL (7.4-11.0); MONOCYTES # (AUTO) 0.3 x10^3/uL (0.3-0.8); MONOCYTES % (AUTO) 3.1 % (0.0-13.0); NEUTROPHILS # (AUTO) 7.7 x10^3/uL (2.2-4.8); NEUTROPHILS % (AUTO) 89.4 % (42.0-75.0); PLATELET COUNT 107 X10^3/uL (150.0-450.0); RED BLOOD COUNT 4.35 X10^6/uL (4.7-6.0); RED CELL DISTRIBUTION WIDTH 13.5 % (11.6-16.5); WHITE BLOOD COUNT 8.6 X10^3/uL (3.6-10.0)
[2020-06-13 06:57] LABS: ABG BASE EXCESS 7.4 mmol/L (-2.0-2.0)
[2020-06-13 06:58] LABS: ABG ALLEN TEST POS; ABG HCO3 31.2 mmol/L (22-26)
[2020-06-13 07:00] LABS: PLATELET MORPHOLOGY COMMENT NORMAL (NORMAL)
[2020-06-13] MEDS: LEVAQUIN PREMIX IV 500 MG 500 MG/100 ML BAG IV SCH (08:19)
[2020-06-13] MEDS: PROTONIX INJ 40 MG VIAL IVP SCH (08:23)
[2020-06-13] MEDS: LANOXIN INJ IVP SCH (08:25)
[2020-06-13] MEDS: LEVEMIR SC SCH ×2 (08:27→20:38)
[2020-06-13] MEDS: LOVENOX INJ 80 MG SYR SC SCH ×2 (08:27→20:38)
[2020-06-13] MEDS: PEPCID 20 MG IV PREMIX* 20 MG/50 ML BAG IV SCH ×2 (08:27→20:37)
[2020-06-13] MEDS: DIFLUCAN 200 MG IV PREMIX* 200 MG/100 ML BAG IV SCH (09:30)
[2020-06-13] MEDS: BROVANA IN SCH ×2 (09:45→21:22)
[2020-06-13] MEDS: PULMICORT NEB TX 0.5 MG NEB SCH ×2 (09:45→21:22)
--- NOTE | 2020-06-13 11:01 | PCM.PROG ---
Progress Note Progress Note for Day of Date of Exam: 06/13/20 Subjective Subjective: PT IS A 70 YEAR OLD MALE ADMITTED FOR TREATMENT OF PNEUMONIA DUE TO COVID-19 AND HYPOXIA. THIS MORNING HE REMAINS ON BIPAP WITH FI02 35%. HE RESPONDS TO VERBAL STIMULI AND COMMANDS. NO ACUTE EVENTS OVERNIGHT. HIS OXYGEN SATURATION ON THE BIPAP HAVE BEEN IN THE 90'S%. ON EXAMINATION, HE IS LYING IN BED COMFORTABLY. HEART RATE IS NORMAL. RATE REGULAR, BILATERAL LUNGS ARE NOTED WITH RALES THROUGHOUT. ABDOMEN IS ROUND, SOFT, AND NON-TENDER WITH NORMAL BOWEL SOUNDS NOTED IN ALL QUADRANTS. THERE IS TRACE EDEMA NOTED TO UPPER AND LOWER EXTREMITIES. HIS VITALS THIS MORNING ARE: 98.1-108-22-93%-174/95. LABS/IMAGING WERE OBTAINED AND INCLUDE THE FOLLOWING: WBC 8.6, HGB 13.3, PLT 107, NA 137, K 3.9, CR 0.76, GLUCOSE 289, CRP 55, BLOOD CULTURES NO GROWTH TO DATE. ABG WAS OBTAINED AND REVEALED: PH 7.5, PC02 40, P02 63, HC03 31, 02 SAT 94%, FI02 35%. A CHEST XRAY WAS OBTAINED AND REVEALED: Persistent pneumonia, increasing in the left lower lobe. WILL CONTINUE TO WEAN FI02 AND SEDATION TOLERATED. WILL CONTINUE WITH CURRENT TREATMENT PLAN. FOLLOW UP WITH AM LABS, CHEST XRAY, ABG, AND CONTINUE TO MONITOR. CRITICAL CARE TIME SPENT ON CLINICAL ASSESSMENT, REVIEWING LABS AND IMAGING, DECISION MAKING, AND DOCUMENTATION 30-74 MINUTES. Past Medical Family Social History Past Med/Fam/Surg Hx: No changes since H&P Allergies: Allergies No Known Drug Allergies Allergy (Verified 06/01/20 13:35) Review of Systems ROS: No change since H&P Vital Signs and I&O's Vital Signs: Temperature 98.1 F Pulse Rate [Left Brachial] 79 Pulse Rate 108 Respiratory Rate 22 Blood Pressure [Left Calf] 166/88 Blood Pressure [Right Arm] 176/93 Blood Pressure [Left Arm] 147/83 Blood Pressure 174/95 O2 Sat by Pulse Oximetry 93 Intake and Output: Intake & Output 06/10/20 06/11/20 06/12/20 06/13/20 23:59 23:59 23:59 23:59 Intake Total 4360 / 4360 4081 / 4081 3016 / 3016 975 / 975 Output Total 3200 / 3200 3312 / 3312 2745 / 2745 875 / 875 Balance 1160 / 1160 769 / 769 271 / 271 100 / 100 Physical Exam Oriented: Not Oriented Eyes: Normal Ear: Normal Nose: Normal Throat: Normal Respiratory: Generalized and Rales Cardiovascular: Normal and Irregular : Normal Auscultation: Bowel Sounds: Normal Tenderness: Normal Skin: Normal Musculoskeletal: Normal Psychiatric: Agitation Mood Description: Anxious Affect: Anxious and Violent Speech Pattern: Unclear Laboratory and Diagnostics Result Diagrams: 06/13/20 05:07 06/13/20 05:07 Labs: 06/01/20 13:35 Blood Blood Culture - Final 06/01/20 13:21 Blood Blood Culture - Final Laboratory WBC 8.6 X10^3/uL (3.6-10.0) 06/13/20 05:07 RBC 4.35 X10^6/uL (4.7-6.0) L 06/13/20 05:07 Hgb 13.3 g/dL (13.5-18.0) L 06/13/20 05:07 Hct 39.2 % (42.0-54.0) L 06/13/20 05:07 MCV 90.2 fL (80.0-100.0) 06/13/20 05:07 MCH 30.7 pg (27.0-34.0) 06/13/20 05:07 MCHC 34.0 g/dL (33.0-35.0) 06/13/20 05:07 RDW 13.5 % (11.6-16.5) 06/13/20 05:07 Plt Count 107 X10^3/uL (150.0-450.0) L 06/13/20 05:07 Plt Count Comment Decreased (ADEQUATE) 06/13/20 05:07 MPV 11.2 fL (7.4-11.0) H 06/13/20 05:07 Neut % (Auto) 89.4 % (42.0-75.0) H 06/13/20 05:07 Lymph % (Auto) 6.9 % (21.0-51.0) L 06/13/20 05:07 [place] % (Auto) 3.1 % (0.0-13.0) 06/13/20 05:07 Eos % (Auto) 0.2 % (0.9-2.9) L 06/13/20 05:07 Baso % (Auto) 0.4 % (0.2-1.0) 06/13/20 05:07 Neut # (Auto) 7.7 x10^3/uL (2.2-4.8) H 06/13/20 05:07 Lymph # (Auto) 0.6 X10^3/uL (1.3-2.9) L 06/13/20 05:07 [place] # (Auto) 0.3 x10^3/uL (0.3-0.8) 06/13/20 05:07 Eos # (Auto) 0.0 x10^3/uL (0.0-0.2) 06/13/20 05:07 Baso # (Auto) 0.0 X10^3/uL (0.0-0.1) 06/13/20 05:07 Absolute Nucleated RBC 0.3 /100WBC 06/13/20 05:07 Total Counted 100 06/11/20 04:10 Neutrophils % (Manual) 87 % (39-76) H 06/11/20 04:10 Band Neutrophils % 8 % (0-10) 06/11/20 04:10 Lymphocytes % (Manual) 5 % (13-43) L 06/11/20 04:10 Monocytes % (Manual) 4 % (4-9) 06/08/20 05:10 Giant Platelets Few 06/10/20 04:40 Plt Morphology Comment Normal (NORMAL) 06/13/20 05:07 RBC Morphology Normal (NORMAL) 06/13/20 05:07 PT 17.2 SECONDS (11.8-14.3) 06/02/20 22:35 INR Target Range - 06/02/20 22:35 INR 1.45 (0.8-1.3) H 06/02/20 22:35 APTT 93.2 SECONDS (22.9-36.5) H 06/11/20 08:22 PTT Comment - 06/11/20 08:22 D-Dimer 0.56 ug/ml (0.0-0.57) 06/13/20 05:07 Sample Site Rrad 06/13/20 06:54 ABG pH 7.500 (7.35-7.45) H 06/13/20 06:54 ABG pCO2 40.0 mmHg (35.0-45.0) 06/13/20 06:54 ABG pO2 63.0 mmHg (80.0-100.0) L 06/13/20 06:54 ABG HCO3 31.2 mmol/L (22-26) H* 06/13/20 06:54 ABG O2 Saturation 94.0 % (90-100) 06/13/20 06:54 ABG Base Excess 7.4 mmol/L (-2.0-2.0) H 06/13/20 06:54 Partha Test Pos 06/13/20 06:54 A-a Gradient 137.0 mmHg 06/13/20 06:54 FiO2 35.0 06/13/20 06:54 Blood Gas Comments Ivana well 06/13/20 06:54 Sodium 132 mmol/L (136-145) L 06/13/20 05:07 Corrected Sodium 137 mmol/L (136-145) 06/13/20 05:07 Potassium 3.9 mmol/L (3.5-5.1) 06/13/20 05:07 Chloride 96 mmol/L (98-107) L 06/13/20 05:07 Carbon Dioxide 27.8 mmol/L (21-32) 06/13/20 05:07 BUN 18 mg/dL (7-18) 06/13/20 05:07 Creatinine 0.76 mg/dL (0.70-1.30) 06/13/20 05:07 Est GFR (MDRD) Af Amer > 60 (>60) 06/13/20 05:07 Est GFR (MDRD) Non-Af > 60 (>60) 06/13/20 05:07 Glucose 289 mg/dL (65-99) H 06/13/20 05:07 POC Glucose (mg/dL) 286 mg/dL (65-99) H 06/13/20 04:47 Calcium 7.6 mg/dL (8.5-10.1) L 06/13/20 05:07 Corrected Calcium 9.3 mg/dL (8.5-10.1) 06/13/20 05:07 Magnesium 2.0 mg/dL (1.7-2.9) 06/11/20 04:10 Ferritin 1500 ng/mL (26-388) H 06/11/20 04:10 Total Bilirubin 0.40 mg/dL (0.2-1.0) 06/13/20 05:07 AST 37 Units/L (15-37) 06/13/20 05:07 ALT 60 Units/L (12-78) 06/13/20 05:07 Alkaline Phosphatase 79 Units/L (46-116) 06/13/20 05:07 Ammonia 44 umol/L (11-32) H 06/05/20 08:23 Creatine Kinase 448 Units/L (39-308) H 06/03/20 04:30 CK-MB (CK-2) 10.3 ng/mL (0-4.0) H* 06/03/20 04:30 CK/CKMB % Calc 2.3 % (<4) 06/03/20 04:30 Troponin I 0.22 ng/mL (0-1.5) 06/03/20 04:30 C-Reactive Protein 55.00 mg/L (0-3.0) H 06/13/20 05:07 B-Natriuretic Peptide 252 pg/mL (0-79) H 06/13/20 05:07 Total Protein 6.1 g/dL (6.4-8.2) L 06/13/20 05:07 Albumin 1.9 g/dL (3.4-5.0) L 06/13/20 05:07 Globulin 4.2 g/dL (2.5-4.5) 06/13/20 05:07 Albumin/Globulin Ratio 0.5 Ratio (1.1-2.1) L 06/13/20 05:07 Prealbumin 16.1 mg/dL (18-35.7) L 06/06/20 06:07 Specimen Type Clean catch urine 06/02/20 18:03 Urine Color Yellow (YELLOW) 06/02/20 18:03 Urine Appearance Clear (CLEAR) 06/02/20 18:03 Urine pH 5.0 (5.0 - 8.0) 06/02/20 18:03 Ur Specific [place] 1.010 (1.000-1.030) 06/02/20 18:03 Urine Protein 3+ (NEGATIVE) 06/02/20 18:03 Urine Glucose (UA) 4+ (NEGATIVE) 06/02/20 18:03 Urine Ketones 3+ (NEGATIVE) 06/02/20 18:03 Urine Occult Blood 3+ (NEGATIVE) 06/02/20 18:03 Urine Nitrite Negative (NEGATIVE) 06/02/20 18:03 Urine Bilirubin Negative (NEGATIVE) 06/02/20 18:03 Urine Urobilinogen Normal (NORMAL) 06/02/20 18:03 Ur Leukocyte Esterase Negative (NEGATIVE) 06/02/20 18:03 Urine RBC 3-5 /HPF (0-3) A 06/02/20 18:03 Urine WBC None seen /HPF (0-5) 06/02/20 18:03 Ur Squamous Epith Cells Negative /HPF (NEGATIVE) 06/02/20 18:03 Urine Bacteria Negative /HPF (NEGATIVE) 06/02/20 18:03 Ur Culture Indicated? No/not indicated 06/02/20 18:03 Digoxin 0.80 ng/mL (0.9-2) L 06/10/20 04:40 Phenobarbital 10.1 ug/mL (15-40) L 06/05/20 08:23 SARS CoV-2 RNA Rapid LADAN Positive (NEGATIVE) A 06/01/20 13:23 Blood Type A POSITIVE 06/01/20 13:35 Plan (1) Pneumonia due to COVID-19 virus: Status: Acute Plan: SUPPLEMENTAL OXYGEN, NORMAL SALINE AT 75 ML/HR, REMDESIVIR 100MG IV DAILY, FORTAZ 1G IV Q12H, LEVAQUIN 750MG IV Q48H, ALBUTEROL NEBS Q6H, BROVANA NEB TX BID, MUCOMYST IN NEBS QID, PULMICORT NEBS BID, ASCORBIC ACID 1500MG IV Q6H, LIPITOR 80MG PO HS, TESSALON PERLES 200MG PO TID, ZYRTEC 10MG PO DAILY, TUSSIONEX 5ML PO Q12H PRN, COLACE 100MG PO HS, LOVENOX 40MG BID, PEPCID 20MG PO BID, DIFLUCAN 100MG PO DAILY, ROBITUSSIN DM 10ML PO QID, IVERMECTIN- PHARMACY TO DOSE, MAGIC MOUTHWASH QID, MILK OF MAG BID PRN, MELATONIN 10MG PO HS, SOLU- MEDROL 125MG IV Q6H, SINGULAIR 10MG PO HS, PROTONIX 40MG PO DAILY, THIAMINE 200MG IV BID, DONYA-DUR 300MG PO BID, ZINC SULFATE 220MG PO DAILY, AND THE POTASSIUM AND MAGNESIUM PROTOCOLS. (2) Hypoxia: Status: Chronic (3) Atrial fibrillation with RVR: Status: Acute Plan: AMIODARONE DRIP, CARDIZEM CD 120MG PO DAILY, CONTINUE TO MONITOR (4) AMS (altered mental status): Status: Acute Qualifiers: Altered mental status type: transient alteration of awareness Qualified Code(s): R40.4 - Transient alteration of awareness
[2020-06-13] MEDS ORDERED: NS 100 ML IV + SPIKE MINIBAG* 100 ML IV ONE (13:17)
[2020-06-13] MEDS: FORTAZ or TAZICEF VIAL INJ 1 G in NS 100 ML IV + SPIKE MINIBAG* 100 ML IV SCH ×2 (13:33→21:11)
[2020-06-13] MEDS ORDERED: FORTAZ or TAZICEF VIAL INJ IVP SCH (14:00)
[2020-06-13] MEDS: APRESOLINE INJ 20 MG VIAL IVP PRN (14:38)
[2020-06-13] MEDS: SNACK - Diabetic Appropriate PO SCH (20:09)
[2020-06-13] MEDS ORDERED: SOLU-Medrol 125 MG VIAL ONE (20:20)
[2020-06-14] MEDS: APRESOLINE INJ 20 MG VIAL IVP PRN (01:40)
[2020-06-14] MEDS: OFIRMEV IV 1000 MG VIAL 500 MG/50 ML VIAL IV PRN ×2 (05:20→17:33)
[2020-06-14] MEDS: FORTAZ or TAZICEF VIAL INJ 1 G in NS 100 ML IV + SPIKE MINIBAG* 100 ML IV SCH ×3 (05:21→21:00)
[2020-06-14] MEDS: SOLU-Medrol 125 MG VIAL IVP SCH ×3 (05:21→21:00)
[2020-06-14] MEDS: LOPRESSOR INJ 5 MG AMP IVP SCH ×4 (05:21→22:18)
[2020-06-14 05:57] LABS: ABG BASE EXCESS 7.1 mmol/L (-2.0-2.0)
[2020-06-14 05:58] LABS: ABG ALLEN TEST POS; ABG HCO3 30.1 mmol/L (22-26)
[2020-06-14] MEDS: HumuLIN R SUBCUT PRN ×2 (05:59→17:40)
[2020-06-14] MEDS: XOPENEX 1.25 MG/3 ML NEBULE NEB SCH ×3 (06:36→20:25)
[2020-06-14] MEDS: MUCOMYST 20% 200 MG/ML NEB SCH ×3 (06:36→20:25)
[2020-06-14 06:47] LABS: BASOPHILS % (AUTO) 0.2 % (0.2-1.0); EOSINOPHILS % (AUTO) 0.2 % (0.9-2.9); HEMATOCRIT 37.3 % (42.0-54.0); HEMOGLOBIN 12.7 g/dL (13.5-18.0); LYMPHOCYTES # (AUTO) 0.5 X10^3/uL (1.3-2.9); MEAN CORPUSCULAR HEMOGLOBIN 30.2 pg (27.0-34.0); MEAN PLATELET VOLUME 12.1 fL (7.4-11.0); MONOCYTES # (AUTO) 0.3 x10^3/uL (0.3-0.8); MONOCYTES % (AUTO) 2.6 % (0.0-13.0); NEUTROPHILS # (AUTO) 9.3 x10^3/uL (2.2-4.8); PLATELET COUNT 131 X10^3/uL (150.0-450.0); RED BLOOD COUNT 4.19 X10^6/uL (4.7-6.0); RED CELL DISTRIBUTION WIDTH 13.6 % (11.6-16.5); WHITE BLOOD COUNT 10.1 X10^3/uL (3.6-10.0)
[2020-06-14 07:19] LABS: ALANINE AMINOTRANSFERASE 71 Units/L (12-78); ALBUMIN 1.7 g/dL (3.4-5.0); ALKALINE PHOSPHATASE 79 Units/L (46-116); ASPARTATE AMINO TRANSFERASE 38 Units/L (15-37); BLOOD UREA NITROGEN 18 mg/dL (7-18); CALCIUM 7.8 mg/dL (8.5-10.1); CARBON DIOXIDE 25.9 mmol/L (21-32); CHLORIDE 95 mmol/L (98-107); COR CA(FOR HYPOALB) 9.6 mg/dL (8.5-10.1); COR NA(FOR HYPERGLY) 135 mmol/L (136-145); CREATININE 0.82 mg/dL (0.70-1.30); SODIUM 131 mmol/L (136-145); TOTAL PROTEIN 5.9 g/dL (6.4-8.2); eGFR NON BLACK RACES > 60 (>60)
[2020-06-14 07:38] LABS: PLATELET MORPHOLOGY COMMENT NORMAL (NORMAL)
--- NOTE | 2020-06-14 08:05 | RAD ---
HISTORYSOBSTUDYCHEST, 1 [id number] cardiomediastinal silhouette is stable. Similar post sternotomy changes. Similar right-sided IJ central venous catheter. Similar airspace opacities, worst in the left lower lobe. The bony thorax appears intact.IMPRESSIONNo significant change.Electronically signed by: FELICIA LEW (Jun 14, 2020 08:02:57)
[2020-06-14] MEDS: DIFLUCAN 200 MG IV PREMIX* 200 MG/100 ML BAG IV SCH (09:07)
[2020-06-14] MEDS: PROTONIX INJ 40 MG VIAL IVP SCH (09:07)
[2020-06-14] MEDS: PEPCID 20 MG IV PREMIX* 20 MG/50 ML BAG IV SCH ×2 (09:08→21:00)
[2020-06-14] MEDS: LEVEMIR SC SCH ×2 (09:09→21:00)
[2020-06-14] MEDS: LOVENOX INJ 80 MG SYR SC SCH ×2 (09:14→21:00)
[2020-06-14] MEDS: LANOXIN INJ IVP SCH (09:14)
[2020-06-14] MEDS: LEVAQUIN PREMIX IV 500 MG 500 MG/100 ML BAG IV SCH (09:15)
[2020-06-14] MEDS: PULMICORT NEB TX 0.5 MG NEB SCH ×2 (09:35→20:25)
[2020-06-14] MEDS: BROVANA IN SCH ×2 (09:35→20:35)
--- NOTE | 2020-06-14 11:50 | CT ---
HISTORYWEAKNESS, SLURRED SPEECHSTUDYCT HEAD WITHOUT CONTRASTCOMPARISONThere are no prior comparisonsTECHNIQUEAxial CT of the head is performed from the base of the skull through the vertex WITHOUT contrast . Multiplaner reformats are generated from the original axial data.FINDINGSAge related cortical volume loss is observed. There is commensurate dilation of the lateral ventricles. Mild chronic microangiopathic ischemic white matter changes of the supratentorial brain are observed. Additionally, there is a chronic appearing subcortical infarct of the left parietal lobe, and small bilateral posterior inferior lacunar infarctions of the cerebellar hemispheres are demonstrated. There is no evidence of an acute intracranial hemorrhage or extra-axial fluid collection. There is no mass effect, shift or cerebral edema. Atherosclerotic calcifications are associated with the cavernous ICA segments. There is no acute stage, large artery territorial infarct.The included paranasal sinuses and mastoid air cells are predominantly clear. Minor ethmoid air cell and dependent maxillary sinus mucosal thickening are observed. Small mucous retention cyst or polyps are seen within the maxillary sinuses. The mastoid air cells are predominantly clear. The calvarium is intact.IMPRESSIONNo acute intracranial abnormalities. Initial CT demonstrates no intracranial hemorrhage or well-defined, acute stage, large artery territorial infarction.Age related cortical volume loss with commensurate ventricular dilatationDegenerative white matter changes related to chronic small vessel ischemic disease. 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 MRI with DWI provides the highest level of initial sensitivity for the detection of acute ischemic infarcts.Radiation dose reduction was achieved through individualized adjustment of kVP and/or mA, through adaptive statistical iterative reconstruction, and/or through automated tube current modulation.Electronically signed by: CLIF SMITH (Jun 14, 2020 11:51:01)
[2020-06-14] MEDS: D5W 1000 ML IV 1,000 ML IV SCH (12:13)
--- NOTE | 2020-06-14 14:21 | PCM.PROG ---
Progress Note - Progress Note for Day of Date of Exam: 06/11/20 - Subjective Subjective: WAS ADMITTED FOR TREATMENT OF PNEUMONIA DUE TO COVID-19 AND HYPOXIA. HE REMAINS IN THE INTENSIVE CARE UNIT ON THE BIPAP AT 35% FI02 TODAY. STAFF REPORTS THAT HE HAS RESTED WELL THROUGHOUT THE NIGHT. THEY DO REPORT THAT WHEN SEDATION IS WEANED, PATIENT BECOMES AGITATED AND HIS SAT URATIONS BEGIN TO DROP INTO THE 80s. HIS SATURATIONS ON THE BIPAP HAVE BEEN 94- 98% THIS MORNING AND THROUGHOUT THE NIGHT. ON EXAMINATION, HE IS LYING IN BED WITH EYES CLOSED ON MORNING ROUNDS. HE DOES OPEN EYES TO PAINFUL STIMULI. HEART RATE IS NORMAL. RATE IS IRREGULAR. BILATERAL LUNGS ARE NOTED WITH RALES THROUGHOUT. ABDOMEN IS ROUND, SOFT, AND NON-TENDER WITH NORMAL BOWEL SOUNDS NOTED IN ALL QUADRANTS. THERE IS TRACE EDEMA NOTED TO UPPER AND LOWER EXTREMITIES. HIS VITALS THIS MORNING ARE: 97.7-100-42-94%-196/99. LABS WERE OBTAINED. ABNORMAL LAB VALUES INCLUDE THE FOLLOWING: RBC 4.42, HCT 40.6, PLT COUNT 111, BUN 20, GLUCOSE 334, CALCIUM 7.6, FERRITIN 1500, CRP 19.00, BNP 142, TOTAL PROTEIN 6.0, ALBUMIN 2.1. BLOOD CULTURES ARE PENDING. ABG WAS OBTAINED AND REVEALED: PH 7.480, pc02 44, p02 72, hc03 32.8, 02 sat 95, base excess 8.3, a-a gradient 123, fi02 35.0. A CHEST XRAY WAS OBTAINED AND REVEALED: There is a right IJ line in good position. Patient is status post median sternotomy and CABG. The heart is within normal limits in size. The lungs remain hypoinflated. No definite acute infiltrates on today's examination. No pleural effusions are identified. Bony thorax is unremarkable. WE WILL CONTINUE WITH IV FLUIDS, IV ANTIBIOTICS, STEROIDS, NEB TX, AND CURRENT PLAN OF CARE TODAY. WE WILL ATTEMPT TO DECREASE FI02 AND SEDATION TOLERATED. OTHERWISE, WE PLAN TO FOLLOW UP WITH AM LABS, CHEST XRAY, ABG, AND CONTINUE TO MONITOR. TIME SPENT ON CLINICAL ASSESSMENT, REVIEWING LABS AND IMAGING, DECISION MAKING, AND DOCUMENTATION GREATER THAN 75 MINUTES. - Past Medical Family Social History Past Med/Fam/Surg Hx: No changes since H&P Allergies: Allergies No Known Drug Allergies Allergy (Verified 06/01/20 13:35) - Review of Systems ROS: No change since H&P - Vital Signs and I&O's Vital Signs: Temperature 99.0 F Pulse Rate [Left Brachial] 79 Pulse Rate 112 Respiratory Rate 31 Blood Pressure [Left Calf] 166/88 Blood Pressure [Right Arm] 176/93 Blood Pressure [Left Arm] 147/83 Blood Pressure 154/84 O2 Sat by Pulse Oximetry 92 Intake and Output: Intake & Output 06/12/20 06/13/20 06/14/20 06/15/20 11:59 11:59 11:59 11:59 Intake Total 3187 / 3187 3435 / 3435 3477 / 3477 Output Total 2937 / 2937 2895 / 2895 1999 Balance 250 / 250 540 / 540 1477 / 1477 - Physical Exam Oriented: Not Oriented Eyes: Normal Ear: Normal Nose: Normal Throat: Normal Respiratory: Generalized, Rales Cardiovascular: Irregular, Normal : Normal Auscultation: Bowel Sounds: Normal Tenderness: Normal Skin: Normal Musculoskeletal: Normal Psychiatric: Agitation Mood Description: Anxious Affect: Anxious, Violent Speech Pattern: Clear, Appropriate - Laboratory and Diagnostics Result Diagrams: 06/17/20 05:10 06/17/20 05:10 Labs: 06/01/20 13:35 Blood Blood Culture - Final 06/01/20 13:21 Blood Blood Culture - Final Laboratory WBC 10.1 X10^3/uL (3.6-10.0) H 06/14/20 05:10 RBC 4.19 X10^6/uL (4.7-6.0) L 06/14/20 05:10 Hgb 12.7 g/dL (13.5-18.0) L 06/14/20 05:10 Hct 37.3 % (42.0-54.0) L 06/14/20 05:10 MCV 89.0 fL (80.0-100.0) 06/14/20 05:10 MCH 30.2 pg (27.0-34.0) 06/14/20 05:10 MCHC 34.0 g/dL (33.0-35.0) 06/14/20 05:10 RDW 13.6 % (11.6-16.5) 06/14/20 05:10 Plt Count 131 X10^3/uL (150.0-450.0) L 06/14/20 05:10 Plt Count Comment Decreased (ADEQUATE) 06/14/20 05:10 MPV 12.1 fL (7.4-11.0) H 06/14/20 05:10 Neut % (Auto) 92.0 % (42.0-75.0) H 06/14/20 05:10 Lymph % (Auto) 5.0 % (21.0-51.0) L 06/14/20 05:10 [place] % (Auto) 2.6 % (0.0-13.0) 06/14/20 05:10 Eos % (Auto) 0.2 % (0.9-2.9) L 06/14/20 05:10 Baso % (Auto) 0.2 % (0.2-1.0) 06/14/20 05:10 Neut # (Auto) 9.3 x10^3/uL (2.2-4.8) H 06/14/20 05:10 Lymph # (Auto) 0.5 X10^3/uL (1.3-2.9) L 06/14/20 05:10 [place] # (Auto) 0.3 x10^3/uL (0.3-0.8) 06/14/20 05:10 Eos # (Auto) 0.0 x10^3/uL (0.0-0.2) 06/14/20 05:10 Baso # (Auto) 0.0 X10^3/uL (0.0-0.1) 06/14/20 05:10 Absolute Nucleated RBC 0.5 /100WBC 06/14/20 05:10 Total Counted 100 06/14/20 05:10 Neutrophils % (Manual) 91 % (39-76) H 06/14/20 05:10 Band Neutrophils % 8 % (0-10) 06/11/20 04:10 Lymphocytes % (Manual) 9 % (13-43) L 06/14/20 05:10 Monocytes % (Manual) 4 % (4-9) 06/08/20 05:10 Giant Platelets Few 06/10/20 04:40 Plt Morphology Comment Normal (NORMAL) 06/14/20 05:10 RBC Morphology Normal (NORMAL) 06/14/20 05:10 PT 17.2 SECONDS (11.8-14.3) 06/02/20 22:35 INR Target Range - 06/02/20 22:35 INR 1.45 (0.8-1.3) H 06/02/20 22:35 APTT 93.2 SECONDS (22.9-36.5) H 06/11/20 08:22 PTT Comment - 06/11/20 08:22 D-Dimer 0.64 ug/ml (0.0-0.57) H* 06/14/20 05:10 Sample Site Lr 06/14/20 05:00 ABG pH 7.530 (7.35-7.45) H 06/14/20 05:00 ABG pCO2 36.0 mmHg (35.0-45.0) 06/14/20 05:00 ABG pO2 63.0 mmHg (80.0-100.0) L 06/14/20 05:00 ABG HCO3 30.1 mmol/L (22-26) H* 06/14/20 05:00 ABG O2 Saturation 94.0 % (90-100) 06/14/20 05:00 ABG Base Excess 7.1 mmol/L (-2.0-2.0) H 06/14/20 05:00 Partha Test Pos 06/14/20 05:00 A-a Gradient 142.0 mmHg 06/14/20 05:00 FiO2 35.0 06/14/20 05:00 Blood Gas Comments Ivana well sw 06/14/20 05:00 Sodium 131 mmol/L (136-145) L 06/14/20 05:10 Corrected Sodium 135 mmol/L (136-145) L 06/14/20 05:10 Potassium 3.5 mmol/L (3.5-5.1) 06/14/20 05:10 Chloride 95 mmol/L (98-107) L 06/14/20 05:10 Carbon Dioxide 25.9 mmol/L (21-32) 06/14/20 05:10 BUN 18 mg/dL (7-18) 06/14/20 05:10 Creatinine 0.82 mg/dL (0.70-1.30) 06/14/20 05:10 Est GFR (MDRD) Af Amer > 60 (>60) 06/14/20 05:10 Est GFR (MDRD) Non-Af > 60 (>60) 06/14/20 05:10 Glucose 256 mg/dL (65-99) H 06/14/20 05:10 POC Glucose (mg/dL) 241 mg/dL (65-99) H 06/14/20 11:14 Calcium 7.8 mg/dL (8.5-10.1) L 06/14/20 05:10 Corrected Calcium 9.6 mg/dL (8.5-10.1) 06/14/20 05:10 Magnesium 2.0 mg/dL (1.7-2.9) 06/11/20 04:10 Ferritin 1500 ng/mL (26-388) H 06/11/20 04:10 Total Bilirubin 0.40 mg/dL (0.2-1.0) 06/14/20 05:10 AST 38 Units/L (15-37) H 06/14/20 05:10 ALT 71 Units/L (12-78) 06/14/20 05:10 Alkaline Phosphatase 79 Units/L (46-116) 06/14/20 05:10 Ammonia 44 umol/L (11-32) H 06/05/20 08:23 Creatine Kinase 448 Units/L (39-308) H 06/03/20 04:30 CK-MB (CK-2) 10.3 ng/mL (0-4.0) H* 06/03/20 04:30 CK/CKMB % Calc 2.3 % (<4) 06/03/20 04:30 Troponin I 0.22 ng/mL (0-1.5) 06/03/20 04:30 C-Reactive Protein 69.30 mg/L (0-3.0) H 06/14/20 05:10 B-Natriuretic Peptide 249 pg/mL (0-79) H 06/14/20 05:10 Total Protein 5.9 g/dL (6.4-8.2) L 06/14/20 05:10 Albumin 1.7 g/dL (3.4-5.0) L 06/14/20 05:10 Globulin 4.2 g/dL (2.5-4.5) 06/14/20 05:10 Albumin/Globulin Ratio 0.4 Ratio (1.1-2.1) L 06/14/20 05:10 Prealbumin 16.1 mg/dL (18-35.7) L 06/06/20 06:07 Specimen Type Clean catch urine 06/02/20 18:03 Urine Color Yellow (YELLOW) 06/02/20 18:03 Urine Appearance Clear (CLEAR) 06/02/20 18:03 Urine pH 5.0 (5.0 - 8.0) 06/02/20 18:03 Ur Specific [place] 1.010 (1.000-1.030) 06/02/20 18:03 Urine Protein 3+ (NEGATIVE) 06/02/20 18:03 Urine Glucose (UA) 4+ (NEGATIVE) 06/02/20 18:03 Urine Ketones 3+ (NEGATIVE) 06/02/20 18:03 Urine Occult Blood 3+ (NEGATIVE) 06/02/20 18:03 Urine Nitrite Negative (NEGATIVE) 06/02/20 18:03 Urine Bilirubin Negative (NEGATIVE) 06/02/20 18:03 Urine Urobilinogen Normal (NORMAL) 06/02/20 18:03 Ur Leukocyte Esterase Negative (NEGATIVE) 06/02/20 18:03 Urine RBC 3-5 /HPF (0-3) A 06/02/20 18:03 Urine WBC None seen /HPF (0-5) 06/02/20 18:03 Ur Squamous Epith Cells Negative /HPF (NEGATIVE) 06/02/20 18:03 Urine Bacteria Negative /HPF (NEGATIVE) 06/02/20 18:03 Ur Culture Indicated? No/not indicated 06/02/20 18:03 Digoxin 0.80 ng/mL (0.9-2) L 06/10/20 04:40 Phenobarbital 10.1 ug/mL (15-40) L 06/05/20 08:23 SARS CoV-2 RNA Rapid LADAN Positive (NEGATIVE) A 06/01/20 13:23 Blood Type A POSITIVE 06/01/20 13:35 - Plan (1) Pneumonia due to COVID-19 virus Status: Acute Plan: SUPPLEMENTAL OXYGEN, CONTINUE IV FLUIDS, IV ANTIBIOTICS, NEB TX, VITAMIN SUPPLEMENTATION, ANXIETY MEDICATIONS, DVT PROPHYLAXIS, DIFLUCAN, COUGH MEDICATIONS, AND POTASSIUM AND MAGNESIUM PROTOCOLS (2) Hypoxia Status: Chronic (3) Atrial fibrillation with RVR Status: Acute Plan: CONTINUE ANTIARRHYTHMIC AND RATE CONTROL DRUGS, INFECTION CONTROL RN, 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
[2020-06-14] MEDS: CLINIMIX 4.25 %/10 % 1,000 ML with MVI INJ (ADULT) 10 ML, TRACE ELEMENTS INJ 10 ML, POT... IV SCH ×9 (16:00)
[2020-06-14] MEDS: SNACK - Diabetic Appropriate PO SCH (22:16)
[2020-06-15] MEDS: MORPHINE SULFATE INJ 4 MG IVP PRN ×5 (00:15→22:30)
[2020-06-15] MEDS: LOPRESSOR INJ 5 MG AMP IVP SCH ×4 (04:30→23:30)
[2020-06-15 04:58] LABS: ABG ALLEN TEST POS; ABG BASE EXCESS 4.7 mmol/L (-2.0-2.0); ABG HCO3 28.2 mmol/L (22-26)
--- NOTE | 2020-06-15 05:45 | RAD ---
PROCEDURE: Chest X-ray 1 View .HISTORY: Short of breath.TECHNIQUE: AP view .COMPARISON: 06/14/2020.TECHNICAL QUALITY: Satisfactory .FINDINGS:Right internal jugular central venous line tip projected over the right atrium.Normal size heart with tortuous aorta. Previous sternotomy.Normal central vascularity.No pulmonary consolidation, masses, pleural fluid, or pneumothorax.IMPRESSION:No active cardiopulmonary disease.Electronically signed by: Nestor Joyce (Jun 15, 2020 05:44:15)
[2020-06-15] MEDS: XOPENEX 1.25 MG/3 ML NEBULE NEB SCH ×3 (05:58→21:18)
[2020-06-15] MEDS: MUCOMYST 20% 200 MG/ML NEB SCH ×3 (05:58→21:18)
[2020-06-15] MEDS: SOLU-Medrol 125 MG VIAL IVP SCH ×3 (06:02→21:11)
[2020-06-15] MEDS: HumuLIN R SUBCUT PRN ×2 (06:02→21:14)
[2020-06-15] MEDS: FORTAZ or TAZICEF VIAL INJ 1 G in NS 100 ML IV + SPIKE MINIBAG* 100 ML IV SCH ×3 (06:02→21:10)
[2020-06-15] MEDS: APRESOLINE INJ 20 MG VIAL IVP PRN (06:15)
[2020-06-15] MEDS: ARTIFICIAL TEARS DROPS AFFEYE PRN ×2 (06:35→11:25)
[2020-06-15 06:42] LABS: BASOPHILS % (AUTO) 0.2 % (0.2-1.0); EOSINOPHILS % (AUTO) 0.2 % (0.9-2.9); HEMATOCRIT 36.9 % (42.0-54.0); HEMOGLOBIN 12.8 g/dL (13.5-18.0); LYMPHOCYTES # (AUTO) 0.5 X10^3/uL (1.3-2.9); LYMPHOCYTES % (AUTO) 5.5 % (21.0-51.0); MEAN CORPUSCULAR HEMOGLOBIN 30.9 pg (27.0-34.0); MEAN CORPUSCULAR HGB CONC 34.8 g/dL (33.0-35.0); MEAN CORPUSCULAR VOLUME 88.8 fL (80.0-100.0); MEAN PLATELET VOLUME 11.5 fL (7.4-11.0); MONOCYTES # (AUTO) 0.2 x10^3/uL (0.3-0.8); MONOCYTES % (AUTO) 2.5 % (0.0-13.0); NEUTROPHILS # (AUTO) 8.9 x10^3/uL (2.2-4.8); NEUTROPHILS % (AUTO) 91.6 % (42.0-75.0); PLATELET COUNT 177 X10^3/uL (150.0-450.0); RED BLOOD COUNT 4.15 X10^6/uL (4.7-6.0); RED CELL DISTRIBUTION WIDTH 13.3 % (11.6-16.5); WHITE BLOOD COUNT 9.8 X10^3/uL (3.6-10.0)
[2020-06-15] MEDS: D5W 1000 ML IV 1,000 ML IV SCH ×2 (07:06→11:23)
[2020-06-15 07:08] LABS: ALANINE AMINOTRANSFERASE 69 Units/L (12-78); ALBUMIN 1.9 g/dL (3.4-5.0); ALKALINE PHOSPHATASE 80 Units/L (46-116); ASPARTATE AMINO TRANSFERASE 44 Units/L (15-37); BLOOD UREA NITROGEN 14 mg/dL (7-18); CALCIUM 7.9 mg/dL (8.5-10.1); CARBON DIOXIDE 26.7 mmol/L (21-32); CHLORIDE 95 mmol/L (98-107); COR CA(FOR HYPOALB) 9.6 mg/dL (8.5-10.1); COR NA(FOR HYPERGLY) 134 mmol/L (136-145); CREATININE 0.78 mg/dL (0.70-1.30); MAGNESIUM 1.8 mg/dL (1.7-2.9); SODIUM 129 mmol/L (136-145); TOTAL PROTEIN 6.4 g/dL (6.4-8.2); eGFR NON BLACK RACES > 60 (>60)
[2020-06-15] MEDS: LANOXIN INJ IVP SCH ×3 (07:35→11:00)
[2020-06-15 07:44] LABS: BAND NEUTROPHILS % 2 % (0-10); PLATELET MORPHOLOGY COMMENT NORMAL (NORMAL)
[2020-06-15] MEDS: PULMICORT NEB TX 0.5 MG NEB SCH ×2 (09:39→21:18)
[2020-06-15] MEDS: BROVANA IN SCH ×2 (09:39→21:10)
[2020-06-15] MEDS: PROTONIX INJ 40 MG VIAL IVP SCH (10:36)
[2020-06-15] MEDS: LEVEMIR SC SCH ×2 (10:37→21:08)
[2020-06-15] MEDS: DIFLUCAN 200 MG IV PREMIX* 200 MG/100 ML BAG IV SCH (10:37)
[2020-06-15] MEDS: LOVENOX INJ 80 MG SYR SC SCH ×2 (10:37→21:09)
[2020-06-15] MEDS: LEVAQUIN PREMIX IV 500 MG 500 MG/100 ML BAG IV SCH (10:38)
[2020-06-15] MEDS: PEPCID 20 MG IV PREMIX* 20 MG/50 ML BAG IV SCH ×2 (10:39→21:10)
[2020-06-15] MEDS ORDERED: LANOXIN INJ IVP ONE (10:42)
[2020-06-15 11:08] LABS: DIGOXIN 0.68 ng/mL (0.9-2); THEOPHYLLINE < 2.0 ug/mL (10-20)
[2020-06-15] MEDS: CLINIMIX 4.25 %/10 % 1,000 ML with MVI INJ (ADULT) 10 ML, TRACE ELEMENTS INJ 10 ML, POT... IV SCH ×9 (11:24)
--- NOTE | 2020-06-15 12:29 | PCM.PROG ---
Progress Note - Progress Note for Day of Date of Exam: 06/14/20 - Subjective Subjective: WAS ADMITTED FOR TREATMENT OF PNEUMONIA DUE TO COVID-19 AND HYPOXIA. HE REMAINS IN THE INTENSIVE CARE UNIT ON THE BIPAP AT 35% FI02 TODAY. STAFF REPORTS THAT HE HAS RESTED WELL THROUGHOUT THE NIGHT. THEY REPORT THAT HE DOES NOT SEEP TO BE AGITATED. PATIENT OPENS EYES TO VERBAL STIMULATION. HIS SPEECH IS SLURRED. 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 HIS SATURATIONS ON THE BIPAP HAVE BEEN 92-100% THIS MORNING AND THROUGHOUT THE NIGHT. ON EXAMINATION, HEART RATE IS NORMAL. RATE IS IRREGULAR. BILATERAL LUNGS ARE NOTED WITH RALES THROUGHOUT. ABDOMEN IS ROUND, SOFT, AND NON-TENDER WITH NORMAL BOWEL SOUNDS NOTED IN ALL QUADRANTS. THERE IS TRACE EDEMA NOTED TO UPPER AND LOWER EXTREMITIES. HIS VITALS THIS MORNING ARE: 99.0-100-29-93%-168/83. LABS WERE OBTAINED. ABNORMAL LAB VALUES INCLUDE THE FOLLOWING: WBC 10.1, RBC 4.19, HGB 12.7, HCT 37.3, PLT COUNT 131, D-DIMER 0.64, SODIUM 131, CHLORIDE 95, GLUCOSE 256, CALCIUM 7.8, AST 38, CRP 69.30, BNP 249, TOTAL PROTEIN 5.9, ALBUMIN 1.7. AN ABG WAS OBTAINED AND REVEALED: PH 7.530, PC02 36, P02 63, HC03 30.1, 02 SAT 94, BASE EXCESS 7.1, A-A GRADIENT 142, FI02 35. BLOOD CULTURES ARE PENDING. ABG WAS OBTAINED AND REVEALED: PH 7.480, pc02 44, p02 72, hc03 32.8, 02 sat 95, base excess 8.3, a-a gradient 123, fi02 35.0. A CHEST XRAY WAS OBTAINED AND REVEALED: The cardiomediastinal silhouette is stable. Similar post sternotomy changes. Similar right-sided IJ central venous catheter. Similar airspace opacities, worst in the left lower lobe. The bony thorax appears intact. WE WILL CONTINUE WITH IV FLUIDS, IV ANTIBIOTICS, STEROIDS, NEB TX, AND CURRENT PLAN OF CARE TODAY. WE WILL ATTEMPT TO DECREASE FI02 AND SEDATION TOLERATED. WE WILL OBT AIN A BRAIN CT WITHOUT CONTRAST TO RULE OUT ANY NEUROLOGICAL CHANGES. OTHERWISE, WE PLAN TO FOLLOW UP WITH AM LABS, CHEST XRAY, ABG, AND CONTINUE TO MONITOR. TIME SPENT ON CLINICAL ASSESSMENT, REVIEWING LABS AND IMAGING, DECISION MAKING, AND DOCUMENTATION GREATER THAN 75 MINUTES. - Past Medical Family Social History Past Med/Fam/Surg Hx: No changes since H&P Allergies: Allergies No Known Drug Allergies Allergy (Verified 06/01/20 13:35) - Review of Systems ROS: No change since H&P - Vital Signs and I&O's Vital Signs: Temperature 99.2 F Pulse Rate [Left Brachial] 79 Pulse Rate 156 Respiratory Rate 18 Blood Pressure [Left Calf] 166/88 Blood Pressure [Right Arm] 176/93 Blood Pressure [Left Arm] 147/83 Blood Pressure 177/81 O2 Sat by Pulse Oximetry 95 Intake and Output: Intake & Output 06/13/20 06/14/20 06/15/20 06/16/20 11:59 11:59 11:59 11:59 Intake Total 3435 / 3435 3477 / 3477 2345 / 2345 Output Total 2895 / 2895 1999 / 1999 3800 / 3800 Balance 540 / 540 1477 / 1477 -1455 / -1455 - Physical Exam Oriented: Person Eyes: Normal Ear: Normal Nose: Normal Throat: Normal Respiratory: Generalized, Rales Cardiovascular: Irregular, Normal : Normal Auscultation: Bowel Sounds: Normal Palpation: Normal Tenderness: Normal Skin: Normal Musculoskeletal: Normal Psychiatric: Agitation Mood Description: Anxious Affect: Anxious, Violent Speech Pattern: Appropriate, Unclear - Laboratory and Diagnostics Result Diagrams: 06/17/20 05:10 06/17/20 05:10 Labs: 06/01/20 13:35 Blood Blood Culture - Final 06/01/20 13:21 Blood Blood Culture - Final Laboratory WBC 9.8 X10^3/uL (3.6-10.0) 06/15/20 05:15 RBC 4.15 X10^6/uL (4.7-6.0) L 06/15/20 05:15 Hgb 12.8 g/dL (13.5-18.0) L 06/15/20 05:15 Hct 36.9 % (42.0-54.0) L 06/15/20 05:15 MCV 88.8 fL (80.0-100.0) 06/15/20 05:15 MCH 30.9 pg (27.0-34.0) 06/15/20 05:15 MCHC 34.8 g/dL (33.0-35.0) 06/15/20 05:15 RDW 13.3 % (11.6-16.5) 06/15/20 05:15 Plt Count 177 X10^3/uL (150.0-450.0) 06/15/20 05:15 Plt Count Comment Adequate (ADEQUATE) 06/15/20 05:15 MPV 11.5 fL (7.4-11.0) H 06/15/20 05:15 Neut % (Auto) 91.6 % (42.0-75.0) H 06/15/20 05:15 Lymph % (Auto) 5.5 % (21.0-51.0) L 06/15/20 05:15 [place] % (Auto) 2.5 % (0.0-13.0) 06/15/20 05:15 Eos % (Auto) 0.2 % (0.9-2.9) L 06/15/20 05:15 Baso % (Auto) 0.2 % (0.2-1.0) 06/15/20 05:15 Neut # (Auto) 8.9 x10^3/uL (2.2-4.8) H 06/15/20 05:15 Lymph # (Auto) 0.5 X10^3/uL (1.3-2.9) L 06/15/20 05:15 [place] # (Auto) 0.2 x10^3/uL (0.3-0.8) L 06/15/20 05:15 Eos # (Auto) 0.0 x10^3/uL (0.0-0.2) 06/15/20 05:15 Baso # (Auto) 0.0 X10^3/uL (0.0-0.1) 06/15/20 05:15 Absolute Nucleated RBC 0.3 /100WBC 06/15/20 05:15 Total Counted 100 06/15/20 05:15 Neutrophils % (Manual) 97 % (39-76) H 06/15/20 05:15 Band Neutrophils % 2 % (0-10) 06/15/20 05:15 Lymphocytes % (Manual) 1 % (13-43) L 06/15/20 05:15 Monocytes % (Manual) 4 % (4-9) 06/08/20 05:10 Giant Platelets Few 06/10/20 04:40 Plt Morphology Comment Normal (NORMAL) 06/15/20 05:15 RBC Morphology Normal (NORMAL) 06/15/20 05:15 PT 17.2 SECONDS (11.8-14.3) 06/02/20 22:35 INR Target Range - 06/02/20 22:35 INR 1.45 (0.8-1.3) H 06/02/20 22:35 APTT 93.2 SECONDS (22.9-36.5) H 06/11/20 08:22 PTT Comment - 06/11/20 08:22 D-Dimer 0.73 ug/ml (0.0-0.57) H* 06/15/20 05:15 Sample Site Rr 06/15/20 04:50 ABG pH 7.490 (7.35-7.45) H 06/15/20 04:50 ABG pCO2 37.0 mmHg (35.0-45.0) 06/15/20 04:50 ABG pO2 61.0 mmHg (80.0-100.0) L 06/15/20 04:50 ABG HCO3 28.2 mmol/L (22-26) H 06/15/20 04:50 ABG O2 Saturation 93.0 % (90-100) 06/15/20 04:50 ABG Base Excess 4.7 mmol/L (-2.0-2.0) H 06/15/20 04:50 Partha Test Pos 06/15/20 04:50 A-a Gradient 142.0 mmHg 06/14/20 05:00 FiO2 35.0 06/15/20 04:50 Blood Gas Comments Ivana well, kh 06/15/20 04:50 Sodium 129 mmol/L (136-145) L 06/15/20 05:15 Corrected Sodium 134 mmol/L (136-145) L 06/15/20 05:15 Potassium 3.6 mmol/L (3.5-5.1) 06/15/20 05:15 Chloride 95 mmol/L (98-107) L 06/15/20 05:15 Carbon Dioxide 26.7 mmol/L (21-32) 06/15/20 05:15 BUN 14 mg/dL (7-18) 06/15/20 05:15 Creatinine 0.78 mg/dL (0.70-1.30) 06/15/20 05:15 Est GFR (MDRD) Af Amer > 60 (>60) 06/15/20 05:15 Est GFR (MDRD) Non-Af > 60 (>60) 06/15/20 05:15 Glucose 299 mg/dL (65-99) H 06/15/20 05:15 POC Glucose (mg/dL) 315 mg/dL (65-99) H 06/15/20 12:02 Lactic Acid 1.4 mmol/L (0.4-2.0) 06/15/20 05:15 Calcium 7.9 mg/dL (8.5-10.1) L 06/15/20 05:15 Corrected Calcium 9.6 mg/dL (8.5-10.1) 06/15/20 05:15 Magnesium 1.8 mg/dL (1.7-2.9) 06/15/20 05:15 Ferritin 1500 ng/mL (26-388) H 06/11/20 04:10 Total Bilirubin 0.40 mg/dL (0.2-1.0) 06/15/20 05:15 AST 44 Units/L (15-37) H 06/15/20 05:15 ALT 69 Units/L (12-78) 06/15/20 05:15 Alkaline Phosphatase 80 Units/L (46-116) 06/15/20 05:15 Ammonia 44 umol/L (11-32) H 06/05/20 08:23 Creatine Kinase 448 Units/L (39-308) H 06/03/20 04:30 CK-MB (CK-2) 10.3 ng/mL (0-4.0) H* 06/03/20 04:30 CK/CKMB % Calc 2.3 % (<4) 06/03/20 04:30 Troponin I 0.22 ng/mL (0-1.5) 06/03/20 04:30 C-Reactive Protein 88.50 mg/L (0-3.0) H 06/15/20 05:15 B-Natriuretic Peptide 458 pg/mL (0-79) H 06/15/20 05:15 Total Protein 6.4 g/dL (6.4-8.2) 06/15/20 05:15 Albumin 1.9 g/dL (3.4-5.0) L 06/15/20 05:15 Globulin 4.5 g/dL (2.5-4.5) 06/15/20 05:15 Albumin/Globulin Ratio 0.4 Ratio (1.1-2.1) L 06/15/20 05:15 Prealbumin 16.1 mg/dL (18-35.7) L 06/06/20 06:07 Specimen Type Clean catch urine 06/02/20 18:03 Urine Color Yellow (YELLOW) 06/02/20 18:03 Urine Appearance Clear (CLEAR) 06/02/20 18:03 Urine pH 5.0 (5.0 - 8.0) 06/02/20 18:03 Ur Specific [place] 1.010 (1.000-1.030) 06/02/20 18:03 Urine Protein 3+ (NEGATIVE) 06/02/20 18:03 Urine Glucose (UA) 4+ (NEGATIVE) 06/02/20 18:03 Urine Ketones 3+ (NEGATIVE) 06/02/20 18:03 Urine Occult Blood 3+ (NEGATIVE) 06/02/20 18:03 Urine Nitrite Negative (NEGATIVE) 06/02/20 18:03 Urine Bilirubin Negative (NEGATIVE) 06/02/20 18:03 Urine Urobilinogen Normal (NORMAL) 06/02/20 18:03 Ur Leukocyte Esterase Negative (NEGATIVE) 06/02/20 18:03 Urine RBC 3-5 /HPF (0-3) A 06/02/20 18:03 Urine WBC None seen /HPF (0-5) 06/02/20 18:03 Ur Squamous Epith Cells Negative /HPF (NEGATIVE) 06/02/20 18:03 Urine Bacteria Negative /HPF (NEGATIVE) 06/02/20 18:03 Ur Culture Indicated? No/not indicated 06/02/20 18:03 Digoxin 0.68 ng/mL (0.9-2) L 06/15/20 05:15 Phenobarbital 10.1 ug/mL (15-40) L 06/05/20 08:23 Theophylline < 2.0 ug/mL (10-20) L 06/15/20 05:15 SARS CoV-2 RNA Rapid LADAN Positive (NEGATIVE) A 06/01/20 13:23 Blood Type A POSITIVE 06/01/20 13:35 - Plan (1) Pneumonia due to COVID-19 virus Status: Acute Plan: SUPPLEMENTAL OXYGEN, CONTINUE IV FLUIDS, IV ANTIBIOTICS, NEB TX, VITAMIN SUPPLEMENTATION, ANXIETY MEDICATIONS, DVT PROPHYLAXIS, DIFLUCAN, COUGH MEDICATIONS, AND POTASSIUM AND MAGNESIUM PROTOCOLS (2) Hypoxia Status: Chronic (3) Atrial fibrillation with RVR Status: Acute Plan: CONTINUE ANTIARRHYTHMIC AND RATE CONTROL DRUGS, EDITOR IN CHIEF, 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
[2020-06-15] MEDS: REVATIO PO SCH ×2 (13:03→21:11)
[2020-06-15] MEDS: SNACK - Diabetic Appropriate PO SCH (19:34)
[2020-06-15] MEDS: OFIRMEV IV 1000 MG VIAL 500 MG/50 ML VIAL IV PRN (19:38)
[2020-06-16 04:59] LABS: ABG BASE EXCESS 4.9 mmol/L (-2.0-2.0); ABG HCO3 29.2 mmol/L (22-26)
[2020-06-16 05:00] LABS: ABG ALLEN TEST POS
[2020-06-16] MEDS: XOPENEX 1.25 MG/3 ML NEBULE NEB SCH ×3 (05:55→21:28)
[2020-06-16] MEDS: MUCOMYST 20% 200 MG/ML NEB SCH ×3 (05:55→21:28)
[2020-06-16 06:02] LABS: BASOPHILS % (AUTO) 0.2 % (0.2-1.0); EOSINOPHILS % (AUTO) 0.3 % (0.9-2.9); HEMOGLOBIN 12.2 g/dL (13.5-18.0); LYMPHOCYTES # (AUTO) 0.4 X10^3/uL (1.3-2.9); LYMPHOCYTES % (AUTO) 3.9 % (21.0-51.0); MEAN CORPUSCULAR HEMOGLOBIN 31.1 pg (27.0-34.0); MEAN CORPUSCULAR HGB CONC 34.8 g/dL (33.0-35.0); MEAN CORPUSCULAR VOLUME 89.5 fL (80.0-100.0); MONOCYTES # (AUTO) 0.2 x10^3/uL (0.3-0.8); MONOCYTES % (AUTO) 1.7 % (0.0-13.0); NEUTROPHILS # (AUTO) 8.9 x10^3/uL (2.2-4.8); NEUTROPHILS % (AUTO) 93.9 % (42.0-75.0); PLATELET COUNT 159 X10^3/uL (150.0-450.0); RED BLOOD COUNT 3.91 X10^6/uL (4.7-6.0); RED CELL DISTRIBUTION WIDTH 13.5 % (11.6-16.5); WHITE BLOOD COUNT 9.5 X10^3/uL (3.6-10.0)
[2020-06-16 06:12] LABS: ALANINE AMINOTRANSFERASE 53 Units/L (12-78); ALBUMIN 1.7 g/dL (3.4-5.0); ALKALINE PHOSPHATASE 82 Units/L (46-116); ASPARTATE AMINO TRANSFERASE 42 Units/L (15-37); BLOOD UREA NITROGEN 15 mg/dL (7-18); CALCIUM 7.7 mg/dL (8.5-10.1); CARBON DIOXIDE 28.3 mmol/L (21-32); CHLORIDE 95 mmol/L (98-107); COR CA(FOR HYPOALB) 9.5 mg/dL (8.5-10.1); COR NA(FOR HYPERGLY) 132 mmol/L (136-145); SODIUM 129 mmol/L (136-145); eGFR NON BLACK RACES > 60 (>60)
[2020-06-16] MEDS: FORTAZ or TAZICEF VIAL INJ 1 G in NS 100 ML IV + SPIKE MINIBAG* 100 ML IV SCH ×3 (06:36→21:48)
[2020-06-16] MEDS: REVATIO PO SCH ×3 (06:36→21:48)
[2020-06-16] MEDS: LOPRESSOR INJ 5 MG AMP IVP SCH ×4 (06:36→23:00)
[2020-06-16] MEDS: SOLU-Medrol 125 MG VIAL IVP SCH ×3 (06:39→21:48)
[2020-06-16] MEDS: HumuLIN R SUBCUT PRN ×4 (06:39→20:35)
[2020-06-16 07:10] LABS: BAND NEUTROPHILS % 2 % (0-10)
[2020-06-16 07:11] LABS: PLATELET MORPHOLOGY COMMENT NORMAL (NORMAL)
[2020-06-16] MEDS: MORPHINE SULFATE INJ 4 MG IVP PRN ×4 (07:11→21:54)
--- NOTE | 2020-06-16 07:43 | RAD ---
HISTORYSOBSTUDYCHEST, 1 VIEWCOMPARISONOne day prior.TECHNIQUEAP view of the chestFINDINGSPost median sternotomy and CABG. Cardiac and mediastinal contours are within normal limits. Right IJ central line in good position. No significant change in scattered bilateral patchy and interstitial lung opacities. No definite pleural effusion or pneumothorax.IMPRESSIONNo significant change. Patchy and interstitial lung opacities may represent pneumonia.Electronically signed by: Mitchel Carrera (Jun 16, 2020 07:41:29)
[2020-06-16] MEDS: LANOXIN INJ IVP SCH (08:18)
[2020-06-16] MEDS: PROTONIX INJ 40 MG VIAL IVP SCH (08:21)
[2020-06-16] MEDS: PEPCID 20 MG IV PREMIX* 20 MG/50 ML BAG IV SCH ×2 (08:36→20:30)
[2020-06-16] MEDS: LEVEMIR SC SCH ×2 (08:36→20:30)
[2020-06-16] MEDS: LOVENOX INJ 80 MG SYR SC SCH ×2 (08:36→20:31)
[2020-06-16] MEDS: CLINIMIX 4.25 %/10 % 1,000 ML with MVI INJ (ADULT) 10 ML, TRACE ELEMENTS INJ 10 ML, POT... IV SCH ×19 (08:37→18:36)
[2020-06-16] MEDS: D5W 1000 ML IV 1,000 ML IV SCH (08:38)
[2020-06-16] MEDS: BROVANA IN SCH ×2 (09:14→21:19)
[2020-06-16] MEDS: PULMICORT NEB TX 0.5 MG NEB SCH ×2 (09:24→21:28)
[2020-06-16] MEDS: DIFLUCAN 200 MG IV PREMIX* 200 MG/100 ML BAG IV SCH (09:31)
[2020-06-16] MEDS: AMINOPHYLLINE INJ 1,000 MG in DEXTROSE 5% 460 ML IV PRN (10:13)
[2020-06-16] MEDS: LEVAQUIN PREMIX IV 500 MG 500 MG/100 ML BAG IV SCH (10:34)
--- NOTE | 2020-06-16 12:14 | PCM.PROG ---
Progress Note - Progress Note for Day of Date of Exam: 06/15/20 - Subjective Subjective: WAS ADMITTED FOR TREATMENT OF PNEUMONIA DUE TO COVID-19 AND HYPOXIA. HE REMAINS IN THE INTENSIVE CARE UNIT TODAY. HE IS CURRENTLY ON HEATED HIGH FLOW OXYGEN AT 35%. HIS SATURATIONS ON THE BIPAP HAVE BEEN 90-95% THIS MORNING AND THROUGHOUT THE NIGHT. PATIENT IS ALERT, LYING IN BED ON MORNING ROUNDS. STAFF REPORTS THAT HE HAS RESTED WELL THROUGHOUT THE NIGHT AND HAS NOT BEEN AGITATED. HE CONTINUES WITH WEAKNESS. SPEECH CONTINUES TO BE SLURRED. 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 ON EXAMINATION, HE IS SLIGHTLY TACHYCARDIC WITH HR 110-130. BILATERAL LUNGS ARE NOTED WITH DIMINISHED LUNG SOUNDS THROUGHOUT. ABDOMEN IS ROUND, SOFT, AND NON-TENDER WITH NORMAL BOWEL SOUNDS NOTED IN ALL QUADRANTS. THERE IS TRACE EDEMA NOTED TO UPPER AND LOWER EXTREMITIES. HIS VITALS THIS MORNING ARE: 98.9-121-15-93%-167/87. LABS WERE OBTAINED. ABNORMAL LAB VALUES INCLUDE THE FOLLOWING: RBC 4.15, HGB 12.8, HCT 36.9, D-DIMER 0.73, SODIUM 129, CHLORIDE 95, GLUCOSE 299, CALCIUM 7.9, AST 44, CRP 88.50, BNP 458, ALBUMIN 1.9. AN ABG WAS OBTAINED AND REVEALED: PH 7.490, PC02 37, P02 61, HC03 28.2, 02 SAT 93, FI02 35. A CHEST XRAY WAS OBTAINED AND REVEALED: Right internal jugular central venous line tip projected over the right atrium. Normal size heart with tortuous aorta. Previous sternotomy. Normal central vascularity. No pulmonary consolidation, masses, pleural fluid, or pneumothorax. A BRAIN CT WAS OBTAINED YESTERDAY AND ONLY REVEALED CHRONIC FINDINGS. TODAY, WE WILL ADMINISTER AN ADDITIONAL DOSE OF DIGOXIN 0.25MG IV X 1 IN ADDITION TO WHAT HE IS ALREADY RECEIVING. WE WILL INCREASE LEVEMIR TO 12 UNITS SC BID. WE WILL ATTEMPT TO DECREASE OXYGEN TOLERATED. OTHERWISE, WE WILL CONTINUE WITH CURRENT PLAN OF CARE TODAY. WE PLAN TO FOLLOW UP WITH AM LABS, CHEST XRAY, ABG, AND CONTINUE TO MONITOR. TIME SPENT ON CLINICAL ASSESSMENT, REVIEWING LABS AND IMAGING, DECISION MAKING, AND DOCUMENTATION GREATER THAN 75 MINUTES. - Past Medical Family Social History Past Med/Fam/Surg Hx: No changes since H&P Allergies: Allergies No Known Drug Allergies Allergy (Verified 06/01/20 13:35) - Review of Systems ROS: No change since H&P - Vital Signs and I&O's Vital Signs: Temperature 99.4 F Pulse Rate [Left Brachial] 79 Pulse Rate 92 Respiratory Rate 22 Blood Pressure [Left Calf] 166/88 Blood Pressure [Right Arm] 176/93 Blood Pressure [Left Arm] 147/83 Blood Pressure 179/85 O2 Sat by Pulse Oximetry 99 Intake and Output: Intake & Output 06/14/20 06/15/20 06/16/20 06/17/20 11:59 11:59 11:59 11:59 Intake Total 3477 / 3477 2345 / 2345 1658 / 1658 Output Total 1999 / 1999 3800 / 3800 3000 / 3000 Balance 1477 / 1477 -1455 / -1455 -1342 / -1342 - Physical Exam Oriented: Person Eyes: Normal Ear: Normal Nose: Normal Throat: Normal Respiratory: Generalized, Rales Cardiovascular: Irregular, Normal : Normal Auscultation: Bowel Sounds: Normal Palpation: Normal Tenderness: Normal Skin: Normal Musculoskeletal: Normal Psychiatric: Agitation Mood Description: Anxious Affect: Anxious, Violent Speech Pattern: Appropriate, Unclear - Laboratory and Diagnostics Result Diagrams: 06/17/20 05:10 06/17/20 05:10 Labs: 06/01/20 13:35 Blood Blood Culture - Final 06/01/20 13:21 Blood Blood Culture - Final Laboratory WBC 9.5 X10^3/uL (3.6-10.0) 06/16/20 05:28 RBC 3.91 X10^6/uL (4.7-6.0) L 06/16/20 05:28 Hgb 12.2 g/dL (13.5-18.0) L 06/16/20 05:28 Hct 35.0 % (42.0-54.0) L 06/16/20 05:28 MCV 89.5 fL (80.0-100.0) 06/16/20 05:28 MCH 31.1 pg (27.0-34.0) 06/16/20 05:28 MCHC 34.8 g/dL (33.0-35.0) 06/16/20 05:28 RDW 13.5 % (11.6-16.5) 06/16/20 05:28 Plt Count 159 X10^3/uL (150.0-450.0) 06/16/20 05:28 Plt Count Comment Adequate (ADEQUATE) 06/16/20 05:28 MPV 11.0 fL (7.4-11.0) 06/16/20 05:28 Neut % (Auto) 93.9 % (42.0-75.0) H 06/16/20 05:28 Lymph % (Auto) 3.9 % (21.0-51.0) L 06/16/20 05:28 [place] % (Auto) 1.7 % (0.0-13.0) 06/16/20 05:28 Eos % (Auto) 0.3 % (0.9-2.9) L 06/16/20 05:28 Baso % (Auto) 0.2 % (0.2-1.0) 06/16/20 05:28 Neut # (Auto) 8.9 x10^3/uL (2.2-4.8) H 06/16/20 05:28 Lymph # (Auto) 0.4 X10^3/uL (1.3-2.9) L 06/16/20 05:28 [place] # (Auto) 0.2 x10^3/uL (0.3-0.8) L 06/16/20 05:28 Eos # (Auto) 0.0 x10^3/uL (0.0-0.2) 06/16/20 05:28 Baso # (Auto) 0.0 X10^3/uL (0.0-0.1) 06/16/20 05:28 Absolute Nucleated RBC 0.6 /100WBC 06/16/20 05:28 Total Counted 100 06/16/20 05:28 Neutrophils % (Manual) 93 % (39-76) H 06/16/20 05:28 Band Neutrophils % 2 % (0-10) 06/16/20 05:28 Lymphocytes % (Manual) 5 % (13-43) L 06/16/20 05:28 Monocytes % (Manual) 4 % (4-9) 06/08/20 05:10 Giant Platelets Few 06/10/20 04:40 Plt Morphology Comment Normal (NORMAL) 06/16/20 05:28 RBC Morphology Normal (NORMAL) 06/16/20 05:28 PT 17.2 SECONDS (11.8-14.3) 06/02/20 22:35 INR Target Range - 06/02/20 22:35 INR 1.45 (0.8-1.3) H 06/02/20 22:35 APTT 93.2 SECONDS (22.9-36.5) H 06/11/20 08:22 PTT Comment - 06/11/20 08:22 D-Dimer 0.98 ug/ml (0.0-0.57) H* 06/16/20 05:28 Sample Site Rrad 06/16/20 04:54 ABG pH 7.460 (7.35-7.45) H 06/16/20 04:54 ABG pCO2 41.0 mmHg (35.0-45.0) 06/16/20 04:54 ABG pO2 146.0 mmHg (80.0-100.0) H 06/16/20 04:54 ABG HCO3 29.2 mmol/L (22-26) H 06/16/20 04:54 ABG O2 Saturation 99.0 % (90-100) 06/16/20 04:54 ABG Base Excess 4.9 mmol/L (-2.0-2.0) H 06/16/20 04:54 Partha Test Pos 06/16/20 04:54 A-a Gradient 409.0 mmHg 06/16/20 04:54 FiO2 85.0 06/16/20 04:54 Blood Gas Comments Ivana abg well-mtf 06/16/20 04:54 Sodium 129 mmol/L (136-145) L 06/16/20 05:28 Corrected Sodium 132 mmol/L (136-145) L 06/16/20 05:28 Potassium 3.6 mmol/L (3.5-5.1) 06/16/20 05:28 Chloride 95 mmol/L (98-107) L 06/16/20 05:28 Carbon Dioxide 28.3 mmol/L (21-32) 06/16/20 05:28 BUN 15 mg/dL (7-18) 06/16/20 05:28 Creatinine 0.70 mg/dL (0.70-1.30) 06/16/20 05:28 Est GFR (MDRD) Af Amer > 60 (>60) 06/16/20 05:28 Est GFR (MDRD) Non-Af > 60 (>60) 06/16/20 05:28 Glucose 213 mg/dL (65-99) H 06/16/20 05:28 POC Glucose (mg/dL) 223 mg/dL (65-99) H 06/16/20 11:47 Lactic Acid 1.4 mmol/L (0.4-2.0) 06/15/20 05:15 Calcium 7.7 mg/dL (8.5-10.1) L 06/16/20 05:28 Corrected Calcium 9.5 mg/dL (8.5-10.1) 06/16/20 05:28 Magnesium 1.8 mg/dL (1.7-2.9) 06/15/20 05:15 Ferritin 1500 ng/mL (26-388) H 06/11/20 04:10 Total Bilirubin 0.40 mg/dL (0.2-1.0) 06/16/20 05:28 AST 42 Units/L (15-37) H 06/16/20 05:28 ALT 53 Units/L (12-78) 06/16/20 05:28 Alkaline Phosphatase 82 Units/L (46-116) 06/16/20 05:28 Ammonia 44 umol/L (11-32) H 06/05/20 08:23 Creatine Kinase 448 Units/L (39-308) H 06/03/20 04:30 CK-MB (CK-2) 10.3 ng/mL (0-4.0) H* 06/03/20 04:30 CK/CKMB % Calc 2.3 % (<4) 06/03/20 04:30 Troponin I 0.22 ng/mL (0-1.5) 06/03/20 04:30 C-Reactive Protein 126.70 mg/L (0-3.0) H 06/16/20 05:28 B-Natriuretic Peptide 526 pg/mL (0-79) H* 06/16/20 05:28 Total Protein 6.0 g/dL (6.4-8.2) L 06/16/20 05:28 Albumin 1.7 g/dL (3.4-5.0) L 06/16/20 05:28 Globulin 4.3 g/dL (2.5-4.5) 06/16/20 05:28 Albumin/Globulin Ratio 0.4 Ratio (1.1-2.1) L 06/16/20 05:28 Prealbumin 16.1 mg/dL (18-35.7) L 06/06/20 06:07 Specimen Type Clean catch urine 06/02/20 18:03 Urine Color Yellow (YELLOW) 06/02/20 18:03 Urine Appearance Clear (CLEAR) 06/02/20 18:03 Urine pH 5.0 (5.0 - 8.0) 06/02/20 18:03 Ur Specific [place] 1.010 (1.000-1.030) 06/02/20 18:03 Urine Protein 3+ (NEGATIVE) 06/02/20 18:03 Urine Glucose (UA) 4+ (NEGATIVE) 06/02/20 18:03 Urine Ketones 3+ (NEGATIVE) 06/02/20 18:03 Urine Occult Blood 3+ (NEGATIVE) 06/02/20 18:03 Urine Nitrite Negative (NEGATIVE) 06/02/20 18:03 Urine Bilirubin Negative (NEGATIVE) 06/02/20 18:03 Urine Urobilinogen Normal (NORMAL) 06/02/20 18:03 Ur Leukocyte Esterase Negative (NEGATIVE) 06/02/20 18:03 Urine RBC 3-5 /HPF (0-3) A 06/02/20 18:03 Urine WBC None seen /HPF (0-5) 06/02/20 18:03 Ur Squamous Epith Cells Negative /HPF (NEGATIVE) 06/02/20 18:03 Urine Bacteria Negative /HPF (NEGATIVE) 06/02/20 18:03 Ur Culture Indicated? No/not indicated 06/02/20 18:03 Digoxin 0.68 ng/mL (0.9-2) L 06/15/20 05:15 Phenobarbital 10.1 ug/mL (15-40) L 06/05/20 08:23 Theophylline < 2.0 ug/mL (10-20) L 06/15/20 05:15 SARS CoV-2 RNA Rapid LADAN Positive (NEGATIVE) A 06/01/20 13:23 Blood Type A POSITIVE 06/01/20 13:35 - Plan (1) Pneumonia due to COVID-19 virus Status: Suspected Plan: D5W AT 75 ML/HR, TPN, FORTAZ 1G IV Q8H, LEVAQUIN 500MG IV DAILY, DIFLUCAN 200MG IV DAILY, BROVANA 15MCG NEB BID, PULMICORT NEB BID, XOPENEX NEB TID, MUCOMYST IN NEBS TID, CATAPRES 0.3MG/HR TD PATCH, DIGOXIN 250MCG IV DAILY, LOVENOX 80MG SC BID, PEPCID 20MG IV Q12H, HYDRALAZINE 10MG IV Q4H PRN, LEMEVIR 12 UNITS SC BID, HUMULIN R SLIDING SCALE, MAGIC MOUTHWASH QID PRN, SOLU-MEDROL 80MG IV Q8H, LOPRESSOR 5MG IV Q6H, PROTONIX 40MG IV DAILY, SILDENAFIL 20MG PO TID, THE POTASSIUM AND MAGNESIUM PROTOCOLS. (2) Hypoxia Status: Chronic (3) Atrial fibrillation with RVR Status: Acute Plan: ADDITIONAL DOSE OF DIGOXIN 0.25MG IV X 1 DOSE TODAY, DIGOXIN 0.25MG IV DAILY, LOPRESSOR 5MG IV Q6H, COTNINUE TO MONITOR (4) AMS (altered mental status) Status: Acute Qualifiers: Altered mental status type: transient alteration of awareness Qualified Code(s): R40.4 - Transient alteration of awareness (5) History of CVA (cerebrovascular accident) Status: Chronic (6) CAD (coronary artery disease) Status: Chronic Qualifiers: Coronary Disease-Associated Artery/Lesion type: [place] artery [place] vs. transplanted heart: [place] heart (7) Hyperlipemia Status: Chronic Qualifiers: Hyperlipidemia type: mixed hyperlipidemia Qualified Code(s): E78.2 - Mixed hyperlipidemia (8) GERD (gastroesophageal reflux disease) Status: Chronic Qualifiers: Esophagitis presence: esophagitis presence not specified Qualified Code(s): K21.9 - Gastro-esophageal reflux disease without esophagitis (9) BPH (benign prostatic hyperplasia) Status: Chronic Qualifiers: Lower urinary tract symptom presence: unspecified whether lower urinary tract symptoms present Qualified Code(s): N40.0 - Benign prostatic hyperplasia without lower urinary tract symptoms (10) AAA (abdominal aortic aneurysm) Status: Chronic Qualifiers: Presence of rupture: without rupture Qualified Code(s): I71.4 - Abdominal aortic aneurysm, without rupture (11) Diabetes mellitus Status: Chronic Qualifiers: Diabetes mellitus type: type 2 Diabetes mellitus shelter insulin use: unspecified remote computer terminal operator insulin use status Diabetes mellitus complication status: without complication Qualified Code(s): E11.9 - Type 2 diabetes mellitus without complications (12) Anemia Status: Chronic Qualifiers: Anemia type: iron deficiency Iron deficiency anemia type: unspecified iron deficiency Qualified Code(s): D50.9 - Iron deficiency anemia, unspecified (13) Hypertension Status: Chronic Qualifiers: Hypertension type: essential hypertension Qualified Code(s): I10 - Essential (primary) hypertension
--- NOTE | 2020-06-16 12:29 | PCM.PROG ---
Progress Note - Progress Note for Day of Date of Exam: 06/16/20 - Subjective Subjective: WAS ADMITTED FOR TREATMENT OF PNEUMONIA DUE TO COVID-19 AND HYPOXIA. HE REMAINS IN THE INTENSIVE CARE UNIT TODAY. HE IS CURRENTLY ON THE BIPAP THIS MORNING. HE WAS PLACE ON THE BIPAP AROUND MIDIGHT DUE TO SATURATIONS REMAINING IN THE LOW 80s ON HEATED HIGH FLOW OXYGEN. TODAY, PATIENT IS LYING IN BED WITH EYES CLOSED ON MORNING ROUNDS. HE OPENS EYES TO VERBAL STIMULI. STAFF REPORTS THAT HE HAS RESTED WELL THROUGHOUT THE NIGHT AND HAS NOT BEEN AGITATED. HE CONTINUES WITH WEAKNESS. SPEECH CONTINUES TO BE SLURRED. 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 ON EXAMINATION, HEART IS NORMAL IN RATE AND RHYTHM. BILATERAL LUNGS ARE NOTED WITH DIMINISHED LUNG SOUNDS THROUGHOUT. ABDOMEN IS ROUND, SOFT, AND NON-TENDER WITH NORMAL BOWEL SOUNDS NOTED IN ALL QUADRANTS. THERE IS TRACE EDEMA NOTED TO UPPER AND LOWER EXTREMITIES. HIS VITALS THIS MORNING ARE: 99.4-95-28-99%-167/88. LABS WERE OBTAINED. ABNORMAL LAB VALUES INCLUDE THE FOLLOWING: RBC 3.91, HGB 12.2, HCT 35.0, D-DIMER 0.98, SODIUM 129, CHLORIDE 95, GLUCOSE 213, CALCIUM 7.7, AST 42, CRP 126.70, BNP 526, TOTAL PROTEIN 6.0, ALBUMIN 1.7. AN ABG WAS OBTAINED AND REVEALED: PH 7.460, PC02 41, P02 146, HC03 29.2, 02 SAT 99, A-A GRADIENT 409, FI02 85. A CHEST XRAY WAS OBTAINED AND REVEALED: No significant change. Patchy and interstitial lung opacities may represent pneumonia. TODAY, WE WILL INCREASE HIS LEVEMIR TO 12 UNITS SC BID. WE WILL CHANGE THEOPHYLLINE TO A DRIP. WE WILL ATTEMPT TO DECREASE OXYGEN TOLERATED. OTHERWISE, WE WILL CONTINUE WITH CURRENT PLAN OF CARE TODAY. WE PLAN TO FOLLOW UP WITH AM LABS, CHEST XRAY, ABG, AND CONTINUE TO MONITOR. TIME SPENT ON CLINICAL ASSESSMENT, REVIEWING LABS AND IMAGING, DECISION MAKING, AND DO CUMENTATION GREATER THAN 75 MINUTES. - Past Medical Family Social History Past Med/Fam/Surg Hx: No changes since H&P Allergies: Allergies No Known Drug Allergies Allergy (Verified 06/01/20 13:35) - Review of Systems ROS: No change since H&P - Vital Signs and I&O's Vital Signs: Temperature 99.4 F Pulse Rate [Left Brachial] 79 Pulse Rate 92 Respiratory Rate 22 Blood Pressure [Left Calf] 166/88 Blood Pressure [Right Arm] 176/93 Blood Pressure [Left Arm] 147/83 Blood Pressure 179/85 O2 Sat by Pulse Oximetry 99 Intake and Output: Intake & Output 06/14/20 06/15/20 06/16/20 06/17/20 11:59 11:59 11:59 11:59 Intake Total 3477 / 3477 2345 / 2345 1658 / 1658 Output Total 1999 / 1999 3800 / 3800 3000 / 3000 Balance 1477 / 1477 -1455 / -1455 -1342 / -1342 - Physical Exam Oriented: Person Eyes: Normal Ear: Normal Nose: Normal Throat: Normal Respiratory: Generalized, Rales Cardiovascular: Irregular, Normal : Normal Auscultation: Bowel Sounds: Normal Palpation: Normal Tenderness: Normal Skin: Normal Musculoskeletal: Normal Psychiatric: Agitation Mood Description: Anxious Affect: Anxious, Violent Speech Pattern: Appropriate, Unclear - Laboratory and Diagnostics Result Diagrams: 06/17/20 05:10 06/17/20 05:10 Labs: 06/01/20 13:35 Blood Blood Culture - Final 06/01/20 13:21 Blood Blood Culture - Final Laboratory WBC 9.5 X10^3/uL (3.6-10.0) 06/16/20 05:28 RBC 3.91 X10^6/uL (4.7-6.0) L 06/16/20 05:28 Hgb 12.2 g/dL (13.5-18.0) L 06/16/20 05:28 Hct 35.0 % (42.0-54.0) L 06/16/20 05:28 MCV 89.5 fL (80.0-100.0) 06/16/20 05:28 MCH 31.1 pg (27.0-34.0) 06/16/20 05:28 MCHC 34.8 g/dL (33.0-35.0) 06/16/20 05:28 RDW 13.5 % (11.6-16.5) 06/16/20 05:28 Plt Count 159 X10^3/uL (150.0-450.0) 06/16/20 05:28 Plt Count Comment Adequate (ADEQUATE) 06/16/20 05:28 MPV 11.0 fL (7.4-11.0) 06/16/20 05:28 Neut % (Auto) 93.9 % (42.0-75.0) H 06/16/20 05:28 Lymph % (Auto) 3.9 % (21.0-51.0) L 06/16/20 05:28 [place] % (Auto) 1.7 % (0.0-13.0) 06/16/20 05:28 Eos % (Auto) 0.3 % (0.9-2.9) L 06/16/20 05:28 Baso % (Auto) 0.2 % (0.2-1.0) 06/16/20 05:28 Neut # (Auto) 8.9 x10^3/uL (2.2-4.8) H 06/16/20 05:28 Lymph # (Auto) 0.4 X10^3/uL (1.3-2.9) L 06/16/20 05:28 [place] # (Auto) 0.2 x10^3/uL (0.3-0.8) L 06/16/20 05:28 Eos # (Auto) 0.0 x10^3/uL (0.0-0.2) 06/16/20 05:28 Baso # (Auto) 0.0 X10^3/uL (0.0-0.1) 06/16/20 05:28 Absolute Nucleated RBC 0.6 /100WBC 06/16/20 05:28 Total Counted 100 06/16/20 05:28 Neutrophils % (Manual) 93 % (39-76) H 06/16/20 05:28 Band Neutrophils % 2 % (0-10) 06/16/20 05:28 Lymphocytes % (Manual) 5 % (13-43) L 06/16/20 05:28 Monocytes % (Manual) 4 % (4-9) 06/08/20 05:10 Giant Platelets Few 06/10/20 04:40 Plt Morphology Comment Normal (NORMAL) 06/16/20 05:28 RBC Morphology Normal (NORMAL) 06/16/20 05:28 PT 17.2 SECONDS (11.8-14.3) 06/02/20 22:35 INR Target Range - 06/02/20 22:35 INR 1.45 (0.8-1.3) H 06/02/20 22:35 APTT 93.2 SECONDS (22.9-36.5) H 06/11/20 08:22 PTT Comment - 06/11/20 08:22 D-Dimer 0.98 ug/ml (0.0-0.57) H* 06/16/20 05:28 Sample Site Rrad 06/16/20 04:54 ABG pH 7.460 (7.35-7.45) H 06/16/20 04:54 ABG pCO2 41.0 mmHg (35.0-45.0) 06/16/20 04:54 ABG pO2 146.0 mmHg (80.0-100.0) H 06/16/20 04:54 ABG HCO3 29.2 mmol/L (22-26) H 06/16/20 04:54 ABG O2 Saturation 99.0 % (90-100) 06/16/20 04:54 ABG Base Excess 4.9 mmol/L (-2.0-2.0) H 06/16/20 04:54 Partha Test Pos 06/16/20 04:54 A-a Gradient 409.0 mmHg 06/16/20 04:54 FiO2 85.0 06/16/20 04:54 Blood Gas Comments Ivana abg well-mtf 06/16/20 04:54 Sodium 129 mmol/L (136-145) L 06/16/20 05:28 Corrected Sodium 132 mmol/L (136-145) L 06/16/20 05:28 Potassium 3.6 mmol/L (3.5-5.1) 06/16/20 05:28 Chloride 95 mmol/L (98-107) L 06/16/20 05:28 Carbon Dioxide 28.3 mmol/L (21-32) 06/16/20 05:28 BUN 15 mg/dL (7-18) 06/16/20 05:28 Creatinine 0.70 mg/dL (0.70-1.30) 06/16/20 05:28 Est GFR (MDRD) Af Amer > 60 (>60) 06/16/20 05:28 Est GFR (MDRD) Non-Af > 60 (>60) 06/16/20 05:28 Glucose 213 mg/dL (65-99) H 06/16/20 05:28 POC Glucose (mg/dL) 223 mg/dL (65-99) H 06/16/20 11:47 Lactic Acid 1.4 mmol/L (0.4-2.0) 06/15/20 05:15 Calcium 7.7 mg/dL (8.5-10.1) L 06/16/20 05:28 Corrected Calcium 9.5 mg/dL (8.5-10.1) 06/16/20 05:28 Magnesium 1.8 mg/dL (1.7-2.9) 06/15/20 05:15 Ferritin 1500 ng/mL (26-388) H 06/11/20 04:10 Total Bilirubin 0.40 mg/dL (0.2-1.0) 06/16/20 05:28 AST 42 Units/L (15-37) H 06/16/20 05:28 ALT 53 Units/L (12-78) 06/16/20 05:28 Alkaline Phosphatase 82 Units/L (46-116) 06/16/20 05:28 Ammonia 44 umol/L (11-32) H 06/05/20 08:23 Creatine Kinase 448 Units/L (39-308) H 06/03/20 04:30 CK-MB (CK-2) 10.3 ng/mL (0-4.0) H* 06/03/20 04:30 CK/CKMB % Calc 2.3 % (<4) 06/03/20 04:30 Troponin I 0.22 ng/mL (0-1.5) 06/03/20 04:30 C-Reactive Protein 126.70 mg/L (0-3.0) H 06/16/20 05:28 B-Natriuretic Peptide 526 pg/mL (0-79) H* 06/16/20 05:28 Total Protein 6.0 g/dL (6.4-8.2) L 06/16/20 05:28 Albumin 1.7 g/dL (3.4-5.0) L 06/16/20 05:28 Globulin 4.3 g/dL (2.5-4.5) 06/16/20 05:28 Albumin/Globulin Ratio 0.4 Ratio (1.1-2.1) L 06/16/20 05:28 Prealbumin 16.1 mg/dL (18-35.7) L 06/06/20 06:07 Specimen Type Clean catch urine 06/02/20 18:03 Urine Color Yellow (YELLOW) 06/02/20 18:03 Urine Appearance Clear (CLEAR) 06/02/20 18:03 Urine pH 5.0 (5.0 - 8.0) 06/02/20 18:03 Ur Specific [place] 1.010 (1.000-1.030) 06/02/20 18:03 Urine Protein 3+ (NEGATIVE) 06/02/20 18:03 Urine Glucose (UA) 4+ (NEGATIVE) 06/02/20 18: Urine Ketones 3+ (NEGATIVE) 06/02/20 18: Urine Occult Blood 3+ (NEGATIVE) 06/02/20 18:03 Urine Nitrite Negative (NEGATIVE) 06/02/20 18: Urine Bilirubin Negative (NEGATIVE) 06/02/20 18:03 Urine Urobilinogen Normal (NORMAL) 06/02/20 18:03 Ur Leukocyte Esterase Negative (NEGATIVE) 06/02/20 18:03 Urine RBC 3-5 /HPF (0-3) A 06/02/20 18:03 Urine WBC None seen /HPF (0-5) 06/02/20 18:03 Ur Squamous Epith Cells Negative /HPF (NEGATIVE) 06/02/20 18:03 Urine Bacteria Negative /HPF (NEGATIVE) 06/02/20 18:03 Ur Culture Indicated? No/not indicated 06/02/20 18:03 Digoxin 0.68 ng/mL (0.9-2) L 06/15/20 05:15 Phenobarbital 10.1 ug/mL (15-40) L 06/05/20 08:23 Theophylline < 2.0 ug/mL (10-20) L 06/15/20 05:15 SARS CoV-2 RNA Rapid LADAN Positive (NEGATIVE) A 06/01/20 13:23 Blood Type A POSITIVE 06/01/20 13:35 - Plan (1) Pneumonia due to COVID-19 virus Status: Suspected Plan: D5W AT 75 ML/HR, TPN, FORTAZ 1G IV Q8H, LEVAQUIN 500MG IV DAILY, DIFLUCAN 200MG IV DAILY, BROVANA 15MCG NEB BID, PULMICORT NEB BID, XOPENEX NEB TID, MUCOMYST IN NEBS TID, CATAPRES 0.3MG/HR TD PATCH, DIGOXIN 250MCG IV DAILY, LOVENOX 80MG SC BID, PEPCID 20MG IV Q12H, HYDRALAZINE 10MG IV Q4H PRN, LEMEVIR 12 UNITS SC BID, HUMULIN R SLIDING SCALE, MAGIC MOUTHWASH QID PRN, SOLU-MEDROL 80MG IV Q8H, LOPRESSOR 5MG IV Q6H, PROTONIX 40MG IV DAILY, SILDENAFIL 20MG PO TID, THE POTASSIUM AND MAGNESIUM PROTOCOLS. (2) Hypoxia Status: Chronic (3) Atrial fibrillation with RVR Status: Acute Plan: DIGOXIN 250MCG IV DAILY, LOPRESSOR 5MG IV Q6H (4) AMS (altered mental status) Status: Acute Qualifiers: Altered mental status type: transient alteration of awareness Qualified Code(s): R40.4 - Transient alteration of awareness (5) AAA (abdominal aortic aneurysm) Status: Chronic Qualifiers: Presence of rupture: without rupture Qualified Code(s): I71.4 - Abdominal aortic aneurysm, without rupture (6) Anemia Status: Chronic Qualifiers: Anemia type: iron deficiency Iron deficiency anemia type: unspecified iron deficiency Qualified Code(s): D50.9 - Iron deficiency anemia, unspecified (7) BPH (benign prostatic hyperplasia) Status: Chronic Qualifiers: Lower urinary tract symptom presence: unspecified whether lower urinary tract symptoms present Qualified Code(s): N40.0 - Benign prostatic hyperplasia without lower urinary tract symptoms (8) CAD (coronary artery disease) Status: Chronic Qualifiers: Coronary Disease-Associated Artery/Lesion type: [place] artery [place] vs. transplanted heart: [place] heart (9) Diabetes mellitus Status: Chronic Qualifiers: Diabetes mellitus type: type 2 Diabetes mellitus salvage determiner insulin use: unspecified salvage determiner insulin use status Diabetes mellitus complication status: without complication Qualified Code(s): E11.9 - Type 2 diabetes mellitus without complications (10) GERD (gastroesophageal reflux disease) Status: Chronic Qualifiers: Esophagitis presence: esophagitis presence not specified Qualified Code(s): K21.9 - Gastro-esophageal reflux disease without esophagitis (11) History of CVA (cerebrovascular accident) Status: Chronic (12) Hyperlipemia Status: Chronic Qualifiers: Hyperlipidemia type: mixed hyperlipidemia Qualified Code(s): E78.2 - Mixed hyperlipidemia (13) Hypertension Status: Chronic Qualifiers: Hypertension type: essential hypertension Qualified Code(s): I10 - Essential (primary) hypertension
[2020-06-16] MEDS: SNACK - Diabetic Appropriate PO SCH (21:49)
[2020-06-17] MEDS: MORPHINE SULFATE INJ 4 MG IVP PRN ×5 (03:00→21:20)
[2020-06-17] MEDS: LOPRESSOR INJ 5 MG AMP IVP SCH ×4 (05:27→22:20)
[2020-06-17] MEDS: SOLU-Medrol 125 MG VIAL IVP SCH ×3 (05:58→21:07)
[2020-06-17] MEDS: FORTAZ or TAZICEF VIAL INJ 1 G in NS 100 ML IV + SPIKE MINIBAG* 100 ML IV SCH ×3 (05:58→21:07)
[2020-06-17] MEDS: REVATIO PO SCH ×3 (05:58→21:07)
[2020-06-17] MEDS: XOPENEX 1.25 MG/3 ML NEBULE NEB SCH ×4 (05:59→21:37)
[2020-06-17] MEDS: MUCOMYST 20% 200 MG/ML NEB SCH (05:59)
[2020-06-17] MEDS: HumuLIN R SUBCUT PRN ×4 (05:59→21:00)
[2020-06-17 06:27] LABS: BASOPHILS % (AUTO) 0.1 % (0.2-1.0); EOSINOPHILS % (AUTO) 0.2 % (0.9-2.9); HEMATOCRIT 36.9 % (42.0-54.0); HEMOGLOBIN 12.6 g/dL (13.5-18.0); LYMPHOCYTES # (AUTO) 0.3 X10^3/uL (1.3-2.9); LYMPHOCYTES % (AUTO) 3.8 % (21.0-51.0); MEAN CORPUSCULAR HEMOGLOBIN 30.6 pg (27.0-34.0); MEAN CORPUSCULAR HGB CONC 34.1 g/dL (33.0-35.0); MEAN CORPUSCULAR VOLUME 89.7 fL (80.0-100.0); MEAN PLATELET VOLUME 11.7 fL (7.4-11.0); MONOCYTES # (AUTO) 0.1 x10^3/uL (0.3-0.8); MONOCYTES % (AUTO) 1.4 % (0.0-13.0); NEUTROPHILS # (AUTO) 8.1 x10^3/uL (2.2-4.8); NEUTROPHILS % (AUTO) 94.5 % (42.0-75.0); PLATELET COUNT 185 X10^3/uL (150.0-450.0); RED BLOOD COUNT 4.11 X10^6/uL (4.7-6.0); RED CELL DISTRIBUTION WIDTH 13.8 % (11.6-16.5); WHITE BLOOD COUNT 8.6 X10^3/uL (3.6-10.0)
[2020-06-17 07:04] LABS: PLATELET MORPHOLOGY COMMENT NORMAL (NORMAL)
[2020-06-17 07:06] LABS: ALANINE AMINOTRANSFERASE 73 Units/L (12-78); ALBUMIN 1.7 g/dL (3.4-5.0); ALKALINE PHOSPHATASE 85 Units/L (46-116); ASPARTATE AMINO TRANSFERASE 38 Units/L (15-37); BLOOD UREA NITROGEN 13 mg/dL (7-18); CALCIUM 7.7 mg/dL (8.5-10.1); CARBON DIOXIDE 28.3 mmol/L (21-32); CHLORIDE 93 mmol/L (98-107); COR CA(FOR HYPOALB) 9.5 mg/dL (8.5-10.1); COR NA(FOR HYPERGLY) 135 mmol/L (136-145); CREATININE 0.72 mg/dL (0.70-1.30); SODIUM 130 mmol/L (136-145); TOTAL PROTEIN 6.6 g/dL (6.4-8.2); eGFR NON BLACK RACES > 60 (>60)
[2020-06-17] MEDS: BROVANA IN SCH ×2 (08:55→21:37)
[2020-06-17] MEDS: PULMICORT NEB TX 0.5 MG NEB SCH ×2 (08:56→21:37)
[2020-06-17] MEDS: DIFLUCAN 200 MG IV PREMIX* 200 MG/100 ML BAG IV SCH (08:59)
[2020-06-17] MEDS: D5W 1000 ML IV 1,000 ML IV SCH ×2 (08:59→20:48)
[2020-06-17] MEDS: LANOXIN INJ IVP SCH (08:59)
[2020-06-17] MEDS: LEVAQUIN PREMIX IV 500 MG 500 MG/100 ML BAG IV SCH (09:01)
[2020-06-17] MEDS: LEVEMIR SC SCH ×2 (09:02→20:05)
[2020-06-17] MEDS: LOVENOX INJ 80 MG SYR SC SCH ×2 (09:03→20:05)
[2020-06-17] MEDS: PROTONIX INJ 40 MG VIAL IVP SCH (09:04)
[2020-06-17] MEDS: CLINIMIX 4.25 %/10 % 1,000 ML with MVI INJ (ADULT) 10 ML, TRACE ELEMENTS INJ 10 ML, POT... IV SCH ×20 (09:04→20:47)
[2020-06-17] MEDS: PEPCID 20 MG IV PREMIX* 20 MG/50 ML BAG IV SCH ×2 (09:54→20:06)
--- NOTE | 2020-06-17 09:56 | RAD ---
HISTORYCOVID PNEUMONIASTUDYCHEST, 1 VIEWCOMPARISONPrevious chest radiograph from 06/16/2020FINDINGSMild degree of cardiomegaly is seen. No significant vascular congestion however. Patchy infiltrates are again seen throughout the right lung as well as the left base. These findings have not changed significantly since the previous exam. No definite effusion is seen on either side. A right IJ line is again seen, extending down to the right atrium. Bony thorax is unremarkable.IMPRESSIONPersistent bilateral pulmonary infiltrates which have not changed significantly in appearance when compared to the previous exam.Electronically signed by: WALKER DENSON (Jun 17, 2020 09:55:53)
[2020-06-17] MEDS: AMINOPHYLLINE INJ 1,000 MG in DEXTROSE 5% 460 ML IV PRN (12:00)
[2020-06-17] MEDS: MAGIC MOUTHWASH MT PRN (12:22)
[2020-06-17 13:01] LABS: ABG ALLEN TEST POS
--- NOTE | 2020-06-17 14:25 | PCM.PROG ---
Progress Note - Progress Note for Day of Date of Exam: 06/17/20 - Subjective Subjective: WAS ADMITTED FOR TREATMENT OF PNEUMONIA DUE TO COVID-19 AND HYPOXIA. HE REMAINS IN THE INTENSIVE CARE UNIT TODAY. HE REMAINS ON THE BIPAP THIS MORNING. FI02 IS CURRENTLY AT 55%. HIS SATURATIONS HAVE BEEN 91-97% THIS MORNING AND THROUGHOUT THE NIGHT. TODAY, PATIENT IS LYING IN BED WITH EYES CLOSED ON MORNING ROUNDS. HE OPENS EYES TO VERBAL STIMULI. HE DOES SPEAK WHEN SPOKEN TO. SPEECH IS CLEARER TODAY THAN IT HAS BEEN. STAFF REPORTS THAT HE HAS RESTED WELL THROUGHOUT THE NIGHT AND HAS NOT BEEN AGITATED. HE CONTINUES WITH WEAKNESS. 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 ON EXAMINATION, HEART IS NORMAL IN RATE AND RHYTHM. BILATERAL LUNGS ARE NOTED WITH DIMINISHED LUNG SOUNDS THROUGHOUT. ABDOMEN IS ROUND, SOFT, AND NON-TENDER WITH NORMAL BOWEL SOUNDS NOTED IN ALL QUADRANTS. THERE IS TRACE EDEMA NOTED TO UPPER AND LOWER EXTREMITIES. HIS VITALS THIS MORNING ARE: 97.6-98-21-92%-153/78. LABS WERE OBTAINED. ABNORMAL LAB VALUES INCLUDE THE FOLLOWING: RBC 4.11, HGB 12.6, HCT 36.9, D-DIMER 0.98, SODIUM 130, CHLORIDE 93, GLUCOSE 291, CALCIUM 7.7, FERRITIN 2235, AST 38, CRP 167.10, ALBUMIN 1.7, GLOBULIN 4.9. AN ABG WAS OBTAINED AND REVEALED: PH 7.460, PC02 41, P02 146, HC03 29.2, 02 SAT 99, A-A GRADIENT 409, FI02 85. A CHEST XRAY WAS OBTAINED AND REVEALED: Persistent bilateral pulmonary infiltrates which have not changed significantly in appearance when compared to the previous exam. TODAY, WE WILL ADD DECADRON TO NEB [place] BID. WE WILL ATTEMPT TO DECREASE OXYGEN TOLERATED. OTHERWISE, WE WILL CONTINUE WITH CURRENT PLAN OF CARE TODAY. WE PLAN TO FOLLOW UP WITH AM LABS, CHEST XRAY, ABG, AND CONTINUE TO MONITOR. TIME SPENT ON CLINICAL ASSESSMENT, REVIEWING LABS AND IMAGING, DECISION MAKING, AND DOCUMENTATION GREATER THAN 75 MINUTES. - Past Medical Family Social History Past Med/Fam/Surg Hx: No changes since H&P Allergies: Allergies No Known Drug Allergies Allergy (Verified 06/01/20 13:35) - Review of Systems ROS: No change since H&P - Vital Signs and I&O's Vital Signs: Temperature 98.7 F Pulse Rate [Left Brachial] 79 Pulse Rate 85 Respiratory Rate 20 Blood Pressure [Left Calf] 166/88 Blood Pressure [Right Arm] 176/93 Blood Pressure [Left Arm] 147/83 Blood Pressure 161/88 O2 Sat by Pulse Oximetry 97 Intake and Output: Intake & Output 06/15/20 06/16/20 06/17/20 06/18/20 11:59 11:59 11:59 11:59 Intake Total 2345 / 2345 1658 / 1658 4279 / 4279 Output Total 3800 / 3800 3000 / 3000 4800 / 4800 Balance -1455 / -1455 -1342 / -1342 -521 / -521 - Physical Exam Oriented: Person Eyes: Normal Ear: Normal Nose: Normal Throat: Normal Respiratory: Generalized, Rales Cardiovascular: Irregular, Normal : Normal Auscultation: Bowel Sounds: Normal Palpation: Normal Tenderness: Normal Skin: Normal Musculoskeletal: Normal Psychiatric: Agitation Mood Description: Anxious Affect: Anxious, Violent Speech Pattern: Appropriate, Unclear - Laboratory and Diagnostics Result Diagrams: 06/17/20 05:10 06/17/20 05:10 Labs: 06/01/20 13:35 Blood Blood Culture - Final 06/01/20 13:21 Blood Blood Culture - Final Laboratory WBC 8.6 X10^3/uL (3.6-10.0) 06/17/20 05:10 RBC 4.11 X10^6/uL (4.7-6.0) L 06/17/20 05:10 Hgb 12.6 g/dL (13.5-18.0) L 06/17/20 05:10 Hct 36.9 % (42.0-54.0) L 06/17/20 05:10 MCV 89.7 fL (80.0-100.0) 06/17/20 05:10 MCH 30.6 pg (27.0-34.0) 06/17/20 05:10 MCHC 34.1 g/dL (33.0-35.0) 06/17/20 05:10 RDW 13.8 % (11.6-16.5) 06/17/20 05:10 Plt Count 185 X10^3/uL (150.0-450.0) 06/17/20 05:10 Plt Count Comment Adequate (ADEQUATE) 06/17/20 05:10 MPV 11.7 fL (7.4-11.0) H 06/17/20 05:10 Neut % (Auto) 94.5 % (42.0-75.0) H 06/17/20 05:10 Lymph % (Auto) 3.8 % (21.0-51.0) L 06/17/20 05:10 [place] % (Auto) 1.4 % (0.0-13.0) 06/17/20 05:10 Eos % (Auto) 0.2 % (0.9-2.9) L 06/17/20 05:10 Baso % (Auto) 0.1 % (0.2-1.0) L 06/17/20 05:10 Neut # (Auto) 8.1 x10^3/uL (2.2-4.8) H 06/17/20 05:10 Lymph # (Auto) 0.3 X10^3/uL (1.3-2.9) L 06/17/20 05:10 [place] # (Auto) 0.1 x10^3/uL (0.3-0.8) L 06/17/20 05:10 Eos # (Auto) 0.0 x10^3/uL (0.0-0.2) 06/17/20 05:10 Baso # (Auto) 0.0 X10^3/uL (0.0-0.1) 06/17/20 05:10 Absolute Nucleated RBC 0.3 /100WBC 06/17/20 05:10 Total Counted 100 06/17/20 05:10 Neutrophils % (Manual) 93 % (39-76) H 06/17/20 05:10 Band Neutrophils % 2 % (0-10) 06/16/20 05:28 Lymphocytes % (Manual) 5 % (13-43) L 06/17/20 05:10 Monocytes % (Manual) 2 % (4-9) L 06/17/20 05:10 Giant Platelets Few 06/10/20 04:40 Plt Morphology Comment Normal (NORMAL) 06/17/20 05:10 RBC Morphology Normal (NORMAL) 06/17/20 05:10 PT 17.2 SECONDS (11.8-14.3) 06/02/20 22:35 INR Target Range - 06/02/20 22:35 INR 1.45 (0.8-1.3) H 06/02/20 22:35 APTT 93.2 SECONDS (22.9-36.5) H 06/11/20 08:22 PTT Comment - 06/11/20 08:22 D-Dimer 0.98 ug/ml (0.0-0.57) H* 06/16/20 05:28 Sample Site Rrad 06/16/20 04:54 ABG pH 7.460 (7.35-7.45) H 06/16/20 04:54 ABG pCO2 41.0 mmHg (35.0-45.0) 06/16/20 04:54 ABG pO2 146.0 mmHg (80.0-100.0) H 06/16/20 04:54 ABG HCO3 29.2 mmol/L (22-26) H 06/16/20 04:54 ABG O2 Saturation 99.0 % (90-100) 06/16/20 04:54 ABG Base Excess 4.9 mmol/L (-2.0-2.0) H 06/16/20 04:54 Partha Test Pos 06/16/20 04:54 A-a Gradient 409.0 mmHg 06/16/20 04:54 FiO2 85.0 06/16/20 04:54 Blood Gas Comments Ivana abg well-mtf 06/16/20 04:54 Sodium 130 mmol/L (136-145) L 06/17/20 05:10 Corrected Sodium 135 mmol/L (136-145) L 06/17/20 05:10 Potassium 3.7 mmol/L (3.5-5.1) 06/17/20 05:10 Chloride 93 mmol/L (98-107) L 06/17/20 05:10 Carbon Dioxide 28.3 mmol/L (21-32) 06/17/20 05:10 BUN 13 mg/dL (7-18) 06/17/20 05:10 Creatinine 0.72 mg/dL (0.70-1.30) 06/17/20 05:10 Est GFR (MDRD) Af Amer > 60 (>60) 06/17/20 05:10 Est GFR (MDRD) Non-Af > 60 (>60) 06/17/20 05:10 Glucose 291 mg/dL (65-99) H 06/17/20 05:10 POC Glucose (mg/dL) 250 mg/dL (65-99) H 06/17/20 11:18 Lactic Acid 1.4 mmol/L (0.4-2.0) 06/15/20 05:15 Calcium 7.7 mg/dL (8.5-10.1) L 06/17/20 05:10 Corrected Calcium 9.5 mg/dL (8.5-10.1) 06/17/20 05:10 Magnesium 1.8 mg/dL (1.7-2.9) 06/15/20 05:15 Ferritin 2235 ng/mL (26-388) H 06/17/20 05:10 Total Bilirubin 0.30 mg/dL (0.2-1.0) 06/17/20 05:10 AST 38 Units/L (15-37) H 06/17/20 05:10 ALT 73 Units/L (12-78) 06/17/20 05:10 Alkaline Phosphatase 85 Units/L (46-116) 06/17/20 05:10 Ammonia 44 umol/L (11-32) H 06/05/20 08:23 Creatine Kinase 448 Units/L (39-308) H 06/03/20 04:30 CK-MB (CK-2) 10.3 ng/mL (0-4.0) H* 06/03/20 04:30 CK/CKMB % Calc 2.3 % (<4) 06/03/20 04:30 Troponin I 0.22 ng/mL (0-1.5) 06/03/20 04:30 C-Reactive Protein 167.10 mg/L (0-3.0) H 06/17/20 05:10 B-Natriuretic Peptide 526 pg/mL (0-79) H* 06/16/20 05:28 Total Protein 6.6 g/dL (6.4-8.2) 06/17/20 05:10 Albumin 1.7 g/dL (3.4-5.0) L 06/17/20 05:10 Globulin 4.9 g/dL (2.5-4.5) H 06/17/20 05:10 Albumin/Globulin Ratio 0.3 Ratio (1.1-2.1) L 06/17/20 05:10 Prealbumin 16.1 mg/dL (18-35.7) L 06/06/20 06:07 Specimen Type Clean catch urine 06/02/20 18:03 Urine Color Yellow (YELLOW) 06/02/20 18:03 Urine Appearance Clear (CLEAR) 06/02/20 18:03 Urine pH 5.0 (5.0 - 8.0) 06/02/20 18:03 Ur Specific [place] 1.010 (1.000-1.030) 06/02/20 18:03 Urine Protein 3+ (NEGATIVE) 06/02/20 18:03 Urine Glucose (UA) 4+ (NEGATIVE) 06/02/20 18: Urine Ketones 3+ (NEGATIVE) 06/02/20 18: Urine Occult Blood 3+ (NEGATIVE) 06/02/20 18:03 Urine Nitrite Negative (NEGATIVE) 06/02/20 18:03 Urine Bilirubin Negative (NEGATIVE) 06/02/20 18:03 Urine Urobilinogen Normal (NORMAL) 06/02/20 18:03 Ur Leukocyte Esterase Negative (NEGATIVE) 06/02/20 18:03 Urine RBC 3-5 /HPF (0-3) A 06/02/20 18:03 Urine WBC None seen /HPF (0-5) 06/02/20 18:03 Ur Squamous Epith Cells Negative /HPF (NEGATIVE) 06/02/20 18:03 Urine Bacteria Negative /HPF (NEGATIVE) 06/02/20 18:03 Ur Culture Indicated? No/not indicated 06/02/20 18:03 Digoxin 0.68 ng/mL (0.9-2) L 06/15/20 05:15 Phenobarbital 10.1 ug/mL (15-40) L 06/05/20 08:23 Theophylline < 2.0 ug/mL (10-20) L 06/15/20 05:15 SARS CoV-2 RNA Rapid LADAN Positive (NEGATIVE) A 06/01/20 13:23 Blood Type A POSITIVE 06/01/20 13:35 - Plan (1) Pneumonia due to COVID-19 virus Status: Suspected Plan: D5W AT 75 ML/HR, TPN, FORTAZ 1G IV Q8H, LEVAQUIN 500MG IV DAILY, DIFLUCAN 200MG IV DAILY, THEOPHYLLINE DRIP, BROVANA 15MCG NEB BID, PULMICORT NEB BID, XOPENEX NEB TID, MUCOMYST IN NEBS TID, CATAPRES 0.3MG/HR TD PATCH, DIGOXIN 250MCG IV DAILY, LOVENOX 80MG SC BID, PEPCID 20MG IV Q12H, HYDRALAZINE 10MG IV Q4H PRN, LEMEVIR 12 UNITS SC BID, HUMULIN R SLIDING SCALE, MAGIC MOUTHWASH QID PRN, SOLU-MEDROL 80MG IV Q8H, LOPRESSOR 5MG IV Q6H, PROTONIX 40MG IV DAILY, SILDENAFIL 20MG PO TID, THE POTASSIUM AND MAGNESIUM PROTOCOLS. (2) Hypoxia Status: Chronic (3) Atrial fibrillation with RVR Status: Acute Plan: DIGOXIN 250MCG IV DAILY, LOPRESSOR 5MG IV Q6H (4) AMS (altered mental status) Status: Acute Qualifiers: Altered mental status type: transient alteration of awareness Qualified Code(s): R40.4 - Transient alteration of awareness (5) AAA (abdominal aortic aneurysm) Status: Chronic Qualifiers: Presence of rupture: without rupture Qualified Code(s): I71.4 - Abdominal aortic aneurysm, without rupture (6) Anemia Status: Chronic Qualifiers: Anemia type: iron deficiency Iron deficiency anemia type: unspecified iron deficiency Qualified Code(s): D50.9 - Iron deficiency anemia, unspecified (7) BPH (benign prostatic hyperplasia) Status: Chronic Qualifiers: Lower urinary tract symptom presence: unspecified whether lower urinary tract symptoms present Qualified Code(s): N40.0 - Benign prostatic hyperplasia without lower urinary tract symptoms (8) CAD (coronary artery disease) Status: Chronic Qualifiers: Coronary Disease-Associated Artery/Lesion type: [place] artery [place] vs. 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: unspecified mcc insulin use status Diabetes mellitus complication status: without complication Qualified Code(s): E11.9 - Type 2 diabetes mellitus without complications (10) GERD (gastroesophageal reflux disease) Status: Chronic Qualifiers: Esophagitis presence: esophagitis presence not specified Qualified Code(s): K21.9 - Gastro-esophageal reflux disease without esophagitis (11) History of CVA (cerebrovascular accident) Status: Chronic (12) Hyperlipemia Status: Chronic Qualifiers: Hyperlipidemia type: mixed hyperlipidemia Qualified Code(s): E78.2 - Mixed hyperlipidemia (13) Hypertension Status: Chronic Qualifiers: Hypertension type: essential hypertension Qualified Code(s): I10 - Essential (primary) hypertension
[2020-06-17] MEDS: DECADRON JET NEB (RESP USE) NEB SCH ×2 (14:47→17:10)
[2020-06-17] MEDS: SNACK - Diabetic Appropriate PO SCH (20:04)
[2020-06-18] MEDS: OFIRMEV IV 1000 MG VIAL 500 MG/50 ML VIAL IV PRN ×2 (00:14→20:49)
[2020-06-18] MEDS: MAGIC MOUTHWASH MT PRN ×3 (00:18→20:05)
[2020-06-18] MEDS: MORPHINE SULFATE INJ 4 MG IVP PRN ×5 (01:15→23:18)
[2020-06-18] MEDS: REVATIO PO SCH ×3 (02:45→21:58)
[2020-06-18] MEDS: LOPRESSOR INJ 5 MG AMP IVP SCH ×4 (04:37→22:11)
[2020-06-18] MEDS: FORTAZ or TAZICEF VIAL INJ 1 G in NS 100 ML IV + SPIKE MINIBAG* 100 ML IV SCH ×3 (05:32→21:58)
[2020-06-18] MEDS: SOLU-Medrol 125 MG VIAL IVP SCH ×3 (05:33→21:58)
[2020-06-18] MEDS: HumuLIN R SUBCUT PRN ×4 (05:52→20:05)
[2020-06-18 05:53] LABS: ABG BASE EXCESS 8.7 mmol/L (-2.0-2.0); ABG HCO3 33.5 mmol/L (22-26)
[2020-06-18 05:54] LABS: ABG ALLEN TEST POS
[2020-06-18 06:19] LABS: BASOPHILS % (AUTO) 0.1 % (0.2-1.0); EOSINOPHILS # (AUTO) 0.1 x10^3/uL (0.0-0.2); EOSINOPHILS % (AUTO) 0.8 % (0.9-2.9); HEMATOCRIT 37.4 % (42.0-54.0); HEMOGLOBIN 12.5 g/dL (13.5-18.0); LYMPHOCYTES # (AUTO) 0.4 X10^3/uL (1.3-2.9); LYMPHOCYTES % (AUTO) 3.5 % (21.0-51.0); MEAN CORPUSCULAR HGB CONC 33.5 g/dL (33.0-35.0); MEAN CORPUSCULAR VOLUME 89.5 fL (80.0-100.0); MEAN PLATELET VOLUME 11.1 fL (7.4-11.0); MONOCYTES # (AUTO) 0.2 x10^3/uL (0.3-0.8); MONOCYTES % (AUTO) 1.7 % (0.0-13.0); NEUTROPHILS # (AUTO) 9.9 x10^3/uL (2.2-4.8); NEUTROPHILS % (AUTO) 93.9 % (42.0-75.0); PLATELET COUNT 261 X10^3/uL (150.0-450.0); RED BLOOD COUNT 4.18 X10^6/uL (4.7-6.0); RED CELL DISTRIBUTION WIDTH 13.8 % (11.6-16.5); WHITE BLOOD COUNT 10.6 X10^3/uL (3.6-10.0)
[2020-06-18 06:48] LABS: ALANINE AMINOTRANSFERASE 135 Units/L (12-78); ALBUMIN 1.6 g/dL (3.4-5.0); ALKALINE PHOSPHATASE 95 Units/L (46-116); ASPARTATE AMINO TRANSFERASE 48 Units/L (15-37); BLOOD UREA NITROGEN 14 mg/dL (7-18); CALCIUM 8.1 mg/dL (8.5-10.1); CARBON DIOXIDE 28.9 mmol/L (21-32); CHLORIDE 93 mmol/L (98-107); COR NA(FOR HYPERGLY) 133 mmol/L (136-145); CREATININE 0.67 mg/dL (0.70-1.30); MAGNESIUM 1.7 mg/dL (1.7-2.9); SODIUM 129 mmol/L (136-145); TOTAL PROTEIN 6.4 g/dL (6.4-8.2); eGFR NON BLACK RACES > 60 (>60)
[2020-06-18 07:24] LABS: PLATELET MORPHOLOGY COMMENT NORMAL (NORMAL)
--- NOTE | 2020-06-18 07:43 | RAD ---
HISTORYSOBSTUDYCHEST, 1 VIEWCOMPARISONOne day prior.TECHNIQUEAP view of the chestFINDINGSRight IJ central line in good position. Post median sternotomy and CABG. The cardiac and mediastinal contours appear stable. No significant change in bilateral airspace opacities, worse on the left. Blunted costophrenic sulci. No discernible pneumothorax.IMPRESSIONNo significant change. Stable pulmonary opacities. Suspect small pleural effusions.Electronically signed by: Mitchel Carrera (Jun 18, 2020 07:42:34)
[2020-06-18] MEDS: AMINOPHYLLINE INJ 1,000 MG in DEXTROSE 5% 460 ML IV PRN (08:00)
[2020-06-18] MEDS: PULMICORT NEB TX 0.5 MG NEB SCH ×2 (08:36→21:05)
[2020-06-18] MEDS: XOPENEX 1.25 MG/3 ML NEBULE NEB SCH ×4 (08:36→21:05)
[2020-06-18] MEDS: LANOXIN INJ IVP SCH (08:44)
[2020-06-18] MEDS: LEVEMIR SC SCH ×2 (08:44→20:03)
[2020-06-18] MEDS: PROTONIX INJ 40 MG VIAL IVP SCH (08:45)
[2020-06-18] MEDS: LOVENOX INJ 80 MG SYR SC SCH ×2 (08:45→20:03)
[2020-06-18] MEDS: BROVANA IN SCH ×2 (08:45→21:15)
[2020-06-18] MEDS: PEPCID 20 MG IV PREMIX* 20 MG/50 ML BAG IV SCH ×2 (08:55→20:04)
[2020-06-18] MEDS: DIFLUCAN 200 MG IV PREMIX* 200 MG/100 ML BAG IV SCH (09:22)
[2020-06-18] MEDS: CARDIZEM INJ 125 MG VIAL 125 MG in NS 100 ML IV 100 ML IV PRN ×2 (10:21→22:10)
[2020-06-18] MEDS: CLINIMIX 4.25 %/10 % 1,000 ML with MVI INJ (ADULT) 10 ML, TRACE ELEMENTS INJ 10 ML, POT... IV SCH ×20 (10:24→13:05)
[2020-06-18] MEDS: D5W 1000 ML IV 1,000 ML IV SCH (10:24)
[2020-06-18] MEDS: LEVAQUIN PREMIX IV 500 MG 500 MG/100 ML BAG IV SCH (10:35)
[2020-06-18] MEDS: CATAPRES-TTS-3 TD SCH (10:37)
--- NOTE | 2020-06-18 11:36 | VAS ---
HISTORYBIL LEG PAINSTUDYLOWER EXT VENOUS, BILATERALCOMPARISONNoneTECHNIQUEMultiple gamino scale and color flow Doppler images of the deep venous system were obtained of the right and left lower extremity.FINDINGSThe deep venous system of the right and left lower extremities were evaluated from the level of the common femoral vein through the popliteal vein. Normal color flow and augmentation can be observed. In addition, normal compression is seen throughout the deep venous system.IMPRESSIONNegative for DVT.Electronically signed by: CONOR LOBATO (Jun 18, 2020 11:35:06)
--- NOTE | 2020-06-18 11:43 | RAD ---
HISTORYABDOMINAL DISTENTIONSTUDYKUB, x-ray abdomen one viewCOMPARISONX-ray 06/08/2020FINDINGSPossible mild right-sided constipation. Mild gaseous distention of the colon is seen, similar to prior study. Consider possible mild ileus. Phleboliths are suspected in the pelvis. Graft is seen in the aorta and common iliac arteries.IMPRESSIONPossible mild ileus and constipation.Electronically signed by: Larry Magallanes (Jun 18, 2020 11:42:36)
[2020-06-18] MEDS ORDERED: DULCOLAX SUPPOSITORY 10 MG RECTAL SCH (12:00)
--- NOTE | 2020-06-18 12:00 | VAS ---
LOWER EXT ARTERIALHISTORY:UCHE LEG TEMP CHANGEComparison:NoneTechnique:Multiple gamino scale and color flow Doppler images of the right and left lower extremity arterial system were obtained. Interrogation of the common femoral artery, superficial femoral artery, popliteal artery, and tibial arteries was performed.Findings:Triphasic and biphasic waveforms are seen throughout the right and left lower extremity from the common femoral arterial system to the tibial runoff.Right extremity:Common femoral : 75 cm/sSuperficial femoral proximal: 85 cm/sSuperficial femoral mid: 81 cm/sSuperficial femoral distal : 76 cm/sPopliteal : 55 cm/sPosterior tibial : 125 cm/sAnterior tibial: 51 cm/sDorsalis pedis: 56 cm/sLeft extremity:Common femoral : 80 cm/sSuperficial femoral proximal: 98 cm/sSuperficial femoral mid: 94 cm/sSuperficial femoral distal :97 cm/sPopliteal : 81 cm/sPosterior tibial : 89 cm/sAnterior tibial: 33 cm/sDorsalis pedis: 40 cm/sIMPRESSION:No velocities suggestive of hemodynamically significant stenosis of the left lower extremity arterial system. Doubling of velocity between the popliteal and posterior tibial artery in the right lower extremity may be due to mild hemodynamically significant stenosis.http://www.ncbi.nlm.nih.gov/pubmed/57321203Chnqagbpyontbr signed by: Larry Magallanes (Jun 11:59:06)
[2020-06-18] MEDS: DECADRON JET NEB (RESP USE) NEB SCH ×2 (12:55→16:20)
[2020-06-18] MEDS: ZOFRAN INJ 4 MG VIAL IVP PRN (15:01)
[2020-06-18] MEDS ORDERED: NS 100 ML IV 100 ML IV ONE (15:25)
[2020-06-18] MEDS ORDERED: NS 500 ML IV 500 ML IV PRN (19:47)
[2020-06-18] MEDS: SNACK - Diabetic Appropriate PO SCH (20:03)
[2020-06-18] MEDS: MAGNESIUM SULFATE 1 GRAM/100 mL PREMIX 1 GM/100 ML BAG IV PRN (23:20)
[2020-06-19] MEDS: MAGNESIUM SULFATE 1 GRAM/100 mL PREMIX 1 GM/100 ML BAG IV PRN (00:02)
[2020-06-19] MEDS: MORPHINE SULFATE INJ 4 MG IVP PRN ×4 (02:58→22:37)
[2020-06-19] MEDS: LOPRESSOR INJ 5 MG AMP IVP SCH ×4 (04:36→22:28)
[2020-06-19 04:57] LABS: BASOPHILS % (AUTO) 0.4 % (0.2-1.0); EOSINOPHILS % (AUTO) 0.1 % (0.9-2.9); HEMATOCRIT 37.1 % (42.0-54.0); HEMOGLOBIN 12.2 g/dL (13.5-18.0); LYMPHOCYTES # (AUTO) 0.2 X10^3/uL (1.3-2.9); LYMPHOCYTES % (AUTO) 1.9 % (21.0-51.0); MEAN CORPUSCULAR HEMOGLOBIN 29.6 pg (27.0-34.0); MEAN CORPUSCULAR HGB CONC 32.8 g/dL (33.0-35.0); MEAN CORPUSCULAR VOLUME 90.2 fL (80.0-100.0); MEAN PLATELET VOLUME 10.6 fL (7.4-11.0); MONOCYTES # (AUTO) 0.1 x10^3/uL (0.3-0.8); MONOCYTES % (AUTO) 1.5 % (0.0-13.0); NEUTROPHILS # (AUTO) 8.9 x10^3/uL (2.2-4.8); NEUTROPHILS % (AUTO) 96.1 % (42.0-75.0); PLATELET COUNT 270 X10^3/uL (150.0-450.0); RED BLOOD COUNT 4.11 X10^6/uL (4.7-6.0); RED CELL DISTRIBUTION WIDTH 13.6 % (11.6-16.5); WHITE BLOOD COUNT 9.2 X10^3/uL (3.6-10.0)
[2020-06-19 05:07] LABS: ABG ALLEN TEST POS; ABG BASE EXCESS 8.5 mmol/L (-2.0-2.0); ABG HCO3 32.8 mmol/L (22-26)
[2020-06-19 05:13] LABS: ALANINE AMINOTRANSFERASE 166 Units/L (12-78); ALBUMIN 1.7 g/dL (3.4-5.0); ALKALINE PHOSPHATASE 120 Units/L (46-116); ASPARTATE AMINO TRANSFERASE 58 Units/L (15-37); BLOOD UREA NITROGEN 16 mg/dL (7-18); CHLORIDE 91 mmol/L (98-107); COR CA(FOR HYPOALB) 9.8 mg/dL (8.5-10.1); COR NA(FOR HYPERGLY) 130 mmol/L (136-145); CREATININE 0.75 mg/dL (0.70-1.30); DIGOXIN 1.06 ng/mL (0.9-2); MAGNESIUM 2.1 mg/dL (1.7-2.9); SODIUM 126 mmol/L (136-145); TOTAL PROTEIN 6.5 g/dL (6.4-8.2); eGFR NON BLACK RACES > 60 (>60)
[2020-06-19] MEDS: REVATIO PO SCH ×3 (05:24→21:01)
[2020-06-19] MEDS: SOLU-Medrol 125 MG VIAL IVP SCH ×3 (05:24→21:38)
[2020-06-19] MEDS: FORTAZ or TAZICEF VIAL INJ 1 G in NS 100 ML IV + SPIKE MINIBAG* 100 ML IV SCH ×3 (05:24→21:01)
[2020-06-19] MEDS: D5W 1000 ML IV 1,000 ML IV SCH ×2 (05:25→07:59)
[2020-06-19] MEDS: CLINIMIX 4.25 %/10 % 1,000 ML with MVI INJ (ADULT) 10 ML, TRACE ELEMENTS INJ 10 ML, POT... IV SCH ×20 (05:25→07:59)
[2020-06-19 05:44] LABS: PLATELET MORPHOLOGY COMMENT NORMAL (NORMAL)
[2020-06-19] MEDS: HumuLIN R SUBCUT PRN ×3 (05:44→16:27)
--- NOTE | 2020-06-19 05:46 | RAD ---
HISTORYcovidSTUDYPortable AP chestCOMPARISONFebruary 2020FINDINGSSimilar cardiac size and contour. There is no change in appearance of the lungs. Diffuse interstitial and airspace densities are again noted. No new areas of consolidation are seen. Stable position of right IJ line extending to the right atrium. No pneumothorax or pleural fluid.IMPRESSIONNo interval change.Electronically signed by: ELIZABETH GOMZE (Jun 19, 2020 05:45:48)
[2020-06-19] MEDS: ZOFRAN INJ 4 MG VIAL IVP PRN ×2 (06:19→11:46)
[2020-06-19] MEDS: AMINOPHYLLINE INJ 1,000 MG in DEXTROSE 5% 460 ML IV PRN (06:48)
[2020-06-19] MEDS: CARDIZEM INJ 125 MG VIAL 125 MG in NS 100 ML IV 100 ML IV PRN ×2 (08:14→17:45)
[2020-06-19] MEDS: LANOXIN INJ IVP SCH (08:21)
[2020-06-19] MEDS: LEVEMIR SC SCH ×2 (08:22→20:56)
[2020-06-19] MEDS: LOVENOX INJ 80 MG SYR SC SCH ×2 (08:23→20:05)
[2020-06-19] MEDS: PROTONIX INJ 40 MG VIAL IVP SCH (08:23)
[2020-06-19] MEDS: PEPCID 20 MG IV PREMIX* 20 MG/50 ML BAG IV SCH ×2 (08:36→20:05)
[2020-06-19] MEDS: BROVANA IN SCH ×2 (08:48→21:51)
[2020-06-19] MEDS: XOPENEX 1.25 MG/3 ML NEBULE NEB SCH ×4 (09:00→22:03)
[2020-06-19] MEDS: PULMICORT NEB TX 0.5 MG NEB SCH ×2 (09:00→22:03)
[2020-06-19] MEDS: LEVAQUIN PREMIX IV 500 MG 500 MG/100 ML BAG IV SCH (09:33)
[2020-06-19] MEDS: DIFLUCAN 200 MG IV PREMIX* 200 MG/100 ML BAG IV SCH (10:09)
[2020-06-19] MEDS ORDERED: CLINIMIX 4.25 %/10 % 1,000 ML with MVI INJ (ADULT) 10 ML, TRACE ELEMENTS INJ 10 ML, POT... IV SCH ×9 (11:00)
[2020-06-19] MEDS ORDERED: NS 1/2 1000 ML IV 1,000 ML IV ONE ×2 (11:34→18:55)
[2020-06-19] MEDS: NS 1/2 1000 ML IV 1,000 ML IV SCH (11:38)
[2020-06-19] MEDS: DECADRON JET NEB (RESP USE) NEB SCH ×2 (12:51→17:22)
[2020-06-19] MEDS: MAGIC MOUTHWASH MT PRN (18:31)
[2020-06-19] MEDS: SNACK - Diabetic Appropriate PO SCH (20:04)
[2020-06-20] MEDS: MORPHINE SULFATE INJ 4 MG IVP PRN ×4 (02:40→20:37)
[2020-06-20] MEDS: AMINOPHYLLINE INJ 1,000 MG in DEXTROSE 5% 460 ML IV PRN ×2 (03:58→23:59)
[2020-06-20] MEDS: NS 1/2 1000 ML IV 1,000 ML IV SCH ×2 (03:58→13:38)
[2020-06-20] MEDS: LOPRESSOR INJ 5 MG AMP IVP SCH ×4 (04:11→22:08)
[2020-06-20 04:55] LABS: BASOPHILS % (AUTO) 0.1 % (0.2-1.0); EOSINOPHILS % (AUTO) 0.3 % (0.9-2.9); HEMATOCRIT 36.4 % (42.0-54.0); HEMOGLOBIN 12.2 g/dL (13.5-18.0); LYMPHOCYTES # (AUTO) 0.2 X10^3/uL (1.3-2.9); LYMPHOCYTES % (AUTO) 2.9 % (21.0-51.0); MEAN CORPUSCULAR HEMOGLOBIN 30.2 pg (27.0-34.0); MEAN CORPUSCULAR HGB CONC 33.5 g/dL (33.0-35.0); MEAN CORPUSCULAR VOLUME 90.2 fL (80.0-100.0); MONOCYTES # (AUTO) 0.1 x10^3/uL (0.3-0.8); MONOCYTES % (AUTO) 1.7 % (0.0-13.0); NEUTROPHILS # (AUTO) 7.3 x10^3/uL (2.2-4.8); PLATELET COUNT 234 X10^3/uL (150.0-450.0); RED BLOOD COUNT 4.04 X10^6/uL (4.7-6.0); RED CELL DISTRIBUTION WIDTH 13.8 % (11.6-16.5); WHITE BLOOD COUNT 7.7 X10^3/uL (3.6-10.0)
[2020-06-20 05:02] LABS: ABG ALLEN TEST POS; ABG BASE EXCESS 6.2 mmol/L (-2.0-2.0); ABG HCO3 29.5 mmol/L (22-26)
[2020-06-20] MEDS: FORTAZ or TAZICEF VIAL INJ 1 G in NS 100 ML IV + SPIKE MINIBAG* 100 ML IV SCH ×3 (05:02→21:22)
[2020-06-20] MEDS: REVATIO PO SCH ×3 (05:02→21:23)
[2020-06-20] MEDS: SOLU-Medrol 125 MG VIAL IVP SCH ×3 (05:03→21:23)
[2020-06-20 05:10] LABS: ALANINE AMINOTRANSFERASE 123 Units/L (12-78); ALBUMIN 1.6 g/dL (3.4-5.0); ALKALINE PHOSPHATASE 102 Units/L (46-116); ASPARTATE AMINO TRANSFERASE 39 Units/L (15-37); BLOOD UREA NITROGEN 16 mg/dL (7-18); CALCIUM 7.6 mg/dL (8.5-10.1); CARBON DIOXIDE 28.3 mmol/L (21-32); CHLORIDE 91 mmol/L (98-107); COR CA(FOR HYPOALB) 9.5 mg/dL (8.5-10.1); COR NA(FOR HYPERGLY) 125 mmol/L (136-145); DIGOXIN 0.92 ng/mL (0.9-2); TOTAL PROTEIN 6.1 g/dL (6.4-8.2); eGFR NON BLACK RACES > 60 (>60)
[2020-06-20 05:16] LABS: SODIUM 124 mmol/L (136-145)
[2020-06-20 05:29] LABS: PLATELET MORPHOLOGY COMMENT NORMAL (NORMAL)
--- NOTE | 2020-06-20 06:06 | RAD ---
HISTORYcovidSTUDYPortable AP chestCOMPARISONFebruary 2020FINDINGSSimilar cardiac size and contour. Stable degree and distribution of airspace disease, left lower lobe greater than right. Suggestion of new extrapulmonary air at the cardiac apex; pneumomediastinum may be present. Stable position of right IJ line. No pleural effusion is evident.IMPRESSIONNo change in appearance of heart or lungs. Similar distribution of pneumonia. Suspect developing pneumomediastinum or pneumopericardium, see above.Electronically signed by: ELIZABETH GOMEZ (Jun 20, 2020 06:04:30)
[2020-06-20] MEDS: LANOXIN INJ IVP SCH (08:07)
[2020-06-20] MEDS: LEVEMIR SC SCH ×2 (08:07→20:15)
[2020-06-20] MEDS: PEPCID 20 MG IV PREMIX* 20 MG/50 ML BAG IV SCH ×2 (08:08→20:16)
[2020-06-20] MEDS: LOVENOX INJ 80 MG SYR SC SCH ×2 (08:08→20:17)
[2020-06-20] MEDS: PROTONIX INJ 40 MG VIAL IVP SCH (08:09)
[2020-06-20] MEDS: LEVAQUIN PREMIX IV 500 MG 500 MG/100 ML BAG IV SCH (09:15)
[2020-06-20] MEDS: BROVANA IN SCH ×2 (09:15→20:44)
[2020-06-20] MEDS: XOPENEX 1.25 MG/3 ML NEBULE NEB SCH ×4 (09:26→20:53)
[2020-06-20] MEDS: PULMICORT NEB TX 0.5 MG NEB SCH ×2 (09:26→20:53)
[2020-06-20] MEDS: APRESOLINE INJ 20 MG VIAL IVP PRN (09:43)
[2020-06-20] MEDS ORDERED: CLINIMIX 4.25 %/10 % 1,000 ML with MVI INJ (ADULT) 10 ML, TRACE ELEMENTS INJ 10 ML, POT... IV SCH ×9 (10:00)
[2020-06-20] MEDS: DIFLUCAN 200 MG IV PREMIX* 200 MG/100 ML BAG IV SCH (10:12)
[2020-06-20] MEDS: CLINIMIX 4.25 %/10 % 1,000 ML with MVI INJ (ADULT) 10 ML, TRACE ELEMENTS INJ 10 ML, POT... IV SCH ×8 (11:34)
[2020-06-20] MEDS: CARDIZEM INJ 125 MG VIAL 125 MG in NS 100 ML IV 100 ML IV PRN ×2 (11:35→20:16)
[2020-06-20] MEDS: HumuLIN R SUBCUT PRN ×2 (11:57→16:46)
[2020-06-20] MEDS: DECADRON JET NEB (RESP USE) NEB SCH ×2 (14:08→17:46)
[2020-06-20] MEDS: SNACK - Diabetic Appropriate PO SCH (20:13)
[2020-06-20] MEDS: COLACE CAP 100 MG PO SCH (20:14)
[2020-06-20] MEDS: ZOFRAN INJ 4 MG VIAL IVP PRN (20:37)
[2020-06-20] MEDS: MAGIC MOUTHWASH MT PRN (20:54)
[2020-06-20] MEDS ORDERED: NS 1000 ML 1,000 ML IV ONE (21:12)
[2020-06-20] MEDS ORDERED: NS 1000 ML 1,000 ML ONE (21:21)
[2020-06-21] MEDS: MORPHINE SULFATE INJ 4 MG IVP PRN ×2 (00:38→05:53)
[2020-06-21] MEDS: LOPRESSOR INJ 5 MG AMP IVP SCH ×4 (04:27→22:14)
[2020-06-21] MEDS: CARDIZEM INJ 125 MG VIAL 125 MG in NS 100 ML IV 100 ML IV PRN ×3 (04:28→20:34)
[2020-06-21 05:33] LABS: ABG ALLEN TEST POS; ABG BASE EXCESS 4.9 mmol/L (-2.0-2.0); ABG HCO3 27.9 mmol/L (22-26)
[2020-06-21] MEDS: REVATIO PO SCH ×3 (05:52→22:13)
[2020-06-21] MEDS: FORTAZ or TAZICEF VIAL INJ 1 G in NS 100 ML IV + SPIKE MINIBAG* 100 ML IV SCH ×3 (05:52→22:13)
[2020-06-21] MEDS: SOLU-Medrol 125 MG VIAL IVP SCH ×3 (05:52→22:13)
[2020-06-21] MEDS: MAGIC MOUTHWASH MT PRN (05:53)
[2020-06-21] MEDS: HumuLIN R SUBCUT PRN ×4 (05:55→20:35)
[2020-06-21 06:06] LABS: BASOPHILS % (AUTO) 0.2 % (0.2-1.0); HEMATOCRIT 34.5 % (42.0-54.0); HEMOGLOBIN 11.8 g/dL (13.5-18.0); LYMPHOCYTES # (AUTO) 0.2 X10^3/uL (1.3-2.9); LYMPHOCYTES % (AUTO) 2.3 % (21.0-51.0); MEAN CORPUSCULAR HEMOGLOBIN 30.5 pg (27.0-34.0); MEAN CORPUSCULAR HGB CONC 34.3 g/dL (33.0-35.0); MEAN CORPUSCULAR VOLUME 88.9 fL (80.0-100.0); MEAN PLATELET VOLUME 9.9 fL (7.4-11.0); MONOCYTES # (AUTO) 0.2 x10^3/uL (0.3-0.8); MONOCYTES % (AUTO) 3.1 % (0.0-13.0); NEUTROPHILS # (AUTO) 7.6 x10^3/uL (2.2-4.8); NEUTROPHILS % (AUTO) 94.4 % (42.0-75.0); PLATELET COUNT 239 X10^3/uL (150.0-450.0); RED BLOOD COUNT 3.88 X10^6/uL (4.7-6.0); RED CELL DISTRIBUTION WIDTH 13.5 % (11.6-16.5); WHITE BLOOD COUNT 8.1 X10^3/uL (3.6-10.0)
[2020-06-21 06:23] LABS: ALANINE AMINOTRANSFERASE 145 Units/L (12-78); ALBUMIN 1.6 g/dL (3.4-5.0); ALKALINE PHOSPHATASE 107 Units/L (46-116); ASPARTATE AMINO TRANSFERASE 53 Units/L (15-37); BLOOD UREA NITROGEN 16 mg/dL (7-18); CALCIUM 7.4 mg/dL (8.5-10.1); CARBON DIOXIDE 26.6 mmol/L (21-32); CHLORIDE 90 mmol/L (98-107); COR CA(FOR HYPOALB) 9.3 mg/dL (8.5-10.1); COR NA(FOR HYPERGLY) 125 mmol/L (136-145); CREATININE 0.67 mg/dL (0.70-1.30); DIGOXIN 0.67 ng/mL (0.9-2); eGFR NON BLACK RACES > 60 (>60)
[2020-06-21 06:33] LABS: SODIUM 122 mmol/L (136-145)
--- NOTE | 2020-06-21 06:50 | RAD ---
HISTORYSOBSTUDYCHEST, 1 VIEWCOMPARISONOne day prior.TECHNIQUEAP view of the chestFINDINGSPost median sternotomy and CABG.The cardiac and mediastinal contours appear stable. Right IJ central line in good position. Mild improvement in left lung airspace disease. Right lung appears similar. Blunted left costophrenic sulcus suspicious for small pleural effusion. No discernible pneumothorax.IMPRESSIONImproved left lung airspace disease. Otherwise similar to prior.Electronically signed by: Mitchel Carrera (Jun 21, 2020 06:49:15)
[2020-06-21 06:52] LABS: PLATELET MORPHOLOGY COMMENT NORMAL (NORMAL)
[2020-06-21] MEDS: CLINIMIX 4.25 %/10 % 1,000 ML with MVI INJ (ADULT) 10 ML, TRACE ELEMENTS INJ 10 ML, POT... IV SCH ×16 (08:01→14:39)
[2020-06-21] MEDS: PEPCID 20 MG IV PREMIX* 20 MG/50 ML BAG IV SCH ×2 (08:03→20:29)
[2020-06-21] MEDS: LANOXIN INJ IVP SCH (08:26)
[2020-06-21] MEDS: LEVAQUIN PREMIX IV 500 MG 500 MG/100 ML BAG IV SCH (08:29)
[2020-06-21] MEDS: LEVEMIR SC SCH ×2 (08:29→20:31)
[2020-06-21] MEDS: PROTONIX INJ 40 MG VIAL IVP SCH (08:30)
[2020-06-21] MEDS: LOVENOX INJ 80 MG SYR SC SCH ×2 (08:30→20:34)
[2020-06-21] MEDS: ZOFRAN INJ 4 MG VIAL IVP PRN ×2 (08:50→21:28)
[2020-06-21] MEDS: BROVANA IN SCH ×2 (09:50→21:05)
[2020-06-21] MEDS: PULMICORT NEB TX 0.5 MG NEB SCH ×2 (09:59→20:58)
[2020-06-21] MEDS: XOPENEX 1.25 MG/3 ML NEBULE NEB SCH ×4 (09:59→20:58)
[2020-06-21] MEDS: DIFLUCAN 200 MG IV PREMIX* 200 MG/100 ML BAG IV SCH (10:35)
[2020-06-21] MEDS: MORPHINE SULFATE INJ 2 MG INJ IVP PRN ×2 (10:35→15:09)
[2020-06-21] MEDS: NS 1000 ML 1,000 ML IV SCH ×2 (10:36→15:23)
[2020-06-21] MEDS ORDERED: DULCOLAX SUPPOSITORY 10 MG RECTAL ONE ×3 (11:43→21:00)
--- NOTE | 2020-06-21 11:43 | PCM.PROG ---
Progress Note - Progress Note for Day of Date of Exam: 06/18/20 - Subjective Subjective: WAS ADMITTED FOR TREATMENT OF PNEUMONIA DUE TO COVID-19 AND HYPOXIA. HE REMAINS IN THE INTENSIVE CARE UNIT TODAY. HE REMAINS ON THE BIPAP THIS MRONING. FI02 IS CURRENTLY AT 55%. HIS SATURATIONS HAVE BEEN 95-97% THIS MORNING AND THROUGHOUT THE NIGHT. TODAY, PATIENT IS LYING IN BED WITH EYES CLOSED ON MORNING ROUNDS. HE OPENS EYES TO VERBAL STIMULI. HE REPORTS SLIGHT IMPROVEMENT IN SYMPTOMS. STAFF REPORTS THAT HE HAS RESTED WELL THROUGHOUT THE NIGHT AND HAS NOT BEEN AGITATED. HE CONTINUES WITH WEAKNESS. 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 ON EXAMINATION, HE IS TACHYCARDIC THIS MORNING. A-FIB NOTED. BILATERAL LUNGS ARE NOTED WITH DIMINISHED LUNG SOUNDS THROUGHOUT. ABDOMEN IS ROUND, SOFT, AND NON-TENDER WITH NORMAL BOWEL SOUNDS NOTED IN ALL QUADRANTS. THERE IS TRACE EDEMA NOTED TO UPPER AND LOWER EXTREMITIES. HIS VITALS THIS MORNING ARE: 98.2-130-24-95%-153/96. LABS WERE OBTAINED. ABNORMAL LAB VALUES INCLUDE THE FOLLOWING: WBC 10.6, RBC 4.18, HGB 12.5, HCT 37.4, D-DIMER 1.35, SODIUM 129, CHLORIDE 93, CREATININE 0.67, GLUCOSE 262, CALCIUM 8.1, FERRITIN 2681, AST 48, ALT 135, CRP 80.70, BNP 101, ALBUMIN 1.6, GLOBULIN 4.8. AN ABG WAS OBTAINED AND REVEALED: PH 7.470, PC02 46, P02 89, HC03 33.5, 02 SAT 97, BASE EXCESS 8.7, A-A GRADIENT 246, FI02 55. A CHEST XRAY WAS OBTAINED AND REVEALED: No significant change. Stable pulmonary opacities. Suspect small pleural effusions. TODAY, WE WILL RESTART THE CARDIZEM DRIP. WE WILL OBTAIN A KUB DUE TO PATIENT NOT HAVING A BOWEL MOVEMENT IN SEVERAL DAYS AND WE WILL ADMINISTER A DULCOLAX SUPPOSITORY. WE WILL ATTEMPT TO DECREASE OXYGEN TOLERATED. OTHERWISE, WE WILL CONTINUE WITH CURRENT PLAN OF CARE TODAY. WE PLAN TO FOLLOW UP WITH AM LABS, CHEST XRAY, ABG, AND CONTINUE TO MONITOR. TIME SPENT ON CLINICAL ASSESSMENT, REVIEWING LABS AND IMAGING, DECISION MAKING, AND DOCUMENTATION GREATER THAN 75 MINUTES. - Past Medical Family Social History Past Med/Fam/Surg Hx: No changes since H&P Allergies: Allergies No Known Drug Allergies Allergy (Verified 06/01/20 13:35) - Review of Systems ROS: No change since H&P - Vital Signs and I&O's Vital Signs: Temperature 98.8 F Pulse Rate [Left Brachial] 79 Pulse Rate 146 Respiratory Rate 30 Blood Pressure [Left Calf] 166/88 Blood Pressure [Right Arm] 176/93 Blood Pressure [Left Arm] 147/83 Blood Pressure 138/70 O2 Sat by Pulse Oximetry 92 Intake and Output: Intake & Output 06/18/20 06/19/20 06/20/20 06/21/20 11:59 11:59 11:59 11:59 Intake Total 5164 / 5164 4888 / 4888 4494 / 6294 4476 / 4476 Output Total 4950 / 4950 2950 / 2950 1725 / 1725 2300 / 2300 Balance 214 / 214 1938 / 1938 2769 / 4569 2176 / 2176 - Physical Exam Oriented: Person Eyes: Normal Ear: Normal Nose: Normal Throat: Normal Respiratory: Generalized, Rales Cardiovascular: Irregular, Normal : Normal Auscultation: Bowel Sounds: Normal Tenderness: Normal Skin: Normal Musculoskeletal: Normal Psychiatric: Agitation Mood Description: Anxious Affect: Anxious, Violent Speech Pattern: Appropriate, Unclear - Laboratory and Diagnostics Result Diagrams: 06/21/20 05:10 06/21/20 05:10 Labs: 06/01/20 13:35 Blood Blood Culture - Final 06/01/20 13:21 Blood Blood Culture - Final Laboratory WBC 8.1 X10^3/uL (3.6-10.0) 06/21/20 05:10 RBC 3.88 X10^6/uL (4.7-6.0) L 06/21/20 05:10 Hgb 11.8 g/dL (13.5-18.0) L 06/21/20 05:10 Hct 34.5 % (42.0-54.0) L 06/21/20 05:10 MCV 88.9 fL (80.0-100.0) 06/21/20 05:10 MCH 30.5 pg (27.0-34.0) 06/21/20 05:10 MCHC 34.3 g/dL (33.0-35.0) 06/21/20 05:10 RDW 13.5 % (11.6-16.5) 06/21/20 05:10 Plt Count 239 X10^3/uL (150.0-450.0) 06/21/20 05:10 Plt Count Comment Adequate (ADEQUATE) 06/21/20 05:10 MPV 9.9 fL (7.4-11.0) 06/21/20 05:10 Neut % (Auto) 94.4 % (42.0-75.0) H 06/21/20 05:10 Lymph % (Auto) 2.3 % (21.0-51.0) L 06/21/20 05:10 [place] % (Auto) 3.1 % (0.0-13.0) 06/21/20 05:10 Eos % (Auto) 0.0 % (0.9-2.9) L 06/21/20 05:10 Baso % (Auto) 0.2 % (0.2-1.0) 06/21/20 05:10 Neut # (Auto) 7.6 x10^3/uL (2.2-4.8) H 06/21/20 05:10 Lymph # (Auto) 0.2 X10^3/uL (1.3-2.9) L 06/21/20 05:10 [place] # (Auto) 0.2 x10^3/uL (0.3-0.8) L 06/21/20 05:10 Eos # (Auto) 0.0 x10^3/uL (0.0-0.2) 06/21/20 05:10 Baso # (Auto) 0.0 X10^3/uL (0.0-0.1) 06/21/20 05:10 Absolute Nucleated RBC 0.1 /100WBC 06/21/20 05:10 Total Counted 04648 06/21/20 05:10 Neutrophils % (Manual) 2 % (39-76) L 06/21/20 05:10 Band Neutrophils % 3 % (0-10) 06/21/20 05:10 Lymphocytes % (Manual) 1 % (13-43) L 06/21/20 05:10 Monocytes % (Manual) 1 % (4-9) L 06/20/20 04:00 Eosinophils % (Manual) 1 % (0-6) 06/18/20 05:38 Giant Platelets Few 06/10/20 04:40 Plt Morphology Comment Normal (NORMAL) 06/21/20 05:10 RBC Morphology Normal (NORMAL) 06/21/20 05:10 PT 17.2 SECONDS (11.8-14.3) 06/02/20 22:35 INR Target Range - 06/02/20 22:35 INR 1.45 (0.8-1.3) H 06/02/20 22:35 APTT 93.2 SECONDS (22.9-36.5) H 06/11/20 08:22 PTT Comment - 06/11/20 08:22 D-Dimer 1.89 ug/ml (0.0-0.57) H* 06/21/20 05:10 Sample Site Rrad 06/21/20 05:31 ABG pH 7.510 (7.35-7.45) H 06/21/20 05:31 ABG pCO2 35.0 mmHg (35.0-45.0) 06/21/20 05:31 ABG pO2 76.0 mmHg (80.0-100.0) L 06/21/20 05:31 ABG HCO3 27.9 mmol/L (22-26) H 06/21/20 05:31 ABG O2 Saturation 96.0 % (90-100) 06/21/20 05:31 ABG Base Excess 4.9 mmol/L (-2.0-2.0) H 06/21/20 05:31 Partha Test Pos 06/21/20 05:31 A-a Gradient 272.0 mmHg 06/21/20 05:31 FiO2 55.0 06/21/20 05:31 Blood Gas Comments Ivana well-mtf 06/21/20 05:31 Sodium 122 mmol/L (136-145) L* 06/21/20 05:10 Corrected Sodium 125 mmol/L (136-145) L 06/21/20 05:10 Potassium 3.7 mmol/L (3.5-5.1) 06/21/20 05:10 Chloride 90 mmol/L (98-107) L 06/21/20 05:10 Carbon Dioxide 26.6 mmol/L (21-32) 06/21/20 05:10 BUN 16 mg/dL (7-18) 06/21/20 05:10 Creatinine 0.67 mg/dL (0.70-1.30) L 06/21/20 05:10 Est GFR (MDRD) Af Amer > 60 (>60) 06/21/20 05:10 Est GFR (MDRD) Non-Af > 60 (>60) 06/21/20 05:10 Glucose 223 mg/dL (65-99) H 06/21/20 05:10 POC Glucose (mg/dL) 226 mg/dL (65-99) H 06/21/20 05:27 Lactic Acid 1.4 mmol/L (0.4-2.0) 06/15/20 05:15 Calcium 7.4 mg/dL (8.5-10.1) L 06/21/20 05:10 Corrected Calcium 9.3 mg/dL (8.5-10.1) 06/21/20 05:10 Magnesium 2.1 mg/dL (1.7-2.9) 06/19/20 04:10 Ferritin 1799 ng/mL (26-388) H 06/21/20 05:10 Total Bilirubin 0.40 mg/dL (0.2-1.0) 06/21/20 05:10 AST 53 Units/L (15-37) H 06/21/20 05:10 ALT 145 Units/L (12-78) H 06/21/20 05:10 Alkaline Phosphatase 107 Units/L (46-116) 06/21/20 05:10 Ammonia 44 umol/L (11-32) H 06/05/20 08:23 Creatine Kinase 448 Units/L (39-308) H 06/03/20 04:30 CK-MB (CK-2) 10.3 ng/mL (0-4.0) H* 06/03/20 04:30 CK/CKMB % Calc 2.3 % (<4) 06/03/20 04:30 Troponin I 0.22 ng/mL (0-1.5) 06/03/20 04:30 C-Reactive Protein 29.60 mg/L (0-3.0) H 06/21/20 05:10 B-Natriuretic Peptide 215 pg/mL (0-79) H 06/21/20 05:10 Total Protein 6.0 g/dL (6.4-8.2) L 06/21/20 05:10 Albumin 1.6 g/dL (3.4-5.0) L 06/21/20 05:10 Globulin 4.4 g/dL (2.5-4.5) 06/21/20 05:10 Albumin/Globulin Ratio 0.4 Ratio (1.1-2.1) L 06/21/20 05:10 Prealbumin 16.1 mg/dL (18-35.7) L 06/06/20 06:07 Specimen Type Clean catch urine 06/02/20 18:03 Urine Color Yellow (YELLOW) 06/02/20 18:03 Urine Appearance Clear (CLEAR) 06/02/20 18:03 Urine pH 5.0 (5.0 - 8.0) 06/02/20 18:03 Ur Specific [place] 1.010 (1.000-1.030) 06/02/20 18:03 Urine Protein 3+ (NEGATIVE) 06/02/20 18: Urine Glucose (UA) 4+ (NEGATIVE) 06/02/20 18: Urine Ketones 3+ (NEGATIVE) 06/02/20 18:03 Urine Occult Blood 3+ (NEGATIVE) 06/02/20 18:03 Urine Nitrite Negative (NEGATIVE) 06/02/20 18:03 Urine Bilirubin Negative (NEGATIVE) 06/02/20 18:03 Urine Urobilinogen Normal (NORMAL) 06/02/20 18:03 Ur Leukocyte Esterase Negative (NEGATIVE) 06/02/20 18:03 Urine RBC 3-5 /HPF (0-3) A 06/02/20 18:03 Urine WBC None seen /HPF (0-5) 06/02/20 18:03 Ur Squamous Epith Cells Negative /HPF (NEGATIVE) 06/02/20 18:03 Urine Bacteria Negative /HPF (NEGATIVE) 06/02/20 18:03 Ur Culture Indicated? No/not indicated 06/02/20 18:03 Digoxin 0.67 ng/mL (0.9-2) L 06/21/20 05:10 Phenobarbital 10.1 ug/mL (15-40) L 06/05/20 08:23 Theophylline 11.8 ug/mL (10-20) 06/21/20 11:13 SARS CoV-2 RNA Rapid LADAN Positive (NEGATIVE) A 06/01/20 13:23 Blood Type A POSITIVE 06/01/20 13:35 - Plan (1) Pneumonia due to COVID-19 virus Status: Suspected Plan: D5W AT 75 ML/HR, TPN, FORTAZ 1G IV Q8H, LEVAQUIN 500MG IV DAILY, DIFLUCAN 200MG IV DAILY, THEOPHYLLINE DRIP, CARDIZEM DRIP, BROVANA 15MCG NEB BID, PULMICORT NEB BID, XOPENEX NEB TID, MUCOMYST IN NEBS TID, CATAPRES 0.3MG/HR TD PATCH, DIGOXIN 250MCG IV DAILY, LOVENOX 80MG SC BID, PEPCID 20MG IV Q12H, HYDRALAZINE 10MG IV Q4H PRN, LEMEVIR 12 UNITS SC BID, HUMULIN R SLIDING SCALE, MAGIC MOUTHWASH QID PRN, SOLU-MEDROL 80MG IV Q8H, LOPRESSOR 5MG IV Q6H, PROTONIX 40MG IV DAILY, SILDENAFIL 20MG PO TID, THE POTASSIUM AND MAGNESIUM PROTOCOLS. (2) Hypoxia Status: Chronic (3) Atrial fibrillation with RVR Status: Acute Plan: DIGOXIN 250MCG IV DAILY, LOPRESSOR 5MG IV Q6H (4) AMS (altered mental status) Status: Acute Qualifiers: Altered mental status type: transient alteration of awareness Qualified Code(s): R40.4 - Transient alteration of awareness (5) AAA (abdominal aortic aneurysm) Status: Chronic Qualifiers: Presence of rupture: without rupture Qualified Code(s): I71.4 - Abdominal aortic aneurysm, without rupture (6) Anemia Status: Chronic Qualifiers: Anemia type: iron deficiency Iron deficiency anemia type: unspecified iron deficiency Qualified Code(s): D50.9 - Iron deficiency anemia, unspecified (7) BPH (benign prostatic hyperplasia) Status: Chronic Qualifiers: Lower urinary tract symptom presence: unspecified whether lower urinary tract symptoms present Qualified Code(s): N40.0 - Benign prostatic hyperplasia without lower urinary tract symptoms (8) CAD (coronary artery disease) Status: Chronic Qualifiers: Coronary Disease-Associated Artery/Lesion type: [place] artery [place] vs. 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: unspecified campus police officer insulin use status Diabetes mellitus complication status: without complication Qualified Code(s): E11.9 - Type 2 diabetes mellitus without complications (10) GERD (gastroesophageal reflux disease) Status: Chronic Qualifiers: Esophagitis presence: esophagitis presence not specified Qualified Code(s): K21.9 - Gastro-esophageal reflux disease without esophagitis (11) History of CVA (cerebrovascular accident) Status: Chronic (12) Hyperlipemia Status: Chronic Qualifiers: Hyperlipidemia type: mixed hyperlipidemia Qualified Code(s): E78.2 - Mixed hyperlipidemia (13) Hypertension Status: Chronic Qualifiers: Hypertension type: essential hypertension Qualified Code(s): I10 - Essential (primary) hypertension
[2020-06-21] MEDS: DECADRON JET NEB (RESP USE) NEB SCH ×2 (12:19→17:24)
[2020-06-21] MEDS: K-RIDER 10 MEQ/NS 100 ML 10 MEQ/100 ML BAG IV PRN ×2 (15:09→17:00)
[2020-06-21] MEDS: SNACK - Diabetic Appropriate PO SCH (20:09)
--- NOTE | 2020-06-21 20:22 | PCM.PROG ---
Progress Note - Progress Note for Day of Date of Exam: 06/21/20 - Subjective Subjective: WAS ADMITTED FOR TREATMENT OF PNEUMONIA DUE TO COVID-19 AND HYPOXIA. HE REMAINS IN THE INTENSIVE CARE UNIT TODAY. HE REMAINS ON THE BIPAP THIS MORNING. FI02 IS CURRENTLY AT 55%. HIS SATURATIONS HAVE BEEN 92-97% THIS MORNING AND THROUGHOUT THE NIGHT. TODAY, PATIENT IS ALERT, LYING IN BED ON MORNING ROUNDS. HE CONTINUES WITH WEAKNESS AND SHORTNESS OF BREATH, BUT REPORTS SLIGHT IMPROVEMENT TODAY. RESPIRATORY WAS UNABLE TO WEAN DOWN FROM 55% OVER THE WEEKEND. ON EXAMINATION, HE CONTINUES TACHYCARDIC THIS MORNING. A-FIB NOTED. BILATERAL LUNGS ARE NOTED WITH DIMINISHED LUNG SOUNDS THROUGHOUT. ABDOMEN IS ROUND, SOFT, AND NON-TENDER WITH NORMAL BOWEL SOUNDS NOTED IN ALL QUADRANTS. THERE IS TRACE EDEMA NOTED TO UPPER AND LOWER EXTREMITIES. HIS VITALS THIS MORNING ARE: 98.8-132-30-92%-160/83. LABS WERE OBTAINED. ABNORMAL LAB VALUES INCLUDE THE FOLLOWING: RBC 3.88, HGB 11.8, HCT 34.5, D-DIMER 1.89, SODIUM 122, CHLORIDE 90, CREATININE 0.67, GLUCOSE 223, CALCIUM 7.4, FERRITIN 1799, AST 53, ALT 145, CRP 29.60, BNP 215, TOTAL PROTEIN 6.0, ALBUMIN 1.6. AN ABG WAS OBTAINED AND REVEALED: PH 7.510, PC02 35, P02 76, HC03 27.9, 02 SAT 96, BASE EXCESS 4.9, A-A GRADIENT 272, FI02 55. A CHEST XRAY WAS OBTAINED AND REVEALED: Improved left lung airspace disease. Otherwise similar to prior. HE REMAINS ON A CARDIZEM DRIP THIS MORNING. WE WILL ADMINISTER A DULCOLAX SUPPOSITOR WELL ORDER 1 AT BEDTIME NIGHTLY. WE WILL ATTEMPT TO DECREASE OXYGEN TOLERATED. OTHERWISE, WE WILL CONTINUE WITH CURRENT PLAN OF CARE TODAY. WE PLAN TO FOLLOW UP WITH AM LABS, CHEST XRAY, ABG, AND CONTINUE TO MONITOR. TIME SPENT ON CLINICAL ASSESSMENT, REVIEWING LABS AND IMAGING, DECISION MAKING, AND DOCUMENTATION GREATER THAN 75 MINUTES. - Past Medical Family Social History Past Med/Fam/Surg Hx: No changes since H&P Allergies: Allergies No Known Drug Allergies Allergy (Verified 06/01/20 13:35) - Review of Systems ROS: No change since H&P - Vital Signs and I&O's Vital Signs: Temperature 98.8 F Pulse Rate [Left Brachial] 79 Pulse Rate 75 Respiratory Rate 23 Blood Pressure [Left Calf] 166/88 Blood Pressure [Right Arm] 176/93 Blood Pressure [Left Arm] 147/83 Blood Pressure 144/73 O2 Sat by Pulse Oximetry 94 Intake and Output: Intake & Output 06/19/20 06/20/20 06/21/20 06/22/20 11:59 11:59 11:59 11:59 Intake Total 4888 / 4888 4494 / 6294 4476 / 4476 2137 Output Total 2950 / 2950 1725 / 1725 2300 / 2300 Balance 1937 / 1937 2769 / 4569 2175 / 2175 - Physical Exam Oriented: Person Eyes: Normal Ear: Normal Nose: Normal Throat: Normal Respiratory: Generalized, Rales Cardiovascular: Irregular, Normal : Normal Auscultation: Bowel Sounds: Normal Tenderness: Normal Skin: Normal Musculoskeletal: Normal Psychiatric: Agitation Mood Description: Anxious Affect: Anxious, Violent Speech Pattern: Appropriate, Unclear - Laboratory and Diagnostics Result Diagrams: 06/21/20 05:10 06/21/20 19:45 Labs: 06/01/20 13:35 Blood Blood Culture - Final 06/01/20 13:21 Blood Blood Culture - Final Laboratory WBC 8.1 X10^3/uL (3.6-10.0) 06/21/20 05:10 RBC 3.88 X10^6/uL (4.7-6.0) L 06/21/20 05:10 Hgb 11.8 g/dL (13.5-18.0) L 06/21/20 05:10 Hct 34.5 % (42.0-54.0) L 06/21/20 05:10 MCV 88.9 fL (80.0-100.0) 06/21/20 05:10 MCH 30.5 pg (27.0-34.0) 06/21/20 05:10 MCHC 34.3 g/dL (33.0-35.0) 06/21/20 05:10 RDW 13.5 % (11.6-16.5) 06/21/20 05:10 Plt Count 239 X10^3/uL (150.0-450.0) 06/21/20 05:10 Plt Count Comment Adequate (ADEQUATE) 06/21/20 05:10 MPV 9.9 fL (7.4-11.0) 06/21/20 05:10 Neut % (Auto) 94.4 % (42.0-75.0) H 06/21/20 05:10 Lymph % (Auto) 2.3 % (21.0-51.0) L 06/21/20 05:10 [place] % (Auto) 3.1 % (0.0-13.0) 06/21/20 05:10 Eos % (Auto) 0.0 % (0.9-2.9) L 06/21/20 05:10 Baso % (Auto) 0.2 % (0.2-1.0) 06/21/20 05:10 Neut # (Auto) 7.6 x10^3/uL (2.2-4.8) H 06/21/20 05:10 Lymph # (Auto) 0.2 X10^3/uL (1.3-2.9) L 06/21/20 05:10 [place] # (Auto) 0.2 x10^3/uL (0.3-0.8) L 06/21/20 05:10 Eos # (Auto) 0.0 x10^3/uL (0.0-0.2) 06/21/20 05:10 Baso # (Auto) 0.0 X10^3/uL (0.0-0.1) 06/21/20 05:10 Absolute Nucleated RBC 0.1 /100WBC 06/21/20 05:10 Total Counted [id number] 06/21/20 05:10 Neutrophils % (Manual) 2 % (39-76) L 06/21/20 05:10 Band Neutrophils % 3 % (0-10) 06/21/20 05:10 Lymphocytes % (Manual) 1 % (13-43) L 06/21/20 05:10 Monocytes % (Manual) 1 % (4-9) L 06/20/20 04:00 Eosinophils % (Manual) 1 % (0-6) 06/18/20 05:38 Giant Platelets Few 06/10/20 04:40 Plt Morphology Comment Normal (NORMAL) 06/21/20 05:10 RBC Morphology Normal (NORMAL) 06/21/20 05:10 PT 17.2 SECONDS (11.8-14.3) 06/02/20 22:35 INR Target Range - 06/02/20 22:35 INR 1.45 (0.8-1.3) H 06/02/20 22:35 APTT 93.2 SECONDS (22.9-36.5) H 06/11/20 08:22 PTT Comment - 06/11/20 08:22 D-Dimer 1.89 ug/ml (0.0-0.57) H* 06/21/20 05:10 Sample Site Rrad 06/21/20 05:31 ABG pH 7.510 (7.35-7.45) H 06/21/20 05:31 ABG pCO2 35.0 mmHg (35.0-45.0) 06/21/20 05:31 ABG pO2 76.0 mmHg (80.0-100.0) L 06/21/20 05:31 ABG HCO3 27.9 mmol/L (22-26) H 06/21/20 05:31 ABG O2 Saturation 96.0 % (90-100) 06/21/20 05:31 ABG Base Excess 4.9 mmol/L (-2.0-2.0) H 06/21/20 05:31 Partha Test Pos 06/21/20 05:31 A-a Gradient 272.0 mmHg 06/21/20 05:31 FiO2 55.0 06/21/20 05:31 Blood Gas Comments Ivana well-mtf 06/21/20 05:31 Sodium 122 mmol/L (136-145) L* 06/21/20 05:10 Corrected Sodium 125 mmol/L (136-145) L 06/21/20 05:10 Potassium 4.0 mmol/L (3.5-5.1) 06/21/20 19:45 Chloride 90 mmol/L (98-107) L 06/21/20 05:10 Carbon Dioxide 26.6 mmol/L (21-32) 06/21/20 05:10 BUN 16 mg/dL (7-18) 06/21/20 05:10 Creatinine 0.67 mg/dL (0.70-1.30) L 06/21/20 05:10 Est GFR (MDRD) Af Amer > 60 (>60) 06/21/20 05:10 Est GFR (MDRD) Non-Af > 60 (>60) 06/21/20 05:10 Glucose 223 mg/dL (65-99) H 06/21/20 05:10 POC Glucose (mg/dL) 220 mg/dL (65-99) H 06/21/20 20:07 Lactic Acid 1.4 mmol/L (0.4-2.0) 06/15/20 05:15 Calcium 7.4 mg/dL (8.5-10.1) L 06/21/20 05:10 Corrected Calcium 9.3 mg/dL (8.5-10.1) 06/21/20 05:10 Magnesium 2.1 mg/dL (1.7-2.9) 06/19/20 04:10 Ferritin 1799 ng/mL (26-388) H 06/21/20 05:10 Total Bilirubin 0.40 mg/dL (0.2-1.0) 06/21/20 05:10 AST 53 Units/L (15-37) H 06/21/20 05:10 ALT 145 Units/L (12-78) H 06/21/20 05:10 Alkaline Phosphatase 107 Units/L (46-116) 06/21/20 05:10 Ammonia 44 umol/L (11-32) H 06/05/20 08:23 Creatine Kinase 448 Units/L (39-308) H 06/03/20 04:30 CK-MB (CK-2) 10.3 ng/mL (0-4.0) H* 06/03/20 04:30 CK/CKMB % Calc 2.3 % (<4) 06/03/20 04:30 Troponin I 0.22 ng/mL (0-1.5) 06/03/20 04:30 C-Reactive Protein 29.60 mg/L (0-3.0) H 06/21/20 05:10 B-Natriuretic Peptide 215 pg/mL (0-79) H 06/21/20 05:10 Total Protein 6.0 g/dL (6.4-8.2) L 06/21/20 05:10 Albumin 1.6 g/dL (3.4-5.0) L 06/21/20 05:10 Globulin 4.4 g/dL (2.5-4.5) 06/21/20 05:10 Albumin/Globulin Ratio 0.4 Ratio (1.1-2.1) L 06/21/20 05:10 Prealbumin 16.1 mg/dL (18-35.7) L 06/06/20 06:07 Specimen Type Clean catch urine 06/02/20 18:03 Urine Color Yellow (YELLOW) 06/02/20 18:03 Urine Appearance Clear (CLEAR) 06/02/20 18:03 Urine pH 5.0 (5.0 - 8.0) 06/02/20 18:03 Ur Specific [place] 1.010 (1.000-1.030) 06/02/20 18:03 Urine Protein 3+ (NEGATIVE) 06/02/20 18:03 Urine Glucose (UA) 4+ (NEGATIVE) 06/02/20 18:03 Urine Ketones 3+ (NEGATIVE) 06/02/20 18:03 Urine Occult Blood 3+ (NEGATIVE) 06/02/20 18:03 Urine Nitrite Negative (NEGATIVE) 06/02/20 18:03 Urine Bilirubin Negative (NEGATIVE) 06/02/20 18:03 Urine Urobilinogen Normal (NORMAL) 06/02/20 18:03 Ur Leukocyte Esterase Negative (NEGATIVE) 06/02/20 18:03 Urine RBC 3-5 /HPF (0-3) A 06/02/20 18:03 Urine WBC None seen /HPF (0-5) 06/02/20 18:03 Ur Squamous Epith Cells Negative /HPF (NEGATIVE) 06/02/20 18:03 Urine Bacteria Negative /HPF (NEGATIVE) 06/02/20 18:03 Ur Culture Indicated? No/not indicated 06/02/20 18:03 Digoxin 0.67 ng/mL (0.9-2) L 06/21/20 05:10 Phenobarbital 10.1 ug/mL (15-40) L 06/05/20 08:23 Theophylline 11.8 ug/mL (10-20) 06/21/20 11:13 SARS CoV-2 RNA Rapid LADAN Positive (NEGATIVE) A 06/01/20 13:23 Blood Type A POSITIVE 06/01/20 13:35 - Plan (1) Pneumonia due to COVID-19 virus Status: Suspected Plan: D5W AT 75 ML/HR, TPN, FORTAZ 1G IV Q8H, LEVAQUIN 500MG IV DAILY, DIFLUCAN 200MG IV DAILY, THEOPHYLLINE DRIP, CARDIZEM DRIP, BROVANA 15MCG NEB BID, PULMICORT NEB BID, XOPENEX NEB TID, MUCOMYST IN NEBS TID, CATAPRES 0.3MG/HR TD PATCH, DIGOXIN 250MCG IV DAILY, LOVENOX 80MG SC BID, PEPCID 20MG IV Q12H, HYDRALAZINE 10MG IV Q4H PRN, LEMEVIR 12 UNITS SC BID, HUMULIN R SLIDING SCALE, MAGIC MOUTHWASH QID PRN, SOLU-MEDROL 80MG IV Q8H, LOPRESSOR 5MG IV Q6H, PROTONIX 40MG IV DAILY, SILDENAFIL 20MG PO TID, THE POTASSIUM AND MAGNESIUM PROTOCOLS. (2) Hypoxia Status: Chronic (3) Atrial fibrillation with RVR Status: Acute Plan: DIGOXIN 250MCG IV DAILY, LOPRESSOR 5MG IV Q6H (4) AMS (altered mental status) Status: Acute Qualifiers: Altered mental status type: transient alteration of awareness Qualified Co de(s): R40.4 - Transient alteration of awareness (5) AAA (abdominal aortic aneurysm) Status: Chronic Qualifiers: Presence of rupture: without rupture Qualified Code(s): I71.4 - Abdominal aortic aneurysm, without rupture (6) Anemia Status: Chronic Qualifiers: Anemia type: iron deficiency Iron deficiency anemia type: unspecified iron deficiency Qualified Code(s): D50.9 - Iron deficiency anemia, unspecified (7) BPH (benign prostatic hyperplasia) Status: Chronic Qualifiers: Lower urinary tract symptom presence: unspecified whether lower urinary tract symptoms present Qualified Code(s): N40.0 - Benign prostatic hyperplasia without lower urinary tract symptoms (8) CAD (coronary artery disease) Status: Chronic Qualifiers: Coronary Disease-Associated Artery/Lesion type: [place] artery [place] vs. 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: unspecified intermediate insulin use status Diabetes mellitus complication status: without complication Qualified Code(s): E11.9 - Type 2 diabetes mellitus without complications (10) GERD (gastroesophageal reflux disease) Status: Chronic Qualifiers: Esophagitis presence: esophagitis presence not specified Qualified Code(s): K21.9 - Gastro-esophageal reflux disease without esophagitis (11) History of CVA (cerebrovascular accident) Status: Chronic (12) Hyperlipemia Status: Chronic Qualifiers: Hyperlipidemia type: mixed hyperlipidemia Qualified Code(s): E78.2 - Mixed hyperlipidemia (13) Hypertension Status: Chronic Qualifiers: Hypertension type: essential hypertension Qualified Code(s): I10 - Essential (primary) hypertension
[2020-06-21] MEDS: COLACE CAP 100 MG PO SCH (20:26)
[2020-06-21] MEDS: AMINOPHYLLINE INJ 1,000 MG in DEXTROSE 5% 460 ML IV PRN (20:55)
[2020-06-21] MEDS ORDERED: COLACE CAP 100 MG PO SCH (21:00)
[2020-06-22] MEDS: NS 1000 ML 1,000 ML IV SCH ×3 (02:00→12:41)
[2020-06-22] MEDS: MORPHINE SULFATE INJ 2 MG INJ IVP PRN ×2 (04:33→08:59)
[2020-06-22 04:42] LABS: ABG BASE EXCESS 4.2 mmol/L (-2.0-2.0); ABG HCO3 27.1 mmol/L (22-26)
[2020-06-22 04:43] LABS: ABG ALLEN TEST POS
[2020-06-22] MEDS: ZOFRAN INJ 4 MG VIAL IVP PRN ×4 (05:19→20:04)
[2020-06-22 05:25] LABS: BASOPHILS % (AUTO) 0.1 % (0.2-1.0); HEMATOCRIT 36.7 % (42.0-54.0); HEMOGLOBIN 12.2 g/dL (13.5-18.0); LYMPHOCYTES # (AUTO) 0.2 X10^3/uL (1.3-2.9); LYMPHOCYTES % (AUTO) 2.2 % (21.0-51.0); MEAN CORPUSCULAR HEMOGLOBIN 30.1 pg (27.0-34.0); MEAN CORPUSCULAR HGB CONC 33.4 g/dL (33.0-35.0); MEAN CORPUSCULAR VOLUME 90.2 fL (80.0-100.0); MEAN PLATELET VOLUME 9.5 fL (7.4-11.0); MONOCYTES # (AUTO) 0.2 x10^3/uL (0.3-0.8); MONOCYTES % (AUTO) 3.4 % (0.0-13.0); NEUTROPHILS # (AUTO) 6.5 x10^3/uL (2.2-4.8); NEUTROPHILS % (AUTO) 94.3 % (42.0-75.0); PLATELET COUNT 232 X10^3/uL (150.0-450.0); RED BLOOD COUNT 4.07 X10^6/uL (4.7-6.0); WHITE BLOOD COUNT 6.9 X10^3/uL (3.6-10.0)
[2020-06-22 05:54] LABS: ALANINE AMINOTRANSFERASE 146 Units/L (12-78); ALBUMIN 1.6 g/dL (3.4-5.0); ALKALINE PHOSPHATASE 104 Units/L (46-116); ASPARTATE AMINO TRANSFERASE 47 Units/L (15-37); BLOOD UREA NITROGEN 17 mg/dL (7-18); CALCIUM 7.6 mg/dL (8.5-10.1); CARBON DIOXIDE 27.7 mmol/L (21-32); CHLORIDE 96 mmol/L (98-107); COR CA(FOR HYPOALB) 9.5 mg/dL (8.5-10.1); COR NA(FOR HYPERGLY) 133 mmol/L (136-145); CREATININE 0.66 mg/dL (0.70-1.30); DIGOXIN 0.79 ng/mL (0.9-2); SODIUM 131 mmol/L (136-145); TOTAL PROTEIN 5.6 g/dL (6.4-8.2); eGFR NON BLACK RACES > 60 (>60)
[2020-06-22] MEDS: SOLU-Medrol 125 MG VIAL IVP SCH ×3 (05:55→22:14)
[2020-06-22] MEDS: REVATIO PO SCH ×3 (05:55→22:14)
[2020-06-22] MEDS: LOPRESSOR INJ 5 MG AMP IVP SCH ×2 (05:55→11:02)
[2020-06-22] MEDS: FORTAZ or TAZICEF VIAL INJ 1 G in NS 100 ML IV + SPIKE MINIBAG* 100 ML IV SCH ×3 (05:55→22:13)
[2020-06-22] MEDS: HumuLIN R SUBCUT PRN ×2 (05:56→20:05)
--- NOTE | 2020-06-22 06:11 | RAD ---
HISTORYShortness of breathSTUDYChest AP [id number] is status post median sternotomy and CABG. There is a rig ht IJ line with its tip in the right atrium. Hypo inflation accentuates the heart size. Heart size is likely within normal limits. Patchy infiltrates are present in the right lung base not significantly different from the prior examination. Left perihilar infiltrates also unchanged. No pleural effusion s are identified. Bony thorax is unremarkable.IMPRESSIONNo change hypo inflationNo change right basil ar left perihilar infiltratesElectronically signed by: FELICIA LEW (Jun 22, 2020 06:10:17)
[2020-06-22 06:46] LABS: PLATELET MORPHOLOGY COMMENT NORMAL (NORMAL)
[2020-06-22] MEDS ORDERED: DULCOLAX SUPPOSITORY 10 MG RECTAL ONE (08:19)
[2020-06-22] MEDS: BROVANA IN SCH ×2 (08:55→20:26)
[2020-06-22] MEDS: LEVAQUIN PREMIX IV 500 MG 500 MG/100 ML BAG IV SCH (08:55)
[2020-06-22] MEDS: LOVENOX INJ 80 MG SYR SC SCH ×2 (08:55→20:02)
[2020-06-22] MEDS: PEPCID 20 MG IV PREMIX* 20 MG/50 ML BAG IV SCH ×2 (08:55→20:03)
[2020-06-22] MEDS: PULMICORT NEB TX 0.5 MG NEB SCH ×2 (08:55→20:27)
[2020-06-22] MEDS: PROTONIX INJ 40 MG VIAL IVP SCH (08:55)
[2020-06-22] MEDS: XOPENEX 1.25 MG/3 ML NEBULE NEB SCH ×4 (08:55→20:26)
[2020-06-22] MEDS: LEVEMIR SC SCH ×2 (08:56→20:02)
[2020-06-22] MEDS: LANOXIN INJ IVP SCH (08:56)
[2020-06-22] MEDS: DIFLUCAN 200 MG IV PREMIX* 200 MG/100 ML BAG IV SCH (08:57)
[2020-06-22] MEDS: CARDIZEM INJ 125 MG VIAL 125 MG in NS 100 ML IV 100 ML IV PRN (09:45)
[2020-06-22] MEDS ORDERED: LANOXIN INJ IVP ONE (13:30)
[2020-06-22] MEDS: DECADRON JET NEB (RESP USE) NEB SCH ×2 (13:52→16:50)
[2020-06-22] MEDS: CARDIZEM CD 120 MG 24-HR PO SCH ×2 (14:45→20:01)
[2020-06-22] MEDS: LOPRESSOR TAB 50 MG PO SCH ×2 (14:45→20:02)
[2020-06-22] MEDS: NORCO 5/325 MG TAB PO SCH ×2 (15:19→22:33)
[2020-06-22 15:42] LABS: BAND NEUTROPHILS % 2 % (0-10)
[2020-06-22] MEDS: SNACK - Diabetic Appropriate PO SCH (19:13)
--- NOTE | 2020-06-22 19:21 | PCM.PROG ---
Progress Note - Progress Note for Day of Date of Exam: 06/22/20 - Subjective Subjective: WAS ADMITTED FOR TREATMENT OF PNEUMONIA DUE TO COVID-19 AND HYPOXIA. HE REMAINS IN THE INTENSIVE CARE UNIT TODAY. HE IS CURRENTLY ON HEATED HIGH FLOW OXYGEN. FI02 IS CURRENTLY AT 63%. HIS SATURATIONS HAVE BEEN 90- 95% THIS MORNING AND THROUGHOUT THE NIGHT. TODAY, PATIENT IS ALERT, LYING IN BED ON MORNING ROUNDS. HE CONTINUES WITH WEAKNESS AND SHORTNESS OF BREATH, BUT REPORTS SLIGHT IMPROVEMENT TODAY. ON EXAMINATION, HE CONTINUES TACHYCARDIC THIS MORNING. A-FIB NOTED. BILATERAL LUNGS ARE NOTED WITH DIMINISHED LUNG SOUNDS THROUGHOUT. ABDOMEN IS ROUND, SOFT, AND NON-TENDER WITH NORMAL BOWEL SOUNDS NOTED IN ALL QUADRANTS. THERE IS TRACE EDEMA NOTED TO UPPER AND LOWER EXTREMITI ES. HIS VITALS THIS MORNING ARE: 98.2-98-22-92%-137/73. LABS WERE OBTAINED. ABNORMAL LAB VALUES INCLUDE THE FOLLOWING: RBC 4.07, HGB 12.2, HCT 36.7, D-DIMER 1.70, SODIUM 131, CHLORIDE 96, CREATININE 0.66, GLUCOSE 200, CALCIUM 7.6, FERRITIN 1423, AST 47, ALT 146, BNP 16.60, TOTAL PROTEIN 5.6, ALBUMIN 1.6. AN ABG WAS OBTAINED AND REVEALED: PH 7.510, PC02 34, P02 55, HC03 27.1, 02 SAT 91, A-A GRADIENT 352, FI02 63. A CHEST XRAY WAS OBTAINED AND REVEALED: No change hypo inflation. No change right basilar left perihilar infiltrates. HE REMAINS ON A CARDIZEM DRIP THIS MORNING. TODAY, WE WILL DISCONTINUE THE CARDIZEM DRIP AND START CARDIZEM CD 120MG PO BID, CHANGE LOPRESSOR TO 50MG PO BID, ADMINISTER AN ADDITIONAL DOSE OF DIGOXIN TODAY, THEN CHANGE IT TO DIGOXIN 0.125MG PO DAILY. WE WILL ATTEMPT TO DECREASE OXYGEN TOLERATED. OTHERWISE, WE WILL CONTINUE WITH CURRENT PLAN OF CARE TODAY. WE PLAN TO FOLLOW UP WITH AM LABS, CHEST XRAY, ABG, AND CONTINUE TO MONITOR. TIME SPENT ON CLINICAL ASSESSMENT, REVIEWING LABS AND IMAGING, DECISION MAKING, AND DOCUMENTATION GREATER THAN 75 MINUTES. - Past Medical Family Social History Past Med/Fam/Surg Hx: No changes since H&P Allergies: Allergies No Known Drug Allergies Allergy (Verified 06/01/20 13:35) - Review of Systems ROS: No change since H&P - Vital Signs and I&O's Vital Signs: Temperature 97.7 F Pulse Rate [Left Brachial] 79 Pulse Rate 76 Respiratory Rate 24 Blood Pressure [Left Calf] 166/88 Blood Pressure [Right Arm] 176/93 Blood Pressure [Left Arm] 147/83 Blood Pressure 131/76 O2 Sat by Pulse Oximetry 95 Intake and Output: Intake & Output 06/20/20 06/21/20 06/22/20 06/23/20 11:59 11:59 11:59 11:59 Intake Total 4494 / 6294 4476 / 4476 5082 / 5082 2251 / 2251 Output Total 1725 / 1725 2300 / 2300 3425 / 3425 1200 / 1200 Balance 2769 / 4569 2176 / 2176 1657 / 1657 1051 / 1051 - Physical Exam Oriented: Person Eyes: Normal Ear: Normal Nose: Normal Throat: Normal Respiratory: Generalized, Rales Cardiovascular: Irregular, Normal : Normal Auscultation: Bowel Sounds: Normal Palpation: Normal Tenderness: Normal Skin: Normal Musculoskeletal: Normal Psychiatric: Normal Mood Description: Anxious Affect: Anxious, Violent Speech Pattern: Appropriate, Unclear - Laboratory and Diagnostics Result Diagrams: 06/22/20 04:10 06/22/20 04:10 Labs: 06/01/20 13:35 Blood Blood Culture - Final 06/01/20 13:21 Blood Blood Culture - Final Laboratory WBC 6.9 X10^3/uL (3.6-10.0) 06/22/20 04:10 RBC 4.07 X10^6/uL (4.7-6.0) L 06/22/20 04:10 Hgb 12.2 g/dL (13.5-18.0) L 06/22/20 04:10 Hct 36.7 % (42.0-54.0) L 06/22/20 04:10 MCV 90.2 fL (80.0-100.0) 06/22/20 04:10 MCH 30.1 pg (27.0-34.0) 06/22/20 04:10 MCHC 33.4 g/dL (33.0-35.0) 06/22/20 04:10 RDW 14.0 % (11.6-16.5) 06/22/20 04:10 Plt Count 232 X10^3/uL (150.0-450.0) 06/22/20 04:10 Plt Count Comment Adequate (ADEQUATE) 06/22/20 04:10 MPV 9.5 fL (7.4-11.0) 06/22/20 04:10 Neut % (Auto) 94.3 % (42.0-75.0) H 06/22/20 04:10 Lymph % (Auto) 2.2 % (21.0-51.0) L 06/22/20 04:10 [place] % (Auto) 3.4 % (0.0-13.0) 06/22/20 04:10 Eos % (Auto) 0.0 % (0.9-2.9) L 06/22/20 04:10 Baso % (Auto) 0.1 % (0.2-1.0) L 06/22/20 04:10 Neut # (Auto) 6.5 x10^3/uL (2.2-4.8) H 06/22/20 04:10 Lymph # (Auto) 0.2 X10^3/uL (1.3-2.9) L 06/22/20 04:10 [place] # (Auto) 0.2 x10^3/uL (0.3-0.8) L 06/22/20 04:10 Eos # (Auto) 0.0 x10^3/uL (0.0-0.2) 06/22/20 04:10 Baso # (Auto) 0.0 X10^3/uL (0.0-0.1) 06/22/20 04:10 Absolute Nucleated RBC 0.2 /100WBC 06/22/20 04:10 Total Counted 100 06/22/20 04:10 Neutrophils % (Manual) 92 % (39-76) H 06/22/20 04:10 Band Neutrophils % 2 % (0-10) 06/21/20 05:10 Lymphocytes % (Manual) 5 % (13-43) L 06/22/20 04:10 Monocytes % (Manual) 3 % (4-9) L 06/22/20 04:10 Eosinophils % (Manual) 1 % (0-6) 06/18/20 05:38 Giant Platelets Few 06/10/20 04:40 Plt Morphology Comment Normal (NORMAL) 06/22/20 04:10 RBC Morphology Normal (NORMAL) 06/22/20 04:10 PT 17.2 SECONDS (11.8-14.3) 06/02/20 22:35 INR Target Range - 06/02/20 22:35 INR 1.45 (0.8-1.3) H 06/02/20 22:35 APTT 93.2 SECONDS (22.9-36.5) H 06/11/20 08:22 PTT Comment - 06/11/20 08:22 D-Dimer 1.70 ug/ml (0.0-0.57) H* 06/22/20 04:10 Sample Site Rr 06/22/20 04:35 ABG pH 7.510 (7.35-7.45) H 06/22/20 04:35 ABG pCO2 34.0 mmHg (35.0-45.0) L 06/22/20 04:35 ABG pO2 55.0 mmHg (80.0-100.0) L 06/22/20 04:35 ABG HCO3 27.1 mmol/L (22-26) H 06/22/20 04:35 ABG O2 Saturation 91.0 % (90-100) 06/22/20 04:35 ABG Base Excess 4.2 mmol/L (-2.0-2.0) H 06/22/20 04:35 Partha Test Pos 06/22/20 04:35 A-a Gradient 352.0 mmHg 06/22/20 04:35 FiO2 63.0 06/22/20 04:35 Blood Gas Comments Ivana well, kh 06/22/20 04:35 Sodium 131 mmol/L (136-145) L 06/22/20 04:10 Corrected Sodium 133 mmol/L (136-145) L 06/22/20 04:10 Potassium 3.8 mmol/L (3.5-5.1) 06/22/20 04:10 Chloride 96 mmol/L (98-107) L 06/22/20 04:10 Carbon Dioxide 27.7 mmol/L (21-32) 06/22/20 04:10 BUN 17 mg/dL (7-18) 06/22/20 04:10 Creatinine 0.66 mg/dL (0.70-1.30) L 06/22/20 04:10 Est GFR (MDRD) Af Amer > 60 (>60) 06/22/20 04:10 Est GFR (MDRD) Non-Af > 60 (>60) 06/22/20 04:10 Glucose 200 mg/dL (65-99) H 06/22/20 04:10 POC Glucose (mg/dL) 156 mg/dL (65-99) H 06/22/20 16:42 Lactic Acid 1.4 mmol/L (0.4-2.0) 06/15/20 05:15 Calcium 7.6 mg/dL (8.5-10.1) L 06/22/20 04:10 Corrected Calcium 9.5 mg/dL (8.5-10.1) 06/22/20 04:10 Magnesium 2.1 mg/dL (1.7-2.9) 06/19/20 04:10 Ferritin 1423 ng/mL (26-388) H 06/22/20 04:10 Total Bilirubin 0.30 mg/dL (0.2-1.0) 06/22/20 04:10 AST 47 Units/L (15-37) H 06/22/20 04:10 ALT 146 Units/L (12-78) H 06/22/20 04:10 Alkaline Phosphatase 104 Units/L (46-116) 06/22/20 04:10 Ammonia 44 umol/L (11-32) H 06/05/20 08:23 Creatine Kinase 448 Units/L (39-308) H 06/03/20 04:30 CK-MB (CK-2) 10.3 ng/mL (0-4.0) H* 06/03/20 04:30 CK/CKMB % Calc 2.3 % (<4) 06/03/20 04:30 Troponin I 0.22 ng/mL (0-1.5) 06/03/20 04:30 C-Reactive Protein 16.60 mg/L (0-3.0) H 06/22/20 04:10 B-Natriuretic Peptide 238 pg/mL (0-79) H 06/22/20 04:10 Total Protein 5.6 g/dL (6.4-8.2) L 06/22/20 04:10 Albumin 1.6 g/dL (3.4-5.0) L 06/22/20 04:10 Globulin 4.0 g/dL (2.5-4.5) 06/22/20 04:10 Albumin/Globulin Ratio 0.4 Ratio (1.1-2.1) L 06/22/20 04:10 Prealbumin 16.1 mg/dL (18-35.7) L 06/06/20 06:07 Specimen Type Clean catch urine 06/02/20 18:03 Urine Color Yellow (YELLOW) 06/02/20 18:03 Urine Appearance Clear (CLEAR) 06/02/20 18:03 Urine pH 5.0 (5.0 - 8.0) 06/02/20 18:03 Ur Specific [place] 1.010 (1.000-1.030) 06/02/20 18:03 Urine Protein 3+ (NEGATIVE) 06/02/20 18:03 Urine Glucose (UA) 4+ (NEGATIVE) 06/02/20 18:03 Urine Ketones 3+ (NEGATIVE) 06/02/20 18:03 Urine Occult Blood 3+ (NEGATIVE) 06/02/20 18:03 Urine Nitrite Negative (NEGATIVE) 06/02/20 18:03 Urine Bilirubin Negative (NEGATIVE) 06/02/20 18:03 Urine Urobilinogen Normal (NORMAL) 06/02/20 18:03 Ur Leukocyte Esterase Negative (NEGATIVE) 06/02/20 18:03 Urine RBC 3-5 /HPF (0-3) A 06/02/20 18:03 Urine WBC None seen /HPF (0-5) 06/02/20 18:03 Ur Squamous Epith Cells Negative /HPF (NEGATIVE) 06/02/20 18:03 Urine Bacteria Negative /HPF (NEGATIVE) 06/02/20 18:03 Ur Culture Indicated? No/not indicated 06/02/20 18:03 Digoxin 0.79 ng/mL (0.9-2) L 06/22/20 04:10 Phenobarbital 10.1 ug/mL (15-40) L 06/05/20 08:23 Theophylline 11.8 ug/mL (10-20) 06/21/20 11:13 SARS CoV-2 RNA Rapid LADAN Positive (NEGATIVE) A 06/01/20 13:23 Blood Type A POSITIVE 06/01/20 13:35 - Plan (1) Pneumonia due to COVID-19 virus Status: Suspected Plan: D5W AT 75 ML/HR, TPN, FORTAZ 1G IV Q8H, LEVAQUIN 500MG IV DAILY, DIFLUCAN 200MG IV DAILY, THEOPHYLLINE DRIP, BROVANA 15MCG NEB BID, PULMICORT NEB BID, XOPENEX NEB TID, MUCOMYST IN NEBS TID, CATAPRES 0.3MG/HR TD PATCH, LOVENOX 80MG SC BID, PEPCID 20MG IV Q12H, HYDRALAZINE 10MG IV Q4H PRN, LEMEVIR 12 UNITS SC BID, HUMULIN R SLIDING SCALE, MAGIC MOUTHWASH QID PRN, SOLU-MEDROL 80MG IV Q8H, CARDIZEM CD 120MG PO BID, LOPRESSOR 50MG PO BID, DIGOXIN 0.125MG PO DAILY, PROTONIX 40MG IV DAILY, SILDENAFIL 20MG PO TID, THE POTASSIUM AND MAGNESIUM PROTOCOLS. (2) Hypoxia Status: Chronic (3) Atrial fibrillation with RVR Status: Acute Plan: DIGOXIN 250MCG IV DAILY, LOPRESSOR 5MG IV Q6H (4) AMS (altered mental status) Status: Acute Qualifiers: Altered mental status type: transient alteration of awareness Qualified Code(s): R40.4 - Transient alteration of awareness (5) AAA (abdominal aortic aneurysm) Status: Chronic Qualifiers: Presence of rupture: without rupture Qualified Code(s): I71.4 - Abdominal aortic aneurysm, without rupture (6) Anemia Status: Chronic Qualifiers: Anemia type: iron deficiency Iron deficiency anemia type: unspecified iron deficiency Qualified Code(s): D50.9 - Iron deficiency anemia, unspecified (7) BPH (benign prostatic hyperplasia) Status: Chronic Qualifiers: Lower urinary tract symptom presence: unspecified whether lower urinary tract symptoms present Qualified Code(s): N40.0 - Benign prostatic hyperplasia without lower urinary tract symptoms (8) CAD (coronary artery disease) Status: Chronic Qualifiers: Coronary Disease-Associated Artery/Lesion type: [place] artery [place] vs. transplanted heart: [place] heart (9) Diabetes mellitus Status: Chronic Qualifiers: Diabetes mellitus type: type 2 Diabetes mellitus fpc insulin use: unspecified fpc insulin use status Diabetes mellitus complication status: without complication Qualified Code(s): E11.9 - Type 2 diabetes mellitus without complications (10) GERD (gastroesophageal reflux disease) Status: Chronic Qualifiers: Esophagitis presence: esophagitis presence not specified Qualified Code(s): K21.9 - Gastro-esophageal reflux disease without esophagitis (11) History of CVA (cerebrovascular accident) Status: Chronic (12) Hyperlipemia Status: Chronic Qualifiers: Hyperlipidemia type: mixed hyperlipidemia Qualified Code(s): E78.2 - Mixed hyperlipidemia (13) Hypertension Status: Chronic Qualifiers: Hypertension type: essential hypertension Qualified Code(s): I10 - Essential (primary) hypertension
[2020-06-22] MEDS: CLINIMIX 4.25 %/10 % 1,000 ML with MVI INJ (ADULT) 10 ML, TRACE ELEMENTS INJ 10 ML, POT... IV SCH ×8 (19:36)
[2020-06-22] MEDS: AMINOPHYLLINE INJ 1,000 MG in DEXTROSE 5% 460 ML IV PRN (19:46)
[2020-06-22] MEDS: COLACE CAP 100 MG PO SCH (20:01)
[2020-06-23] MEDS: ZOFRAN INJ 4 MG VIAL IVP PRN ×3 (01:56→22:55)
[2020-06-23] MEDS: MORPHINE SULFATE INJ 2 MG INJ IVP PRN ×4 (04:11→22:54)
[2020-06-23] MEDS: APRESOLINE INJ 20 MG VIAL IVP PRN (04:25)
[2020-06-23 04:46] LABS: BASOPHILS % (AUTO) 0.1 % (0.2-1.0); HEMATOCRIT 40.9 % (42.0-54.0); HEMOGLOBIN 13.7 g/dL (13.5-18.0); LYMPHOCYTES # (AUTO) 0.3 X10^3/uL (1.3-2.9); LYMPHOCYTES % (AUTO) 2.8 % (21.0-51.0); MEAN CORPUSCULAR HEMOGLOBIN 30.1 pg (27.0-34.0); MEAN CORPUSCULAR HGB CONC 33.4 g/dL (33.0-35.0); MEAN PLATELET VOLUME 9.9 fL (7.4-11.0); MONOCYTES # (AUTO) 0.3 x10^3/uL (0.3-0.8); MONOCYTES % (AUTO) 3.4 % (0.0-13.0); NEUTROPHILS # (AUTO) 8.7 x10^3/uL (2.2-4.8); NEUTROPHILS % (AUTO) 93.7 % (42.0-75.0); PLATELET COUNT 278 X10^3/uL (150.0-450.0); RED BLOOD COUNT 4.54 X10^6/uL (4.7-6.0); WHITE BLOOD COUNT 9.3 X10^3/uL (3.6-10.0)
[2020-06-23 05:01] LABS: ABG ALLEN TEST POS; ABG BASE EXCESS 4.8 mmol/L (-2.0-2.0); ABG HCO3 28.1 mmol/L (22-26)
[2020-06-23 05:12] LABS: ALANINE AMINOTRANSFERASE 227 Units/L (12-78); ALBUMIN 1.8 g/dL (3.4-5.0); ALKALINE PHOSPHATASE 145 Units/L (46-116); ASPARTATE AMINO TRANSFERASE 84 Units/L (15-37); BLOOD UREA NITROGEN 16 mg/dL (7-18); CALCIUM 7.7 mg/dL (8.5-10.1); CARBON DIOXIDE 26.8 mmol/L (21-32); CHLORIDE 97 mmol/L (98-107); COR CA(FOR HYPOALB) 9.5 mg/dL (8.5-10.1); COR NA(FOR HYPERGLY) 132 mmol/L (136-145); CREATININE 0.61 mg/dL (0.70-1.30); DIGOXIN 0.99 ng/mL (0.9-2); SODIUM 131 mmol/L (136-145); TOTAL PROTEIN 6.2 g/dL (6.4-8.2); eGFR NON BLACK RACES > 60 (>60)
[2020-06-23 05:30] LABS: TROPONIN I 0.09 ng/mL (0-1.5)
[2020-06-23 05:32] LABS: CREATINE KINASE MB 4.9 ng/mL (0-4.0)
[2020-06-23 06:03] LABS: PLATELET MORPHOLOGY COMMENT NORMAL (NORMAL)
[2020-06-23] MEDS: FORTAZ or TAZICEF VIAL INJ 1 G in NS 100 ML IV + SPIKE MINIBAG* 100 ML IV SCH ×3 (06:03→22:12)
[2020-06-23] MEDS: SOLU-Medrol 125 MG VIAL IVP SCH ×3 (06:09→22:13)
[2020-06-23] MEDS: REVATIO PO SCH ×3 (06:09→22:13)
[2020-06-23] MEDS: NORCO 5/325 MG TAB PO SCH ×3 (06:10→22:13)
--- NOTE | 2020-06-23 06:15 | RAD ---
HISTORYSOBSTUDYCHEST, 1 [id number] trachea is midline. Right IJ central line in right atrium. The cardiac silhouette is unremarkable. Changes of prior CABG surgery. The bibasilar infiltrates unchanged. No pneumothorax.. The bony thorax is unremarkable.IMPRESSIONBibasilar infiltrates unchanged from 06/22/2020lectronically signed by: [place] (Jun 23, 2020 06:13:50)
[2020-06-23] MEDS: PEPCID 20 MG IV PREMIX* 20 MG/50 ML BAG IV SCH ×2 (08:10→20:20)
[2020-06-23] MEDS: PULMICORT NEB TX 0.5 MG NEB SCH ×2 (08:10→21:29)
[2020-06-23] MEDS: XOPENEX 1.25 MG/3 ML NEBULE NEB SCH ×4 (08:10→21:29)
[2020-06-23] MEDS: BROVANA IN SCH ×2 (08:10→21:20)
[2020-06-23] MEDS: LANOXIN INJ IVP SCH ×2 (08:38→09:01)
[2020-06-23] MEDS: CARDIZEM CD 120 MG 24-HR PO SCH ×2 (09:00→20:19)
[2020-06-23] MEDS: LOPRESSOR TAB 50 MG PO SCH ×2 (09:02→20:20)
[2020-06-23] MEDS: LEVAQUIN PREMIX IV 500 MG 500 MG/100 ML BAG IV SCH (09:33)
[2020-06-23] MEDS: PROTONIX INJ 40 MG VIAL IVP SCH (09:34)
[2020-06-23] MEDS: LOVENOX INJ 80 MG SYR SC SCH ×2 (09:35→20:20)
[2020-06-23] MEDS ORDERED: LOPRESSOR INJ 5 MG AMP IVP ONE (10:15)
[2020-06-23] MEDS: LEVEMIR SC SCH ×2 (10:15→20:19)
[2020-06-23] MEDS: PHENERGAN TAB 25 MG PO PRN ×2 (10:45→20:10)
[2020-06-23] MEDS: DIFLUCAN 200 MG IV PREMIX* 200 MG/100 ML BAG IV SCH (10:46)
[2020-06-23] MEDS: CORDARONE TAB 200 MG PO SCH ×2 (10:54→16:00)
--- NOTE | 2020-06-23 12:51 | PCM.PROG ---
Progress Note - Progress Note for Day of Date of Exam: 06/23/20 - Subjective Subjective: WAS ADMITTED FOR TREATMENT OF PNEUMONIA DUE TO COVID-19 AND HYPOXIA. HE REMAINS IN THE INTENSIVE CARE UNIT TODAY. HE IS CURRENTLY ON HEATED HIGH FLOW OXYGEN. FI02 IS CURRENTLY AT 86%. HIS SATURATIONS HAVE BEEN 84- 92% THIS MORNING AND THROUGHOUT THE NIGHT. TODAY, PATIENT IS ALERT, LYING IN BED ON MORNING ROUNDS. HE CONTINUES WITH WEAKNESS AND SHORTNESS OF BREATH, BUT REPORTS SLIGHT IMPROVEMENT TODAY. HE DOES ADMIT TO INCREASED NAUSEA THIS MORNING. ON EXAMINATION, HE CONTINUES TO BE TACHYCARDIC THIS MORNING DESPITE CHANGES MADE TO MEDICATIONS YESTERDAY. A-FIB NOTED. BILATERAL LUNGS ARE NOTED WITH DIMINISHED LUNG SOUNDS THROUGHOUT. ABDOMEN IS ROUND, SOFT, AND NON-TENDER WITH NORMAL BOWEL SOUNDS NOTED IN ALL QUADRANTS. THERE IS TRACE EDEMA NOTED TO UPPER AND LOWER EXTREMITIES. HIS VITALS THIS MORNING ARE: 97.9-148-26-88%-146/84. LABS WERE OBTAINED. ABNORMAL LAB VALUES INCLUDE THE FOLLOWING: RBC 4.54, HCT 40.9, D-DIMER 1.90, SODIUM 131, CHLORIDE 97, CREATININE 0.61, GLUCOSE 135, CALCIUM 7.7, AST 84, ALT 227, ALK PHOS 145, CK-MB 4.9, CRP 10.70, BNP 219, TOTAL PROTEIN 6.2, ALBUMIN 1.8. AN ABG WAS OBTAINED AND REVEALED: PH 7.500, PC02 36, P02 56, HC03 28.1, 02 SAT 91, BASE EXCESS 4.8, A-A GRADIENT 512, FI02 86. A CHEST XRAY WAS OBTAINED AND REVEALED: The trachea is mi dline. Right IJ central line in right atrium. The cardiac silhouette is unremarkable. Changes of prior CABG surgery. The bibasilar infiltrates unchanged. No pneumothorax. The bony thorax is unremarkable. EKG THIS MORNING REVEALED: ATRIAL FLUTTER WITH HR 148. TODAY, WE WILL ADMINISTER LOPRESSOR 5MG IV X 1, START AMIODARONE 200MG PO BID, PHENERGAN 25MG PO Q4H PRN, AND ZOFRAN COCKTAIL Q8H PRN. WE WILL ATTEMPT TO DECREASE OXYGEN TOLERATED. OTHERWISE, WE WILL CONTINUE WITH CURRENT PLAN OF CARE TODAY. WE PLAN TO FOLLOW UP WITH AM LABS, CHEST XRAY, ABG, AND CONTINUE TO MONITOR. TIME SPENT ON CLINICAL ASSESSMENT, REVIEWING LABS AND IMAGING, DECISION MAKING, AND DOCUMENTATION GREATER THAN 75 MINUTES. - Past Medical Family Social History Past Med/Fam/Surg Hx: No changes since H&P Allergies: Allergies No Known Drug Allergies Allergy (Verified 06/01/20 13:35) - Review of Systems ROS: No change since H&P - Vital Signs and I&O's Vital Signs: Temperature 97.9 F Pulse Rate [Left Brachial] 79 Pulse Rate 134 Respiratory Rate 27 Blood Pressure [Left Calf] 166/88 Blood Pressure [Right Arm] 176/93 Blood Pressure [Left Arm] 147/83 Blood Pressure 152/76 O2 Sat by Pulse Oximetry 89 Intake and Output: Intake & Output 06/21/20 06/22/20 06/23/20 06/24/20 11:59 11:59 11:59 11:59 Intake Total 4476 / 4476 5082 / 5082 4764 / 4764 Output Total 2300 / 2300 3425 / 3425 2725 / 2725 Balance 2176 / 2176 1657 / 1657 2038 / 2038 - Physical Exam Oriented: Person Eyes: Normal Ear: Normal Nose: Normal Throat: Normal Respiratory: Generalized, Diminished Cardiovascular: Tachycardia, Irregular : Normal Auscultation: Bowel Sounds: Normal Palpation: Normal Tenderness: Normal Skin: Normal Musculoskeletal: Normal Psychiatric: Normal Mood Description: Anxious Affect: Anxious, Violent Speech Pattern: Clear, Appropriate - Laboratory and Diagnostics Result Diagrams: 06/23/20 04:00 06/23/20 04:00 Labs: 06/01/20 13:35 Blood Blood Culture - Final 06/01/20 13:21 Blood Blood Culture - Final Laboratory WBC 9.3 X10^3/uL (3.6-10.0) 06/23/20 04:00 RBC 4.54 X10^6/uL (4.7-6.0) L 06/23/20 04:00 Hgb 13.7 g/dL (13.5-18.0) 06/23/20 04:00 Hct 40.9 % (42.0-54.0) L 06/23/20 04:00 MCV 90.0 fL (80.0-100.0) 06/23/20 04:00 MCH 30.1 pg (27.0-34.0) 06/23/20 04:00 MCHC 33.4 g/dL (33.0-35.0) 06/23/20 04:00 RDW 14.0 % (11.6-16.5) 06/23/20 04:00 Plt Count 278 X10^3/uL (150.0-450.0) 06/23/20 04:00 Plt Count Comment Adequate (ADEQUATE) 06/23/20 04:00 MPV 9.9 fL (7.4-11.0) 06/23/20 04:00 Neut % (Auto) 93.7 % (42.0-75.0) H 06/23/20 04:00 Lymph % (Auto) 2.8 % (21.0-51.0) L 06/23/20 04:00 [place] % (Auto) 3.4 % (0.0-13.0) 06/23/20 04:00 Eos % (Auto) 0.0 % (0.9-2.9) L 06/23/20 04:00 Baso % (Auto) 0.1 % (0.2-1.0) L 06/23/20 04:00 Neut # (Auto) 8.7 x10^3/uL (2.2-4.8) H 06/23/20 04:00 Lymph # (Auto) 0.3 X10^3/uL (1.3-2.9) L 06/23/20 04:00 [place] # (Auto) 0.3 x10^3/uL (0.3-0.8) 06/23/20 04:00 Eos # (Auto) 0.0 x10^3/uL (0.0-0.2) 06/23/20 04:00 Baso # (Auto) 0.0 X10^3/uL (0.0-0.1) 06/23/20 04:00 Absolute Nucleated RBC 0.9 /100WBC 06/23/20 04:00 Total Counted 100 06/23/20 04:00 Neutrophils % (Manual) 98 % (39-76) H 06/23/20 04:00 Band Neutrophils % 2 % (0-10) 06/21/20 05:10 Lymphocytes % (Manual) 2 % (13-43) L 06/23/20 04:00 Monocytes % (Manual) 3 % (4-9) L 06/22/20 04:10 Eosinophils % (Manual) 1 % (0-6) 06/18/20 05:38 Giant Platelets Few 06/10/20 04:40 Plt Morphology Comment Normal (NORMAL) 06/23/20 04:00 RBC Morphology Normal (NORMAL) 06/23/20 04:00 PT 17.2 SECONDS (11.8-14.3) 06/02/20 22:35 INR Target Range - 06/02/20 22:35 INR 1.45 (0.8-1.3) H 06/02/20 22:35 APTT 93.2 SECONDS (22.9-36.5) H 06/11/20 08:22 PTT Comment - 06/11/20 08:22 D-Dimer 1.90 ug/ml (0.0-0.57) H* 06/23/20 04:00 Sample Site Lrad 06/23/20 04:55 ABG pH 7.500 (7.35-7.45) H 06/23/20 04:55 ABG pCO2 36.0 mmHg (35.0-45.0) 06/23/20 04:55 ABG pO2 56.0 mmHg (80.0-100.0) L 06/23/20 04:55 ABG HCO3 28.1 mmol/L (22-26) H 06/23/20 04:55 ABG O2 Saturation 91.0 % (90-100) 06/23/20 04:55 ABG Base Excess 4.8 mmol/L (-2.0-2.0) H 06/23/20 04:55 Partha Test Pos 06/23/20 04:55 A-a Gradient 512.0 mmHg 06/23/20 04:55 FiO2 86.0 06/23/20 04:55 Blood Gas Comments Ivana well ah 06/23/20 04:55 Sodium 131 mmol/L (136-145) L 06/23/20 04:00 Corrected Sodium 132 mmol/L (136-145) L 06/23/20 04:00 Potassium 3.9 mmol/L (3.5-5.1) 06/23/20 04:00 Chloride 97 mmol/L (98-107) L 06/23/20 04:00 Carbon Dioxide 26.8 mmol/L (21-32) 06/23/20 04:00 BUN 16 mg/dL (7-18) 06/23/20 04:00 Creatinine 0.61 mg/dL (0.70-1.30) L 06/23/20 04:00 Est GFR (MDRD) Af Amer > 60 (>60) 06/23/20 04:00 Est GFR (MDRD) Non-Af > 60 (>60) 06/23/20 04:00 Glucose 135 mg/dL (65-99) H 06/23/20 04:00 POC Glucose (mg/dL) 153 mg/dL (65-99) H 06/23/20 10:59 Lactic Acid 1.4 mmol/L (0.4-2.0) 06/15/20 05:15 Calcium 7.7 mg/dL (8.5-10.1) L 06/23/20 04:00 Corrected Calcium 9.5 mg/dL (8.5-10.1) 06/23/20 04:00 Magnesium 2.1 mg/dL (1.7-2.9) 06/19/20 04:10 Ferritin 1423 ng/mL (26-388) H 06/22/20 04:10 Total Bilirubin 0.40 mg/dL (0.2-1.0) 06/23/20 04:00 AST 84 Units/L (15-37) H 06/23/20 04:00 ALT 227 Units/L (12-78) H 06/23/20 04:00 Alkaline Phosphatase 145 Units/L (46-116) H 06/23/20 04:00 Ammonia 44 umol/L (11-32) H 06/05/20 08:23 Creatine Kinase 70 Units/L (39-308) 06/23/20 04:00 CK-MB (CK-2) 4.9 ng/mL (0-4.0) H* 06/23/20 04:00 CK/CKMB % Calc 7.0 % (<4) 06/23/20 04:00 Troponin I 0.09 ng/mL (0-1.5) 06/23/20 04:00 C-Reactive Protein 10.70 mg/L (0-3.0) H 06/23/20 04:00 B-Natriuretic Peptide 219 pg/mL (0-79) H 06/23/20 04:00 Total Protein 6.2 g/dL (6.4-8.2) L 06/23/20 04:00 Albumin 1.8 g/dL (3.4-5.0) L 06/23/20 04:00 Globulin 4.4 g/dL (2.5-4.5) 06/23/20 04:00 Albumin/Globulin Ratio 0.4 Ratio (1.1-2.1) L 06/23/20 04:00 Prealbumin 16.1 mg/dL (18-35.7) L 06/06/20 06:07 Specimen Type Clean catch urine 06/02/20 18:03 Urine Color Yellow (YELLOW) 06/02/20 18:03 Urine Appearance Clear (CLEAR) 06/02/20 18: Urine pH 5.0 (5.0 - 8.0) 06/02/20 18:03 Ur Specific [place] 1.010 (1.000-1.030) 06/02/20 18:03 Urine Protein 3+ (NEGATIVE) 06/02/20 18:03 Urine Glucose (UA) 4+ (NEGATIVE) 06/02/20 18:03 Urine Ketones 3+ (NEGATIVE) 06/02/20 18:03 Urine Occult Blood 3+ (NEGATIVE) 06/02/20 18:03 Urine Nitrite Negative (NEGATIVE) 06/02/20 18: Urine Bilirubin Negative (NEGATIVE) 06/02/20 18:03 Urine Urobilinogen Normal (NORMAL) 06/02/20 18:03 Ur Leukocyte Esterase Negative (NEGATIVE) 06/02/20 18:03 Urine RBC 3-5 /HPF (0-3) A 06/02/20 18:03 Urine WBC None seen /HPF (0-5) 06/02/20 18:03 Ur Squamous Epith Cells Negative /HPF (NEGATIVE) 06/02/20 18:03 Urine Bacteria Negative /HPF (NEGATIVE) 06/02/20 18:03 Ur Culture Indicated? No/not indicated 06/02/20 18:03 Digoxin 0.99 ng/mL (0.9-2) 06/23/20 04:00 Phenobarbital 10.1 ug/mL (15-40) L 06/05/20 08:23 Theophylline 11.8 ug/mL (10-20) 06/21/20 11:13 SARS CoV-2 RNA Rapid LADAN Positive (NEGATIVE) A 06/01/20 13:23 Blood Type A POSITIVE 06/01/20 13:35 - Plan (1) Pneumonia due to COVID-19 virus Status: Suspected Plan: D5W AT 75 ML/HR, TPN, FORTAZ 1G IV Q8H, LEVAQUIN 500MG IV DAILY, DIFLUCAN 200MG IV DAILY, THEOPHYLLINE DRIP, BROVANA 15MCG NEB BID, PULMICORT NEB BID, XOPENEX NEB TID, MUCOMYST IN NEBS TID, CATAPRES 0.3MG/HR TD PATCH, LOVENOX 80MG SC BID, PEPCID 20MG IV Q12H, HYDRALAZINE 10MG IV Q4H PRN, LEMEVIR 12 UNITS SC BID, HUMULIN R SLIDING SCALE, MAGIC MOUTHWASH QID PRN, SOLU-MEDROL 80MG IV Q8H, CARDIZEM CD 120MG PO BID, LOPRESSOR 50MG PO BID, DIGOXIN 0.125MG PO DAILY, PROTONIX 40MG IV DAILY, SILDENAFIL 20MG PO TID, THE POTASSIUM AND MAGNESIUM PROTOCOLS. (2) Hypoxia Status: Chronic (3) Atrial fibrillation with RVR Status: Acute Plan: DIGOXIN 125MCG PO DAILY, AMIODARONE 200MG PO BID (4) AMS (altered mental status) Status: Acute Qualifiers: Altered mental status type: transient alteration of awareness Qualified Cod e(s): R40.4 - Transient alteration of awareness (5) AAA (abdominal aortic aneurysm) Status: Chronic Qualifiers: Presence of rupture: without rupture Qualified Code(s): I71.4 - Abdominal a ortic aneurysm, without rupture (6) Anemia Status: Chronic Qualifiers: Anemia type: iron deficiency Iron deficiency anemia type: unspecified iron deficiency Qualified Code(s): D50.9 - Iron deficiency anemia, unspecified (7) BPH (benign prostatic hyperplasia) Status: Chronic Qualifiers: Lower urinary tract symptom presence: unspecified whether lower urinary tract symptoms present Qualified Code(s): N40.0 - Benign prostatic hyperplasia without lower urinary tract symptoms (8) CAD (coronary artery disease) Status: Chronic Qualifiers: Coronary Disease-Associated Artery/Lesion type: knik artery [place] vs. transplanted heart: knik heart (9) Diabetes mellitus Status: Chronic Qualifiers: Diabetes mellitus type: type 2 Diabetes mellitus prison insulin use: unspecified prison insulin use status Diabetes mellitus complication status: without complication Qualified Code(s): E11.9 - Type 2 diabetes mellitus without complications (10) GERD (gastroesophageal reflux disease) Status: Chronic Qualifiers: Esophagitis presence: esophagitis presence not specified Qualified Code(s): K21.9 - Gastro-esophageal reflux disease without esophagitis (11) History of CVA (cerebrovascular accident) Status: Chronic (12) Hyperlipemia Status: Chronic Qualifiers: Hyperlipidemia type: mixed hyperlipidemia Qualified Code(s): E78.2 - Mixed hyperlipidemia (13) Hypertension Status: Chronic Qualifiers: Hypertension type: essential hypertension Qualified Code(s): I10 - Essential (primary) hypertension
[2020-06-23] MEDS: DECADRON JET NEB (RESP USE) NEB SCH ×2 (13:35→16:45)
[2020-06-23] MEDS: CLINIMIX 4.25 %/10 % 1,000 ML with MVI INJ (ADULT) 10 ML, TRACE ELEMENTS INJ 10 ML, POT... IV SCH ×8 (15:55)
[2020-06-23] MEDS: AMINOPHYLLINE INJ 1,000 MG in DEXTROSE 5% 460 ML IV PRN (17:15)
[2020-06-23] MEDS: NS 1000 ML 1,000 ML IV SCH ×2 (18:08→18:59)
[2020-06-23] MEDS: SNACK - Diabetic Appropriate PO SCH (20:04)
[2020-06-23] MEDS: COLACE CAP 100 MG PO SCH (20:19)
[2020-06-24] MEDS: MORPHINE SULFATE INJ 2 MG INJ IVP PRN ×3 (03:00→18:10)
[2020-06-24] MEDS: PHENERGAN TAB 25 MG PO PRN (03:01)
[2020-06-24] MEDS ORDERED: ZOFRAN INJ 4 MG VIAL ONE (03:33)
[2020-06-24] MEDS: ZOFRAN INJ 4 MG VIAL 16 MG, ATIVAN INJ 2 MG VIAL 1 MG, DECADRON INJ 10 MG in NS 50 ML I... IV PRN (03:41)
[2020-06-24 04:03] LABS: ABG BASE EXCESS 5.8 mmol/L (-2.0-2.0); ABG HCO3 29.8 mmol/L (22-26)
[2020-06-24 04:04] LABS: ABG ALLEN TEST POS
[2020-06-24] MEDS ORDERED: ATIVAN INJ 2 MG VIAL IVP ONE (05:10)
[2020-06-24] MEDS ORDERED: ATIVAN INJ 2 MG VIAL ONE (05:10)
[2020-06-24] MEDS: NS 1000 ML 1,000 ML IV SCH ×2 (05:35→19:37)
[2020-06-24] MEDS: SOLU-Medrol 125 MG VIAL IVP SCH ×3 (05:36→21:18)
[2020-06-24] MEDS: REVATIO PO SCH ×3 (05:36→21:17)
[2020-06-24] MEDS: FORTAZ or TAZICEF VIAL INJ 1 G in NS 100 ML IV + SPIKE MINIBAG* 100 ML IV SCH ×3 (05:36→21:17)
--- NOTE | 2020-06-24 06:06 | RAD ---
HISTORYShortness of breathSTUDYChest AP [id number] February 2021FINDINGSPatient is rotated to the left. Patient is status post median sternotomy and CABG. The heart is small limits in size. The lungs remain hypoinflated. Bilateral interstitial infiltrates are unchanged. Consolidation in the retrocardiac area of the left lower lobe is unchanged. No pleural effusions are identified. Bony thorax is unremarkable.IMPRESSIONNo significant change from the prior examinationElectronically signed by: FELICIA LEW (Jun 24, 2020 06:04:46)
[2020-06-24 06:08] LABS: BASOPHILS % (AUTO) 0.1 % (0.2-1.0); HEMATOCRIT 39.3 % (42.0-54.0); HEMOGLOBIN 13.4 g/dL (13.5-18.0); LYMPHOCYTES # (AUTO) 0.2 X10^3/uL (1.3-2.9); LYMPHOCYTES % (AUTO) 3.4 % (21.0-51.0); MEAN CORPUSCULAR HEMOGLOBIN 30.8 pg (27.0-34.0); MEAN CORPUSCULAR VOLUME 90.7 fL (80.0-100.0); MEAN PLATELET VOLUME 9.3 fL (7.4-11.0); MONOCYTES # (AUTO) 0.2 x10^3/uL (0.3-0.8); MONOCYTES % (AUTO) 3.5 % (0.0-13.0); NEUTROPHILS # (AUTO) 6.5 x10^3/uL (2.2-4.8); PLATELET COUNT 241 X10^3/uL (150.0-450.0); RED BLOOD COUNT 4.34 X10^6/uL (4.7-6.0); RED CELL DISTRIBUTION WIDTH 14.6 % (11.6-16.5)
[2020-06-24] MEDS: APRESOLINE INJ 20 MG VIAL IVP PRN (06:34)
[2020-06-24 06:36] LABS: ALANINE AMINOTRANSFERASE 177 Units/L (12-78); ALBUMIN 1.7 g/dL (3.4-5.0); ALKALINE PHOSPHATASE 173 Units/L (46-116); ASPARTATE AMINO TRANSFERASE 54 Units/L (15-37); BLOOD UREA NITROGEN 16 mg/dL (7-18); CALCIUM 7.5 mg/dL (8.5-10.1); CARBON DIOXIDE 25.9 mmol/L (21-32); CHLORIDE 99 mmol/L (98-107); COR CA(FOR HYPOALB) 9.3 mg/dL (8.5-10.1); CREATININE 0.57 mg/dL (0.70-1.30); DIGOXIN 1.02 ng/mL (0.9-2); MAGNESIUM 1.7 mg/dL (1.7-2.9); SODIUM 133 mmol/L (136-145); TOTAL PROTEIN 5.9 g/dL (6.4-8.2); eGFR NON BLACK RACES > 60 (>60)
[2020-06-24 06:46] LABS: PLATELET MORPHOLOGY COMMENT NORMAL (NORMAL)
[2020-06-24 07:07] LABS: CKMB % 8.7 % (<4); TROPONIN I 0.18 ng/mL (0-1.5)
[2020-06-24 07:10] LABS: CREATINE KINASE MB 5.2 ng/mL (0-4.0)
[2020-06-24] MEDS: ZOFRAN INJ 4 MG VIAL IVP PRN (07:57)
[2020-06-24] MEDS: CORDARONE TAB 200 MG PO SCH ×2 (08:00→19:38)
[2020-06-24] MEDS: LOPRESSOR TAB 50 MG PO SCH ×2 (08:18→20:01)
[2020-06-24] MEDS: CARDIZEM CD 120 MG 24-HR PO SCH (08:18)
[2020-06-24] MEDS: LANOXIN INJ IVP SCH (08:19)
[2020-06-24] MEDS: PROTONIX INJ 40 MG VIAL IVP SCH (08:20)
[2020-06-24] MEDS: LOVENOX INJ 80 MG SYR SC SCH (08:20)
[2020-06-24] MEDS: PEPCID 20 MG IV PREMIX* 20 MG/50 ML BAG IV SCH ×2 (08:20→20:03)
[2020-06-24] MEDS: NORCO 5/325 MG TAB PO SCH ×3 (08:30→22:42)
[2020-06-24] MEDS: BROVANA IN SCH ×2 (09:18→21:21)
[2020-06-24] MEDS: XOPENEX 1.25 MG/3 ML NEBULE NEB SCH ×3 (09:24→21:28)
[2020-06-24] MEDS: PULMICORT NEB TX 0.5 MG NEB SCH ×2 (09:24→21:28)
[2020-06-24] MEDS ORDERED: CARDIZEM ER 60 MG 12-HR PO ONE (10:00)
[2020-06-24] MEDS: DIFLUCAN 200 MG IV PREMIX* 200 MG/100 ML BAG IV SCH (10:30)
[2020-06-24 11:23] LABS: TROPONIN I 0.16 ng/mL (0-1.5)
[2020-06-24 11:24] LABS: CREATINE KINASE MB 4.6 ng/mL (0-4.0)
[2020-06-24] MEDS ORDERED: XOPENEX 1.25 MG/3 ML NEBULE NEB ONE (12:02)
[2020-06-24] MEDS: LEVEMIR SC SCH ×2 (12:06→20:00)
[2020-06-24] MEDS: LEVAQUIN PREMIX IV 500 MG 500 MG/100 ML BAG IV SCH (13:00)
[2020-06-24] MEDS: DECADRON JET NEB (RESP USE) NEB SCH ×2 (14:35→17:56)
[2020-06-24 18:17] LABS: CKMB % 7.8 % (<4); TROPONIN I 0.16 ng/mL (0-1.5)
[2020-06-24 18:20] LABS: CREATINE KINASE MB 4.3 ng/mL (0-4.0)
[2020-06-24] MEDS: SNACK - Diabetic Appropriate PO SCH (20:00)
[2020-06-24] MEDS: CLINIMIX 4.25 %/10 % 1,000 ML with MVI INJ (ADULT) 10 ML, TRACE ELEMENTS INJ 10 ML, POT... IV SCH ×8 (20:00)
[2020-06-24] MEDS: COLACE CAP 100 MG PO SCH (20:01)
[2020-06-24] MEDS: CARDIZEM CD 180 MG 24-HR PO SCH (20:03)
[2020-06-24] MEDS: XARELTO PO SCH (21:17)
[2020-06-25] MEDS: MORPHINE SULFATE INJ 2 MG INJ IVP PRN ×4 (02:13→22:11)
[2020-06-25 05:16] LABS: BASOPHILS % (AUTO) 0.1 % (0.2-1.0); HEMATOCRIT 37.1 % (42.0-54.0); HEMOGLOBIN 12.4 g/dL (13.5-18.0); LYMPHOCYTES # (AUTO) 0.2 X10^3/uL (1.3-2.9); MEAN CORPUSCULAR HEMOGLOBIN 30.4 pg (27.0-34.0); MEAN CORPUSCULAR HGB CONC 33.3 g/dL (33.0-35.0); MEAN CORPUSCULAR VOLUME 91.2 fL (80.0-100.0); MEAN PLATELET VOLUME 9.2 fL (7.4-11.0); MONOCYTES # (AUTO) 0.3 x10^3/uL (0.3-0.8); MONOCYTES % (AUTO) 4.5 % (0.0-13.0); NEUTROPHILS # (AUTO) 5.4 x10^3/uL (2.2-4.8); NEUTROPHILS % (AUTO) 91.4 % (42.0-75.0); PLATELET COUNT 231 X10^3/uL (150.0-450.0); RED BLOOD COUNT 4.07 X10^6/uL (4.7-6.0); RED CELL DISTRIBUTION WIDTH 14.9 % (11.6-16.5); WHITE BLOOD COUNT 5.9 X10^3/uL (3.6-10.0)
[2020-06-25 05:29] LABS: ALANINE AMINOTRANSFERASE 134 Units/L (12-78); ALBUMIN 1.5 g/dL (3.4-5.0); ALKALINE PHOSPHATASE 146 Units/L (46-116); ASPARTATE AMINO TRANSFERASE 38 Units/L (15-37); BLOOD UREA NITROGEN 17 mg/dL (7-18); CALCIUM 7.5 mg/dL (8.5-10.1); CARBON DIOXIDE 27.4 mmol/L (21-32); CHLORIDE 101 mmol/L (98-107); COR CA(FOR HYPOALB) 9.5 mg/dL (8.5-10.1); COR NA(FOR HYPERGLY) 135 mmol/L (136-145); CREATININE 0.59 mg/dL (0.70-1.30); DIGOXIN 0.98 ng/mL (0.9-2); SODIUM 134 mmol/L (136-145); TOTAL PROTEIN 5.4 g/dL (6.4-8.2); eGFR NON BLACK RACES > 60 (>60)
[2020-06-25 05:36] LABS: ABG BASE EXCESS 5.8 mmol/L (-2.0-2.0)
[2020-06-25 05:37] LABS: ABG ALLEN TEST POS; ABG HCO3 30.6 mmol/L (22-26)
--- NOTE | 2020-06-25 06:00 | RAD ---
HISTORYShortness of breathSTUDYChest AP [id number] June 2020FINDINGSPatient is rotated to the left. Patient is status post median sternotomy and CABG. There is a right IJ line with its tip in the right atrium. Hypo inflation is present. Bilateral interstitial infiltrates and consolidation in the retrocardiac area of the left lower lobe unchanged. No pleural effusions are identified. Bony thorax is unremarkable.IMPRESSIONNo change bilateral interstitial infiltrates and retrocardiac left lower lobe consolidationElectronically signed by: FELICIA LEW (Jun 25, 2020 05:59:17)
[2020-06-25 06:03] LABS: BAND NEUTROPHILS % 2 % (0-10); PLATELET MORPHOLOGY COMMENT NORMAL (NORMAL)
[2020-06-25] MEDS: FORTAZ or TAZICEF VIAL INJ 1 G in NS 100 ML IV + SPIKE MINIBAG* 100 ML IV SCH ×3 (06:03→21:02)
[2020-06-25] MEDS: NS 1000 ML 1,000 ML IV SCH ×2 (06:03→20:32)
[2020-06-25] MEDS: SOLU-Medrol 125 MG VIAL IVP SCH ×3 (06:03→21:03)
[2020-06-25] MEDS: REVATIO PO SCH ×3 (06:04→21:02)
[2020-06-25] MEDS: XOPENEX 1.25 MG/3 ML NEBULE NEB SCH ×3 (06:10→21:50)
[2020-06-25] MEDS: CORDARONE TAB 200 MG PO SCH ×2 (07:00→18:27)
[2020-06-25] MEDS: NORCO 5/325 MG TAB PO SCH ×3 (07:01→22:10)
[2020-06-25] MEDS: CARDIZEM CD 180 MG 24-HR PO SCH ×2 (09:07→20:02)
[2020-06-25] MEDS: LANOXIN INJ IVP SCH (09:07)
[2020-06-25] MEDS: LEVEMIR SC SCH ×2 (09:08→20:14)
[2020-06-25] MEDS: XARELTO PO SCH ×2 (09:09→20:04)
[2020-06-25] MEDS: PEPCID 20 MG IV PREMIX* 20 MG/50 ML BAG IV SCH ×2 (09:09→20:03)
[2020-06-25] MEDS: LOPRESSOR TAB 50 MG PO SCH ×2 (09:09→20:03)
[2020-06-25] MEDS: PROTONIX INJ 40 MG VIAL IVP SCH (09:09)
[2020-06-25] MEDS: BROVANA IN SCH ×2 (09:34→21:41)
[2020-06-25] MEDS: LEVAQUIN PREMIX IV 500 MG 500 MG/100 ML BAG IV SCH (09:35)
[2020-06-25] MEDS: PULMICORT NEB TX 0.5 MG NEB SCH ×2 (09:42→21:50)
[2020-06-25] MEDS: ZOFRAN INJ 4 MG VIAL 16 MG, ATIVAN INJ 2 MG VIAL 1 MG, DECADRON INJ 10 MG in NS 50 ML I... IV PRN (10:32)
[2020-06-25] MEDS: CLINIMIX 4.25 %/10 % 1,000 ML with MVI INJ (ADULT) 10 ML, TRACE ELEMENTS INJ 10 ML, POT... IV SCH ×8 (10:33)
[2020-06-25] MEDS: CATAPRES-TTS-3 TD SCH (10:33)
[2020-06-25] MEDS: DIFLUCAN 200 MG IV PREMIX* 200 MG/100 ML BAG IV SCH (11:05)
[2020-06-25] MEDS: DECADRON JET NEB (RESP USE) NEB SCH ×2 (13:34→17:19)
[2020-06-25] MEDS: PHENERGAN TAB 25 MG PO PRN (14:56)
[2020-06-25] MEDS ORDERED: LOPRESSOR TAB 50 MG ONE (19:21)
[2020-06-25] MEDS: SNACK - Diabetic Appropriate PO SCH (20:02)
[2020-06-25] MEDS: COLACE CAP 100 MG PO SCH (20:03)
[2020-06-26] MEDS: ZOFRAN INJ 4 MG VIAL IVP PRN (00:10)
[2020-06-26] MEDS: OFIRMEV IV 1000 MG VIAL 500 MG/50 ML VIAL IV PRN (00:50)
[2020-06-26] MEDS: CLINIMIX 4.25 %/10 % 1,000 ML with MVI INJ (ADULT) 10 ML, TRACE ELEMENTS INJ 10 ML, POT... IV SCH ×24 (01:41→18:00)
[2020-06-26] MEDS: MORPHINE SULFATE INJ 2 MG INJ IVP PRN ×3 (02:04→12:13)
[2020-06-26] MEDS: PHENERGAN TAB 25 MG PO PRN ×3 (04:13→22:00)
[2020-06-26] MEDS: FORTAZ or TAZICEF VIAL INJ 1 G in NS 100 ML IV + SPIKE MINIBAG* 100 ML IV SCH ×3 (05:04→22:00)
[2020-06-26] MEDS: REVATIO PO SCH ×3 (05:05→22:00)
[2020-06-26] MEDS: SOLU-Medrol 125 MG VIAL IVP SCH ×3 (05:05→22:00)
[2020-06-26 05:07] LABS: ABG BASE EXCESS 7.4 mmol/L (-2.0-2.0)
[2020-06-26 05:12] LABS: ABG ALLEN TEST pos
--- NOTE | 2020-06-26 05:33 | RAD ---
HISTORYcovidSTUDYPortable AP chestCOMPARISONFebruary 2020FINDINGSThere is no change in appearance of heart or lungs. Upper normal heart size with similar extent and distribution of bilateral airspace disease, greatest in the left lower lobe. No change in position of the right jugular line, terminating near the inferior cavoatrial junction.IMPRESSIONNo change in appearance of the bilateral pneumonia. See above description of central line position.Electronically signed by: ELIZABETH GOMEZ (Jun 26, 2020 05:31:28)
[2020-06-26] MEDS: XOPENEX 1.25 MG/3 ML NEBULE NEB SCH ×3 (05:55→21:13)
[2020-06-26 06:03] LABS: ALANINE AMINOTRANSFERASE 153 Units/L (12-78); ALBUMIN 1.7 g/dL (3.4-5.0); ALKALINE PHOSPHATASE 180 Units/L (46-116); ASPARTATE AMINO TRANSFERASE 57 Units/L (15-37); BLOOD UREA NITROGEN 18 mg/dL (7-18); CALCIUM 7.6 mg/dL (8.5-10.1); CARBON DIOXIDE 32.2 mmol/L (21-32); CHLORIDE 102 mmol/L (98-107); COR CA(FOR HYPOALB) 9.4 mg/dL (8.5-10.1); COR NA(FOR HYPERGLY) 138 mmol/L (136-145); CREATININE 0.63 mg/dL (0.70-1.30); DIGOXIN 0.77 ng/mL (0.9-2); SODIUM 137 mmol/L (136-145); TOTAL PROTEIN 5.7 g/dL (6.4-8.2); eGFR NON BLACK RACES > 60 (>60)
[2020-06-26] MEDS: CORDARONE TAB 200 MG PO SCH ×2 (06:16→17:58)
[2020-06-26] MEDS: NORCO 5/325 MG TAB PO SCH ×3 (06:17→22:00)
[2020-06-26 06:19] LABS: BASOPHILS % (AUTO) 0.3 % (0.2-1.0); HEMATOCRIT 39.1 % (42.0-54.0); HEMOGLOBIN 12.9 g/dL (13.5-18.0); LYMPHOCYTES # (AUTO) 0.2 X10^3/uL (1.3-2.9); LYMPHOCYTES % (AUTO) 2.8 % (21.0-51.0); MEAN CORPUSCULAR HEMOGLOBIN 30.2 pg (27.0-34.0); MEAN CORPUSCULAR HGB CONC 33.1 g/dL (33.0-35.0); MEAN CORPUSCULAR VOLUME 91.3 fL (80.0-100.0); MEAN PLATELET VOLUME 9.1 fL (7.4-11.0); MONOCYTES # (AUTO) 0.2 x10^3/uL (0.3-0.8); MONOCYTES % (AUTO) 2.7 % (0.0-13.0); NEUTROPHILS % (AUTO) 94.2 % (42.0-75.0); PLATELET COUNT 243 X10^3/uL (150.0-450.0); RED BLOOD COUNT 4.28 X10^6/uL (4.7-6.0); WHITE BLOOD COUNT 7.4 X10^3/uL (3.6-10.0)
[2020-06-26 06:55] LABS: BASOPHILS % (MANUAL) 1 % (0-1); PLATELET MORPHOLOGY COMMENT NORMAL (NORMAL)
[2020-06-26] MEDS ORDERED: GEODON INJ IM ONE (07:06)
[2020-06-26] MEDS ORDERED: GEODON INJ IM NR (08:00)
[2020-06-26] MEDS: NS 1000 ML 1,000 ML IV SCH ×2 (08:00→22:00)
[2020-06-26] MEDS: BROVANA IN SCH ×2 (08:10→21:05)
[2020-06-26] MEDS: PULMICORT NEB TX 0.5 MG NEB SCH ×2 (08:10→21:13)
[2020-06-26] MEDS: ZOFRAN INJ 4 MG VIAL 16 MG, ATIVAN INJ 2 MG VIAL 1 MG, DECADRON INJ 10 MG in NS 50 ML I... IV PRN ×2 (08:34→18:17)
[2020-06-26] MEDS: PROTONIX INJ 40 MG VIAL IVP SCH (09:08)
[2020-06-26] MEDS: LANOXIN INJ IVP SCH (09:09)
[2020-06-26] MEDS: PEPCID 20 MG IV PREMIX* 20 MG/50 ML BAG IV SCH ×2 (09:12→22:00)
[2020-06-26] MEDS: LEVEMIR SC SCH ×2 (09:23→22:00)
[2020-06-26] MEDS: DIFLUCAN 200 MG IV PREMIX* 200 MG/100 ML BAG IV SCH (09:30)
[2020-06-26] MEDS: LEVAQUIN PREMIX IV 500 MG 500 MG/100 ML BAG IV SCH (10:30)
[2020-06-26] MEDS: CARDIZEM CD 180 MG 24-HR PO SCH ×2 (12:10→22:00)
[2020-06-26] MEDS: LOPRESSOR TAB 50 MG PO SCH ×2 (12:11→22:00)
[2020-06-26] MEDS: XARELTO PO SCH ×2 (12:11→22:00)
[2020-06-26] MEDS: DECADRON JET NEB (RESP USE) NEB SCH ×2 (13:50→16:27)
[2020-06-26] MEDS ORDERED: PHARMACY CONSULT - IVERMECTIN XX SCH (14:00)
[2020-06-26] MEDS: IVERMECTIN PO SCH (14:44)
[2020-06-26] MEDS: COLACE CAP 100 MG PO SCH (22:00)
[2020-06-26] MEDS: SNACK - Diabetic Appropriate PO SCH (22:00)
[2020-06-27] MEDS: ZOFRAN INJ 4 MG VIAL 16 MG, ATIVAN INJ 2 MG VIAL 1 MG, DECADRON INJ 10 MG in NS 50 ML I... IV PRN (01:47)
[2020-06-27] MEDS: MORPHINE SULFATE INJ 2 MG INJ IVP PRN (01:47)
[2020-06-27 05:16] LABS: ABG ALLEN TEST POS; ABG HCO3 35.3 mmol/L (22-26)
[2020-06-27] MEDS ORDERED: D50W ABBOJECT SYR IV ONE (05:41)
[2020-06-27] MEDS ORDERED: D50W ABBOJECT SYR ONE (05:48)
--- NOTE | 2020-06-27 05:51 | RAD ---
HISTORYPneumoniaSTUDYPortable AP chestCOMPARISONFebruary 2020FINDINGSThere is no change in appearance of the chest. Heart size is stable. Persistent bilateral airspace disease without evidence for large developing pleural effusion or extrapulmonary air. Similar position of right jugular line.IMPRESSIONNo change in appearance of the bilateral pneumonia since 1 day earlier.Electronically signed by: ELIZABETH GOMEZ (Jun 27, 2020 05:50:04)
[2020-06-27] MEDS: XOPENEX 1.25 MG/3 ML NEBULE NEB SCH ×3 (05:54→16:46)
[2020-06-27] MEDS: PHENERGAN TAB 25 MG PO PRN (06:03)
[2020-06-27] MEDS: NORCO 5/325 MG TAB PO SCH ×2 (06:03→15:22)
[2020-06-27] MEDS: REVATIO PO SCH ×3 (06:04→21:25)
[2020-06-27] MEDS: FORTAZ or TAZICEF VIAL INJ 1 G in NS 100 ML IV + SPIKE MINIBAG* 100 ML IV SCH (06:04)
[2020-06-27] MEDS: SOLU-Medrol 125 MG VIAL IVP SCH (06:04)
[2020-06-27 06:31] LABS: BASOPHILS % (AUTO) 0.3 % (0.2-1.0); HEMATOCRIT 38.2 % (42.0-54.0); HEMOGLOBIN 12.6 g/dL (13.5-18.0); LYMPHOCYTES # (AUTO) 0.2 X10^3/uL (1.3-2.9); LYMPHOCYTES % (AUTO) 2.5 % (21.0-51.0); MEAN CORPUSCULAR HEMOGLOBIN 30.4 pg (27.0-34.0); MEAN CORPUSCULAR HGB CONC 32.9 g/dL (33.0-35.0); MEAN CORPUSCULAR VOLUME 92.2 fL (80.0-100.0); MONOCYTES # (AUTO) 0.2 x10^3/uL (0.3-0.8); MONOCYTES % (AUTO) 2.2 % (0.0-13.0); NEUTROPHILS # (AUTO) 7.7 x10^3/uL (2.2-4.8); PLATELET COUNT 198 X10^3/uL (150.0-450.0); RED BLOOD COUNT 4.14 X10^6/uL (4.7-6.0); RED CELL DISTRIBUTION WIDTH 14.7 % (11.6-16.5); WHITE BLOOD COUNT 8.1 X10^3/uL (3.6-10.0)
[2020-06-27] MEDS: CORDARONE TAB 200 MG PO SCH ×2 (06:40→16:33)
[2020-06-27 06:41] LABS: ALANINE AMINOTRANSFERASE 157 Units/L (12-78); ALBUMIN 1.7 g/dL (3.4-5.0); ALKALINE PHOSPHATASE 171 Units/L (46-116); ASPARTATE AMINO TRANSFERASE 51 Units/L (15-37); BLOOD UREA NITROGEN 19 mg/dL (7-18); CALCIUM 7.3 mg/dL (8.5-10.1); CARBON DIOXIDE 31.7 mmol/L (21-32); CHLORIDE 100 mmol/L (98-107); COR CA(FOR HYPOALB) 9.1 mg/dL (8.5-10.1); CREATININE 0.46 mg/dL (0.70-1.30); DIGOXIN 0.75 ng/mL (0.9-2); MAGNESIUM 1.7 mg/dL (1.7-2.9); SODIUM 136 mmol/L (136-145); TOTAL PROTEIN 5.7 g/dL (6.4-8.2); eGFR NON BLACK RACES > 60 (>60)
[2020-06-27 06:45] LABS: BAND NEUTROPHILS % 6 % (0-10)
[2020-06-27 06:46] LABS: PLATELET MORPHOLOGY COMMENT NORMAL (NORMAL)
[2020-06-27] MEDS: MAGNESIUM SULFATE 1 GRAM/100 mL PREMIX 1 GM/100 ML BAG IV PRN (06:48)
[2020-06-27] MEDS: PEPCID 20 MG IV PREMIX* 20 MG/50 ML BAG IV SCH ×2 (08:10→21:23)
[2020-06-27] MEDS: BROVANA IN SCH (08:25)
[2020-06-27] MEDS: PULMICORT NEB TX 0.5 MG NEB SCH (08:25)
[2020-06-27] MEDS ORDERED: DEXTROSE 10% 1,000 ML IV ONE (09:18)
[2020-06-27] MEDS: DIFLUCAN 200 MG IV PREMIX* 200 MG/100 ML BAG IV SCH (09:35)
[2020-06-27] MEDS: PROTONIX INJ 40 MG VIAL IVP SCH (09:35)
[2020-06-27] MEDS ORDERED: NS 500 ML IV 500 ML IV ONE ×3 (09:50→16:04)
[2020-06-27] MEDS ORDERED: D5W 250 ML IV 250 ML IV ONE (09:59)
[2020-06-27] MEDS ORDERED: LEVOPHED INJ ONE (09:59)
[2020-06-27] MEDS ORDERED: CLINIMIX 4.25 %/10 % 1,000 ML with MVI INJ (ADULT) 10 ML, TRACE ELEMENTS INJ 10 ML, POT... IV SCH ×7 (10:00)
[2020-06-27] MEDS ORDERED: THIAMINE HCL INJ IVP SCH (10:00)
[2020-06-27] MEDS ORDERED: CONSULT PHARMACY - GENTAMICIN XX SCH (10:00)
[2020-06-27] MEDS ORDERED: PHARMACY CONSULT - VANCOMYCIN XX SCH (10:00)
[2020-06-27] MEDS: LEVOPHED INJ 8 MG in D5W 250 ML IV 242 ML IV PRN ×3 (10:05→21:33)
[2020-06-27] MEDS: CARDIZEM CD 180 MG 24-HR PO SCH ×2 (10:22→21:27)
[2020-06-27] MEDS: LEVEMIR SC SCH (10:23)
[2020-06-27] MEDS: IVERMECTIN PO SCH (10:24)
[2020-06-27] MEDS: SOLU-Cortef INJ IVP SCH ×3 (10:24→21:27)
[2020-06-27] MEDS: LANOXIN INJ IVP SCH (10:30)
[2020-06-27] MEDS: THIAMINE HCL INJ IVP SCH ×3 (10:37→21:27)
[2020-06-27] MEDS: VANCOMYCIN IV *PREMIX 1.25 G/250 ML BAG 1.25 G/250 ML PIGGYBACK IV SCH ×2 (10:38→21:22)
[2020-06-27] MEDS: XARELTO PO SCH ×2 (10:40→21:26)
[2020-06-27] MEDS: LOPRESSOR TAB 50 MG PO SCH ×2 (10:40→21:27)
[2020-06-27] MEDS: NS 1000 ML 1,000 ML IV SCH (10:41)
[2020-06-27] MEDS ORDERED: GENTAMICIN INJ 480 MG in NS 100 ML IV 100 ML IV SCH (12:00)
[2020-06-27] MEDS: DECADRON JET NEB (RESP USE) NEB SCH (12:40)
[2020-06-27] MEDS: ASCORBIC ACID INJ MULTI-DOSE VIAL 1,500 MG in NS 50 ML IV 50 ML IV SCH ×3 (13:51→21:24)
[2020-06-27] MEDS: SNACK - Diabetic Appropriate PO SCH (21:26)
[2020-06-27] MEDS: COLACE CAP 100 MG PO SCH (21:26)
[2020-06-27] MEDS ORDERED: PHARMACY COMMENT IV NR (23:00)
[2020-06-28] MEDS: LEVEMIR SC SCH ×2 (00:45→08:03)
[2020-06-28] MEDS: LEVOPHED INJ 8 MG in D5W 250 ML IV 242 ML IV PRN ×2 (03:04→06:52)
[2020-06-28] MEDS: NS 1000 ML 1,000 ML IV SCH (03:04)
[2020-06-28] MEDS: THIAMINE HCL INJ IVP SCH ×2 (04:20→08:51)
[2020-06-28] MEDS: SOLU-Cortef INJ IVP SCH ×2 (04:20→08:02)
[2020-06-28] MEDS: ASCORBIC ACID INJ MULTI-DOSE VIAL 1,500 MG in NS 50 ML IV 50 ML IV SCH ×2 (04:20→08:00)
[2020-06-28] MEDS: NORCO 5/325 MG TAB PO SCH ×2 (04:21→06:45)
[2020-06-28 04:38] LABS: ABG ALLEN TEST POS; ABG PCO2 > 115.0 mmHg (35.0-45.0)
[2020-06-28 06:04] LABS: BASOPHILS % (AUTO) 0 % (0.2-1.0); HEMATOCRIT 37.8 % (42.0-54.0); HEMOGLOBIN 11.7 g/dL (13.5-18.0); LYMPHOCYTES # (AUTO) 0.3 X10^3/uL (1.3-2.9); LYMPHOCYTES % (AUTO) 1.9 % (21.0-51.0); MEAN CORPUSCULAR HEMOGLOBIN 29.9 pg (27.0-34.0); MEAN CORPUSCULAR HGB CONC 30.9 g/dL (33.0-35.0); MEAN CORPUSCULAR VOLUME 96.7 fL (80.0-100.0); MEAN PLATELET VOLUME 9.1 fL (7.4-11.0); MONOCYTES # (AUTO) 0.7 x10^3/uL (0.3-0.8); MONOCYTES % (AUTO) 4.2 % (0.0-13.0); NEUTROPHILS # (AUTO) 15.5 x10^3/uL (2.2-4.8); NEUTROPHILS % (AUTO) 93.9 % (42.0-75.0); PLATELET COUNT 221 X10^3/uL (150.0-450.0); RED BLOOD COUNT 3.91 X10^6/uL (4.7-6.0); RED CELL DISTRIBUTION WIDTH 15.7 % (11.6-16.5); WHITE BLOOD COUNT 16.5 X10^3/uL (3.6-10.0)
[2020-06-28 06:27] LABS: ALBUMIN 1.6 g/dL (3.4-5.0); CALCIUM 6.9 mg/dL (8.5-10.1); CARBON DIOXIDE 26.7 mmol/L (21-32); COR CA(FOR HYPOALB) 8.8 mg/dL (8.5-10.1); CREATININE 1.8 mg/dL (0.70-1.30); TOTAL PROTEIN 5.3 g/dL (6.4-8.2)
[2020-06-28] MEDS: REVATIO PO SCH (06:43)
[2020-06-28] MEDS: CORDARONE TAB 200 MG PO SCH (06:45)
[2020-06-28 07:32] LABS: PLATELET MORPHOLOGY COMMENT NORMAL (NORMAL)
[2020-06-28] MEDS: XARELTO PO SCH (08:01)
[2020-06-28] MEDS: PROTONIX INJ 40 MG VIAL IVP SCH (08:01)
[2020-06-28] MEDS: CARDIZEM CD 180 MG 24-HR PO SCH (08:01)
[2020-06-28] MEDS: PEPCID 20 MG IV PREMIX* 20 MG/50 ML BAG IV SCH (08:02)
[2020-06-28] MEDS: IVERMECTIN PO SCH (08:03)
[2020-06-28] MEDS: LOPRESSOR TAB 50 MG PO SCH (08:03)
[2020-06-28] MEDS: VANCOMYCIN IV *PREMIX 1.25 G/250 ML BAG 1.25 G/250 ML PIGGYBACK IV SCH (08:52)
[2020-06-28] MEDS ORDERED: DIFLUCAN 100 MG IV (MIX by PHARMACY)* 100 MG/50 ML BAG IV SCH (09:00)
[2020-06-28] MEDS ORDERED: PEPCID 20 MG IV PREMIX* 20 MG/50 ML BAG IV SCH (09:00)
[2020-06-28] MEDS ORDERED: MORPHINE SULFATE PCA 30 MG IVP PRN (10:06)
[2020-06-28] MEDS ORDERED: VERSED IV PREMIX 100 MG/100 ML IV.SOLN IV PRN (10:07)
--- NOTE | 2020-06-28 10:21 | PCM.PROG ---
Progress Note - Progress Note for Day of Date of Exam: 06/24/20 - Subjective Subjective: IS BEING TREATED FOR PNEUMONIA DUE TO COVID-19, HYPOXIA, RESPIRATORY DISTRESS, AND A-FIB. HE REMAINS IN THE INTENSIVE CARE UNIT TODAY. HE IS CURRENTLY ON HEATED HIGH FLOW OXYGEN. FI02 IS CURRENTLY AT 94%. HIS SATURATIONS HAVE BEEN 84-95% THIS MORNING AND THROUGHOUT THE NIGHT. TODAY, PATIENT IS ALERT, LYING IN BED ON MORNING ROUNDS. HE CONTINUES WITH WEAKNESS AND SHORTNESS OF BREATH. HE DENIES SIGNIFICANT IMPROVEMENT IN SYMPTOMS SINCE YESTERDAY. ON EXAMINATION, HE CONTINUES TO BE TACHYCARDIC THIS MORNING DESPITE CHANGES MADE TO MEDICATIONS. A-FIB NOTED. HIS HR HAS BEEN 130s-150s. BILATERAL LUNGS ARE NOTED WITH DIMINISHED LUNG SOUNDS THROUGHOUT. ABDOMEN IS ROUND, SOFT, AND NON-TENDER WITH NORMAL BOWEL SOUNDS NOTED IN ALL QUADRANTS. THERE IS TRACE EDEMA NOTED TO UPPER AND LOWER EXTREMITIES. HIS VITALS THIS MORNING ARE: 98.1-141-34-87%hhf-126/94. LABS WERE OBTAINED. ABNORMAL LAB VALUES INCLUDE THE FOLLOWING: RBC 4.34, HGB 13.4, HCT 39.3, D-DIMER 1.63, SODIUM 133, CREATININE 0.57, CALCIUM 7.5, AST 54, ALT 177, ALK PHOS 173, CK-MB 5.2, CRP 9.40, BNP 208, TOTAL PROTEIN 5.9, ALBUMIN 1.7. AN ABG WAS OBTAINED AND REVEALED: PH 7.480, PC02 40, P02 46, HC03 29.8, 02 SAT 85, BASE EXCESS 5.8, A-A GRADIENT 574, FI02 94. A CHEST XRAY WAS OBTAINED AND REVEALED NO SIGNIFICANT CHANGE. TODAY, WE WILL CHANGE LOVENOX TO XARELTO 15MG PO BID, INCREASE CARDIZEM TO 180MG PO BID, DISC ONTINUE THE THEOHYLLINE, DECREASE SOLU-MEDROL TO 80MG IV Q8H, AND DECREASE HIS NEB TX TO DOSES TID. WE WILL ATTEMPT TO DECREASE OXYGEN TOLERATED. OTHERWISE, WE WILL CONTINUE WITH CURRENT PLAN OF CARE TODAY. WE PLAN TO FOLLOW UP WITH AM LABS, CHEST XRAY, ABG, AND CONTINUE TO MONITOR. TIME SPENT ON CLINICAL ASSESSMENT, REVIEWING LABS AND IMAGING, DECISION MAKING, AND DOCUMENTATION GREATER THAN 75 MINUTES. - Past Medical Family Social History Past Med/Fam/Surg Hx: No changes since H&P Allergies: Allergies No Known Drug Allergies Allergy (Verified 06/01/20 13:35) - Review of Systems ROS: No change since H&P - Vital Signs and I&O's Vital Signs: Temperature 98.5 F Pulse Rate [Left Brachial] 79 Pulse Rate 86 Respiratory Rate 33 Blood Pressure [Left Calf] 166/88 Blood Pressure [Right Arm] 176/93 Blood Pressure [Left Arm] 147/83 Blood Pressure 89/50 O2 Sat by Pulse Oximetry 94 Intake and Output: Intake & Output 06/25/20 06/26/20 06/27/20 06/28/20 11:59 11:59 11:59 11:59 Intake Total 1340 / 1340 4550 / 4550 4419 / 4419 5839 / 5839 Output Total 2575 / 2575 4175 / 4175 2275 / 2275 600 / 600 Balance -1235 / -1235 375 / 375 2144 / 2144 5239 / 5239 - Physical Exam Oriented: Person Eyes: Normal Ear: Normal Nose: Normal Throat: Normal Respiratory: Generalized, Diminished Cardiovascular: Tachycardia, Irregular : Normal Auscultation: Bowel Sounds: Normal Palpation: Normal Tenderness: Normal Skin: Normal Musculoskeletal: Normal Psychiatric: Normal Mood Description: Anxious Affect: Anxious, Violent Speech Pattern: Clear, Appropriate - Laboratory and Diagnostics Result Diagrams: 06/28/20 05:19 06/28/20 05:19 Labs: 06/01/20 13:35 Blood Blood Culture - Final 06/01/20 13:21 Blood Blood Culture - Final Laboratory WBC 16.5 X10^3/uL (3.6-10.0) H D 06/28/20 05:19 RBC 3.91 X10^6/uL (4.7-6.0) L 06/28/20 05:19 Hgb 11.7 g/dL (13.5-18.0) L 06/28/20 05:19 Hct 37.8 % (42.0-54.0) L 06/28/20 05:19 MCV 96.7 fL (80.0-100.0) 06/28/20 05:19 MCH 29.9 pg (27.0-34.0) 06/28/20 05:19 MCHC 30.9 g/dL (33.0-35.0) L 06/28/20 05:19 RDW 15.7 % (11.6-16.5) 06/28/20 05:19 Plt Count 221 X10^3/uL (150.0-450.0) 06/28/20 05:19 Plt Count Comment Adequate (ADEQUATE) 06/28/20 05:19 MPV 9.1 fL (7.4-11.0) 06/28/20 05:19 Neut % (Auto) 93.9 % (42.0-75.0) H 06/28/20 05:19 Lymph % (Auto) 1.9 % (21.0-51.0) L 06/28/20 05:19 Day % (Auto) 4.2 % (0.0-13.0) 06/28/20 05:19 Eos % (Auto) 0.0 % (0.9-2.9) L 06/28/20 05:19 Baso % (Auto) 0 % (0.2-1.0) L 06/28/20 05:19 Neut # (Auto) 15.5 x10^3/uL (2.2-4.8) H 06/28/20 05:19 Lymph # (Auto) 0.3 X10^3/uL (1.3-2.9) L 06/28/20 05:19 Day # (Auto) 0.7 x10^3/uL (0.3-0.8) 06/28/20 05:19 Eos # (Auto) 0.0 x10^3/uL (0.0-0.2) 06/28/20 05:19 Baso # (Auto) 0.0 X10^3/uL (0.0-0.1) 06/28/20 05:19 Absolute Nucleated RBC 0.3 /100WBC 06/28/20 05:19 Total Counted 100 06/28/20 05:19 Neutrophils % (Manual) 94 % (39-76) H 06/28/20 05:19 Band Neutrophils % 6 % (0-10) 06/27/20 05:31 Lymphocytes % (Manual) 1 % (13-43) L 06/28/20 05:19 Monocytes % (Manual) 5 % (4-9) 06/28/20 05:19 Eosinophils % (Manual) 1 % (0-6) 06/18/20 05:38 Basophils % (Manual) 1 % (0-1) 06/26/20 05:20 Nucleated RBCs 1 06/27/20 05:31 Giant Platelets Few 06/10/20 04:40 Plt Morphology Comment Normal (NORMAL) 06/28/20 05:19 RBC Morphology Normal (NORMAL) 06/28/20 05:19 PT 17.2 SECONDS (11.8-14.3) 06/02/20 22:35 INR Target Range - 06/02/20 22:35 INR 1.45 (0.8-1.3) H 06/02/20 22:35 APTT 93.2 SECONDS (22.9-36.5) H 06/11/20 08:22 PTT Comment - 06/11/20 08:22 D-Dimer > 20.00 ug/ml (0.0-0.57) H* 06/28/20 05:19 Sample Site Rr 06/28/20 04:32 ABG pH 6.920 (7.35-7.45) L* 06/28/20 04:32 ABG pCO2 > 115.0 mmHg (35.0-45.0) H* 06/28/20 04:32 ABG pO2 72.0 mmHg (80.0-100.0) L 06/28/20 04:32 ABG HCO3 Not Reportable 06/28/20 04:32 ABG O2 Saturation Not Reportable 06/28/20 04:32 ABG Base Excess Not Reportable 06/28/20 04:32 Partha Test Pos 06/28/20 04:32 A-a Gradient Not Reportable 06/28/20 04:32 FiO2 100.0 06/28/20 04:32 Blood Gas Comments Ivana well ae 06/28/20 04:32 Sodium 134 mmol/L (136-145) L 06/28/20 05:19 Corrected Sodium 138 mmol/L (136-145) 06/28/20 05:19 Potassium 6.1 mmol/L (3.5-5.1) H* 06/28/20 05:19 Chloride 100 mmol/L (98-107) 06/28/20 05:19 Carbon Dioxide 26.7 mmol/L (21-32) 06/28/20 05:19 BUN 51 mg/dL (7-18) H 06/28/20 05:19 Creatinine 1.80 mg/dL (0.70-1.30) H 06/28/20 05:19 Est GFR (MDRD) Af Amer 48 (>60) L 06/28/20 05:19 Est GFR (MDRD) Non-Af 40 (>60) L 06/28/20 05:19 Glucose 255 mg/dL (65-99) H 06/28/20 05:19 POC Glucose (mg/dL) 202 mg/dL (65-99) H 06/27/20 21:40 Lactic Acid 1.4 mmol/L (0.4-2.0) 06/15/20 05:15 Calcium 6.9 mg/dL (8.5-10.1) L 06/28/20 05:19 Corrected Calcium 8.8 mg/dL (8.5-10.1) 06/28/20 05:19 Magnesium 1.7 mg/dL (1.7-2.9) 06/27/20 05:31 Ferritin 1423 ng/mL (26-388) H 06/22/20 04:10 Total Bilirubin 1.30 mg/dL (0.2-1.0) H 06/28/20 05:19 AST 175 Units/L (15-37) H 06/28/20 05:19 ALT 286 Units/L (12-78) H 06/28/20 05:19 Alkaline Phosphatase 211 Units/L (46-116) H 06/28/20 05:19 Ammonia 44 umol/L (11-32) H 06/05/20 08:23 Creatine Kinase 55 Units/L (39-308) 06/24/20 17:14 CK-MB (CK-2) 4.3 ng/mL (0-4.0) H* 06/24/20 17:14 CK/CKMB % Calc 7.8 % (<4) 06/24/20 17:14 Troponin I 0.16 ng/mL (0-1.5) 06/24/20 17:14 C-Reactive Protein 11.20 mg/L (0-3.0) H 06/28/20 05:19 B-Natriuretic Peptide 1060 pg/mL (0-79) H* 06/28/20 05:19 Total Protein 5.3 g/dL (6.4-8.2) L 06/28/20 05:19 Albumin 1.6 g/dL (3.4-5.0) L 06/28/20 05:19 Globulin 3.7 g/dL (2.5-4.5) 06/28/20 05:19 Albumin/Globulin Ratio 0.4 Ratio (1.1-2.1) L 06/28/20 05:19 Prealbumin 16.1 mg/dL (18-35.7) L 06/06/20 06:07 Specimen Type Clean catch urine 06/02/20 18:03 Urine Color Yellow (YELLOW) 06/02/20 18:03 Urine Appearance Clear (CLEAR) 06/02/20 18:03 Urine pH 5.0 (5.0 - 8.0) 06/02/20 18:03 Ur Specific [place] 1.010 (1.000-1.030) 06/02/20 18:03 Urine Protein 3+ (NEGATIVE) 06/02/20 18:03 Urine Glucose (UA) 4+ (NEGATIVE) 06/02/20 18:03 Urine Ketones 3+ (NEGATIVE) 06/02/20 18:03 Urine Occult Blood 3+ (NEGATIVE) 06/02/20 18:03 Urine Nitrite Negative (NEGATIVE) 06/02/20 18:03 Urine Bilirubin Negative (NEGATIVE) 06/02/20 18:03 Urine Urobilinogen Normal (NORMAL) 06/02/20 18:03 Ur Leukocyte Esterase Negative (NEGATIVE) 06/02/20 18:03 Urine RBC 3-5 /HPF (0-3) A 06/02/20 18:03 Urine WBC None seen /HPF (0-5) 06/02/20 18:03 Ur Squamous Epith Cells Negative /HPF (NEGATIVE) 06/02/20 18:03 Urine Bacteria Negative /HPF (NEGATIVE) 06/02/20 18:03 Ur Culture Indicated? No/not indicated 06/02/20 18:03 Random Gentamicin 8.5 ug/mL 06/28/20 07:22 Digoxin 0.75 ng/mL (0.9-2) L 06/27/20 05:31 Phenobarbital 10.1 ug/mL (15-40) L 06/05/20 08:23 Theophylline 11.8 ug/mL (10-20) 06/21/20 11:13 SARS CoV-2 RNA Rapid LADAN Positive (NEGATIVE) A 06/01/20 13:23 Miscellaneous Test Covid 19 06/21/20 17:30 Blood Type A POSITIVE 06/01/20 13:35 - Plan (1) Pneumonia due to COVID-19 virus Status: Suspected Plan: D5W AT 75 ML/HR, TPN, FORTAZ 1G IV Q8H, LEVAQUIN 500MG IV DAILY, DIFLUCAN 200MG IV DAILY, BROVANA 15MCG NEB BID, PULMICORT NEB BID, XOPENEX NEB TID, MUCOMYST IN NEBS TID, CATAPRES 0.3MG/HR TD PATCH, LOVENOX 80MG SC BID, PEPCID 20MG IV Q12H, HYDRALAZINE 10MG IV Q4H PRN, LEMEVIR 12 UNITS SC BID, HUMULIN R SLIDING SCALE, MAGIC MOUTHWASH QID PRN, SOLU-MEDROL 80MG IV Q8H, CARDIZEM CD 180MG PO BID, LOPRESSOR 50MG PO BID, DIGOXIN 0.125MG PO DAILY, PROTONIX 40MG IV DAILY, SILDENAFIL 20MG PO TID, THE POTASSIUM AND MAGNESIUM PROTOCOLS. (2) Hypoxia Status: Chronic (3) Atrial fibrillation with RVR Status: Acute Plan: DIGOXIN 125MCG PO DAILY, AMIODARONE 200MG PO BID (4) AMS (altered mental status) Status: Acute Qualifiers: Altered mental status type: transient alteration of awareness Qualified Code(s): R40.4 - Transient alteration of awareness (5) AAA (abdominal aortic aneurysm) Status: Chronic Qualifiers: Presence of rupture: without rupture Qualified Code(s): I71.4 - Abdominal aortic aneurysm, without rupture (6) Anemia Status: Chronic Qualifiers: Anemia type: iron deficiency Iron deficiency anemia type: unspecified iron deficiency Qualified Code(s): D50.9 - Iron deficiency anemia, unspecified (7) BPH (benign prostatic hyperplasia) Status: Chronic Qualifiers: Lower urinary tract symptom presence: unspecified whether lower urinary tract symptoms present Qualified Code(s): N40.0 - Benign prostatic hyperplasia without lower urinary tract symptoms (8) CAD (coronary artery disease) Status: Chronic Qualifiers: Coronary Disease-Associated Artery/Lesion type: [place] artery [place] vs. transplanted heart: [place] heart (9) Diabetes mellitus Status: Chronic Qualifiers: Diabetes mellitus type: type 2 Diabetes mellitus group home insulin use: unspecified group home insulin use status Diabetes mellitus complication status: without complication Qualified Code(s): E11.9 - Type 2 diabetes mellitus without complications (10) GERD (gastroesophageal reflux disease) Status: Chronic Qualifiers: Esophagitis presence: esophagitis presence not specified Qualified Code(s): K21.9 - Gastro-esophageal reflux disease without esophagitis (11) History of CVA (cerebrovascular accident) Status: Chronic (12) Hyperlipemia Status: Chronic Qualifiers: Hyperlipidemia type: mixed hyperlipidemia Qualified Code(s): E78.2 - Mixed hyperlipidemia (13) Hypertension Status: Chronic Qualifiers: Hypertension type: essential hypertension Qualified Code(s): I10 - Essential (primary) hypertension
--- NOTE | 2020-06-28 10:29 | PCM.PROG ---
Progress Note - Progress Note for Day of Date of Exam: 06/25/20 - Subjective Subjective: IS BEING TREATED FOR PNEUMONIA DUE TO COVID-19, HYPOXIA, RESPIRATORY DISTRESS, AND A-FIB. HE REMAINS IN THE INTENSIVE CARE UNIT TODAY. HE IS CURRENTLY ON HEATED HIGH FLOW OXYGEN. FI02 IS CURRENTLY AT 92%. HIS SATURATIONS HAVE BEEN 88-97% THIS MORNING AND THROUGHOUT THE NIGHT. TODAY, PATIENT IS ALERT, LYING IN BED ON MORNING ROUNDS. HE CONTINUES WITH WEAKNESS AND SHORTNESS OF BREATH. HE DENIES SIGNIFICANT IMPROVEMENT IN SYMPTOMS SINCE YESTERDAY. HE DOES APPEAR TO BE MORE ANXIOUS THIS MORNING. STAFF REPORTS THAT HE HAD MULTIPLE COMPLAINTS OF PAIN AND ANXIETY THROUGHOUT THE NIGHT. ON EXAMINATION, HEART IS REGULAR IN RATE THIS MORNING, HOWEVER, RHYTHM CONTINUES TO BE IRREGULAR. BILATERAL LUNGS ARE NOTED WITH DIMINISHED LUNG SOUNDS THROUGHOUT. ABDOMEN IS ROUND, SOFT, AND NON-TENDER WITH NORMAL BOWEL SOUNDS NOTED IN ALL QUADRANTS. THERE IS TRACE EDEMA NOTED TO UPPER AND LOWER EXTREMITIES. HIS VITALS THIS MORNING ARE: 98.3-81-22-91%-139/71. LABS WERE OBTAINED. ABNORMAL LAB VALUES INCLUDE THE FOLLOWING: RBC 4.07, HGB 12.4, HCT 37.1, SODIUM 134, CREATININE 0.59, GLUCOSE 127, CALCIUM 7.5, AST 38, ALT 134, ALK PHOS 146, CRP 7.30, BNP 143, TOTAL PROTEIN 5.4, ALBUMIN 1.5. AN ABG WAS OBTAINED AND REVEALED: PH 7.450, PC02 44, P02 76, HC03 30.6, 02 SAT 96, BASE EXCESS 5.8, A-A GRADIENT 525, FI02 92. A CHEST XRAY WAS OBTAINED AND REVEALED: No change bilateral interstitial in filtrates and retrocardiac left lower lobe consolidation. TODAY, WE WILL INCREASE THE LOPRESSOR TO 75MG PO BID. WE WILL ATTEMPT TO DECREASE OXYGEN TOLERATED. OTHERWISE, WE WILL CONTINUE WITH CURRENT PLAN OF CARE TODAY. WE PLAN TO FOLLOW UP WITH AM LABS, CHEST XRAY, ABG, AND CONTINUE TO MONITOR. TIME SPENT ON CLINICAL ASSESSMENT, REVIEWING LABS AND IMAGING, DECISION MAKING, AND DOCUMENTATION GREATER THAN 75 MINUTES. - Past Medical Family Social History Past Med/Fam/Surg Hx: No changes since H&P Allergies: Allergies No Known Drug Allergies Allergy (Verified 06/01/20 13:35) - Review of Systems ROS: No change since H&P - Vital Signs and I&O's Vital Signs: Temperature 98.5 F Pulse Rate [Left Brachial] 79 Pulse Rate 86 Respiratory Rate 33 Blood Pressure [Left Calf] 166/88 Blood Pressure [Right Arm] 176/93 Blood Pressure [Left Arm] 147/83 Blood Pressure 89/50 O2 Sat by Pulse Oximetry 94 Intake and Output: Intake & Output 06/25/20 06/26/20 06/27/20 06/28/20 11:59 11:59 11:59 11:59 Intake Total 1340 / 1340 4550 / 4550 4419 / 4419 5839 / 5839 Output Total 2575 / 2575 4175 / 4175 2275 / 2275 600 / 600 Balance -1235 / -1235 375 / 375 2144 / 2144 5239 / 5239 - Physical Exam Oriented: Person Eyes: Normal Ear: Normal Nose: Normal Throat: Normal Respiratory: Generalized, Diminished Cardiovascular: Tachycardia, Irregular : Normal Auscultation: Bowel Sounds: Normal Tenderness: Normal Skin: Normal Musculoskeletal: Normal Psychiatric: Normal Mood Description: Anxious Affect: Anxious, Violent Speech Pattern: Clear, Appropriate - Laboratory and Diagnostics Result Diagrams: 06/28/20 05:19 06/28/20 05:19 Labs: 06/01/20 13:35 Blood Blood Culture - Final 06/01/20 13:21 Blood Blood Culture - Final Laboratory WBC 16.5 X10^3/uL (3.6-10.0) H D 06/28/20 05:19 RBC 3.91 X10^6/uL (4.7-6.0) L 06/28/20 05:19 Hgb 11.7 g/dL (13.5-18.0) L 06/28/20 05:19 Hct 37.8 % (42.0-54.0) L 06/28/20 05:19 MCV 96.7 fL (80.0-100.0) 06/28/20 05:19 MCH 29.9 pg (27.0-34.0) 06/28/20 05:19 MCHC 30.9 g/dL (33.0-35.0) L 06/28/20 05:19 RDW 15.7 % (11.6-16.5) 06/28/20 05:19 Plt Count 221 X10^3/uL (150.0-450.0) 06/28/20 05:19 Plt Count Comment Adequate (ADEQUATE) 06/28/20 05:19 MPV 9.1 fL (7.4-11.0) 06/28/20 05:19 Neut % (Auto) 93.9 % (42.0-75.0) H 06/28/20 05:19 Lymph % (Auto) 1.9 % (21.0-51.0) L 06/28/20 05:19 [place] % (Auto) 4.2 % (0.0-13.0) 06/28/20 05:19 Eos % (Auto) 0.0 % (0.9-2.9) L 06/28/20 05:19 Baso % (Auto) 0 % (0.2-1.0) L 06/28/20 05:19 Neut # (Auto) 15.5 x10^3/uL (2.2-4.8) H 06/28/20 05:19 Lymph # (Auto) 0.3 X10^3/uL (1.3-2.9) L 06/28/20 05:19 [place] # (Auto) 0.7 x10^3/uL (0.3-0.8) 06/28/20 05:19 Eos # (Auto) 0.0 x10^3/uL (0.0-0.2) 06/28/20 05:19 Baso # (Auto) 0.0 X10^3/uL (0.0-0.1) 06/28/20 05:19 Absolute Nucleated RBC 0.3 /100WBC 06/28/20 05:19 Total Counted 100 06/28/20 05:19 Neutrophils % (Manual) 94 % (39-76) H 06/28/20 05:19 Band Neutrophils % 6 % (0-10) 06/27/20 05:31 Lymphocytes % (Manual) 1 % (13-43) L 06/28/20 05:19 Monocytes % (Manual) 5 % (4-9) 06/28/20 05:19 Eosinophils % (Manual) 1 % (0-6) 06/18/20 05:38 Basophils % (Manual) 1 % (0-1) 06/26/20 05:20 Nucleated RBCs 1 06/27/20 05:31 Giant Platelets Few 06/10/20 04:40 Plt Morphology Comment Normal (NORMAL) 06/28/20 05:19 RBC Morphology Normal (NORMAL) 06/28/20 05:19 PT 17.2 SECONDS (11.8-14.3) 06/02/20 22:35 INR Target Range - 06/02/20 22:35 INR 1.45 (0.8-1.3) H 06/02/20 22:35 APTT 93.2 SECONDS (22.9-36.5) H 06/11/20 08:22 PTT Comment - 06/11/20 08:22 D-Dimer > 20.00 ug/ml (0.0-0.57) H* 06/28/20 05:19 Sample Site Rr 06/28/20 04:32 ABG pH 6.920 (7.35-7.45) L* 06/28/20 04:32 ABG pCO2 > 115.0 mmHg (35.0-45.0) H* 06/28/20 04:32 ABG pO2 72.0 mmHg (80.0-100.0) L 06/28/20 04:32 ABG HCO3 Not Reportable 06/28/20 04:32 ABG O2 Saturation Not Reportable 06/28/20 04:32 ABG Base Excess Not Reportable 06/28/20 04:32 Partha Test Pos 06/28/20 04:32 A-a Gradient Not Reportable 06/28/20 04:32 FiO2 100.0 06/28/20 04:32 Blood Gas Comments Ivana well ae 06/28/20 04:32 Sodium 134 mmol/L (136-145) L 06/28/20 05:19 Corrected Sodium 138 mmol/L (136-145) 06/28/20 05:19 Potassium 6.1 mmol/L (3.5-5.1) H* 06/28/20 05:19 Chloride 100 mmol/L (98-107) 06/28/20 05:19 Carbon Dioxide 26.7 mmol/L (21-32) 06/28/20 05:19 BUN 51 mg/dL (7-18) H 06/28/20 05:19 Creatinine 1.80 mg/dL (0.70-1.30) H 06/28/20 05:19 Est GFR (MDRD) Af Amer 48 (>60) L 06/28/20 05:19 Est GFR (MDRD) Non-Af 40 (>60) L 06/28/20 05:19 Glucose 255 mg/dL (65-99) H 06/28/20 05:19 POC Glucose (mg/dL) 202 mg/dL (65-99) H 06/27/20 21:40 Lactic Acid 1.4 mmol/L (0.4-2.0) 06/15/20 05:15 Calcium 6.9 mg/dL (8.5-10.1) L 06/28/20 05:19 Corrected Calcium 8.8 mg/dL (8.5-10.1) 06/28/20 05:19 Magnesium 1.7 mg/dL (1.7-2.9) 06/27/20 05:31 Ferritin 1423 ng/mL (26-388) H 06/22/20 04:10 Total Bilirubin 1.30 mg/dL (0.2-1.0) H 06/28/20 05:19 AST 175 Units/L (15-37) H 06/28/20 05:19 ALT 286 Units/L (12-78) H 06/28/20 05:19 Alkaline Phosphatase 211 Units/L (46-116) H 06/28/20 05:19 Ammonia 44 umol/L (11-32) H 06/05/20 08:23 Creatine Kinase 55 Units/L (39-308) 06/24/20 17:14 CK-MB (CK-2) 4.3 ng/mL (0-4.0) H* 06/24/20 17:14 CK/CKMB % Calc 7.8 % (<4) 06/24/20 17:14 Troponin I 0.16 ng/mL (0-1.5) 06/24/20 17:14 C-Reactive Protein 11.20 mg/L (0-3.0) H 06/28/20 05:19 B-Natriuretic Peptide 1060 pg/mL (0-79) H* 06/28/20 05:19 Total Protein 5.3 g/dL (6.4-8.2) L 06/28/20 05:19 Albumin 1.6 g/dL (3.4-5.0) L 06/28/20 05:19 Globulin 3.7 g/dL (2.5-4.5) 06/28/20 05:19 Albumin/Globulin Ratio 0.4 Ratio (1.1-2.1) L 06/28/20 05:19 Prealbumin 16.1 mg/dL (18-35.7) L 06/06/20 06:07 Specimen Type Clean catch urine 06/02/20 18:03 Urine Color Yellow (YELLOW) 06/02/20 18:03 Urine Appearance Clear (CLEAR) 06/02/20 18:03 Urine pH 5.0 (5.0 - 8.0) 06/02/20 18:03 Ur Specific [place] 1.010 (1.000-1.030) 06/02/20 18:03 Urine Protein 3+ (NEGATIVE) 06/02/20 18:03 Urine Glucose (UA) 4+ (NEGATIVE) 06/02/20 18:03 Urine Ketones 3+ (NEGATIVE) 06/02/20 18:03 Urine Occult Blood 3+ (NEGATIVE) 06/02/20 18:03 Urine Nitrite Negative (NEGATIVE) 06/02/20 18:03 Urine Bilirubin Negative (NEGATIVE) 06/02/20 18:03 Urine Urobilinogen Normal (NORMAL) 06/02/20 18:03 Ur Leukocyte Esterase Negative (NEGATIVE) 06/02/20 18:03 Urine RBC 3-5 /HPF (0-3) A 06/02/20 18:03 Urine WBC None seen /HPF (0-5) 06/02/20 18:03 Ur Squamous Epith Cells Negative /HPF (NEGATIVE) 06/02/20 18:03 Urine Bacteria Negative /HPF (NEGATIVE) 06/02/20 18:03 Ur Culture Indicated? No/not indicated 06/02/20 18:03 Random Gentamicin 8.5 ug/mL 06/28/20 07:22 Digoxin 0.75 ng/mL (0.9-2) L 06/27/20 05:31 Phenobarbital 10.1 ug/mL (15-40) L 06/05/20 08:23 Theophylline 11.8 ug/mL (10-20) 06/21/20 11:13 SARS CoV-2 RNA Rapid LADAN Positive (NEGATIVE) A 06/01/20 13:23 Miscellaneous Test Covid 19 06/21/20 17:30 Blood Type A POSITIVE 06/01/20 13:35 - Plan (1) Pneumonia due to COVID-19 virus Status: Suspected Plan: D5W AT 75 ML/HR, TPN, FORTAZ 1G IV Q8H, LEVAQUIN 500MG IV DAILY, DIFLUCAN 200MG IV DAILY, BROVANA 15MCG NEB BID, PULMICORT NEB BID, XOPENEX NEB TID, MUCOMYST IN NEBS TID, CATAPRES 0.3MG/HR TD PATCH, XARELTO 15MG PO BID, PEPCID 20MG IV Q12H, HYDRALAZINE 10MG IV Q4H PRN, LEMEVIR 12 UNITS SC BID, HUMULIN R SLIDING SCALE, MAGIC MOUTHWASH QID PRN, SOLU-MEDROL 80MG IV Q8H, CARDIZEM CD 180MG PO BID, LOPRESSOR 75MG PO BID, DIGOXIN 0.125MG PO DAILY, PROTONIX 40MG IV DAILY, SILDENAFIL 20MG PO TID, THE POTASSIUM AND MAGNESIUM PROTOCOLS. (2) Hypoxia Status: Chronic (3) Atrial fibrillation with RVR Status: Acute Plan: DIGOXIN 125MCG PO DAILY, AMIODARONE 200MG PO BID (4) AMS (altered mental status) Status: Acute Qualifiers: Altered mental status type: transient alteration of awareness Qualified Co de(s): R40.4 - Transient alteration of awareness (5) AAA (abdominal aortic aneurysm) Status: Chronic Qualifiers: Presence of rupture: without rupture Qualified Code(s): I71.4 - Abdominal aortic aneurysm, without rupture (6) Anemia Status: Chronic Qualifiers: Anemia type: iron deficiency Iron deficiency anemia type: unspecified iron deficiency Qualified Code(s): D50.9 - Iron deficiency anemia, unspecified (7) BPH (benign prostatic hyperplasia) Status: Chronic Qualifiers: Lower urinary tract symptom presence: unspecified whether lower urinary tract symptoms present Qualified Code(s): N40.0 - Benign prostatic hyperplasia without lower urinary tract symptoms (8) CAD (coronary artery disease) Status: Chronic Qualifiers: Coronary Disease-Associated Artery/Lesion type: [place] artery [place] vs. transplanted heart: [place] heart (9) Diabetes mellitus Status: Chronic Qualifiers: Diabetes mellitus type: type 2 Diabetes mellitus assisted insulin use: unspecified assisted insulin use status Diabetes mellitus complication status: without complication Qualified Code(s): E11.9 - Type 2 diabetes mellitus without complications (10) GERD (gastroesophageal reflux disease) Status: Chronic Qualifiers: Esophagitis presence: esophagitis presence not specified Qualified Code(s): K21.9 - Gastro-esophageal reflux disease without esophagitis (11) History of CVA (cerebrovascular accident) Status: Chronic (12) Hyperlipemia Status: Chronic Qualifiers: Hyperlipidemia type: mixed hyperlipidemia Qualified Code(s): E78.2 - Mixed hyperlipidemia (13) Hypertension Status: Chronic Qualifiers: Hypertension type: essential hypertension Qualified Code(s): I10 - Essential (primary) hypertension
[2020-06-28 12:12] VITALS: BP 72/45
[2020-06-28] MEDS ORDERED: PHARMACY COMMENT IV NR (20:30)
== END 2020-06-28 10:58 | disposition expired | DRG 177 ==
LOC: ICU 06-03 10:20
PROVIDERS: ADMIT Internal Medicine; ATTEND Internal Medicine
DX: R09.02 Hypoxemia; I10 Essential (primary) hypertension; R44.1 Visual hallucinations; R26.81 Unsteadiness on feet; R13.10 Dysphagia, unspecified; Z86.73 Personal history of transient ischemic attack (TIA), and cerebral infarction without residual deficits; I87.2 Venous insufficiency (chronic) (peripheral); R40.4 Transient alteration of awareness; J12.81 Pneumonia due to SARS-associated coronavirus; E78.5 Hyperlipidemia, unspecified; I71.4 Abdominal aortic aneurysm, without rupture; I25.10 Atherosclerotic heart disease of native coronary artery without angina pectoris; E11.65 Type 2 diabetes mellitus with hyperglycemia; I48.91 Unspecified atrial fibrillation; R44.0 Auditory hallucinations; D50.9 Iron deficiency anemia, unspecified; U07.1 COVID-19; R47.81 Slurred speech; E87.0 Hyperosmolality and hypernatremia; F41.9 Anxiety disorder, unspecified